=== PATIENT | male | born 1945 | race Caucasian/White ===

== ENCOUNTER → 2016-05-15 | Outpatient (CLI) | payer OTHER ==
[~2016-05-15] MED LIST: ALLO100T PO; AMLO5TAB2 PO; ASPI-482 PO; ATOR20TA58 PO; CHOL10003 PO; DICL75TA PO; DULO30CA2 PO; FENO145T2 PO; FLUT9.9S NS; HYDR-971 PO; LIDO700A4 TP; LISI1TAB7 PO; LORA1TAB PO; METH-38 PO; METO100T2 PO; MORP15TA3 PO; OXYC10TA PO; OXYC1TAB9 PO; [UNRECOGNIZED DRUG - CODE] PO
--- NOTE | 2016-05-15 23:48 | PAIN ---
DATE OF SERVICE: 05/15/2016 DIAGNOSES: Lumbar radiculopathy with lumbar spondylosis and post-lumbar laminectomy syndrome. HISTORY OF PRESENT ILLNESS: The patient is a 71-year-old male who returns for followup status post caudal epidural steroid injection x 3, most recently on 04/04/2016. The patient reports he did quite well after that about 50% improvement overall in the low back and right leg, but the pain is returning now over the past week or so in the low back, posterior gluteus, posterior thigh, lateral thigh, anterior thigh, medial thigh on the right side. The patient also having some significant difficulty with the pain in his hip and does have a superior labral tear and cyst in the right hip as well, which may need surgical attention and this appears to be favoring his right leg significantly which appears to be making his low back pain much worse and with more radiation to the right leg. The patient reports as a 3-4 on a scale of 10 currently, but it can be as high as a 9 or 10 depending on activity. He has tried doing physical therapy, he has tried doing some exercises and walking on his own, but the pain is too intense for him to complete any of this on a consistent basis. The patient reports no new bowel or bladder incontinence, no new motor or sensory deficits or other complaints. PHYSICAL EXAMINATION: VITAL SIGNS: The patient's blood pressure is 144/82, pulse 64, respirations 18, temperature 97.9 degrees Fahrenheit. Height 6 feet and weight is 250 pounds. GENERAL: The patient is awake, alert, oriented, appropriate, very pleasant demeanor. HEENT: Shows normocephalic, atraumatic. Extraocular movements are intact and symmetrical. Oral cavity shows mucous membranes are moist and pink. Dentition is intact. NECK: Shows anterior throat supple without palpable lymphadenopathy noted. Swallow reflex is symmetrical. Neck shows full rotation and motion of the cervical spine without difficulty. CHEST: Shows normal on inspection. Breath sounds are clear to auscultation bilaterally. HEART: Shows S1 and S2 clear. ABDOMEN: Obese, soft, nontender, nondistended. No palpable organomegaly is noted. BACK: Shows spine grossly in midline. Well healed surgical scar is noted in the lumbar distribution. Lumbar paraspinous muscle shows some moderate tenderness that is diffuse bilaterally in the middle and lower distribution of paraspinous musculature in the lumbar distribution, essentially equal right and left with normal muscle girth. No asymmetry or atrophy, or hypertrophy noted. No tenderness over the sacrum and sacroiliac regions. The patient shows good rotation and motion of the lumbar spine both laterally as well as extension and flexion. EXTREMITIES: Lower extremities show deep tendon reflexes 1+ in the patellar tendons. Motor exam is approximately 4 on a scale of 5 with right dorsiflexion, extension, quadriceps and hamstring flexion of 5/5 on the left. PLAN: Options were discussed with the patient. The patient's old chart was reviewed as his current medication regimen and updated. Current review of systems updated today as well. We will submit for additional caudal approach epidural steroid injection for the patient as he did very well with these initially. Also the patient will be checking to getting his right hip evaluated and hopefully treated as this appears to be significantly contributing to his low back pain and the persistence of it. The patient was given Medrol Dosepak with instructions, side effects to be aware of and will follow up after hip evaluation and we will submit for repeat caudal approach epidural steroid injection as he still has persistent radicular pain in the right leg. ANISH DELGADO MD DR: BREONNA/anna JOB#: [id number] / [id number]
== END | disposition home or self-care (01) ==
LOC: PNCL 09:53
PROVIDERS: ATTEND Anesthesiology
DX: M54.16 Radiculopathy, lumbar region (principal); M47.896 Other spondylosis, lumbar region; M96.1 Postlaminectomy syndrome, not elsewhere classified
CPT/HCPCS: 99212

== ENCOUNTER → 2016-08-24 | Outpatient (CLI) | payer MEDICARE, OTHER ==
[~2016-08-24] MED LIST changes: +IOHEXOL 180 MG/ML 10 ML VIAL. ONE; +methylPREDNISolone ACETATE 40 MG/ML VIAL. ONE; +methylPREDNISolone ACETATE 80 MG/ML VIAL. ONE
--- NOTE | 2016-08-24 22:07 | PAIN ---
DATE OF SERVICE: 08/24/2016 PROGRESS NOTE FOR PAIN CLINIC DIAGNOSES: Lumbar radiculopathy with lumbar spondylosis and post-lumbar laminectomy syndrome. HISTORY OF PRESENT ILLNESS: The patient is a 71-year-old male, who returns for followup status post previous caudal epidural steroid injections, last one was 04/04/2016. The patient had difficulty getting, is improved with his worker's compensation insurance; however, is no longer using this, returns today reporting significant pain in the low back, right lower extremity, mostly in the right posterior gluteus, posterior thigh, posterior knee, calf and into the lateral thigh as well on that side. The patient has also some groin pain with the right hip. He did have the x-ray of the right hip performed, which shows potential suggestive findings of femoroacetabular impingement that was again from 01/2016. The patient reports still some groin pain as well on the right side, worse with walking and standing. He relates a story about a week ago, he had several ____ with more than normal walking, but only for 2-3. stores, which was in and out and riding in a car and he was unable to bear weight and walk for almost 24 hours, following this difficulty sleeping, because of the pain in low back and right leg as well as send him back in about 1 day with the activity. The patient reports pain is anywhere from 3 to 10 on a scale of 10, worse with activity, standing, walking, better with sitting or lying down, most times, although the pain does awaken him from sleep occasionally as well. He has reposition every 2 hours ____. The patient reports no new motor or sensory deficits, no new bowel or bladder incontinence or other complaints. PHYSICAL EXAMINATION: VITAL SIGNS: The patient's blood pressure 111/71, pulse 64, respirations are 20, temperature is 98.1 degrees Fahrenheit. Height 6 feet, weight is 245 pounds. GENERAL: The patient is awake, alert, oriented, appropriate, very pleasant demeanor. HEENT: Head shows normocephalic, atraumatic. Extraocular movements are intact and symmetrical. The patient wears eye glasses. Oral cavity, mucous membranes are moist and pink. Dentition is intact. NECK: Shows anterior throat supple without palpable lymphadenopathy noted. Swallow reflex is symmetrical. CHEST: Shows normal on inspection. Breath sounds clear to auscultation bilaterally. HEART: Shows S1 and S2 clear. No murmur was auscultated. ABDOMEN: Obese, soft, nontender, nondistended. No palpable organomegaly. No rebound or guarding demonstrated. BACK: Shows spine grossly midline, well healed surgical scars again noted in the lumbar distribution. Lumbar paraspinous musculature shows some symmetry with the lumbar paraspinous muscles with palpation shows some moderate tenderness, but only diffusely throughout bilaterally. The patient shows no tenderness over the sacrum or sacroiliac regions. EXTREMITIES: Lower extremities show deep tendon reflexes at 1+ in the patellar and tendo calcaneus tendons are equal. Motor exam is approximately 4 on a scale of 5 with right dorsiflexion and extension and 5/5 on the left. Options were discussed with the patient and the patient's old chart was reviewed as his current medication regimen updated. Current review of systems updated today as well. We will proceed with a caudal approach epidural steroid injection today with fluoroscopic guidance as the first in this series. Risks were again discussed including, but not limited to bleeding, infection, possibility of epidural hematoma, subsequent neurologic compromise, dural punctures, headaches, spinal cord and/or nerve damage, side effects of steroid medication and poor results regarding pain control. The patient understands and wishes to proceed. The patient will return to clinic in approximately 2 weeks for followup, was counseled as to return appointment and activity level and side effects to be aware of. DIAGNOSES: Lumbar radiculopathy with lumbar spondylosis and post-lumbar laminectomy syndrome. PROCEDURE: Caudal approach epidural steroid injection using C-arm fluoroscopic guidance under sterile prep and drape using local anesthetic. MEDICATION INJECTED: Depo-Medrol 120 mg plus 10 mL of preservative-free normal saline and 2 mL of Isovue for contrast. CONDITION AT DISCHARGE: Stable. The patient tolerated procedure well, had no complications. ANISH DELGADO MD DR: BREONNA/anna JOB#: [id number] / [id number]
== END | disposition home or self-care (01) ==
LOC: PNCL 09:44
PROVIDERS: ATTEND Anesthesiology
DX: M47.26 Other spondylosis with radiculopathy, lumbar region (principal); M96.1 Postlaminectomy syndrome, not elsewhere classified
CPT/HCPCS: 62323; J1030; J1040

== ENCOUNTER → 2016-09-07 | Outpatient (CLI) | payer MEDICARE, OTHER ==
--- NOTE | 2016-09-08 01:27 | PAIN ---
DATE OF SERVICE: 09/07/2016 PROGRESS NOTE FOR PAIN CLINIC DIAGNOSES: Lumbar radiculopathy with lumbar spondylosis and lumbar post-laminectomy syndrome. HISTORY OF PRESENT ILLNESS: The patient is a 71-year-old male, who returns for followup status post caudal approach epidural steroid injection x 1. The patient reports about 70% improvement only for few days after the injection. The patient reports the pain returned fairly quickly in the low back and into the right lower extremity as it was previously. The patient reports it is a 10 on a scale of 10, it is worst, as 5 on a scale of 10, at least at 5 today. The patient reports cramping, stabbing, aching and sharp pain is severe, worse on the right side low back, posterior gluteus, posterior thigh, lateral thigh, anterior thigh, medial thigh, some on the left side as well across the back, but mostly in the right side. The patient reports worse with weightbearing, standing, walking, change the position. Awake it from sleep at night and he has repositioned, take pain medicine at night, etc. The patient reports no new motor or sensory deficits, no new bowel or bladder incontinence or other complaints. PHYSICAL EXAMINATION: VITAL SIGNS: Blood pressure is 128/78, pulse 56, respirations are 18, temperature 98.2 degrees Fahrenheit, height is 6 feet, weight 245 pounds. GENERAL: The patient is awake, alert, oriented, appropriate, very pleasant demeanor. HEENT: Shows normocephalic, atraumatic. Extraocular symmetrical. Oral cavity, mucous membranes are moist and pink. Dentition is intact. NECK: Shows anterior throat supple without palpable lymphadenopathy noted. Swallow reflex is symmetrical. CHEST: Shows normal on inspection. Breath sounds are clear to auscultation bilaterally. HEART: Shows S1 and S2 clear. No murmurs auscultated. ABDOMEN: Obese, soft, nontender, nondistended. No palpable organomegaly. No rebound or guarding demonstrated. BACK: Shows spine grossly midline ____ healed surgical scar noted in the lumbar distribution, some flattening of lumbar lordotic curvature on inspection. Lumbar paraspinous musculature shows some moderate tenderness with palpation in the lower lumbar distribution bilaterally, but only diffusely without atrophy, hypertrophy without radiation of pain. EXTREMITIES: Lower extremities show deep tendon reflexes at 1+ in the patellar and tendo calcaneus tendons are equal. Motor exam is approximately 5/5 on the left and 4/5 on the right with dorsiflexion, extension, quadriceps and hamstring flexion. Options were discussed with the patient and the patient's old chart was reviewed as his current medication regimen updated. Current review of systems updated today as well. We will proceed with the second caudal approach epidural steroid injection today with fluoroscopic guidance. Risks were again discussed including, but not limited to bleeding, infection, possibility of epidural hematoma, subsequent neurologic compromise, dural puncture, headaches, spinal cord and/or nerve damage, side effects of steroid medication and poor results regarding pain control. The patient understands and wishes to proceed. The patient will return to the clinic in approximately 2 weeks for followup, was counseled on return appointment, activity level and side effects to be aware of. DIAGNOSES: Lumbar radiculopathy with lumbar spondylosis and post-laminectomy syndrome. PROCEDURE: Caudal approach epidural steroid injection using C-arm fluoroscopic guidance under sterile prep and drape using local anesthetic. MEDICATION INJECTED: Depo-Medrol 120 mg plus 10 mL of preservative-free normal saline and 2 mL of Isovue for contrast. CONDITION AT DISCHARGE: Stable. The patient tolerated the procedure well, had no complications. ANISH DELGADO MD DR: BREONNA/nts JOB#: [id number] / [id number]
== END | disposition home or self-care (01) ==
LOC: PNCL 09:36
PROVIDERS: ATTEND Anesthesiology
DX: M47.26 Other spondylosis with radiculopathy, lumbar region (principal); M96.1 Postlaminectomy syndrome, not elsewhere classified
CPT/HCPCS: 62323; J1030; J1040

== ENCOUNTER → 2016-09-28 | Outpatient (CLI) | payer MEDICARE, OTHER ==
--- NOTE | 2016-09-29 02:38 | PAIN ---
DATE OF SERVICE: 09/28/2016 DIAGNOSES: Lumbar radiculopathy with lumbar spondylosis and post-lumbar laminectomy syndrome. HISTORY OF PRESENT ILLNESS: The patient is a 71-year-old male who returns for followup status post caudal approach epidural steroid injections x 2. The patient reports he has done about 20% improvement overall, still some significant pain in the low back and in the right lower extremity most significantly. The patient reports it as a 9 on a scale of 10, it is currently 3 on a scale of 10 today, reports no new motor or sensory deficits, no new bowel or bladder incontinence, but still significant pain in the low back and right leg. The patient reports it is worse with walking and standing, is waking him from sleep at night, it is noticeable with sitting or riding in a car for more than an hour or so, at night he has to reposition himself, get out of bed or change positions. The patient reports no new motor or sensory deficits, no new bowel or bladder incontinence, but still significant pain in the low back and right leg. PHYSICAL EXAMINATION: VITAL SIGNS: The patient's blood pressure 141/81, pulse 58, respirations are 18, temperature is 98.1 degrees Fahrenheit. Height 6 feet, weight is 250 pounds. GENERAL: The patient is awake, alert, oriented, appropriate, very pleasant demeanor. HEENT: Head shows normocephalic, atraumatic. Extraocular movements are intact and symmetrical. Oral cavity: Mucous membranes moist and pink. Dentition is intact. NECK: Shows anterior throat supple without palpable lymphadenopathy noted. Swallow reflex is symmetrical. CHEST: Shows normal on inspection. Breath sounds are clear to auscultation bilaterally. HEART: Shows S1 and S2 clear. ABDOMEN: Soft, nontender, nondistended, obese. No palpable organomegaly is noted. BACK: Shows spine grossly in the midline, some flattening of lumbar lordotic curvature. Well-healed surgical scar noted. Lumbar paraspinous muscle shows symmetrical on inspection with palpation shows some moderate tenderness bilaterally in the lumbar paraspinous muscles, but only diffusely without radiation. EXTREMITIES: The patient's lower extremities showed deep tendon reflexes at 1+ in the patellar and tendo calcaneus tendons are equal. Motor exam is approximately 4 on a scale of 5 on the right and 5/5 on the left with dorsiflexion and extension. Options were discussed with the patient and the patient's old chart was reviewed as his current medication regimen updated. Current review of systems updated today as well. We will proceed with a third in the series of caudal epidural steroid injection. Risks were again discussed including, but not limited to bleeding, infection, possibility of epidural hematoma, subsequent neurologic compromise, dural puncture, headaches, spinal cord and/or nerve damage, side effects of steroid medication and poor results regarding pain control. The patient understands and wishes to proceed. The patient will return to clinic in approximately 2 weeks for followup, was counseled on return appointment, activity level and side effects to be aware of. DIAGNOSES: Lumbar radiculopathy with lumbar spondylosis and post-lumbar laminectomy syndrome. PROCEDURE: Caudal approach epidural steroid injection with C-arm fluoroscopic guidance under sterile prep and drape and using local anesthetic. MEDICATIONS INJECTED: Is 120 mg Depo-Medrol plus 10 mL preservative-free normal saline and 2 mL of Isovue for contrast. CONDITION AT DISCHARGE: Stable. The patient tolerated the procedure well, had no complications. ANISH DELGADO MD DR: BREONNA/anna JOB#: [id number] / [id number]
== END | disposition home or self-care (01) ==
LOC: PNCL 09:34
PROVIDERS: ATTEND Anesthesiology
DX: M51.16 Intervertebral disc disorders with radiculopathy, lumbar region (principal); M96.1 Postlaminectomy syndrome, not elsewhere classified
CPT/HCPCS: 62323; J1030; J1040

== ENCOUNTER → 2016-12-05 | Outpatient (CLI) | payer MEDICARE, OTHER ==
[~2016-12-05] MED LIST changes: -IOHEXOL 180 MG/ML 10 ML VIAL. ONE; -methylPREDNISolone ACETATE 40 MG/ML VIAL. ONE; -methylPREDNISolone ACETATE 80 MG/ML VIAL. ONE
--- NOTE | 2016-12-05 14:01 | KCIC ---
INDICATION: COPD and short of air. TECHNIQUE: Two-view chest radiograph was obtained. No comparison is available. PA film was repeated. FINDINGS: There is mild hyperinflation with flattening of the diaphragm. There is no airspace disease. Calcified granuloma is noted on the right. The heart is not enlarged and there is no heart failure. There is no pleural effusion. There are minimal degenerative changes in the spine. IMPRESSION: No acute thoracic findings. Mild hyperinflation can be secondary to emphysema. Electronically signed by: Manpreet Elias MD (12/05/2016 1:57 PM) [facility]
== END | disposition home or self-care (01) ==
LOC: KCIC 13:40
PROVIDERS: ATTEND Family Medicine
DX: J44.9 Chronic obstructive pulmonary disease, unspecified (principal); J43.9 Emphysema, unspecified
CPT/HCPCS: 71020

== ENCOUNTER 2017-04-20 13:46 | Emergency (ER) | payer MEDICARE, OTHER ==
[2017-04-20 14:49] LABS: ADD MAN DIFF? NO
[2017-04-20 14:53] LABS: BASO # 0.1 x10^3/uL (0.0-0.2); BASO % 1 % (0-3); EOS % 4 % (0-3); HEMATOCRIT 41.7 % (39.0-53.0); HEMOGLOBIN 13.8 g/dL (13.0-17.5); LYMPH # 2.5 x10^3/uL (1.0-4.8); LYMPH % 31 % (24-48); MEAN CORPUSCULAR HEMOGLOBIN 31 pg (25-35); MEAN CORPUSCULAR HGB CONC 33 g/dL (31-37); MEAN CORPUSCULAR VOLUME 95 fL (79-100); MONO % 10 % (0-9); NEUT % 55 % (31-73); PLATELET COUNT 263 x10^3/uL (140-400); RED BLOOD COUNT 4.41 x10^6/uL (4.30-5.70); RED CELL DISTRIBUTION WIDTH 14.2 % (11.5-14.5); WHITE BLOOD COUNT 8.1 x10^3/uL (4.0-11.0)
[2017-04-20 15:06] LABS: ANION GAP 12 (6-14); BLOOD UREA NITROGEN 52 mg/dL (8-26); BUN/CREATININE RATIO 29 (6-20); CALCIUM 9.7 mg/dL (8.5-10.1); CARBON DIOXIDE 25 mmol/L (21-32); CHLORIDE 102 mmol/L (98-107); CREATININE 1.8 mg/dL (0.7-1.3); GFR 37.5; GLUCOSE 104 mg/dL (70-99); POTASSIUM 4.2 mmol/L (3.5-5.1); SODIUM 139 mmol/L (136-145)
[2017-04-20 15:12] LABS: ALK PHOS 50 U/L (46-116); ALT (SGPT) 25 U/L (16-63); AST (SGOT) 25 U/L (15-37); TOTAL BILIRUBIN 0.4 mg/dL (0.2-1.0); TOTAL PROTEIN 7.9 g/dL (6.4-8.2)
[2017-04-20 15:21] LABS: CKMB INDEX 0.9 % (0-4); CKMB MASS 1.4 ng/mL (0.0-3.6); CREATINE KINASE 152 U/L (39-308)
[2017-04-20 15:21] LABS: TROPONINI < 0.017 ng/mL (0.000-0.055)
== END 2017-04-20 17:10 | disposition home or self-care (01) ==
LOC: ER 13:46
DX: R14.1 Gas pain (principal); K59.00 Constipation, unspecified; I10 Essential (primary) hypertension; K21.9 Gastro-esophageal reflux disease without esophagitis; E78.00 Pure hypercholesterolemia, unspecified; G89.29 Other chronic pain; J44.9 Chronic obstructive pulmonary disease, unspecified; Z95.5 Presence of coronary angioplasty implant and graft
CPT/HCPCS: 36415; 71010; 74176; 80053; 82553; 84484; 85025; 93005; 99285-25

== ENCOUNTER 2017-05-20 05:50 | Emergency (ER) | payer MEDICARE, OTHER ==
[2017-05-20 06:25] LABS: ADD MAN DIFF? NO
[2017-05-20 06:40] LABS: ANION GAP 9 (6-14); BLOOD UREA NITROGEN 52 mg/dL (8-26); BUN/CREATININE RATIO 29 (6-20); CALCIUM 10.3 mg/dL (8.5-10.1); CARBON DIOXIDE 26 mmol/L (21-32); CHLORIDE 100 mmol/L (98-107); CREATININE 1.8 mg/dL (0.7-1.3); GFR 37.5; GLUCOSE 126 mg/dL (70-99); POTASSIUM 4.1 mmol/L (3.5-5.1); SODIUM 135 mmol/L (136-145)
[2017-05-20 06:45] LABS: BASO # 0.1 x10^3/uL (0.0-0.2); BASO % 1 % (0-3); EOS # 0.3 x10^3/uL (0.0-0.7); EOS % 5 % (0-3); HEMATOCRIT 40.2 % (39.0-53.0); HEMOGLOBIN 13.3 g/dL (13.0-17.5); LYMPH # 2.7 x10^3/uL (1.0-4.8); LYMPH % 36 % (24-48); MEAN CORPUSCULAR HEMOGLOBIN 31 pg (25-35); MEAN CORPUSCULAR HGB CONC 33 g/dL (31-37); MEAN CORPUSCULAR VOLUME 94 fL (79-100); MONO # 0.9 x10^3/uL (0.0-1.1); MONO % 13 % (0-9); NEUT # 3.4 x10^3uL (1.8-7.7); NEUT % 46 % (31-73); PLATELET COUNT 241 x10^3/uL (140-400); RED BLOOD COUNT 4.26 x10^6/uL (4.30-5.70); RED CELL DISTRIBUTION WIDTH 14.6 % (11.5-14.5); WHITE BLOOD COUNT 7.4 x10^3/uL (4.0-11.0)
[2017-05-20 06:46] LABS: ALBUMIN 3.9 g/dL (3.4-5.0); ALK PHOS 51 U/L (46-116); ALT (SGPT) 29 U/L (16-63); AST (SGOT) 25 U/L (15-37); LIPASE 255 U/L (73-393); TOTAL BILIRUBIN 0.4 mg/dL (0.2-1.0); TOTAL PROTEIN 7.7 g/dL (6.4-8.2)
[2017-05-20 06:52] LABS: NT-PRO BNP 120 pg/mL (0-124)
[2017-05-20 07:54] LABS: TROPONINI < 0.017 ng/mL (0.000-0.055)
[2017-05-20] MEDS: LIDO:MAALOX:DONNATAL 1:1:1 15 ML SINGLE DOSE SWSW ×2 (08:07)
== END 2017-05-20 09:10 | disposition home or self-care (01) ==
LOC: ER 05:50
DX: R06.00 Dyspnea, unspecified (principal); R11.10 Vomiting, unspecified; R14.0 Abdominal distension (gaseous); I10 Essential (primary) hypertension; E78.00 Pure hypercholesterolemia, unspecified; J44.9 Chronic obstructive pulmonary disease, unspecified; K21.9 Gastro-esophageal reflux disease without esophagitis; G89.29 Other chronic pain; Z95.5 Presence of coronary angioplasty implant and graft
CPT/HCPCS: 36415; 71046; 80053; 83690; 83880; 84484; 85025; 93005; 99285-25

== ENCOUNTER → 2017-06-04 | Outpatient (CLI) | payer MEDICARE, OTHER | END | disposition home or self-care (01) | LOC: KCIC CT 11:49 | DX: J84.10 Pulmonary fibrosis, unspecified (principal); J43.2 Centrilobular emphysema; I51.7 Cardiomegaly; I70.0 Atherosclerosis of aorta | CPT/HCPCS: 71250 ==

== ENCOUNTER → 2017-10-11 | Outpatient (CLI) | payer MEDICARE, OTHER | END | disposition home or self-care (01) | LOC: KCIC 10:55 | DX: J84.10 Pulmonary fibrosis, unspecified (principal); I10 Essential (primary) hypertension; E78.00 Pure hypercholesterolemia, unspecified | CPT/HCPCS: 71046 ==

== ENCOUNTER → 2017-11-26 | Outpatient (CLI) | payer MEDICARE, OTHER ==
[2017-11-26 09:59] LABS: ADD MAN DIFF? NO
[2017-11-26 10:09] LABS: BASO # 0.1 x10^3/uL (0.0-0.2); BASO % 1 % (0-3); EOS # 0.3 x10^3/uL (0.0-0.7); EOS % 4 % (0-3); HEMATOCRIT 44.2 % (39.0-53.0); LYMPH # 2.2 x10^3/uL (1.0-4.8); LYMPH % 32 % (24-48); MEAN CORPUSCULAR HEMOGLOBIN 33 pg (25-35); MEAN CORPUSCULAR HGB CONC 34 g/dL (31-37); MEAN CORPUSCULAR VOLUME 96 fL (79-100); MONO # 0.7 x10^3/uL (0.0-1.1); MONO % 10 % (0-9); NEUT # 3.7 x10^3uL (1.8-7.7); NEUT % 53 % (31-73); PLATELET COUNT 205 x10^3/uL (140-400); RED BLOOD COUNT 4.58 x10^6/uL (4.30-5.70); RED CELL DISTRIBUTION WIDTH 15.4 % (11.5-14.5)
[2017-11-26 10:25] LABS: ALBUMIN 3.6 g/dL (3.4-5.0); ANION GAP 9 (6-14); BLOOD UREA NITROGEN 26 mg/dL (8-26); CALCIUM 9.3 mg/dL (8.5-10.1); CARBON DIOXIDE 29 mmol/L (21-32); CHLORIDE 105 mmol/L (98-107); CREATININE 1.2 mg/dL (0.7-1.3); GFR 59.9; GLUCOSE 91 mg/dL (70-99); POTASSIUM 4.7 mmol/L (3.5-5.1); SODIUM 143 mmol/L (136-145)
[2017-11-26 10:27] LABS: PARTIAL THROMBOPLASTIN TIME 26 SEC (24-38); PROTHROMBIN TIME PATIENT 12.7 SEC (11.7-14.0)
[2017-11-26 11:31] LABS: SEDIMENTATION RATE 11 (0-15)
[2017-11-26 13:09] LABS: BILIRUBIN,URINE SMALL (NEG); CLARITY,URINE CLEAR; COLOR,URINE AMBER; GLUCOSE,URINE NEGATIVE (NEG); NITRITE,URINE NEGATIVE (NEG); PROTEIN,URINE NEGATIVE (NEG-TRACE); UROBILINOGEN,URINE 0.2 mg/dL (0.2 mg/dL)
[2017-11-26 13:19] LABS: BACTERIA,URINE FEW /HPF (0-FEW); HYALINE CASTS, URINE MANY /HPF; RBC,URINE 0 /HPF (0-2)
[2017-11-26 23:11] LABS: MRSA BY PCR Negative (Negative)
== END | disposition home or self-care (01) ==
LOC: SURGPAT 12:45
DX: I21.9 Acute myocardial infarction, unspecified (principal); I10 Essential (primary) hypertension; J44.9 Chronic obstructive pulmonary disease, unspecified; Z79.899 Other long term (current) drug therapy
CPT/HCPCS: 36415; 71046; 80048; 81001; 82040; 85025; 85610; 85651; 85730; 87086; 87641; 93005

== ENCOUNTER 2017-12-11 08:07 | Inpatient (IN) | payer MEDICARE, OTHER ==
[~2017-12-11] VITALS: Ht 182.9 cm; Wt 118.8 kg
[2017-12-11] VITALS (11 sets, daily range): BP systolic 113–172; BP diastolic 61–83
[~2017-12-11 08:07] MED LIST changes: +CRESTOR40 MG PO; -FENO145T2 PO; +FENO145T30 PO; +HYDROcodone/APAP 7.5/325MG 1 TAB TABLET PO PRN; +HYDROmorphone 2 MG/ML VIAL IV PRN; +LIDOCAINE 1% PF 2 ML VIAL. ID PRN; +LISI-334 PO; +MELO15TA23 PO; +MELOXICAM 7.5 MG TABLET PO PRN; +METO-247 PO; -METO100T2 PO; +METO100T7 PO; +OMEP40CA5 PO; +ONDANSETRON PF 4 MG/2 ML VIAL. IV PRN; +OXYC-411 PO; -OXYC1TAB9 PO; +PHEN16.287 PO; +POLY17PO29 PO; +TIOT18CA IH; +TRANEXAMIC ACID 1,000 MG in IV NS 50ML -- 1ST BAG INJ ONE; +TRANEXAMIC ACID 1,000 MG in IV NS 50ML -- 2ND BAG INJ ONE; +VENTOLIN HFA18 GM INH; +fentaNYL PF VIAL 100 MCG/2 ML VIAL IV PRN
[2017-12-11] MEDS ORDERED: ePHEDrine PF IN SALINE 50 MG/5 ML DISP.SYRIN IV ONE (08:35)
[2017-12-11] MEDS ORDERED: ROCURONIUM 50 MG/5 ML VIAL. ONE ×2 (08:37→10:13)
[2017-12-11] MEDS ORDERED: SUCCINYLCHOLINE 200 MG/10 ML VIAL. ONE (08:37)
[2017-12-11] MEDS ORDERED: fentaNYL PF VIAL 100 MCG/2 ML VIAL ONE ×3 (08:38→10:08)
[2017-12-11] MEDS ORDERED: oxyCODONE IR 5 MG TABLET ONE ×3 (09:00→12:42)
[2017-12-11 09:06] LABS: PROTHROMBIN TIME PATIENT 12.9 SEC (11.7-14.0)
[2017-12-11] MEDS ORDERED: PROPOFOL 20 ML IV ONE (09:34)
[2017-12-11] MEDS ORDERED: LIDOCAINE 2% PF Vial for OR 5 ML VIAL. ONE (09:34)
[2017-12-11] MEDS ORDERED: DEXAMETHASONE SOD PHOS 20 MG/5 ML VIAL. ONE (09:34)
[2017-12-11] MEDS ORDERED: ONDANSETRON PF 4 MG/2 ML VIAL. ONE (09:35)
--- NOTE | 2017-12-11 09:57 | PREOP HP ---
DATE OF SERVICE: 12/11/2017 REASON FOR CONSULTATION: Right hip pain. HISTORY OF PRESENT ILLNESS: The patient is a 72-year-old male that has had right-sided hip pain since about 2013, stemming from a work incident. He subsequently underwent back surgery and has ongoing right hip pain. He has right groin pain radiating into the right upper thigh and more recently has become so severe that he uses a walker for support because it severely affects his activities of daily living. He had undergone intra-articular injection in the past that was really painful and did not help. PAST MEDICAL HISTORY: Significant for coronary artery disease, hypertension, hyperlipidemia, cervical radiculopathy, anxiety, erectile dysfunction, gout, spinal stenosis, diastolic dysfunction. He had a past medical history significant for LA in 2002. PAST SURGICAL HISTORY: Three separate hernia repairs, colonoscopy, previous knee surgeries, rotator cuff repair and TLIF surgery of his back. FAMILY HISTORY: Significant for lymphoma in his mother, heart disease in his dad. SOCIAL HISTORY: He was a smoker and quit in 2012. Occasional alcohol use. Denies drug use. He is and has a daughter with him today. MEDICATIONS: List is reviewed. ALLERGIES: He has no known drug allergies. REVIEW OF SYSTEMS: No recent chest pain, shortness of breath, fever, chills, constitutional symptoms, mainly significant for the right hip pain. PHYSICAL EXAMINATION: VITAL SIGNS: Per his admission sheet. HEENT: Atraumatic, normocephalic. HEART: Regular rate and rhythm. LUNGS: Clear to auscultation bilaterally. ABDOMEN: Benign. EXTREMITIES: Examination of the right hip reveals pain limited extremes of range of motion. Normal examination of the contralateral hip. Well-healed incisions on both knees, normal alignment, stability of bilateral knees and ankles. IMAGING: X-rays show severe degenerative disease in his right hip. IMPRESSION: Right hip degenerative joint disease. TREATMENT PLAN: I went over with him previous options, and he has already really failed nonoperative options of activity modification, use of a walker, and we have previously talked through risks, benefits, postoperative course of total hip arthroplasty, possibility of leg length inequality, infection, premature wear or loosening, nerve or blood vessel damage, medical or other anesthetic complications among others. All his questions were answered. He wishes to proceed with total hip arthroplasty today and [facility] admission to follow. MARTHA VARGAS MD DR: DAVID/anna JOB#: [id number] / [id number]
[2017-12-11] MEDS: MORPHINE SULFATE 5 MG, KETOROLAC 30MG VIAL 30 MG, ROPIVacaine 0.5% PF 60 ML, EPINEPHrin... INT ART ONE ×10 (09:59→10:46)
[2017-12-11] MEDS ORDERED: GLYCOPYRROLATE 1 MG/5 ML VIAL. ONE (10:14)
[2017-12-11] MEDS ORDERED: NEOSTIGMINE METHYLSULFATE 5 MG/5 ML SYRINGE. ONE (10:14)
[2017-12-11] MEDS: PROCHLORPERAZINE 10 MG/2 ML VIAL. IV PRN ×2 (11:30→11:44)
[2017-12-11] MEDS: MORPHINE SULFATE 2 MG/ML VIAL. IV PRN ×2 (11:31→11:43)
[2017-12-11] MEDS: fentaNYL PF VIAL 100 MCG/2 ML VIAL IV PRN ×2 (11:32→11:42)
[2017-12-11] MEDS: IV RINGERS,LACTATED 1000ML 1,000 ML IV SCH ×2 (11:33→11:40)
[2017-12-11] MEDS ORDERED: ACETAMINOPHEN 325 MG TABLET. PO PRN (12:30)
[2017-12-11] MEDS ORDERED: diphenhydrAMINE 50 MG/ML VIAL IV PRN (12:30)
[2017-12-11] MEDS ORDERED: HYDROcodone/APAP 10/325 1 TAB TABLET PO PRN (12:30)
[2017-12-11] MEDS ORDERED: MORPHINE SULFATE 2 MG/ML VIAL. IV PRN (12:30)
[2017-12-11] MEDS ORDERED: CALCIUM CARBONATE 500 MG TAB.CHEW PO PRN (12:30)
[2017-12-11] MEDS ORDERED: 0.9 % SODIUM CHLORIDE 10 ML DISP.SYRIN. IV PRN (12:30)
[2017-12-11] MEDS ORDERED: HYOSCY PO PRN (12:30)
[2017-12-11] MEDS ORDERED: traMADol 50 MG TABLET PO PRN ×2 (12:30)
[2017-12-11] MEDS ORDERED: HYDROcodone/APAP 7.5/325MG 1 TAB TABLET PO PRN (12:30)
[2017-12-11] MEDS ORDERED: ATROPINE PO PRN (12:30)
[2017-12-11] MEDS ORDERED: MORPHINE SULFATE 4 MG/ML VIAL. IV PRN ×2 (12:30)
[2017-12-11] MEDS ORDERED: fentaNYL PF VIAL 100 MCG/2 ML VIAL IV PRN ×2 (12:30)
[2017-12-11] MEDS ORDERED: SCOP PO PRN (12:30)
[2017-12-11] MEDS ORDERED: PHENOBARB PO PRN (12:30)
[2017-12-11] MEDS ORDERED: PROCHLORPERAZINE 10 MG/2 ML VIAL. IV PRN (12:30)
[2017-12-11] MEDS ORDERED: DEXTROSE 50% 25 GM / 50ML DISP.SYRIN. IV PRN (12:30)
[2017-12-11] MEDS ORDERED: ZOLPIDEM 5 MG TABLET. PO PRN (12:30)
[2017-12-11] MEDS ORDERED: oxyCODONE/APAP 5/325 1 TAB TABLET PO PRN (12:30)
[2017-12-11] MEDS ORDERED: MORPHINE SULFATE 10 MG/ML VIAL. IV PRN (12:30)
[2017-12-11] MEDS ORDERED: ALBUTEROL SULFATE 2.5 MG/3 ML NEBU. NEB ONE (12:30)
--- NOTE | 2017-12-11 12:56 | RAD ---
EXAM: Pelvis, single view. HISTORY: Arthroplasty. COMPARISON: None. FINDINGS: Frontal views of the pelvis are obtained. There is a right hip arthroplasty in expected position. There is surrounding soft tissue gas and there are skin nikita due to recent surgery. There is instrumented fusion at the lower lumbar levels, partially included on the [id number]. IMPRESSION: Right hip arthroplasty in expected position. Electronically signed by: Samantha Rodriguez MD (12/11/2017 12:53 PM) [place] [id number]
[2017-12-11] MEDS ORDERED: FLUTICASONE 50MCG/NASAL SPRAY 16GM BOTTLE. NS PRN (14:00)
[2017-12-11] MEDS: IV DEXTROSE 5 %-0.45 % NACL 1,000 ML IV SCH (15:00)
[2017-12-11] MEDS: PANTOPRAZOLE 40 MG TABLET.DR. PO SCH (15:26)
[2017-12-11] MEDS: oxyCODONE IR 5 MG TABLET PO PRN ×2 (15:28→21:05)
[2017-12-11] MEDS: ALBUTEROL SULFATE 2.5 MG/3 ML NEBU. NEB SCH ×2 (16:00→20:00)
[2017-12-11] MEDS ORDERED: WARFARIN 7.5 MG TABLET. PO ONE (16:00)
[2017-12-11] MEDS: IPRATRPIUM/ALBUTEROL 0.5/2.5MG 3 ML NEBU. NEB SCH ×2 (16:11→19:33)
[2017-12-11] MEDS: KETOROLAC 30MG VIAL 30 MG, BUPIVACAINE MPF 0.25% 20 ML, EPINEPHrine 0.5 MG in TOTAL VOL... INT ART SCH (16:31)
[2017-12-11] MEDS: FERROUS SULFATE 325 MG TABLET. PO SCH (16:32)
--- NOTE | 2017-12-11 17:08 | PDOC4 ---
Operative Note Operative Note Date of surgery: 12/11/2017 Preoperative diagnosis: Degenerative joint disease right hip Postoperative diagnosis: Same Operative procedure: Right total hip arthroplasty. Surgeon: Sourav Assist: Ten Anesthesia: Gen. Estimated blood loss: 400 mL Complications: None Operative indications: Mr. Marlow is a 72-year-old male who had progressive worsening hip pain stemming from a 2014 injury and was thought to have posttraumatic arthritis as a result. Details are in my preoperative evaluation but indicates that he has failed nonoperative treatment and wishes to proceed with total hip arthroplasty. We had covered risks benefits postoperative course including the possibility of infection leg length inequality nerve or blood vessel damage premature wear or loosening instability ankle or other anesthetic complications among others all his questions were answered regarding the surgery and recovery process and he wishes to proceed with surgical evaluation and treatment. Operative text: Patient was identified procedure verified patient placed in the supine position on the operating table. After adequate amounts of general anesthesia were administered he was placed in the decubitus position using the Stulberg hip positioner with his right side up. The right hip was then prepped and draped in standard sterile fashion and after timeout was performed patient procedure identified and verified a standard posterior approach was carried out to the right hip with a curvilinear incision made over the greater trochanter iliotibial band and gluteal fascia were split in line with their fibers Charnley retractor was placed external rotators were detached from their insertion hip capsule was split in a T fashion and the hip was dislocated femoral neck cut was made and femoral head was noted to be severely degenerative and sent for pathologic evaluation. Acetabulum was exposed and contents of the fovea were removed successive size reaming was carried up up to a size 57 with a 58 mm cluster hole hemispherical coated acetabular cup. Excellent scratch fit was obtained and a superior screw was used to supplement fixation. A size 40 inner diameter standard liner was impacted into place successive size broaching was carried out initially for the SMF stem however adequate leg length was not obtained per the initial templating and I switched over to the Synergy press-fit stem which was trial fit with a size 13 broach and a +8 mm trial which resulted in excellent stability and reproduction of his leg length and offset. Trial components were removed and after thorough irrigation carried out normal saline solution a size 13 synergy porous coated femoral component was inserted in proper version with a +8 mm sleeve and a 40 mm cobalt chrome femoral head that were all impacted to engage the Kc taper construct. Hip was reduced and noted to have equivalent leg length offset and excellent stability. Thorough irrigation again carried out normal saline solution hip capsule was repaired with #5 Ethibond suture external rotators were reattached transosseously with #5 Ethibond Hemovac drain and pain catheter were placed pain catheter mixture was injected throughout the joint capsule and surrounding areas fascia was closed with #1 PDS strata fix suture in a running position. Subcutaneous closure with buried Vicryl suture skin closure with nikita sterile dressings were applied consisting of a abraham dressing and Acticoat. Patient was returned to recovery room in stable condition having tolerated procedure well MARTHA VARGAS MD Dec 11, 2017 17:08
[2017-12-11] MEDS: oxyCODONE ER 10 MG TAB.ER.12H PO SCH (17:20)
[2017-12-11] MEDS: ATORVASTATIN CALCIUM 40 MG TABLET. PO SCH (21:03)
[2017-12-11] MEDS: CELECOXIB 100 MG CAPSULE. PO SCH (21:04)
[2017-12-11] MEDS: LORazepam 1 MG TABLET PO PRN (21:09)
[2017-12-12] MEDS: IV DEXTROSE 5 %-0.45 % NACL 1,000 ML IV SCH ×3 (01:00→20:30)
[2017-12-12 03:09] VITALS: BP 137/86
[2017-12-12] MEDS: ALBUTEROL SULFATE 2.5 MG/3 ML NEBU. NEB SCH ×2 (04:00)
[2017-12-12] MEDS: KETOROLAC 30MG VIAL 30 MG, BUPIVACAINE MPF 0.25% 20 ML, EPINEPHrine 0.5 MG in TOTAL VOL... INT ART SCH (04:55)
[2017-12-12] MEDS: PANTOPRAZOLE 40 MG TABLET.DR. PO SCH (05:01)
[2017-12-12] MEDS: oxyCODONE IR 5 MG TABLET PO PRN ×3 (05:02→16:12)
[2017-12-12 05:16] LABS: HEMATOCRIT 36.5 % (39.0-53.0); HEMOGLOBIN 12.3 g/dL (13.0-17.5); RED BLOOD COUNT 3.76 x10^6/uL (4.30-5.70); RED CELL DISTRIBUTION WIDTH 15.2 % (11.5-14.5); WHITE BLOOD COUNT 12.4 x10^3/uL (4.0-11.0)
[2017-12-12 05:22] LABS: PROTHROMBIN TIME PATIENT 15.1 SEC (11.7-14.0)
[2017-12-12] MEDS ORDERED: MAGNESIUM HYDROXIDE 2,400 MG/30 ML ORAL.SUSP. PO PRN (06:00)
[2017-12-12 07:06] VITALS: BP 131/77
--- NOTE | 2017-12-12 07:36 | PDOC ---
ORTHO PROGRESS NOTES Subjective Patient with difficulty sleeping and painful. Post-op Day: 1 Procedure R WILLIAM Vitals Vital Signs Date Time Temp Pulse Resp B/P (MAP) Pulse Ox O2 Delivery O2 Flow Rate FiO2 12/12/17 07:06 98.0 89 20 131/77 (95) 91 Nasal Cannula 4.0 98.0 Labs Laboratory Tests Test 12/11/17 08:40 12/12/17 03:20 Prothrombin Time 12.9 SEC (11.7-14.0) 15.1 SEC (11.7-14.0) Prothromb Time International Ratio 1.0 (0.8-1.1) 1.2 (0.8-1.1) Activated Partial Thromboplast Time 25 SEC (24-38) White Blood Count 12.4 x10^3/uL (4.0-11.0) Red Blood Count 3.76 x10^6/uL (4.30-5.70) Hemoglobin 12.3 g/dL (13.0-17.5) Hematocrit 36.5 % (39.0-53.0) Mean Corpuscular Volume 97 fL (79-100) Mean Corpuscular Hemoglobin 33 pg (25-35) Mean Corpuscular Hemoglobin Concent 34 g/dL (31-37) Red Cell Distribution Width 15.2 % (11.5-14.5) Platelet Count 175 x10^3/uL (140-400) Laboratory Tests Test 12/11/17 08:40 12/12/17 03:20 Prothrombin Time 12.9 SEC (11.7-14.0) 15.1 SEC (11.7-14.0) Prothromb Time International Ratio 1.0 (0.8-1.1) 1.2 (0.8-1.1) Activated Partial Thromboplast Time 25 SEC (24-38) White Blood Count 12.4 x10^3/uL (4.0-11.0) Red Blood Count 3.76 x10^6/uL (4.30-5.70) Hemoglobin 12.3 g/dL (13.0-17.5) Hematocrit 36.5 % (39.0-53.0) Mean Corpuscular Volume 97 fL (79-100) Mean Corpuscular Hemoglobin 33 pg (25-35) Mean Corpuscular Hemoglobin Concent 34 g/dL (31-37) Red Cell Distribution Width 15.2 % (11.5-14.5) Platelet Count 175 x10^3/uL (140-400) Assessment and Plan Patient states pain control somewhat better. Dressing dry and intact n/v intact distally O2 per nasal cannula PT per protocol. SONIA CEE APRN Dec 12, 2017 07:36
[2017-12-12] MEDS: IPRATRPIUM/ALBUTEROL 0.5/2.5MG 3 ML NEBU. NEB SCH ×4 (08:00→21:20)
[2017-12-12] MEDS: SENNOSIDES/DOCUSATE 8.6/50MG TABLET. PO SCH (08:14)
[2017-12-12] MEDS: CELECOXIB 100 MG CAPSULE. PO SCH ×2 (08:14→20:28)
[2017-12-12] MEDS: DULoxetine HCL 30 MG CAPSULE.DR PO SCH (08:14)
[2017-12-12] MEDS: ASPIRIN ENTERIC COATED 81 MG TABLET.DR. PO SCH (08:15)
[2017-12-12] MEDS: METHOCARBAMOL 750 MG TABLET PO PRN ×2 (08:15→14:40)
[2017-12-12] MEDS: METOPROLOL SUCC 24HR ER 100 MG TAB.ER.24H. PO SCH (08:15)
[2017-12-12] MEDS: FERROUS SULFATE 325 MG TABLET. PO SCH ×2 (08:15→16:12)
[2017-12-12] MEDS: MULTIVITAMIN with MINERAL TABLET. PO SCH (08:16)
[2017-12-12] MEDS: POLYETHYLENE GLYCOL 3350 17 GM PACKET. PO SCH (08:21)
[2017-12-12] MEDS: oxyCODONE/APAP 7.5/325 1 TAB TABLET PO PRN ×4 (08:21→20:29)
[2017-12-12] MEDS ORDERED: oxyCODONE IR 5 MG TABLET ONE ×3 (09:00)
[2017-12-12 09:58] VITALS: BP 137/64
[2017-12-12] MEDS: amLODIPine BESYLATE 5 MG TABLET PO SCH (10:01)
[2017-12-12 11:30] VITALS: BP 137/64
[2017-12-12] MEDS: LISINOPRIL 20 MG TABLET PO SCH (12:53)
[2017-12-12] MEDS ORDERED: BISACODYL 10 MG SUPP.RECT. PR PRN (16:00)
[2017-12-12] MEDS ORDERED: WARFARIN 5 MG TABLET. PO ONE (16:00)
[2017-12-12] MEDS: oxyCODONE ER 10 MG TAB.ER.12H PO SCH (17:06)
[2017-12-12 17:28] VITALS: BP 122/77
[2017-12-12] MEDS: ATORVASTATIN CALCIUM 40 MG TABLET. PO SCH (20:28)
[2017-12-12] MEDS: LORazepam 1 MG TABLET PO PRN (20:29)
[2017-12-13 04:35] LABS: HEMATOCRIT 34.2 % (39.0-53.0); HEMOGLOBIN 11.6 g/dL (13.0-17.5)
[2017-12-13 05:01] LABS: PROTHROMBIN TIME PATIENT 21.6 SEC (11.7-14.0)
[2017-12-13] MEDS: oxyCODONE/APAP 7.5/325 1 TAB TABLET PO PRN ×5 (05:21→21:12)
[2017-12-13] MEDS: POLYETHYLENE GLYCOL 3350 17 GM PACKET. PO SCH (05:33)
[2017-12-13 05:45] VITALS: BP 132/71
[2017-12-13] MEDS: IV DEXTROSE 5 %-0.45 % NACL 1,000 ML IV SCH ×2 (07:00→17:00)
--- NOTE | 2017-12-13 07:36 | PDOC ---
PROGRESS NOTES Subjective Subjective Problems overnight: Doing very well yesterday with physical therapy a bit more sore this morning, trying to cut down on some his chronic pain medications that he had preoperatively Objective Vital Signs Vital Signs Date Time Temp Pulse Resp B/P (MAP) Pulse Ox O2 Delivery O2 Flow Rate FiO2 12/13/17 05:45 98.6 77 20 132/71 (91) 88 Room Air 98.6 12/12/17 20:29 2.0 Physical Exam On examination abraham dressing is intact leg lengths equal distal neurovascular status intact Labs Laboratory Tests Test 12/11/17 08:40 12/12/17 03:20 12/13/17 04:20 Prothrombin Time 12.9 SEC (11.7-14.0) 15.1 SEC (11.7-14.0) 21.6 SEC (11.7-14.0) Prothromb Time International Ratio 1.0 (0.8-1.1) 1.2 (0.8-1.1) 2.0 (0.8-1.1) Activated Partial Thromboplast Time 25 SEC (24-38) White Blood Count 12.4 x10^3/uL (4.0-11.0) Red Blood Count 3.76 x10^6/uL (4.30-5.70) Hemoglobin 12.3 g/dL (13.0-17.5) 11.6 g/dL (13.0-17.5) Hematocrit 36.5 % (39.0-53.0) 34.2 % (39.0-53.0) Mean Corpuscular Volume 97 fL (79-100) Mean Corpuscular Hemoglobin 33 pg (25-35) Mean Corpuscular Hemoglobin Concent 34 g/dL (31-37) 34 g/dL (31-37) Red Cell Distribution Width 15.2 % (11.5-14.5) Platelet Count 175 x10^3/uL (140-400) Laboratory Tests Test 12/13/17 04:20 Hemoglobin 11.6 g/dL (13.0-17.5) Hematocrit 34.2 % (39.0-53.0) Mean Corpuscular Hemoglobin Concent 34 g/dL (31-37) Prothrombin Time 21.6 SEC (11.7-14.0) Prothromb Time International Ratio 2.0 (0.8-1.1) Assessment Assessment POD# [2], S/P [total hip arthroplasty] Problems: Plan Plan of Care Continue physical therapy with standard total hip precautions Plan home with home health on discharge Continue to adjust pain medication MARTHA VARGAS MD Dec 13, 2017 07:36
[2017-12-13] MEDS: PANTOPRAZOLE 40 MG TABLET.DR. PO SCH (07:49)
[2017-12-13] MEDS: IPRATRPIUM/ALBUTEROL 0.5/2.5MG 3 ML NEBU. NEB SCH ×4 (08:29→20:49)
[2017-12-13] MEDS: DULoxetine HCL 30 MG CAPSULE.DR PO SCH (08:36)
[2017-12-13] MEDS: ASPIRIN ENTERIC COATED 81 MG TABLET.DR. PO SCH (08:36)
[2017-12-13] MEDS: CELECOXIB 100 MG CAPSULE. PO SCH ×2 (08:36→21:12)
[2017-12-13] MEDS: SENNOSIDES/DOCUSATE 8.6/50MG TABLET. PO SCH (08:36)
[2017-12-13] MEDS: FERROUS SULFATE 325 MG TABLET. PO SCH ×2 (08:36→16:34)
[2017-12-13] MEDS: MULTIVITAMIN with MINERAL TABLET. PO SCH (08:39)
[2017-12-13] MEDS: LISINOPRIL 20 MG TABLET PO SCH (11:52)
[2017-12-13] MEDS: METOPROLOL SUCC 24HR ER 100 MG TAB.ER.24H. PO SCH (11:53)
[2017-12-13] MEDS: amLODIPine BESYLATE 5 MG TABLET PO SCH (11:53)
[2017-12-13 11:54] VITALS: BP 137/65
[2017-12-13] MEDS ORDERED: WARFARIN 1 MG TABLET. PO ONE (16:00)
[2017-12-13] MEDS: oxyCODONE ER 10 MG TAB.ER.12H PO SCH (18:11)
[2017-12-13 18:20] VITALS: BP 118/58
[2017-12-13] MEDS ORDERED: ALBUTEROL SULFATE 2.5 MG/3 ML NEBU. NEB PRN (20:00)
[2017-12-13] MEDS: ATORVASTATIN CALCIUM 40 MG TABLET. PO SCH (21:12)
[2017-12-14] MEDS: oxyCODONE/APAP 7.5/325 1 TAB TABLET PO PRN ×4 (00:47→14:55)
[2017-12-14] MEDS: IV DEXTROSE 5 %-0.45 % NACL 1,000 ML IV SCH (03:00)
[2017-12-14 04:20] LABS: HEMATOCRIT 35.1 % (39.0-53.0); HEMOGLOBIN 12.1 g/dL (13.0-17.5)
[2017-12-14 04:27] LABS: PROTHROMBIN TIME PATIENT 19.4 SEC (11.7-14.0)
[2017-12-14] MEDS: PANTOPRAZOLE 40 MG TABLET.DR. PO SCH (05:57)
[2017-12-14 06:25] VITALS: BP 110/71
[2017-12-14] MEDS: IPRATRPIUM/ALBUTEROL 0.5/2.5MG 3 ML NEBU. NEB SCH ×2 (07:51→12:17)
[2017-12-14] MEDS: SENNOSIDES/DOCUSATE 8.6/50MG TABLET. PO SCH (08:02)
[2017-12-14] MEDS: ASPIRIN ENTERIC COATED 81 MG TABLET.DR. PO SCH (08:03)
[2017-12-14] MEDS: CELECOXIB 100 MG CAPSULE. PO SCH (08:03)
[2017-12-14] MEDS: DULoxetine HCL 30 MG CAPSULE.DR PO SCH (08:03)
[2017-12-14] MEDS: MULTIVITAMIN with MINERAL TABLET. PO SCH (08:03)
[2017-12-14] MEDS: FERROUS SULFATE 325 MG TABLET. PO SCH (08:03)
[2017-12-14 08:05] VITALS: BP 119/74
[2017-12-14] MEDS: LISINOPRIL 20 MG TABLET PO SCH (08:07)
[2017-12-14] MEDS: METOPROLOL SUCC 24HR ER 100 MG TAB.ER.24H. PO SCH (08:07)
[2017-12-14] MEDS: amLODIPine BESYLATE 5 MG TABLET PO SCH (08:08)
[2017-12-14] MEDS: POLYETHYLENE GLYCOL 3350 17 GM PACKET. PO SCH (08:08)
--- NOTE | 2017-12-14 10:09 | PATHOLOGY ---
[facility] Accession Number: [id number] . 01 Material submitted: . BONE RIGHT HIP . 01 Clinical history: . DJD Right hip . 02 Diagnosis: Femoral head, right total hip arthroplasty: - Advanced degenerative arthritis. (JPM/db; 12/13/17) LBQ/12/13/2017 . 02 Electronically signed: . Ramez Arzate MD, Pathologist NPI- [id number] . 01 Gross description: . Received in formalin labeled "Ortega Marlow, bone right hip," is a femoral head measuring 5.1 x 5.1 x 5.5 cm in greatest dimensions. The articular surface is smooth to granular and pale og to dark brown in appearance, displaying an area of focal eburnation measuring 1.6 x 1.4 cm. Sectioning reveals a pale yellow to slightly hemorrhagic marrow space. The specimen is submitted representatively in cassette A1, following decalcification. ([facility]; 12/12/2017) XDC/XDC . 02 Pathologist provided ICD-10: M16.11 . 02 CPT . 594212, [id number] Performed at: [facility] [address], [place] [id number] MD Grant Rust MD Phone: [phone] Performed at: 02 [facility] [address] [place], [place] [id number] MD Ramez Arzate MD Phone: [phone]
[2017-12-14 12:30] VITALS: BP 103/66
[2017-12-14] MEDS ORDERED: WARFARIN 3 MG TABLET. PO SCH (14:00)
--- NOTE | 2017-12-15 21:25 | DS ---
DATE OF DISCHARGE: 12/14/2017 PRINCIPAL DIAGNOSIS: Posttraumatic osteoarthritis, right hip. PROCEDURE: Total hip arthroplasty. DISPOSITION: Home with home health. DISCHARGE MEDICATIONS: Include resumption of his home medications of oxycodone 15 mg p.o. q.i.d. p.r.n., Coumadin as directed by anticoagulation clinic, resume preoperative medications. DISCHARGE INSTRUCTIONS: Follow up in 2 weeks. Activity level, weightbearing as tolerated, standard total hip precautions. Maintain ELINA drain. Follow up if any redness, sepsis, present, drainage, fever, chills, uncontrolled pain or other problems. BRIEF DESCRIPTION OF HOSPITAL COURSE: The patient underwent uncomplicated total hip arthroplasty. Basically had the same or a little less pain than preoperatively throughout the postoperative course. First day was actually a little easier, second day he was more sore, but again was generally tolerating his preoperative regimen of pain with some additional breakthrough, which was no longer necessary on postop day #3. He progressed well through physical therapy he received, medically stable otherwise and was discharged home in stable condition. MARTHA VARGAS MD DR: DAVID/anna JOB#: [id number] / [id number]
== END 2017-12-14 15:19 | DRG 470 ==
LOC: OPSVCIP 08:07 → 4 SOUTHEST 13:04
PROVIDERS: ADMIT Orthopaedic Surgery; ATTEND Orthopaedic Surgery
PROC: 0SR90JA Replacement of Right Hip Joint with Synthetic Substitute, Uncemented, Open Approach (ICD-10-PCS; principal; 2017-12-11 09:45)
DX: M16.11 Unilateral primary osteoarthritis, right hip (principal); I10 Essential (primary) hypertension; E78.5 Hyperlipidemia, unspecified; I25.10 Atherosclerotic heart disease of native coronary artery without angina pectoris; F41.9 Anxiety disorder, unspecified; M10.9 Gout, unspecified; I25.2 Old myocardial infarction; Z80.7 Family history of other malignant neoplasms of lymphoid, hematopoietic and related tissues; Z82.49 Family history of ischemic heart disease and other diseases of the circulatory system; Z87.891 Personal history of nicotine dependence
CPT/HCPCS: 36415; 72170; 85014; 85018; 85027; 85610; 85730; 86850; 86900; 86901; 88304; 88311; 94640; 94760; A7015; J0171; J0330; J0690; J0780; J1100; J1885; J2001; J2270; J2405; J2704; J2710; J2795; J3010; J3490; J7030; J7120; J7613; J7620; 97116; 97150; 97530; 97535

== ENCOUNTER → 2018-05-22 | Outpatient (CLI) | payer MEDICARE, OTHER ==
[~2018-05-22] MED LIST changes: -AMLO5TAB2 PO; +AMLO5TAB7 PO; +HYDR-3164 PO; -HYDR-971 PO; -HYDROcodone/APAP 7.5/325MG 1 TAB TABLET PO PRN; -HYDROmorphone 2 MG/ML VIAL IV PRN; -LIDOCAINE 1% PF 2 ML VIAL. ID PRN; -MELOXICAM 7.5 MG TABLET PO PRN; -ONDANSETRON PF 4 MG/2 ML VIAL. IV PRN; -TRANEXAMIC ACID 1,000 MG in IV NS 50ML -- 1ST BAG INJ ONE; -TRANEXAMIC ACID 1,000 MG in IV NS 50ML -- 2ND BAG INJ ONE; -fentaNYL PF VIAL 100 MCG/2 ML VIAL IV PRN
--- NOTE | 2018-05-22 15:40 | KCIC ---
EXAM: AP, lateral and lumbosacral spot views with bilateral oblique views of the lumbar spine DATE: 05/22/2018 12:00 AM INDICATION: Right hip pain, low back pain, prior fusion COMPARISON: No Prior FINDINGS: For the purposes of this report, there are 5 nonrib-bearing lumbar-type vertebral bodies. Postoperative changes of posterior decompression and fusion L4-5 definite hardware complication. Mild to moderate multilevel intervertebral disc height loss. No spondylolisthesis. Rightward curvature of the lumbar spine apex L2. Multilevel facet degenerative changes are seen on the oblique views. Evaluation for pars defects limited given osteopenia and overlying structures. No evidence for acute fracture. IMPRESSION: 1. L4-5 posterior fusion without definite hardware complication or fracture. 2. Thoracolumbar scoliosis 3. Multilevel degenerative change Electronically signed by: Kiran Encarnacion MD (05/22/2018 3:35 PM) [facility]-KCIC2
== END | disposition home or self-care (01) ==
LOC: KCIC 15:07
PROVIDERS: ATTEND Family Medicine
DX: M47.816 Spondylosis without myelopathy or radiculopathy, lumbar region (principal); M41.85 Other forms of scoliosis, thoracolumbar region; M85.88 Other specified disorders of bone density and structure, other site
CPT/HCPCS: 72110

== ENCOUNTER → 2018-06-18 | Outpatient (CLI) | payer MEDICARE, OTHER ==
[~2018-06-18] MED LIST changes: +AMLO5TAB10 PO; -AMLO5TAB7 PO
--- NOTE | 2018-06-18 16:22 | CARD ---
MR#: [id number] Date of Study: 06/18/2018 Ordering Physician: FELA TURNER, Referring Physician: FELA TURNER, Tech: Katharine Palma [facility] APPROVED REPORT EXAM: Two-dimensional and M-mode echocardiogram with Doppler and color Doppler. Other Information Quality : Fair INDICATION Cardiac Disease: CAD 2D DIMENSIONS RVDd2.9 (2.9-3.5cm)Left Atrium(2D)4.1 (1.6-4.0cm) IVSd1.2 (0.7-1.1cm)Aortic Root(2D)3.7 (2.0-3.7cm) LVDd4.8 (3.9-5.9cm)LVOT Diameter2.1 (1.8-2.4cm) PWd0.9 (0.7-1.1cm)LVDs3.6 (2.5-4.0cm) FS (%) 25.0 %SV52.3 ml Aortic Valve AoV Peak Vineet.82.2cm/sAoV VTI13.8cm AO Peak GR.2.7mmHgLVOT Peak Vineet.76.6cm/s AO Mean GR.2mmHgAVA (VMAX)3.33cm2 SHARON (VTI)3.50cm2 Mitral Valve MV E Mfpuctgn95.9cm/sMV DECEL IOXH105ow MV A Ypekruev50.3cm/sE/A Ratio0.6 Pulmonary Vein S1 Ilunoedg75.9cm/sD2 Xbwxewak40.8cm/s LEFT VENTRICLE The left ventricle is normal size. There is mild asymmetric septal hypertrophy. Left ventricle systol ic function is low normal. The Ejection Fraction is 50-55%. There is normal LV segmental wall motion. Transmitral Doppler flow pattern is Grade I-abnormal relaxation pattern. RIGHT VENTRICLE The right ventricle is mildly dilated. The right ventricular systolic function is normal. ATRIA The left atrium is mildly dilated. The right atrium is mildly dilated. The interatrial septum is inta ct with no evidence for an atrial septal defect or patent foramen ovale as noted on 2-D or Doppler im aging. AORTIC VALVE The aortic valve is mildly thickened but opens well. Doppler and Color Flow revealed trace aortic reg urgitation. There is no significant aortic valvular stenosis. MITRAL VALVE The mitral valve is calcified but opens well. Mitral annular calcification is mild. There is no evide nce of mitral valve prolapse. There is no mitral valve stenosis. Doppler and Color Flow revealed trac e mitral valve regurgitation noted. TRICUSPID VALVE The tricuspid valve is normal in structure and function. Doppler and Color Flow revealed no tricuspid valve regurgitation noted. There is no tricuspid valve stenosis. PULMONIC VALVE The pulmonic valve is not well visualized. Doppler and Color Flow revealed no pulmonic valvular regur gitation. There is no pulmonic valvular stenosis. GREAT VESSELS The aortic root is normal in size. The ascending aorta is mildly dilated at 3.7 cm. The IVC was not v isualized. PERICARDIAL EFFUSION There is no evidence of significant pericardial effusion. Critical Notification Critical Value: No <Conclusion> The left ventricle is normal size. Left ventricle systolic function is low normal. The Ejection Fraction is 50-55%. There is normal LV segmental wall motion. There is no significant aortic valvular stenosis. Doppler and Color Flow revealed trace aortic regurgitation. Doppler and Color Flow revealed trace mitral valve regurgitation noted. Doppler and Color Flow revealed no tricuspid valve regurgitation noted. The ascending aorta is mildly dilated at 3.7 cm. Signed by : Tj Briscoe MD Electronically Approved : 06/18/2018 16:21:43
== END | disposition home or self-care (01) ==
LOC: ECHO 12:44
PROVIDERS: ATTEND Internal Medicine Cardiovascular Disease
DX: I25.10 Atherosclerotic heart disease of native coronary artery without angina pectoris (principal); I51.7 Cardiomegaly; R00.8 Other abnormalities of heart beat
CPT/HCPCS: 93306

== ENCOUNTER → 2018-07-05 | Outpatient (CLI) | payer MEDICARE, OTHER ==
--- NOTE | 2018-07-05 12:32 | KCIC ---
CT CHEST WO CONTRAST Indication: Left lung nodule follow-up. COPD. Slight difficulty breathing. History of heart disease. COMPARISON: June 04, 2017 Exposure: One or more of the following individualized dose reduction techniques were utilized for this examination: 1. Automated exposure control 2. Adjustment of the mA and/or kV according to patient size 3. Use of iterative reconstruction technique. Technique: Standard imaging without intravenous contrast. Findings: There is some motion degradation on exam. Pulsatility artifact at the ascending aorta, which does appear ectatic but difficult to accurately measure due to the motion. No descending aortic aneurysm. Mild atherosclerotic calcifications. Coronary artery calcifications. Heart size is stable. No evidence of pericardial effusion. No significant lymph node enlargement. Thyroid is symmetric. No significant esophageal distention. No evidence of pleural effusion. Densely calcified nodule in the superior segment of the right lower lobe is unchanged in size and appearance. Emphysematous changes in both lungs. Mild atelectasis or infiltrate in the lung bases particularly the left lower lobe. No dense lobar consolidation. Note that the motion degradation could make detection of a smaller nodule difficult on today's study. The trachea and main bronchi are patent. Scans through the upper abdomen limited by technique. No definite acute abnormality. Degenerative spondylosis with a thoracic scoliosis. IMPRESSION: 1. Densely calcified right lower lobe nodule compatible with granulomas again identified and appears stable. 2. Lung evaluation is otherwise somewhat limited by motion degradation. There is some atelectasis or infiltrate in the lower lungs, findings which were also seen to some extent on the prior exam. Electronically signed by: Almas Jean Baptiste MD (07/05/2018 12:29 PM) [facility]
== END | disposition home or self-care (01) ==
LOC: KCIC CT 09:01
PROVIDERS: ATTEND Internal Medicine Pulmonary Disease
DX: R91.1 Solitary pulmonary nodule (principal); M41.84 Other forms of scoliosis, thoracic region; M47.894 Other spondylosis, thoracic region; J43.9 Emphysema, unspecified; I25.10 Atherosclerotic heart disease of native coronary artery without angina pectoris; I10 Essential (primary) hypertension; Z79.01 Long term (current) use of anticoagulants; Z87.891 Personal history of nicotine dependence
CPT/HCPCS: 71250

== ENCOUNTER → 2018-12-02 | Outpatient (CLI) | payer MEDICARE, OTHER ==
--- NOTE | 2018-12-02 13:47 | KCIC ---
MRI of the lumbar spine without contrast 12/02/2018 CLINICAL HISTORY: Low back pain since 2004 which radiates down the right hip. History of previous lumbar spine fusion. TECHNIQUE: Unenhanced T1-weighted and T2-weighted sagittal and axial inversion parasagittal images of the lumbar spine were obtained. FINDINGS: Comparison is made to radiographs of the lumbar spine dated 05/22/2018. Mild S-shaped curvature of the thoracolumbar spine is seen. The patient is post posterolateral fusion at L4-5 using pedicle screws, stabilizing rods and bone graft material. Degenerative signal changes are seen involving all of the disks of the lumbar spine. Degenerative signal changes are seen within the marrow surrounding these discs. Loss of height of the L2-3, L3-4 and L4-5 discs is noted. The conus medullaris is normal in morphology, position, and signal characteristics. At the L1-2 disc space there is a minimal generalized disc bulge. Degenerative changes are seen involving the facet joints bilaterally. These findings do not result in significant central spinal canal or neural foraminal stenosis. At the L2-3 disc space there is a mild to moderate generalized disc bulge. Degenerative changes are seen involving the facet joints bilaterally. There is prominence of posterior epidural fat. There is mild to moderate ligamentum flavum hypertrophy bilaterally. Mild facet joint effusions are seen bilaterally. These findings when combined result in mild to moderate central spinal canal stenosis. No neural foraminal stenosis is seen. At the L3-4 disc space there is a mild to moderate generalized disc bulge. Degenerative changes are seen involving the facet joints bilaterally. Superimposed on the disc bulge is a focal central disc protrusion which extrudes slightly superiorly. This measures 3 mm in AP diameter. Degenerative changes are seen involving the facet joints bilaterally. There is mild to moderate ligamentum flavum hypertrophy bilaterally. There is prominence of the posterior epidural fat. These findings when combined result in mild to moderate central spinal canal stenosis. Mild left neural foraminal stenosis is seen. The right neural foramen is patent. At the L4-5 level the patient appears to be post bilateral hemilaminotomy. There is a mild generalized disc bulge. Degenerative changes are seen involving the facet joints, right greater than left. These findings do not result in significant central spinal canal stenosis. Mild to moderate right greater than left neural foraminal stenosis is seen. At the L5-S1 disc space there is a minimal generalized disc bulge. Degenerative changes are seen involving the facet joints bilaterally. Small facet joint effusions are seen bilaterally. There is mild ligament flavum hypertrophy bilaterally. These findings do not result in significant central spinal canal or neural foraminal stenosis. IMPRESSION: 1. Post fusion at L4-5. 2. The changes of degenerative disc disease are seen throughout the lumbar spine. These findings result in mild to moderate central spinal canal stenosis at L2-3 and L3-4. Mild left neural foraminal stenosis is seen at L3-4. Mild to moderate right greater than left neural foraminal stenosis is seen at L4-5. Electronically signed by: Bill Gleason MD (12/02/2018 1:45 PM) [facility]
--- NOTE | 2018-12-02 16:32 | KCIC ---
CHEST PA LATERAL Clinical indications: Dyspnea. COPD. Shortness of breath. COMPARISON: November 26, 2017. Findings: Old granulomatous disease is evident. Hyperinflation is seen consistent with COPD. No acute lung infiltrate or pleural effusion or pulmonary edema or lung mass or pneumothorax is seen. The heart size, pulmonary vasculature, mediastinum and both cyndie are stable. The osseous structures appear intact. Impression: No acute radiographic abnormality is seen. COPD. Electronically signed by: Emmanuel Bull MD (12/02/2018 4:29 PM) [place] [id number]
== END | disposition home or self-care (01) ==
LOC: KCIC MRI 11:18
PROVIDERS: ATTEND Family Medicine
DX: M47.817 Spondylosis without myelopathy or radiculopathy, lumbosacral region (principal); M48.061 Spinal stenosis, lumbar region without neurogenic claudication; M51.36 Other intervertebral disc degeneration, lumbar region; M51.27 Other intervertebral disc displacement, lumbosacral region; J44.9 Chronic obstructive pulmonary disease, unspecified; D71 Functional disorders of polymorphonuclear neutrophils
CPT/HCPCS: 71046; 72148

== ENCOUNTER 2018-12-26 07:56 | Outpatient (CLI) | payer MEDICARE, OTHER ==
[2018-12-26] VITALS (12 sets, daily range): BP systolic 123–153; BP diastolic 71–105
[~2018-12-26] VITALS: Ht 182.9 cm; Wt 122.5 kg
[~2018-12-26 07:56] MED LIST changes: +HEPARIN for ARTERIAL LINE 1,500 ML ONE; +IODIXANOL 320 MG/ML 100 ML VIAL. ONE; +LIDOCAINE 1% Multi-Dose 20 ML VIAL. ONE; +LISI1TAB20 PO; -LISI1TAB7 PO; +MORP-15 PO; -MORP15TA3 PO
[2018-12-26 08:52] LABS: HEMOGLOBIN 14.3 g/dL (13.0-17.5); RED BLOOD COUNT 4.2 x10^6/uL (4.30-5.70); RED CELL DISTRIBUTION WIDTH 14.3 % (11.5-14.5); WHITE BLOOD COUNT 5.9 x10^3/uL (4.0-11.0)
[2018-12-26 09:02] LABS: CALCIUM 9.2 mg/dL (8.5-10.1); CREATININE 1.3 mg/dL (0.7-1.3); GFR 54.4; POTASSIUM 4.8 mmol/L (3.5-5.1)
[2018-12-26 09:05] LABS: PROTHROMBIN TIME PATIENT 12.1 SEC (11.7-14.0)
[2018-12-26] MEDS ORDERED: fentaNYL PF VIAL 100 MCG/2 ML VIAL ONE (09:22)
[2018-12-26] MEDS ORDERED: HEPARIN for IV BOLUS 10,000 UNIT/10 ML VIAL. ONE (09:22)
[2018-12-26] MEDS ORDERED: MIDAZOLAM HCL/PF 2 MG/2 ML VIAL. ONE (09:22)
[2018-12-26] MEDS ORDERED: NITROGLYCERIN 200 MCG/2 ML SYRINGE FOR CATH/VASC LAB. ONE (09:22)
[2018-12-26] MEDS ORDERED: VERAPAMIL 5 MG/2 ML VIAL. ONE (09:22)
[2018-12-26] MEDS ORDERED: NITROGLYCERIN 200 MCG/2 ML SYRINGE FOR CATH/VASC LAB. IART ONE (10:00)
[2018-12-26] MEDS ORDERED: fentaNYL PF VIAL 100 MCG/2 ML VIAL IV ONE (10:00)
[2018-12-26] MEDS ORDERED: IODIXANOL 320 MG/ML 100 ML VIAL. IART ONE (10:00)
[2018-12-26] MEDS ORDERED: MIDAZOLAM HCL/PF 2 MG/2 ML VIAL. IV ONE (10:00)
[2018-12-26] MEDS ORDERED: HEPARIN for IV BOLUS 10,000 UNIT/10 ML VIAL. IART ONE (10:00)
[2018-12-26] MEDS ORDERED: LIDOCAINE 1% Multi-Dose 20 ML VIAL. INJ ONE (10:00)
[2018-12-26] MEDS ORDERED: VERAPAMIL 5 MG/2 ML VIAL. IART ONE (10:00)
[2018-12-26 11:31] LABS: CHOLESTEROL/HDL RATIO 4.5
--- NOTE | 2018-12-26 13:08 | CARD ---
MR#: [id number] Date of Study: 12/26/2018 Ordering Physician: FELA MANCINI, Referring Physician: FLEA MANCINI, Tech: ANN MARIE DUBOIS RTR APPROVED REPORT Technologist: ANN MARIE DUBOIS RTR Nurse: Ana Maria Armenta R.N. Procedure(s) performed: MODERATE SEDATION TIME: 45 MINS FLUORO TIME: 4.5 MIN DOSE:[id number] CONTRAST:70 RHC, LHC, Coronary angiography HISTORY The patient is a 73 year-old with a history of : previous CHF, previous valve surgery (The previous v alve surgery date was ). INDICATION The indication(s) include : unstable angina , dyspnea. CS Clinical Frailty Scale [facility] Clinical Frailty Scale: Vulnerable Heart Failure Heart Failure: Yes If Yes, Newly Diagnosed: No If Yes, HF Type: Diastolic If Yes, NYHA Class: Class II PROCEDURE NARRATIVE INFORMED CONSENT: After explaining the risks and benefits of the procedure and alternatives, informed consent was obtained. The patient was brought electively to the cardiac catheterization lab. A timeout was performed confi rming the patient's name, date of , procedure, and site of procedure. All necessary personnel w ere wearing the appropriate protective equipment and radiation monitor devices. (See nursing notes for medications administered). ACCESS: The right wrist was sterilely prepped and draped in the usual fashion. The right wrist was infiltrat ed with 1 mL of 2% lidocaine for subcutaneous anesthesia. A 6 [place] Terumo glide sheath was inserte d into the right radial artery without difficulty. The previous right brachial IV site was preppred and draped in usual fashion. A micropuncture wire wa s advanced into the IV site w/o difficulty and the IV was replaced with a 6fr glide sheath. RIGHT HEART CATH: Through the brachial venous site, a 5Fr PA catheter was advanced through the right heart chambers and pressures and saturations were obtained. RA: 11 RV: 30/10 PA: 28/17, mean 20 PCWP: 18 CORONARY ANGIOGRAPHY: Right and left coronary angiography was performed using a 6Fr TIG 4.0 catheter. Left ventricular en d diastolic pressure was obtained with a pigtail catheter and pullback was performed. All catheter e xchanges and advancements were performed over a guidewire. CLOSURE: At case completion the right radial sheath was removed and a Terumo radial band was applied with 13 m l of air. The brachial sheath was removed via manual compression. COMPLICATIONS: The patient tolerated the procedure well and there were no immediate complications. FINDINGS: HEMODYNAMICS: LVEDP 20 mm Hg No gradient on LV to aortic pullback. AO: 128/78 LEFT VENTRICULOGRAM: Deferred due to known EF of 55% in 05/2018. CORONARY ANGIOGRAPHY: LM is a large caliber vessel with normal angiographic appearance. LAD is a large caliber vessel with mild focal aneurysmal changes with a mid 40-50% stenosis. Severe small caliber diagonal vessels have mild luminal irregularities. LCx is a moderate caliber non-dominant vessel with mid aneurysmal dilation with a distal stent with 7 0% stenosis extending into a small caliber LPL. OM1 is a moderate caliber vessel with a proximal 30% stenosis. RCA is a large caliber dominant vessel with mild aneurysmal dilation. There is an early bifurcation o f the RCA with a dual RV and RPDA branches. There is a proximal 50% stenosis involving the RV branch. RPDA is a moderate caliber vessel with normal angiographic appearance. Conclusion 1. Mild biventricular pressure overload consistent with acute on chronic diastolic heart failure and corpulmonale. 2. Three vessel coronary disease without any critical lesions to account for dyspnea. Recommendations Aggressive Medical Therapy Signed by : Fela Mancini, Electronically Approved : 12/26/2018 12:40:00
--- NOTE | 2018-12-26 13:28 | NUR ---
Discharge Note: CATRACHITA FOX Discharge instructions and discharge home medications reviewed with Patient and a copy given. All questions have been answered and understanding verbalized. The following instructions and handouts were given: Radial site care and moderate sedation Discontinued lines and drains: Peripheral IV intact. Patient discharged to Home or Self Care withFamily Membervia Wheelchair
== END 2018-12-26 13:15 | disposition home or self-care (01) ==
LOC: CCL 07:56
PROVIDERS: ATTEND Internal Medicine Cardiovascular Disease
DX: I25.110 Atherosclerotic heart disease of native coronary artery with unstable angina pectoris (principal); N18.3 Chronic kidney disease, stage 3 (moderate); I13.0 Hypertensive heart and chronic kidney disease with heart failure and stage 1 through stage 4 chronic kidney disease, or unspecified chronic kidney disease; I50.30 Unspecified diastolic (congestive) heart failure; Z79.01 Long term (current) use of anticoagulants; E78.5 Hyperlipidemia, unspecified; Z79.82 Long term (current) use of aspirin; F41.9 Anxiety disorder, unspecified; M10.9 Gout, unspecified; J44.9 Chronic obstructive pulmonary disease, unspecified; Z98.890 Other specified postprocedural states; Z96.641 Presence of right artificial hip joint; Z87.891 Personal history of nicotine dependence; Z72.89 Other problems related to lifestyle
CPT/HCPCS: 36415; 80048; 80061; 85027; 85610; 85730; 93460; 99152; 99153; C1769; C1773; C1892; J1644; J2250; J3010; J3490; Q9967; 93453

== ENCOUNTER → 2019-01-28 | Outpatient (CLI) | payer MEDICARE, OTHER ==
[2018-12-26 12:59] VITALS: BP 142/71
[~2019-01-28] MED LIST changes: -HEPARIN for ARTERIAL LINE 1,500 ML ONE; -IODIXANOL 320 MG/ML 100 ML VIAL. ONE; +IOHEXOL 180 MG/ML 10 ML VIAL. ONE; -LIDOCAINE 1% Multi-Dose 20 ML VIAL. ONE; +OMEP40CA45 PO; -OMEP40CA5 PO; +methylPREDNISolone ACETATE 40 MG/ML VIAL. ONE; +methylPREDNISolone ACETATE 80 MG/ML VIAL. ONE
--- NOTE | 2019-01-28 15:28 | PAIN ---
DATE OF SERVICE: 01/28/2019 PROGRESS NOTE FOR PAIN CLINIC DIAGNOSES: Lumbar radiculopathy with lumbar spondylosis and post-lumbar laminectomy syndrome. HISTORY OF PRESENT ILLNESS: The patient is a 73-year-old male who returns for followup, last seen in 09/2016. The patient had a caudal epidural steroid injection. Reports about 75% improvement after the last injection, but the pain has returned now and has been bothering him now for about a year in the low back itself and into the right lower extremity, mostly in the posterior gluteus, posterior thigh and into the back of the knees. The patient reports a 9-10 on a scale of 10 at its worst, 3-6 on average and a 3 at its least and is a 4 today. The patient reports it is worse with walking, standing and changing positions, better with lying down and relaxing, but does awaken him from sleep occasionally, but not every night. The patient reports it is worse with activity, walking, standing, describes aching and sharp, severe at times in the low back and into the right posterior gluteus and thigh. The patient reports no loss of motor function, but significant pain with daily activities. The patient reports he is retired now. He did have an MRI scan of the lumbar spine dated 12/02/2018 showing postsurgical fusion changes at L4-L5 with degenerative disk disease throughout the lumbar spine resulting in [id number] central spinal canal stenosis at L2-L3 and L3-L4, mild left neural foraminal stenosis seen at L3-L4 with [id number] right greater than left neural foraminal stenosis at L4-L5. The patient reports no loss of motor function, but significant fatigability with lower extremities with walking and standing. PHYSICAL EXAMINATION: VITAL SIGNS: Today, the patient's blood pressure is 138/78, pulse 71, respirations 18, temperature 98.3 degrees Fahrenheit, height is 6 feet, weight is 285 pounds. GENERAL: The patient is awake, alert, oriented, appropriate, very pleasant demeanor. HEENT: Head shows normocephalic, atraumatic. Extraocular movements are intact and symmetrical. Oral cavity: Mucous membranes moist and pink. Dentition is intact. NECK: Shows anterior throat supple without palpable lymphadenopathy noted. Swallow reflex symmetrical. CHEST: Shows breath sounds clear to auscultation bilaterally. HEART: Shows S1, S2 clear. No murmurs auscultated. ABDOMEN: Soft, nontender, nondistended. No palpable organomegaly is noted. No rebound or guarding demonstrated. BACK: Shows spine grossly in the midline. Lumbar paraspinous muscle shows symmetrical on inspection with a well-healed surgical scar noted in the lumbar distribution. Paraspinous musculature shows symmetrical on inspection, with palpation shows some moderate tenderness diffusely bilaterally going diffusely without radiation. The patient has good rotational motion of lumbar spine, both laterally as well as extension and flexion without significant increase in pain. EXTREMITIES: The patient's lower extremities show deep tendon reflexes at 1+ in the patellar and tendo-calcaneus tendons. Motor exam is strong with approximately 4 on a scale of 5 on the right, 5/5 on the left dorsiflexion, extension, quadriceps and hamstring flexion. Peripheral pulses are 1+ posterior tibial. No peripheral edema is noted bilaterally. Options were discussed with the patient. The patient's old chart was reviewed as his current medication regimen updated. Current review of systems updated today as well. We will proceed with a caudal approach epidural steroid injection today with fluoroscopic guidance. Risks were again discussed including, but not limited to bleeding, infection, possibility of epidural hematoma, subsequent neurological compromise, dural puncture, headaches, spinal cord and/or nerve damage, side effects of steroid medication and poor results regarding pain control. The patient understands and wished to proceed. The patient will return to clinic in approximately 2 weeks for followup. He was counseled on return appointment, activity level and side effects to be aware of. DIAGNOSES: Lumbar radiculopathy with lumbar degenerative disk disease, lumbar spondylosis and post-lumbar laminectomy syndrome. PROCEDURE: Lumbar epidural steroid injection, caudal approach using C-arm fluoroscopic guidance under sterile prep and drape using local anesthetic. MEDICATION INJECTED: A total of 120 mg Depo-Medrol plus 10 mL of preservative-free normal saline and 2 mL of contrast. CONDITION AT DISCHARGE: Stable. The patient tolerated procedure well, had no complications. ANISH DELGADO MD DR: BREONNA/anna JOB#: [id number] / [id number]
== END ==
LOC: PNCL 13:21
PROVIDERS: ATTEND Anesthesiology
DX: M51.16 Intervertebral disc disorders with radiculopathy, lumbar region (principal); M47.816 Spondylosis without myelopathy or radiculopathy, lumbar region; M96.1 Postlaminectomy syndrome, not elsewhere classified
CPT/HCPCS: 62323; J1030; J1040; Q9965

== ENCOUNTER → 2019-02-07 | Outpatient (CLI) | payer MEDICARE, OTHER ==
[2018-12-26 12:59] VITALS: BP 142/71
[~2019-02-07] MED LIST changes: +BUPIVACAINE MPF 0.25% 10 ML VIAL. ONE
--- NOTE | 2019-02-07 19:11 | PAIN ---
DATE OF SERVICE: 02/07/2019 PROGRESS NOTE FOR PAIN CLINIC DIAGNOSES: 1. Lumbar radiculopathy with lumbar degenerative disk disease and lumbar spondylosis and post-lumbar laminectomy syndrome. 2. Bilateral knee joint pain with primary osteoarthritis, bilateral knees. HISTORY OF PRESENT ILLNESS: The patient is a 73-year-old male who returns for followup status post caudal epidural steroid injection x 1. The patient reports about 40% improvement overall, but his main complaint today is his knees. We discussed this on his last visit, he has had significant osteoarthritis of bilateral knee joints, he received some injections with his orthopedic surgeon in the past, which helped significantly and he returns today to address the knee joint pain. The patient reports it is aching, sharp, stabbing, worse with walking, standing, weightbearing, some pain in the low back, but it is much improved by his report. The patient reports the pain in the knees is a 10 on a scale of 10 at its worst over the past week, anywhere from a 7 to a 9 on average and a 5 at its least and is a 7 today. The patient reports it is worse with standing, walking, better with sitting, lying down, can awaken him from sleep at night, but generally his low back is more responsible for awaken him from sleep at night, but has not been a problem lately. The patient reports no new motor or sensory deficits, no new bowel or bladder incontinence or other complaints. PHYSICAL EXAMINATION: VITAL SIGNS: The patient's blood pressure 169/94, pulse 65, respirations 18, temperature 97.9 degrees Fahrenheit, height 6 feet, weight 279 pounds. GENERAL: The patient is awake, alert, oriented, appropriate, very pleasant demeanor. HEENT: Head is normocephalic, atraumatic. Extraocular movements are intact and symmetrical. Oral cavity: Mucous membranes moist and pink. Dentition is intact. NECK: Shows anterior throat supple without palpable lymphadenopathy noted. Swallow reflex symmetrical. CHEST: Shows normal on inspection. Breath sounds clear to auscultation bilaterally. HEART: Shows S1, S2 clear. No murmurs auscultated. ABDOMEN: Soft, nontender, nondistended. No palpable organomegaly is noted. No rebound or guarding demonstrated. BACK: Shows spine grossly in the midline. Normal-appearing thoracic kyphosis and lumbar lordotic curvature. Lumbar paraspinous muscle shows symmetrical on inspection; on palpation shows some moderate tenderness diffusely, but only diffusely bilaterally without significant radiation. EXTREMITIES: The patient's lower extremities show deep tendon reflexes at 1+ in the patellar and tendo calcaneus tendons. Motor exam is strong with 5/5 dorsiflexion, extension on the left and 4/5 dorsiflexion, extension on the right. Peripheral pulses are 1+ posterior tibia. No peripheral edema is noted bilaterally. The patient's knee shows good range of motion without significant crepitus, no obvious ratcheting or other abnormalities with passive and active motion. The patient does have some moderate tenderness with palpation, however, in the medial compartment of the knees bilaterally, but not on the lateral aspects. Options were discussed with the patient. The patient's old chart was reviewed as his current medication regimen updated. Current review of systems updated today as well. We will proceed with bilateral intra-articular knee joint injection today with fluoroscopic guidance. Risks were again discussed including, but not limited to bleeding, infection, possibility of intravascular injection sequelae, spread of local anesthetic and numbness, side effects of steroid medication, exposure to fluoroscopy as well as poor results regarding pain control. The patient understands and wished to proceed. The patient will return to clinic in approximately 2 weeks for followup. He was counseled on return appointment, activity level and side effects to be aware of. DIAGNOSIS: Bilateral osteoarthritis, bilateral knee joints. PROCEDURE: Bilateral intraarticular knee joint injections using C-arm fluoroscopic guidance under sterile prep and drape using local anesthetic. MEDICATION INJECTED: A total of 2 mL of 0.25% bupivacaine per knee, 4 mL total; 120 mg total of 60 mg per knee of Depo-Medrol and 3 mL total of 1.5 mL in each knee of contrast. CONDITION AT DISCHARGE: Stable. The patient tolerated the procedure well, had no complications. ANISH DELGADO MD DR: BREONNA/anna JOB#: [id number] / [id number]
== END ==
LOC: PNCL 11:01
PROVIDERS: ATTEND Anesthesiology
DX: M17.0 Bilateral primary osteoarthritis of knee (principal); M51.16 Intervertebral disc disorders with radiculopathy, lumbar region; M47.816 Spondylosis without myelopathy or radiculopathy, lumbar region; M96.1 Postlaminectomy syndrome, not elsewhere classified
CPT/HCPCS: 20610; 77002; J1030; J1040; J3490; Q9965

== ENCOUNTER → 2019-02-21 | Outpatient (CLI) | payer MEDICARE, OTHER ==
[2018-12-26 12:59] VITALS: BP 142/71
[~2019-02-21] MED LIST changes: -methylPREDNISolone ACETATE 40 MG/ML VIAL. ONE
--- NOTE | 2019-02-21 17:13 | PAIN ---
DATE OF SERVICE: 02/21/2019 PROGRESS NOTE FOR PAIN CLINIC DIAGNOSES: 1. Lumbar radiculopathy with lumbar degenerative disk disease and lumbar spondylosis and post-lumbar laminectomy syndrome. 2. Bilateral knee joint pain with primary osteoarthritis. HISTORY OF PRESENT ILLNESS: The patient is a 73-year-old male who returns for followup status post bilateral knee joint injections. The patient reports his right knee is doing very well, near 100% improvement, but the left knee, still significant pain with walking, standing, putting all his weight on his left side associated with ambulating. The patient reports it is doing much better on the right side with increased distance walking, although it is difficult with the left knee, doing household activities as well as with greater ease and comfort. The patient reports it awakens him from sleep about every couple of hours at night on the left knee when changing positions. The patient reports that the pain is 8-9 on a scale of 10 with his left knee and low back 6-7 on average, 4-5 at its least and is a 6 today. The patient reports no new motor or sensory deficits, still some low back pain as well as radicular pain in the bilateral posterior gluteus, more on the right side than the left. PHYSICAL EXAMINATION: VITAL SIGNS: The patient's blood pressure 156/86, pulse 71, respirations 18, temperature 98.8 degrees Fahrenheit, height is 6 feet, weight is 279 pounds. GENERAL: The patient is awake, alert, oriented, appropriate, very pleasant demeanor. HEENT: Shows normocephalic, atraumatic. Extraocular movements are intact and symmetrical. Oral cavity: Mucous membranes moist and pink. Dentition is intact. NECK: Shows anterior throat supple without palpable lymphadenopathy noted. CHEST: Shows normal on inspection. Breath sounds clear to auscultation bilaterally. HEART: Shows S1, S2 clear. No murmurs auscultated. ABDOMEN: Obese, soft, nontender, nondistended. BACK: Shows spine grossly in the midline. Normal appearing thoracic kyphosis, some flattening of lumbar lordotic curvature. Well-healed surgical scar noted. Lumbar paraspinous muscle shows symmetrical on inspection, on palpation shows some moderate tenderness diffusely bilaterally, but only diffusely without radiation. EXTREMITIES: The patient's lower extremities show deep tendon reflexes at 1+ in the patellar and tendo calcaneus tendons. Motor exam is approximately 4 on a scale of 5 with right dorsiflexion, extension, 5/5 on the left. The patient's knee shows good rotation and motion. No crepitus, no ratcheting. Left knee shows some moderate tenderness with pressure over the medial collateral ligament and lateral and medial at his patella, but no displacement. Peripheral pulses are 1+ posterior tibial distribution. No peripheral edema is noted bilaterally. Options were discussed with the patient. The patient's old chart was reviewed as his current medication regimen updated. Current review of systems updated today as well. We will proceed with a left intra-articular knee joint injection today with fluoroscopic guidance. Risks were again discussed including, but not limited to bleeding, infection, possibility of intravascular injection sequelae, spread of local anesthetic and numbness, side effects of steroid medication, exposure to fluoroscopy and poor results regarding pain control. The patient understands and wished to proceed. The patient will return to clinic in approximately 2 weeks for followup, was counseled as to activity level as well as side effects to be aware of. The patient will follow up in approximately 2 weeks. We discussed potential treatment for his low back pain, caudal epidural steroid injection and would like to proceed with that and we will have him return as scheduled. DIAGNOSIS: Bilateral knee joint pain with primary osteoarthritis, bilateral knees. PROCEDURE: Left intraarticular knee joint injection using C-arm fluoroscopic guidance under sterile prep and drape using local anesthetic. MEDICATION INJECTED: A total of 80 mg Depo-Medrol plus 2 mL of 0.25% bupivacaine and 2 mL of contrast. CONDITION AT DISCHARGE: Stable. The patient tolerated the procedure well, had no complications. ANISH DELGADO MD DR: BREONNA/anna JOB#: [id number] / [id number]
== END | disposition home or self-care (01) ==
LOC: PNCL 09:02
PROVIDERS: ATTEND Anesthesiology
DX: M17.0 Bilateral primary osteoarthritis of knee (principal); M51.16 Intervertebral disc disorders with radiculopathy, lumbar region; M47.896 Other spondylosis, lumbar region; M96.1 Postlaminectomy syndrome, not elsewhere classified; Z98.890 Other specified postprocedural states
CPT/HCPCS: 20610; 77002; J1040; J3490; Q9965

== ENCOUNTER → 2019-03-06 | Outpatient (CLI) | payer MEDICARE, OTHER ==
[2018-12-26 12:59] VITALS: BP 142/71
[~2019-03-06] MED LIST changes: -BUPIVACAINE MPF 0.25% 10 ML VIAL. ONE; -IOHEXOL 180 MG/ML 10 ML VIAL. ONE; -methylPREDNISolone ACETATE 80 MG/ML VIAL. ONE
--- NOTE | 2019-03-07 09:18 | RAD ---
CHEST PA LATERAL History: Shortness of breath Comparison: 12/02/2018 two-view chest x-ray. Findings: Frontal and lateral views of chest were obtained. The cardiomediastinal silhouette is normal. Pulmonary vasculature is normal. Mild interstitial thickening of the lung stephenson noted. Minimal left basilar atelectasis noted.. Calcified granulomas in both lung stephenson. No pleural effusion or pneumothorax is seen. There is no acute bone abnormality. Pulmonary hyperinflation noted. Dextroconvex thoracic spine noted. IMPRESSION: No acute cardiopulmonary process. COPD. Electronically signed by: Alok Song MD (03/07/2019 9:15 AM) [facility]
== END | disposition home or self-care (01) ==
LOC: RAD 13:20
PROVIDERS: ATTEND Internal Medicine Pulmonary Disease
DX: J44.9 Chronic obstructive pulmonary disease, unspecified (principal); J98.11 Atelectasis; J84.10 Pulmonary fibrosis, unspecified
CPT/HCPCS: 71046

== ENCOUNTER → 2019-03-13 | Outpatient (CLI) | payer MEDICARE, OTHER ==
[2018-12-26 12:59] VITALS: BP 142/71
--- NOTE | 2019-03-13 08:15 | RAD ---
EXAM: Bilateral lower extremity venous Doppler. HISTORY: Bilateral lower extremity pain/swelling. Shortness of breath. COMPARISON: None. FINDINGS: Grayscale and Doppler analysis of the both lower extremity deep venous systems was performed with graded compression and augmentation. The common femoral, greater saphenous, superficial femoral, popliteal and calf veins were assessed. There is no evidence of deep venous thrombosis. IMPRESSION: 1. No evidence of deep venous thrombosis. Electronically signed by: Steven Samayoa MD (03/13/2019 8:12 AM) [facility]
== END | disposition home or self-care (01) ==
LOC: US 07:09
PROVIDERS: ATTEND Internal Medicine Pulmonary Disease
DX: M79.605 Pain in left leg (principal); M79.604 Pain in right leg; M79.89 Other specified soft tissue disorders; R06.02 Shortness of breath
CPT/HCPCS: 93970

== ENCOUNTER → 2019-04-08 | Outpatient (CLI) | payer MEDICARE, OTHER ==
[2019-03-20 11:13] VITALS: BP 127/62
[~2019-04-08] MED LIST changes: +ACET325T9 PO; +AMOX1TAB61 PO; +GUAI100L12 PO; +IOHEXOL 180 MG/ML 10 ML VIAL. ONE; +IPRA3AMP29 NEB; +LISI-130 PO; +MAG30ORA2 PO; +PRED50TA PO; +methylPREDNISolone ACETATE 40 MG/ML VIAL. ONE; +methylPREDNISolone ACETATE 80 MG/ML VIAL. ONE
--- NOTE | 2019-04-08 15:18 | PAIN ---
DATE OF SERVICE: 04/08/2019 PROGRESS NOTE FOR PAIN CLINIC DIAGNOSES: Lumbar radiculopathy with lumbar degenerative disk disease with lumbar spondylosis and post-lumbar laminectomy syndrome. HISTORY OF PRESENT ILLNESS: The patient is a 74-year-old male who returns for followup status post left knee joint injection, doing very well with this with about a 75% improvement with the knee, status post caudal epidural steroid injection most recently on 01/28/2019. The patient did very well with this as well with about 50% improvement after that. The patient reports significant pain in the back still and then radiating into the right greater than left lower extremity, although the knee is doing much better. The patient reports no new motor or sensory deficits, no new bowel or bladder incontinence. Describes the pain as tingling and stabbing in the back, aching, sharp, shooting into the legs, mostly in the posterior gluteus on the right, posterior thigh. The patient reports it is on and off in intensity, worse with walking, standing, changing positions. The pain is a 7-8 on a scale of 10 at its worst over the past week, 4-5 on an average, 3-4 at its least and is a 4 today. The patient reports no new motor or sensory deficits, worse with walking, better with sitting or lying down, does not awaken him from sleep at night. PHYSICAL EXAMINATION: VITAL SIGNS: The patient's blood pressure is 144/75, pulse 80, respirations are 20, temperature 97.8 degrees Fahrenheit, height is 6 feet, weight is 279 pounds. GENERAL: The patient is awake, alert, oriented, appropriate, very pleasant demeanor. HEENT: Shows normocephalic, atraumatic. Extraocular movements are intact and symmetrical. The patient is wearing eye glasses. Oral cavity shows mucous membranes moist and pink. Dentition is intact. The patient is wearing nasal cannula oxygen today from recent hospitalization for aspiration. CHEST: Shows normal on inspection. Breath sounds are clear, but distant bilaterally. HEART: Shows S1, S2 clear. No murmurs auscultated. ABDOMEN: Obese, soft, nontender, nondistended. No palpable organomegaly is noted. BACK: Shows spine grossly in the midline, normal-appearing cervical lordotic curvature, thoracic kyphotic curvature, some flattening of lumbar lordotic curvature. Lumbar paraspinous muscle shows symmetrical on inspection, well-healed surgical scars again noted with palpation shows some moderate tenderness diffusely in the middle and lower distribution of paraspinous muscles bilaterally, but only diffusely without significant radiation or asymmetry. The patient has good rotational motion of lumbar spine, both laterally as well as extension and flexion without significant difficulty. EXTREMITIES: Lower extremities show deep tendon reflexes at 1+ in the patellar and tendo calcaneus tendons are equal. Motor exam is strong with approximately 4 on a scale of 5 on the right, 5/5 on the left with dorsiflexion, extension, quadriceps and hamstring flexion and 5/5 equal bilaterally. Peripheral pulses are 1+ posterior tibia. No peripheral edema is noted bilaterally. Options were discussed with the patient. The patient's old chart was reviewed as his current medication regimen updated. Current review of systems updated today as well. We will proceed with a caudal approach epidural steroid injection second in a series today with fluoroscopic guidance. Risks were again discussed including, but not limited to bleeding, infection, possibility of epidural hematoma, subsequent neurological compromise, dural puncture, headaches, spinal cord and/or nerve damage, side effects of steroid medication and poor results regarding pain control. The patient understands and wished to proceed. The patient will return to the clinic in approximately 2 weeks for followup. He was counseled on return appointment, activity level and side effects to be aware of. DIAGNOSES: Lumbar radiculopathy with lumbar degenerative disk disease and lumbar spondylosis with lumbar post-laminectomy syndrome. PROCEDURE: Lumbar epidural steroid injection caudal approach using C-arm fluoroscopic guidance under sterile prep and drape using local anesthetic. MEDICATION INJECTED: A total of 120 mg of Depo-Medrol plus 10 mL of preservative-free normal saline and 2 mL of contrast. CONDITION AT DISCHARGE: Stable. The patient tolerated the procedure well, had no complications. ANISH DELGADO MD DR: BREONNA/anna JOB#: [id number] / [id number]
== END ==
LOC: PNCL 11:05
PROVIDERS: ATTEND Anesthesiology
DX: M51.16 Intervertebral disc disorders with radiculopathy, lumbar region (principal); M47.816 Spondylosis without myelopathy or radiculopathy, lumbar region; M96.1 Postlaminectomy syndrome, not elsewhere classified
CPT/HCPCS: 62323; J1030; J1040; Q9965

== ENCOUNTER 2019-04-24 15:01 | Inpatient (IN) | payer MEDICARE, OTHER ==
[~2019-04-24] VITALS: Ht 180.3 cm; Wt 127.0 kg
[~2019-04-24 15:01] MED LIST changes: +FENO145T3 PO; -FENO145T30 PO; -IOHEXOL 180 MG/ML 10 ML VIAL. ONE; -methylPREDNISolone ACETATE 40 MG/ML VIAL. ONE; -methylPREDNISolone ACETATE 80 MG/ML VIAL. ONE
[2019-04-24] MEDS ORDERED: IPRATRPIUM/ALBUTEROL 0.5/2.5MG 3 ML NEBU. NEB ONE (15:30)
--- NOTE | 2019-04-24 15:36 | PHYS DOC ---
Past Medical History Past Medical History: Anxiety, Asthma, COPD, GERD, High Cholesterol, Hypertension, Other Additional Past Medical Histor: CHRONIC HIP PAIN Past Surgical History: Angioplasty, Other Additional Past Surgical Histo: CARDIAC STENT Alcohol Use: Occasionally Drug Use: None Adult General Chief Complaint Chief Complaint: SHORTNESS OF BREATH [facility] HPI Patient is a 74-year-old male who presents with complaint of shortness of breath that has been ongoing for the last 9 months. Patient states that symptoms have worsened over the last 3 weeks however and he states that shortness of breath is significantly worsened with exertion. Patient was admitted in February for same complaint and was started on oxygen at that time. Patient states that he is on 1 L when he sits and 3 L when he gets up and walks around. He states that his oxygen requirement feels like it's gone up because he is getting very short of breath on the 3 L when he walks. He denies any chest pain. He denies any lower extremity pain or swelling. Patient states that he was not told why he is req uiring oxygen.[] Review of Systems Review of Systems Constitutional: Denies fever or chills [] Respiratory: Positive cough and shortness of breath [] Cardiovascular: No additional information not addressed in HPI [] GI: Denies abdominal pain, nausea, vomiting or diarrhea [] Integument: Denies rash or skin lesions [] Neurologic: Denies headache, focal weakness or sensory changes [] All other systems were reviewed and found to be within normal limits, except as documented in this note. Current Medications Current Medications Current Medications Medications (Trade) Dose Ordered Sig/Janine Start Time Stop Time Status Last Admin Dose Admin Acetaminophen/ Hydrocodone Bitart (Lortab 5/325) 1 tab 1X ONCE 04/24/19 17:15 04/24/19 17:16 DC 04/24/19 17:37 1 TAB Albuterol/ Ipratropium (Duoneb) 3 ml 1X ONCE 04/24/19 15:30 04/24/19 15:33 DC 04/24/19 15:41 3 ML Lorazepam (Ativan) 0.5 mg 1X ONCE 04/24/19 17:15 04/24/19 17:16 DC 04/24/19 17:38 0.5 MG Allergies Allergies Allergies Coded Allergies Type Severity Reaction Last Updated Verified No Known Drug Allergies 12/11/17 No Physical Exam Physical Exam Constitutional: Well developed, well nourished, no acute distress, non-toxic appearance. [] HENT: Normocephalic, atraumatic, bilateral external ears normal, oropharynx moist, no oral exudates, nose normal. [] Eyes: PERRLA, EOMI, conjunctiva normal, no discharge. [] Neck: Normal range of motion, no tenderness, supple. [] Cardiovascular: Regular rate and rhythm[] Lungs & Thorax: Bilateral breath sounds clear to auscultation [] Abdomen: Bowel sounds normal, soft, no tenderness. [] Skin: Warm, dry, no erythema, no rash. [] Extremities: No tenderness, no cyanosis, no clubbing, ROM intact, no edema. [] Neurologic: Alert and oriented X 3, no focal deficits noted. [] Current Patient Data Vital Signs Vital Signs Date Time Temp Pulse Resp B/P (MAP) Pulse Ox O2 Delivery O2 Flow Rate FiO2 04/24/19 17:37 20 97 Nasal Cannula 3.0 04/24/19 15:25 98.2 84 149/89 (109) 98.2 Lab Values Laboratory Tests Test 04/24/19 15:38 04/24/19 15:45 Influenza Type A Antigen Negative (NEGATIVE) Influenza Type B Antigen Negative (NEGATIVE) White Blood Count 8.1 x10^3/uL (4.0-11.0) Red Blood Count 4.46 x10^6/uL (4.30-5.70) Hemoglobin 15.3 g/dL (13.0-17.5) Hematocrit 44.9 % (39.0-53.0) Mean Corpuscular Volume 101 fL (79-100) H Mean Corpuscular Hemoglobin 34 pg (25-35) Mean Corpuscular Hemoglobin Concent 34 g/dL (31-37) Red Cell Distribution Width 14.4 % (11.5-14.5) Platelet Count 202 x10^3/uL (140-400) Neutrophils (%) (Auto) 63 % (31-73) Lymphocytes (%) (Auto) 22 % (24-48) L Monocytes (%) (Auto) 13 % (0-9) H Eosinophils (%) (Auto) 1 % (0-3) Basophils (%) (Auto) 1 % (0-3) Neutrophils # (Auto) 5.1 x10^3/uL (1.8-7.7) Lymphocytes # (Auto) 1.8 x10^3/uL (1.0-4.8) Monocytes # (Auto) 1.0 x10^3/uL (0.0-1.1) Eosinophils # (Auto) 0.1 x10^3/uL (0.0-0.7) Basophils # (Auto) 0.1 x10^3/uL (0.0-0.2) D-Dimer (Radha) 0.62 ug/mlFEU (0.00-0.50) H Sodium Level 136 mmol/L (136-145) Potassium Level 4.3 mmol/L (3.5-5.1) Chloride Level 101 mmol/L (98-107) Carbon Dioxide Level 27 mmol/L (21-32) Anion Gap 8 (6-14) Blood Urea Nitrogen 42 mg/dL (8-26) H Creatinine 2.1 mg/dL (0.7-1.3) H Estimated GFR (Cockcroft-Gault) 31.2 BUN/Creatinine Ratio 20 (6-20) Glucose Level 113 mg/dL (70-99) H Calcium Level 9.3 mg/dL (8.5-10.1) Total Bilirubin 0.5 mg/dL (0.2-1.0) Aspartate Amino Transferase (AST) 18 U/L (15-37) Alanine Aminotransferase (ALT) 29 U/L (16-63) Alkaline Phosphatase 90 U/L (46-116) Troponin I Quantitative < 0.017 ng/mL (0.000-0.055) MW-Tol-K-Type Natriuretic Peptide 120 pg/mL (0-124) Total Protein 7.4 g/dL (6.4-8.2) Albumin 3.7 g/dL (3.4-5.0) Albumin/Globulin Ratio 1.0 (1.0-1.7) Laboratory Tests 04/24/19 15:45 Laboratory Tests 04/24/19 15:45 EKG EKG EKG demonstrates sinus tachycardia with a rate of 101.[] Radiology/Procedures Radiology/Procedures [] Impressions: PROCEDURE: CHEST PA & LATERAL CHEST PA LATERAL History: Dyspnea Comparison: CTA of the chest 03/18/2019 . Findings: Frontal and lateral views of chest were obtained. The cardiomediastinal silhouette is normal. Pulmonary vasculature is normal. The lungs are clear other than minimal left basilar discoid atelectasis. Calcified granuloma involving the right lung. No pleural effusion or pneumothorax is seen. There is no acute bone abnormality. IMPRESSION: Minimal left basilar discoid atelectasis. Electronically signed by: Alok Song MD (04/24/2019 4:31 PM) [facility] Course & Med Decision Making Course & Med Decision Making Pertinent Labs and Imaging studies reviewed. (See chart for details) [] Dragon Disclaimer Dragon Disclaimer This electronic medical record was generated, in whole or in part, using a voice recognition dictation system. Departure Departure Impression: Primary Impression: COPD with acute exacerbation Disposition: ADMITTED INPATIENT Admitting Physician: FIDE (Dr. Briggs) Condition: IMPROVED Referrals: LAKHWINDER ALLEN MD (PCP) MARLEN TINOCO Jr., DO Apr 24, 2019 15:36
--- NOTE | 2019-04-24 16:04 | EKG ---
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
[2019-04-24 16:05] LABS: BASO # 0.1 x10^3/uL (0.0-0.2); BASO % 1 % (0-3); EOS # 0.1 x10^3/uL (0.0-0.7); EOS % 1 % (0-3); HEMATOCRIT 44.9 % (39.0-53.0); HEMOGLOBIN 15.3 g/dL (13.0-17.5); LYMPH # 1.8 x10^3/uL (1.0-4.8); LYMPH % 22 % (24-48); MEAN CORPUSCULAR HEMOGLOBIN 34 pg (25-35); MEAN CORPUSCULAR HGB CONC 34 g/dL (31-37); MEAN CORPUSCULAR VOLUME 101 fL (79-100); MONO % 13 % (0-9); NEUT # 5.1 x10^3/uL (1.8-7.7); NEUT % 63 % (31-73); PLATELET COUNT 202 x10^3/uL (140-400); RED BLOOD COUNT 4.46 x10^6/uL (4.30-5.70); RED CELL DISTRIBUTION WIDTH 14.4 % (11.5-14.5); WHITE BLOOD COUNT 8.1 x10^3/uL (4.0-11.0)
[2019-04-24 16:12] LABS: CALCIUM 9.3 mg/dL (8.5-10.1); CREATININE 2.1 mg/dL (0.7-1.3); GFR 31.2; POTASSIUM 4.3 mmol/L (3.5-5.1)
[2019-04-24 16:20] LABS: ALBUMIN 3.7 g/dL (3.4-5.0); TOTAL BILIRUBIN 0.5 mg/dL (0.2-1.0); TOTAL PROTEIN 7.4 g/dL (6.4-8.2)
[2019-04-24 16:24] LABS: INFLUENZA A PATIENT NEGATIVE (NEGATIVE); INFLUENZA B PATIENT NEGATIVE (NEGATIVE)
--- NOTE | 2019-04-24 16:34 | RAD ---
CHEST PA LATERAL History: Dyspnea Comparison: CTA of the chest 03/18/2019 . Findings: Frontal and lateral views of chest were obtained. The cardiomediastinal silhouette is normal. Pulmonary vasculature is normal. The lungs are clear other than minimal left basilar discoid atelectasis. Calcified granuloma involving the right lung. No pleural effusion or pneumothorax is seen. There is no acute bone abnormality. IMPRESSION: Minimal left basilar discoid atelectasis. Electronically signed by: Alok Song MD (04/24/2019 4:31 PM) [facility]
[2019-04-24] MEDS ORDERED: LORazepam 0.5 MG TABLET PO ONE (17:15)
[2019-04-24] MEDS ORDERED: HYDROcodone/APAP 5/325MG 1 TAB TABLET PO ONE (17:15)
[2019-04-24] MEDS ORDERED: MORPHINE SULFATE 2 MG/ML VIAL. IV PRN (18:00)
[2019-04-24] MEDS ORDERED: ONDANSETRON PF 4 MG/2 ML VIAL. IV PRN (18:00)
[2019-04-24 19:14] LABS: BILIRUBIN,URINE SMALL (NEG); CLARITY,URINE CLEAR; COLOR,URINE AMBER; NITRITE,URINE NEGATIVE (NEG); PROTEIN,URINE NEGATIVE (NEG-TRACE)
--- NOTE | 2019-04-24 19:15 | PDOC1 ---
History and Physical Date of Admission: Date of Admission DATE: 04/24/19 TIME: 19:11 Chief Complaint: Problems: (1) Degenerative joint disease of right hip (2) COPD with acute exacerbation Chief Complain: Shortness of breath History of Present Illness: HPI: This is a pleasant 74-year-old male who feels short of breath. He he appears younger than his stated age He states that when he sleeps at 90 wakes up and is in a panic because he can't catch his breath sounds as if he has orthopnea but his BNP level actually isn't that high He is D setting in the ER to the mid 88% range. Spine going off and on for 9 months He rates his symptoms at 7 out of 10 and symptoms are worse with movement and better with sitting still and also gets worse when he sleeps He's tried adjusting his meds but that didn't seem to help although his blood pressures a little better control his doctor increase his lisinopril We checked his labs is also in renal failure with a creatinine of 2 suspect increase in the lisinopril may have caused some of this Yair admit patient consult nephrology and cardiology and pulmonary Past Medical/Surgical History: PMH/PSH: Past Medical History: Anxiety, Asthma, COPD, GERD, High Cholesterol, Hypertension, Other Additional Past Medical Histor: CHRONIC HIP PAIN Past Surgical History: Angioplasty, Other Additional Past Surgical Histo: CARDIAC STENT Alcohol Use: Occasionally Drug Use: None Allergies: Allergies: Coded Allergies: No Known Drug Allergies (Unverified , 12/11/17) Family History: Family History: Hypertension Social History: Social Hisoty: He used to smoke but quit no drinking or drugs he is 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 Current Medications: Current Medications Current Medications Albuterol/ Ipratropium (Duoneb) 3 ml 1X ONCE NEB Last administered on 04/24/19at 15:41; Start 04/24/19 at 15:30; Stop 04/24/19 at 15:33; Status DC Acetaminophen/ Hydrocodone Bitart (Lortab 5/325) 1 tab 1X ONCE PO Last administered on 04/24/19at 17:37; Start 04/24/19 at 17:15; Stop 04/24/19 at 17:16; Status DC Lorazepam (Ativan) 0.5 mg 1X ONCE PO Last administered on 04/24/19at 17:38; Start 04/24/19 at 17:15; Stop 04/24/19 at 17:16; Status DC Ondansetron HCl (Zofran) 4 mg PRN Q8HRS PRN IV NAUSEA/VOMITING; Start 04/24/19 at 18:00; Stop 04/25/19 at 17:59 Morphine Sulfate (Morphine Sulfate) 2 mg PRN Q2HR PRN IV PAIN; Start 04/24/19 at 18:00; Stop 04/25/19 at 17:59 Albuterol/ Ipratropium (Duoneb) 3 ml RTQID NEB ; Start 04/24/19 at 20:00; Stop 04/25/19 at 19:59 Active Scripts Active Augmentin 875-125 Tablet (Amoxicillin/Potassium Clav) 1 Each Tablet 1 Tab PO BID 10 Days Prednisone 50 Mg Tablet 1 Tab PO DAILY 5 Days Mag-Al Plus Xs Suspension (Mag Hydrox/Al Hydrox/Simeth) 30 Ml Oral.susp 30 Ml PO PRN DAILY PRN 10 Days Guaifenesin 100 Mg/5 Ml Liquid 200 Mg PO PRN Q4HRS PRN 10 Days Tylenol (Acetaminophen) 325 Mg Tablet 650 Mg PO PRN Q4HRS PRN 30 Days Lisinopril 40 Mg Tablet 20 Mg PO BID 30 Days Duoneb 0.5-3(2.5) Mg/3 Ml (Albuterol/Ipratropium) 3 Ml Ampul.neb 3 Ml NEB Q4H 30 Days Miralax (Polyethylene Glycol 3350) 17 Gm Powd.pack 1 Packet PO DAILY Reported Crestor (Rosuvastatin Calcium) 40 Mg Tablet 40 Mg PO HS Metoprolol Succinate ( Xl ) (Metoprolol Succinate) 100 Mg Tab.er.24h 100 Mg PO DAILY Tablet (Phenobarb/Hyoscy/Atropine/Scop) 16.2 Mg Tablet 16.2 Mg PO QID PRN Meloxicam 15 Mg Tablet 15 Mg PO DAILY Ventolin Hfa Inhaler (Albuterol Sulfate) 18 Gm Hfa.aer.ad 2 Puff INH Q4HRS Omeprazole 40 Mg Capsule. 20 Mg PO DAILY Oxycodone Hcl Immed.release (Oxycodone Hcl) 10 Mg Tablet 15 Mg PO PRN QID PRN Cymbalta (Duloxetine Hcl) 30 Mg Capsule. 60 Mg PO DAILY Flonase Allergy Relief (Fluticasone Propionate) 9.9 Ml [place].susp 2 Sprays NS PRN PRN Amlodipine Besylate 5 Mg Tablet 5 Mg PO DAILY Aspir 81 (Aspirin) 81 Mg Tablet. 81 Mg PO DAILY08 ROS: Review of Systems Review of System REVIEW OF SYSTEMS: GENERAL: Denies weakness SKIN: No bruising, hair changes or rashes. EYES: No blurred, double or loss of vision. NOSE AND THROAT: No history of nosebleeds, hoarseness or sore throat. HEART: No history of palpitations, chest pain or shortness of breath on exertion. LUNGS: Complains of shortness of breath GASTROINTESTINAL: Denies changes in appetite, nausea, vomiting, diarrhea or constipation. GENITOURINARY: No history of frequency, urgency, hesitancy or nocturia. NEUROLOGIC: Denies history of numbness, tingling, tremor or weakness. PSYCHIATRIC: No history of panic, anxiety or depression. ENDOCRINE: No history of heat or cold intolerance, polyuria or polydipsia. EXTREMITIES: Denies muscle weakness, joint pain, pain on walking or stiffness. Physical Exam: Vital Signs: Vital Signs Date Time Temp Pulse Resp B/P (MAP) Pulse Ox O2 Delivery O2 Flow Rate FiO2 04/24/19 17:37 20 97 Nasal Cannula 3.0 04/24/19 17:30 90 129/89 (102) 04/24/19 15:25 98.2 98.2 Physcial Exam: GEN: No apparent distress. Alert and oriented HEENT: Normal cephalic, atraumatic, external auditory canals are patent EYES: Extraocular muscles are intact, pupil are equally round and reactive to light and accommodation MUSCULOSKELETAL: Well developed , well nourished, good range of motion ENDOCRINE: Ny thyromegaly was palpated LYMPHATICS: No cervical chain or axillary nodes were noted HEMATOPOIETIC: No bruising NECK: Supple, no JVD, no thyromegaly was noted LUNGS: Clear to auscultation in all lung stephenson without rhonchi or wheezing HEART: RRR, S!, S2 present. Peripheral pulses intact, no obvious murmurs noted ABDOMEN: Soft, nontender. Positive bowel sounds, no organomegaly, normal bowel sounds EXTREMITIES: Without clubbing, cyanosis, or edema. Pedal pulses intact. Negative Homans sign NEUROLOGIC: Normal speech and tone. A&O x 3, moves all extremities, no obvious focal deficits PSYCHIATRIC: Normal affect, normal mood. Stable SKIN: No ulcerations or rashes, good skin turgor, no jaundice VASCULAR: Good capillary refill, neurovascular bundle appears to be intact Labs: Labs: Laboratory Tests Test 04/24/19 15:38 04/24/19 15:45 Influenza Type A Antigen Negative (NEGATIVE) Influenza Type B Antigen Negative (NEGATIVE) White Blood Count 8.1 x10^3/uL (4.0-11.0) Red Blood Count 4.46 x10^6/uL (4.30-5.70) Hemoglobin 15.3 g/dL (13.0-17.5) Hematocrit 44.9 % (39.0-53.0) Mean Corpuscular Volume 101 fL (79-100) Mean Corpuscular Hemoglobin 34 pg (25-35) Mean Corpuscular Hemoglobin Concent 34 g/dL (31-37) Red Cell Distribution Width 14.4 % (11.5-14.5) Platelet Count 202 x10^3/uL (140-400) Neutrophils (%) (Auto) 63 % (31-73) Lymphocytes (%) (Auto) 22 % (24-48) Monocytes (%) (Auto) 13 % (0-9) Eosinophils (%) (Auto) 1 % (0-3) Basophils (%) (Auto) 1 % (0-3) Neutrophils # (Auto) 5.1 x10^3/uL (1.8-7.7) Lymphocytes # (Auto) 1.8 x10^3/uL (1.0-4.8) Monocytes # (Auto) 1.0 x10^3/uL (0.0-1.1) Eosinophils # (Auto) 0.1 x10^3/uL (0.0-0.7) Basophils # (Auto) 0.1 x10^3/uL (0.0-0.2) D-Dimer (Radha) 0.62 ug/mlFEU (0.00-0.50) Sodium Level 136 mmol/L (136-145) Potassium Level 4.3 mmol/L (3.5-5.1) Chloride Level 101 mmol/L (98-107) Carbon Dioxide Level 27 mmol/L (21-32) Anion Gap 8 (6-14) Blood Urea Nitrogen 42 mg/dL (8-26) Creatinine 2.1 mg/dL (0.7-1.3) Estimated GFR (Cockcroft-Gault) 31.2 BUN/Creatinine Ratio 20 (6-20) Glucose Level 113 mg/dL (70-99) Calcium Level 9.3 mg/dL (8.5-10.1) Total Bilirubin 0.5 mg/dL (0.2-1.0) Aspartate Amino Transf (AST/SGOT) 18 U/L (15-37) Alanine Aminotransferase (ALT/SGPT) 29 U/L (16-63) Alkaline Phosphatase 90 U/L (46-116) Troponin I Quantitative < 0.017 ng/mL (0.000-0.055) GH-Ghu-E-Type Natriuretic Peptide 120 pg/mL (0-124) Total Protein 7.4 g/dL (6.4-8.2) Albumin 3.7 g/dL (3.4-5.0) Albumin/Globulin Ratio 1.0 (1.0-1.7) Laboratory Tests Test 04/24/19 15:38 04/24/19 15:45 Influenza Type A Antigen Negative (NEGATIVE) Influenza Type B Antigen Negative (NEGATIVE) White Blood Count 8.1 x10^3/uL (4.0-11.0) Red Blood Count 4.46 x10^6/uL (4.30-5.70) Hemoglobin 15.3 g/dL (13.0-17.5) Hematocrit 44.9 % (39.0-53.0) Mean Corpuscular Volume 101 fL (79-100) Mean Corpuscular Hemoglobin 34 pg (25-35) Mean Corpuscular Hemoglobin Concent 34 g/dL (31-37) Red Cell Distribution Width 14.4 % (11.5-14.5) Platelet Count 202 x10^3/uL (140-400) Neutrophils (%) (Auto) 63 % (31-73) Lymphocytes (%) (Auto) 22 % (24-48) Monocytes (%) (Auto) 13 % (0-9) Eosinophils (%) (Auto) 1 % (0-3) Basophils (%) (Auto) 1 % (0-3) Neutrophils # (Auto) 5.1 x10^3/uL (1.8-7.7) Lymphocytes # (Auto) 1.8 x10^3/uL (1.0-4.8) Monocytes # (Auto) 1.0 x10^3/uL (0.0-1.1) Eosinophils # (Auto) 0.1 x10^3/uL (0.0-0.7) Basophils # (Auto) 0.1 x10^3/uL (0.0-0.2) D-Dimer (Radha) 0.62 ug/mlFEU (0.00-0.50) Sodium Level 136 mmol/L (136-145) Potassium Level 4.3 mmol/L (3.5-5.1) Chloride Level 101 mmol/L (98-107) Carbon Dioxide Level 27 mmol/L (21-32) Anion Gap 8 (6-14) Blood Urea Nitrogen 42 mg/dL (8-26) Creatinine 2.1 mg/dL (0.7-1.3) Estimated GFR (Cockcroft-Gault) 31.2 BUN/Creatinine Ratio 20 (6-20) Glucose Level 113 mg/dL (70-99) Calcium Level 9.3 mg/dL (8.5-10.1) Total Bilirubin 0.5 mg/dL (0.2-1.0) Aspartate Amino Transf (AST/SGOT) 18 U/L (15-37) Alanine Aminotransferase (ALT/SGPT) 29 U/L (16-63) Alkaline Phosphatase 90 U/L (46-116) Troponin I Quantitative < 0.017 ng/mL (0.000-0.055) AH-Rxz-W-Type Natriuretic Peptide 120 pg/mL (0-124) Total Protein 7.4 g/dL (6.4-8.2) Albumin 3.7 g/dL (3.4-5.0) Albumin/Globulin Ratio 1.0 (1.0-1.7) Images: Images Chest x-ray shows some atelectasis Assessment/Plan Assessment/Plan Respiratory failure with COPD acute renal failure and orthopnea Plan Consult pulmonary cardiac monitoring consult nephrology gentle IV fluids if nephrology agrees consult cardiology home meds DVT prophylaxis full code Serial enzymes serially EKGs consider echocardiogram if cardiology agrees Duo nebs and O2 per nasal cannula Long-term prognosis guarded PATRICE REYES III DO Apr 24, 2019 19:15
[2019-04-24 19:21] LABS: BACTERIA,URINE 0 /HPF (0-FEW); HYALINE CASTS, URINE MANY /HPF; RBC,URINE 0 /HPF (0-2)
[2019-04-24 19:35] VITALS: BP 165/74
[2019-04-24] MEDS ORDERED: IPRATRPIUM/ALBUTEROL 0.5/2.5MG 3 ML NEBU. NEB SCH (20:00)
[2019-04-24] MEDS ORDERED: LORA2TAB89 PO (20:47)
[2019-04-24] MEDS ORDERED: TIOT18CA IH (20:47)
[2019-04-24] MEDS ORDERED: LORA-434 PO (20:47)
[2019-04-24] MEDS ORDERED: LISI-334 PO (21:11)
[2019-04-24] MEDS ORDERED: ACETAMINOPHEN 325 MG TABLET. PO PRN (21:15)
[2019-04-24] MEDS ORDERED: MAG HYDROX/ALUMINUM HYD/SIMETH 30 ML ORAL.SUSP PO PRN (21:15)
[2019-04-24] MEDS ORDERED: ALBUTEROL SULFATE 2.5 MG/3 ML NEBU. NEB PRN (21:30)
[2019-04-24] MEDS ORDERED: ATORVASTATIN CALCIUM 40 MG TABLET. PO SCH (22:00)
[2019-04-24] MEDS ORDERED: METOPROLOL SUCC 24HR ER 100 MG TAB.ER.24H. PO SCH (22:00)
[2019-04-24] MEDS: IPRATRPIUM/ALBUTEROL 0.5/2.5MG 3 ML NEBU. NEB SCH (22:00)
[2019-04-24] MEDS ORDERED: LORazepam 1 MG TABLET PO SCH (22:00)
[2019-04-24] MEDS ORDERED: cefTRIAXone IV Push 1 GM VIAL. IVP SCH (22:00)
[2019-04-24] MEDS: IV NORMAL SALINE 1000ML BAG 1,000 ML IV SCH (22:03)
[2019-04-24] MEDS: methylPREDNISolone SOD SUCC PF 40 MG/ML VIAL. IV SCH (22:04)
[2019-04-24] MEDS: oxyCODONE IR 5 MG TABLET PO PRN (22:05)
[2019-04-24 23:59] VITALS: BP 128/67
[2019-04-25] MEDS: LORazepam 1 MG TABLET PO PRN ×2 (02:01→16:12)
[2019-04-25 03:55] VITALS: BP 116/59
[2019-04-25 05:19] LABS: BASO % 0 % (0-3); EOS % 0 % (0-3); HEMATOCRIT 43.7 % (39.0-53.0); HEMOGLOBIN 14.7 g/dL (13.0-17.5); LYMPH # 0.5 x10^3/uL (1.0-4.8); LYMPH % 8 % (24-48); MEAN CORPUSCULAR HEMOGLOBIN 34 pg (25-35); MEAN CORPUSCULAR HGB CONC 34 g/dL (31-37); MEAN CORPUSCULAR VOLUME 101 fL (79-100); MONO # 0.1 x10^3/uL (0.0-1.1); MONO % 2 % (0-9); NEUT # 5.4 x10^3/uL (1.8-7.7); NEUT % 90 % (31-73); PLATELET COUNT 190 x10^3/uL (140-400); RED BLOOD COUNT 4.31 x10^6/uL (4.30-5.70); RED CELL DISTRIBUTION WIDTH 14.6 % (11.5-14.5)
[2019-04-25 05:35] LABS: CALCIUM 9.4 mg/dL (8.5-10.1); CREATININE 2.3 mg/dL (0.7-1.3); GFR 28.1; POTASSIUM 4.7 mmol/L (3.5-5.1)
[2019-04-25] MEDS ORDERED: PANTOPRAZOLE 40 MG TABLET.DR. PO SCH (07:30)
[2019-04-25] MEDS: IPRATRPIUM/ALBUTEROL 0.5/2.5MG 3 ML NEBU. NEB SCH ×3 (07:50→15:35)
[2019-04-25 07:55] VITALS: BP 123/77
[2019-04-25] MEDS ORDERED: ASPIRIN ENTERIC COATED 81 MG TABLET.DR. PO SCH (08:00)
[2019-04-25] MEDS: methylPREDNISolone SOD SUCC PF 40 MG/ML VIAL. IV SCH (08:06)
[2019-04-25] MEDS: oxyCODONE IR 5 MG TABLET PO PRN ×2 (08:16→16:12)
[2019-04-25] MEDS ORDERED: DULoxetine HCL 30 MG CAPSULE.DR PO SCH (09:00)
[2019-04-25] MEDS ORDERED: amLODIPine BESYLATE 5 MG TABLET PO SCH (09:00)
[2019-04-25] MEDS ORDERED: POLYETHYLENE GLYCOL 3350 17 GM PACKET. PO SCH (09:00)
[2019-04-25] MEDS ORDERED: FLUTICASONE 50MCG/NASAL SPRAY 16GM BOTTLE. NS PRN (09:00)
[2019-04-25] MEDS ORDERED: NON FORMULARY ITEM (Tiotropium Bromide (Spiriva) 2 INH) IH SCH (09:00)
[2019-04-25 11:21] VITALS: BP 152/71
--- NOTE | 2019-04-25 11:41 | PDOC ---
[employer] PROGRESS NOTE Chief Complaint Chief Complaint Respiratory failure with COPD suspect possible flash pulmonary edema? Past Medical History: Anxiety, Asthma, COPD, GERD, High Cholesterol, Hypertension, Other Additional Past Medical Histor: CHRONIC HIP PAIN Past Surgical History: Angioplasty, Other Additional Past Surgical Histo: CARDIAC STENT History of Present Illness History of Present Illness [id number] Patient seen and examined Chart reviewed Discussed with RN Vitals/I&O Vitals/I&O: Vital Signs Date Time Temp Pulse Resp B/P (MAP) Pulse Ox O2 Delivery O2 Flow Rate FiO2 04/25/19 11:21 97.8 79 18 152/71 (98) 93 Nasal Cannula 3.0 97.8 I & O 04/24/19 04/24/19 04/25/19 15:00 23:00 07:00 Intake Total 300 ml 600 ml Output Total 400 ml Balance 300 ml 200 ml Physical Exam General: Alert, Oriented X3 Heart: Regular rate, Normal S1 Lungs: Crackles Abdomen: Normal bowel sounds, Soft Extremities: No clubbing, No cyanosis Skin: No rashes, No breakdown Labs Labs: Laboratory Tests Test 04/24/19 15:38 04/24/19 15:45 04/24/19 19:02 04/24/19 21:05 Influenza Type A Antigen Negative (NEGATIVE) Influenza Type B Antigen Negative (NEGATIVE) White Blood Count 8.1 x10^3/uL (4.0-11.0) Red Blood Count 4.46 x10^6/uL (4.30-5.70) Hemoglobin 15.3 g/dL (13.0-17.5) Hematocrit 44.9 % (39.0-53.0) Mean Corpuscular Volume 101 fL (79-100) Mean Corpuscular Hemoglobin 34 pg (25-35) Mean Corpuscular Hemoglobin Concent 34 g/dL (31-37) Red Cell Distribution Width 14.4 % (11.5-14.5) Platelet Count 202 x10^3/uL (140-400) Neutrophils (%) (Auto) 63 % (31-73) Lymphocytes (%) (Auto) 22 % (24-48) Monocytes (%) (Auto) 13 % (0-9) Eosinophils (%) (Auto) 1 % (0-3) Basophils (%) (Auto) 1 % (0-3) Neutrophils # (Auto) 5.1 x10^3/uL (1.8-7.7) Lymphocytes # (Auto) 1.8 x10^3/uL (1.0-4.8) Monocytes # (Auto) 1.0 x10^3/uL (0.0-1.1) Eosinophils # (Auto) 0.1 x10^3/uL (0.0-0.7) Basophils # (Auto) 0.1 x10^3/uL (0.0-0.2) D-Dimer (Radha) 0.62 ug/mlFEU (0.00-0.50) Sodium Level 136 mmol/L (136-145) Potassium Level 4.3 mmol/L (3.5-5.1) Chloride Level 101 mmol/L (98-107) Carbon Dioxide Level 27 mmol/L (21-32) Anion Gap 8 (6-14) Blood Urea Nitrogen 42 mg/dL (8-26) Creatinine 2.1 mg/dL (0.7-1.3) Estimated GFR (Cockcroft-Gault) 31.2 BUN/Creatinine Ratio 20 (6-20) Glucose Level 113 mg/dL (70-99) Calcium Level 9.3 mg/dL (8.5-10.1) Total Bilirubin 0.5 mg/dL (0.2-1.0) Aspartate Amino Transf (AST/SGOT) 18 U/L (15-37) Alanine Aminotransferase (ALT/SGPT) 29 U/L (16-63) Alkaline Phosphatase 90 U/L (46-116) Troponin I Quantitative < 0.017 ng/mL (0.000-0.055) < 0.017 ng/mL (0.000-0.055) TG-Kuk-Y-Type Natriuretic Peptide 120 pg/mL (0-124) Total Protein 7.4 g/dL (6.4-8.2) Albumin 3.7 g/dL (3.4-5.0) Albumin/Globulin Ratio 1.0 (1.0-1.7) Urine Collection Type Unknown Urine Color Tessy Urine Clarity Clear Urine pH 5.0 Urine Specific [place] 1.025 Urine Protein Negative mg/dL (NEG-TRACE) Urine Glucose (UA) Negative mg/dL (NEG) Urine Ketones (Stick) Trace mg/dL (NEG) Urine Blood Negative (NEG) Urine Nitrite Negative (NEG) Urine Bilirubin Small (NEG) Urine Urobilinogen Dipstick 1.0 mg/dL (0.2 mg/dL) Urine Leukocyte Esterase Negative (NEG) Urine RBC 0 /HPF (0-2) Urine WBC 1-4 /HPF (0-4) Urine Bacteria 0 /HPF (0-FEW) Urine Hyaline Casts Many /HPF Urine Mucus Marked /LPF Test 04/25/19 00:00 04/25/19 04:45 Troponin I Quantitative < 0.017 ng/mL (0.000-0.055) White Blood Count 6.0 x10^3/uL (4.0-11.0) Red Blood Count 4.31 x10^6/uL (4.30-5.70) Hemoglobin 14.7 g/dL (13.0-17.5) Hematocrit 43.7 % (39.0-53.0) Mean Corpuscular Volume 101 fL (79-100) Mean Corpuscular Hemoglobin 34 pg (25-35) Mean Corpuscular Hemoglobin Concent 34 g/dL (31-37) Red Cell Distribution Width 14.6 % (11.5-14.5) Platelet Count 190 x10^3/uL (140-400) Neutrophils (%) (Auto) 90 % (31-73) Lymphocytes (%) (Auto) 8 % (24-48) Monocytes (%) (Auto) 2 % (0-9) Eosinophils (%) (Auto) 0 % (0-3) Basophils (%) (Auto) 0 % (0-3) Neutrophils # (Auto) 5.4 x10^3/uL (1.8-7.7) Lymphocytes # (Auto) 0.5 x10^3/uL (1.0-4.8) Monocytes # (Auto) 0.1 x10^3/uL (0.0-1.1) Eosinophils # (Auto) 0.0 x10^3/uL (0.0-0.7) Basophils # (Auto) 0.0 x10^3/uL (0.0-0.2) Sodium Level 138 mmol/L (136-145) Potassium Level 4.7 mmol/L (3.5-5.1) Chloride Level 101 mmol/L (98-107) Carbon Dioxide Level 24 mmol/L (21-32) Anion Gap 13 (6-14) Blood Urea Nitrogen 48 mg/dL (8-26) Creatinine 2.3 mg/dL (0.7-1.3) Estimated GFR (Cockcroft-Gault) 28.1 Glucose Level 230 mg/dL (70-99) Calcium Level 9.4 mg/dL (8.5-10.1) Assessment and Plan Assessmemt and Plan Problems Medical Problems: (1) COPD with acute exacerbation Status: Acute Respiratory failure with COPD suspect possible flash pulmonary edema? Past Medical History: Anxiety, Asthma, COPD, GERD, High Cholesterol, Hypertension, Other Additional Past Medical Histor: CHRONIC HIP PAIN Past Surgical History: Angioplasty, Other Additional Past Surgical Histo: CARDIAC STENT Plan IV steroids breathing tenderness oxygen Awaiting pulmonary and cardiology input Home meds DVT prophylaxis Plus minus Lasix Full code Long-term prognosis guarded Cardiac monitoring Comment Review of Relevant I have reviewed the following items chemo (where applicable) has been applied. Medications: Current Medications Medications (Trade) Dose Ordered Sig/Janine Route PRN Reason Start Time Stop Time Status Last Admin Dose Admin Albuterol/ Ipratropium (Duoneb) 3 ml 1X ONCE NEB 04/24/19 15:30 04/24/19 15:33 DC 04/24/19 15:41 Acetaminophen/ Hydrocodone Bitart (Lortab 5/325) 1 tab 1X ONCE PO 04/24/19 17:15 04/24/19 17:16 DC 04/24/19 17:37 Lorazepam (Ativan) 0.5 mg 1X ONCE PO 04/24/19 17:15 04/24/19 17:16 DC 04/24/19 17:38 Morphine Sulfate (Morphine Sulfate) 2 mg PRN Q2HR PRN IV PAIN 04/24/19 18:00 04/25/19 17:59 04/25/19 02:01 Albuterol/ Ipratropium (Duoneb) 3 ml RTQID NEB 04/24/19 20:00 04/24/19 21:19 DC 04/24/19 20:27 Methylprednisolone Sodium Succinate (SOLU-Medrol 40MG VIAL) 60 mg Q12HR IV 04/24/19 22:00 04/25/19 08:06 Ceftriaxone Sodium (Rocephin) 1 gm Q24H IVP 04/24/19 22:00 04/24/19 22:04 Amlodipine Besylate (Norvasc) 5 mg DAILY PO 04/25/19 09:00 04/25/19 08:06 Aspirin (Ecotrin) 81 mg DAILY08 PO 04/25/19 08:00 04/25/19 08:05 Duloxetine HCl (Cymbalta) 60 mg DAILY PO 04/25/19 09:00 04/25/19 08:05 Albuterol/ Ipratropium (Duoneb) 3 ml Q4HRS W/A NEB 04/24/19 22:00 04/25/19 07:50 Lorazepam (Ativan) 1 mg PRN TID PRN PO soa 04/24/19 21:15 04/25/19 02:01 Metoprolol Succinate (Toprol Xl) 100 mg HS PO 04/24/19 22:00 04/24/19 22:06 Polyethylene Glycol (miraLAX PACKET) 17 gm DAILY PO 04/25/19 09:00 04/25/19 08:23 Lorazepam (Ativan) 2 mg QHS PO 04/24/19 22:00 04/24/19 22:05 Pantoprazole Sodium (Protonix) 40 mg DAILYAC PO 04/25/19 07:30 04/25/19 08:05 Oxycodone HCl (Roxicodone) 30 mg PRN QID PRN PO SEVERE PAIN 7-10 04/24/19 21:30 04/25/19 08:16 Atorvastatin Calcium (Lipitor) 80 mg QHS PO 04/24/19 22:00 04/24/19 22:06 Sodium Chloride 1,000 ml @ 50 mls/hr Q20H IV 04/24/19 21:30 04/24/19 22:03 CASTMARCONIAL K III DO Apr 25, 2019 11:41
--- NOTE | 2019-04-25 13:19 | PDOC2 ---
CONSULT Date of Consult Date of Consult DATE: 04/25/19 TIME: 13:12 Reason for Consult Reason for Consult: RENAL FAILURE Referring Physician Referring Physician: ERIC Identification/Chief Complaint Chief Complaint SOB Source Source: Chart review, Patient History of Present Illness Reason for Visit: THIS IS A 74 YR OLD PT WITH SOB. ADMITTED AND DX WITH AECOPD. CR OF 2.1. NO CKD NOTED. UA NEG FOR NEPHRITIS. NO HX REPORTED. NO NEPHROTOXINS NOTED. HAS BEEN ON LISINOPRIL AND APPETITE HAS BEEN POOR. HEMODYNAMICALLY STABLE Past Medical History Musculoskeletal: Osteoarthritis Renal/: No pertinent hx Family History Family History: Hypertension Social History ALCOHOL: none Drugs: None Current Problem List Problem List Problems Medical Problems: (1) COPD with acute exacerbation Status: Acute Current Medications Current Medications Current Medications Albuterol/ Ipratropium (Duoneb) 3 ml 1X ONCE NEB Last administered on 04/24/19at 15:41; Start 04/24/19 at 15:30; Stop 04/24/19 at 15:33; Status DC Acetaminophen/ Hydrocodone Bitart (Lortab 5/325) 1 tab 1X ONCE PO Last administered on 04/24/19at 17:37; Start 04/24/19 at 17:15; Stop 04/24/19 at 17:16; Status DC Lorazepam (Ativan) 0.5 mg 1X ONCE PO Last administered on 04/24/19at 17:38; Start 04/24/19 at 17:15; Stop 04/24/19 at 17:16; Status DC Ondansetron HCl (Zofran) 4 mg PRN Q8HRS PRN IV NAUSEA/VOMITING; Start 04/24/19 at 18:00; Stop 04/25/19 at 17:59 Morphine Sulfate (Morphine Sulfate) 2 mg PRN Q2HR PRN IV PAIN Last administered on 04/25/19at 02:01; Start 04/24/19 at 18:00; Stop 04/25/19 at 17:59 Albuterol/ Ipratropium (Duoneb) 3 ml RTQID NEB Last administered on 04/24/19at 20:27; Start 04/24/19 at 20:00; Stop 04/24/19 at 21:19; Status DC Methylprednisolone Sodium Succinate (SOLU-Medrol 40MG VIAL) 60 mg Q12HR IV Last administered on 04/25/19at 08:06; Start 04/24/19 at 22:00 Ceftriaxone Sodium (Rocephin) 1 gm Q24H IVP Last administered on 04/24/19at 22:0 4; Start 04/24/19 at 22:00 Acetaminophen (Tylenol) 650 mg PRN Q4HRS PRN PO TEMP OVER 100.4F; Start 04/24/19 at 21:15 Amlodipine Besylate (Norvasc) 5 mg DAILY PO Last administered on 04/25/19at 08:06; Start 04/25/19 at 09:00 Aspirin (Ecotrin) 81 mg DAILY08 PO Last administered on 04/25/19 08:05; Start 04/25/19 at 08:00 Duloxetine HCl (Cymbalta) 60 mg DAILY PO Last administered on 04/25/19at 08:05; Start 04/25/19 at 09:00 Albuterol/ Ipratropium (Duoneb) 3 ml Q4HRS W/A NEB Last administered on 04/25/19at 11:39; Start 04/24/19 at 22:00 Lorazepam (Ativan) 1 mg PRN TID PRN PO soa Last administered on 04/25/19at 02:01; Start 04/24/19 at 21:15 Al Hydroxide/Mg Hydroxide (Mylanta Plus Xs) 30 ml PRN DAILY PRN PO HEARTBURN / GAS; Start 04/24/19 at 21:15 Metoprolol Succinate (Toprol Xl) 100 mg HS PO Last administered on 04/24/19 22:06; Start 04/24/19 at 22:00 Polyethylene Glycol (miraLAX PACKET) 17 gm DAILY PO Last administered on 04/25/19at 08:23; Start 04/25/19 at 09:00 Albuterol Sulfate (Ventolin Neb Soln) 2.5 mg PRN Q4HRS PRN NEB SHORTNESS OF BREATH; Start 04/24/19 at 21:30 Fluticasone Propionate (Flonase) 2 spray PRN DAILY PRN NS ALLERGIES; Start 04/25 at 09:00 Lorazepam (Ativan) 2 mg QHS PO Last administered on 04/24/19at 22:05; Start 04/24/19 at 22:00 Pantoprazole Sodium (Protonix) 40 mg DAILYAC PO Last administered on 04/25/19at 08:05; Start 04/25/19 at 07:30 Oxycodone HCl (Roxicodone) 30 mg PRN QID PRN PO SEVERE PAIN 7-10 Last administered on 04/25/19at 08:16; Start 04/24/19 at 21:30 Atorvastatin Calcium (Lipitor) 80 mg QHS PO Last administered on 04/24/19at 22:06; Start 04/24/19 at 22:00 Non-Formulary Medication (Tiotropium [place] (Spiriva)) 2 inh DAILY IH ; Start 04/25/19 at 09:00; Status UNV Sodium Chloride 1,000 ml @ 50 mls/hr Q20H IV Last administered on 04/24/19at 22:03; Start 04/24/19 at 21:30 Active Scripts Active Mag-Al Plus Xs Suspension (Mag Hydrox/Al Hydrox/Simeth) 30 Ml Oral.susp 30 Ml PO PRN DAILY PRN 10 Days Tylenol (Acetaminophen) 325 Mg Tablet 650 Mg PO PRN Q4HRS PRN 30 Days Duoneb 0.5-3(2.5) Mg/3 Ml (Albuterol/Ipratropium) 3 Ml Ampul.neb 3 Ml NEB Q4H 30 Days Miralax (Polyethylene Glycol 3350) 17 Gm Powd.pack 1 Packet PO DAILY Reported Lisinopril 20 Mg Tablet 1 Tab PO DAILY Ativan (Lorazepam) 2 Mg Tablet 2 Mg PO HS Ativan (Lorazepam) 1 Mg Tablet 1 Mg PO TID PRN Spiriva (Tiotropium [place]) 18 Mcg Cap.w.dev 2 Inh IH DAILY Crestor (Rosuvastatin Calcium) 40 Mg Tablet 40 Mg PO HS Metoprolol Succinate ( Xl ) (Metoprolol Succinate) 100 Mg Tab.er.24h 100 Mg PO HS Ventolin Hfa Inhaler (Albuterol Sulfate) 18 Gm Hfa.aer.ad 2 Puff INH Q4HRS Omeprazole 40 Mg Capsule.dr 20 Mg PO DAILY Oxycodone Hcl Immed.release (Oxycodone Hcl) 10 Mg Tablet 30 Mg PO PRN QID PRN Cymbalta (Duloxetine Hcl) 30 Mg Capsule.dr 60 Mg PO DAILY Flonase Allergy Relief (Fluticasone Propionate) 9.9 Ml [place].susp 2 Sprays NS PRN PRN Amlodipine Besylate 5 Mg Tablet 5 Mg PO DAILY Aspir 81 (Aspirin) 81 Mg Tablet.dr 81 Mg PO DAILY08 Allergies Allergies: Coded Allergies: No Known Drug Allergies (Unverified , 12/11/17) ROS Review of System IN HPI Respiratory: YES: Cough, Orthopnea, Shortness of breath Genitourinary: YES Other (NOCTURIA) Musculoskeletal: Yes Muscular Weakness Neurological: Yes Weakness Skin: Yes Dry Skin Physical Exam General: Alert, Cooperative, No acute distress HEENT: Atraumatic, PERRLA Lungs: Clear to auscultation Heart: Regular rate Abdomen: Normal bowel sounds, Soft, No tenderness Extremities: No cyanosis Skin: No breakdown, No significant lesion Neuro: Normal speech, Strength at 5/5 X4 ext, Sensation intact Psych/Mental Status: Mental status NL MUSCULOSKELETAL: No joint tenderness, No deformity Vitals VITALS Vital Signs Date Time Temp Pulse Resp B/P (MAP) Pulse Ox O2 Delivery O2 Flow Rate FiO2 04/25/19 11:40 91 Nasal Cannula 3.0 04/25/19 11:21 97.8 79 18 152/71 (98) 97.8 Labs Labs Laboratory Tests Test 04/24/19 15:38 04/24/19 15:45 04/24/19 19:02 04/24/19 21:05 Influenza Type A Antigen Negative (NEGATIVE) Influenza Type B Antigen Negative (NEGATIVE) White Blood Count 8.1 x10^3/uL (4.0-11.0) Red Blood Count 4.46 x10^6/uL (4.30-5.70) Hemoglobin 15.3 g/dL (13.0-17.5) Hematocrit 44.9 % (39.0-53.0) Mean Corpuscular Volume 101 fL (79-100) Mean Corpuscular Hemoglobin 34 pg (25-35) Mean Corpuscular Hemoglobin Concent 34 g/dL (31-37) Red Cell Distribution Width 14.4 % (11.5-14.5) Platelet Count 202 x10^3/uL (140-400) Neutrophils (%) (Auto) 63 % (31-73) Lymphocytes (%) (Auto) 22 % (24-48) Monocytes (%) (Auto) 13 % (0-9) Eosinophils (%) (Auto) 1 % (0-3) Basophils (%) (Auto) 1 % (0-3) Neutrophils # (Auto) 5.1 x10^3/uL (1.8-7.7) Lymphocytes # (Auto) 1.8 x10^3/uL (1.0-4.8) Monocytes # (Auto) 1.0 x10^3/uL (0.0-1.1) Eosinophils # (Auto) 0.1 x10^3/uL (0.0-0.7) Basophils # (Auto) 0.1 x10^3/uL (0.0-0.2) D-Dimer (Radha) 0.62 ug/mlFEU (0.00-0.50) Sodium Level 136 mmol/L (136-145) Potassium Level 4.3 mmol/L (3.5-5.1) Chloride Level 101 mmol/L (98-107) Carbon Dioxide Level 27 mmol/L (21-32) Anion Gap 8 (6-14) Blood Urea Nitrogen 42 mg/dL (8-26) Creatinine 2.1 mg/dL (0.7-1.3) Estimated GFR (Cockcroft-Gault) 31.2 BUN/Creatinine Ratio 20 (6-20) Glucose Level 113 mg/dL (70-99) Calcium Level 9.3 mg/dL (8.5-10.1) Total Bilirubin 0.5 mg/dL (0.2-1.0) Aspartate Amino Transf (AST/SGOT) 18 U/L (15-37) Alanine Aminotransferase (ALT/SGPT) 29 U/L (16-63) Alkaline Phosphatase 90 U/L (46-116) Troponin I Quantitative < 0.017 ng/mL (0.000-0.055) < 0.017 ng/mL (0.000-0.055) PZ-Zvs-O-Type Natriuretic Peptide 120 pg/mL (0-124) Total Protein 7.4 g/dL (6.4-8.2) Albumin 3.7 g/dL (3.4-5.0) Albumin/Globulin Ratio 1.0 (1.0-1.7) Urine Collection Type Unknown Urine Color Tessy Urine Clarity Clear Urine pH 5.0 Urine Specific [place] 1.025 Urine Protein Negative mg/dL (NEG-TRACE) Urine Glucose (UA) Negative mg/dL (NEG) Urine Ketones (Stick) Trace mg/dL (NEG) Urine Blood Negative (NEG) Urine Nitrite Negative (NEG) Urine Bilirubin Small (NEG) Urine Urobilinogen Dipstick 1.0 mg/dL (0.2 mg/dL) Urine Leukocyte Esterase Negative (NEG) Urine RBC 0 /HPF (0-2) Urine WBC 1-4 /HPF (0-4) Urine Bacteria 0 /HPF (0-FEW) Urine Hyaline Casts Many /HPF Urine Mucus Marked /LPF Test 04/25/19 00:00 04/25/19 04:45 Troponin I Quantitative < 0.017 ng/mL (0.000-0.055) White Blood Count 6.0 x10^3/uL (4.0-11.0) Red Blood Count 4.31 x10^6/uL (4.30-5.70) Hemoglobin 14.7 g/dL (13.0-17.5) Hematocrit 43.7 % (39.0-53.0) Mean Corpuscular Volume 101 fL (79-100) Mean Corpuscular Hemoglobin 34 pg (25-35) Mean Corpuscular Hemoglobin Concent 34 g/dL (31-37) Red Cell Distribution Width 14.6 % (11.5-14.5) Platelet Count 190 x10^3/uL (140-400) Neutrophils (%) (Auto) 90 % (31-73) Lymphocytes (%) (Auto) 8 % (24-48) Monocytes (%) (Auto) 2 % (0-9) Eosinophils (%) (Auto) 0 % (0-3) Basophils (%) (Auto) 0 % (0-3) Neutrophils # (Auto) 5.4 x10^3/uL (1.8-7.7) Lymphocytes # (Auto) 0.5 x10^3/uL (1.0-4.8) Monocytes # (Auto) 0.1 x10^3/uL (0.0-1.1) Eosinophils # (Auto) 0.0 x10^3/uL (0.0-0.7) Basophils # (Auto) 0.0 x10^3/uL (0.0-0.2) Sodium Level 138 mmol/L (136-145) Potassium Level 4.7 mmol/L (3.5-5.1) Chloride Level 101 mmol/L (98-107) Carbon Dioxide Level 24 mmol/L (21-32) Anion Gap 13 (6-14) Blood Urea Nitrogen 48 mg/dL (8-26) Creatinine 2.3 mg/dL (0.7-1.3) Estimated GFR (Cockcroft-Gault) 28.1 Glucose Level 230 mg/dL (70-99) Calcium Level 9.4 mg/dL (8.5-10.1) Laboratory Tests Test 04/24/19 15:38 04/24/19 15:45 04/24/19 19:02 04/24/19 21:05 Influenza Type A Antigen Negative (NEGATIVE) Influenza Type B Antigen Negative (NEGATIVE) White Blood Count 8.1 x10^3/uL (4.0-11.0) Red Blood Count 4.46 x10^6/uL (4.30-5.70) Hemoglobin 15.3 g/dL (13.0-17.5) Hematocrit 44.9 % (39.0-53.0) Mean Corpuscular Volume 101 fL (79-100) Mean Corpuscular Hemoglobin 34 pg (25-35) Mean Corpuscular Hemoglobin Concent 34 g/dL (31-37) Red Cell Distribution Width 14.4 % (11.5-14.5) Platelet Count 202 x10^3/uL (140-400) Neutrophils (%) (Auto) 63 % (31-73) Lymphocytes (%) (Auto) 22 % (24-48) Monocytes (%) (Auto) 13 % (0-9) Eosinophils (%) (Auto) 1 % (0-3) Basophils (%) (Auto) 1 % (0-3) Neutrophils # (Auto) 5.1 x10^3/uL (1.8-7.7) Lymphocytes # (Auto) 1.8 x10^3/uL (1.0-4.8) Monocytes # (Auto) 1.0 x10^3/uL (0.0-1.1) Eosinophils # (Auto) 0.1 x10^3/uL (0.0-0.7) Basophils # (Auto) 0.1 x10^3/uL (0.0-0.2) D-Dimer (Radha) 0.62 ug/mlFEU (0.00-0.50) Sodium Level 136 mmol/L (136-145) Potassium Level 4.3 mmol/L (3.5-5.1) Chloride Level 101 mmol/L (98-107) Carbon Dioxide Level 27 mmol/L (21-32) Anion Gap 8 (6-14) Blood Urea Nitrogen 42 mg/dL (8-26) Creatinine 2.1 mg/dL (0.7-1.3) Estimated GFR (Cockcroft-Gault) 31.2 BUN/Creatinine Ratio 20 (6-20) Glucose Level 113 mg/dL (70-99) Calcium Level 9.3 mg/dL (8.5-10.1) Total Bilirubin 0.5 mg/dL (0.2-1.0) Aspartate Amino Transf (AST/SGOT) 18 U/L (15-37) Alanine Aminotransferase (ALT/SGPT) 29 U/L (16-63) Alkaline Phosphatase 90 U/L (46-116) Troponin I Quantitative < 0.017 ng/mL (0.000-0.055) < 0.017 ng/mL (0.000-0.055) IO-Ale-K-Type Natriuretic Peptide 120 pg/mL (0-124) Total Protein 7.4 g/dL (6.4-8.2) Albumin 3.7 g/dL (3.4-5.0) Albumin/Globulin Ratio 1.0 (1.0-1.7) Urine Collection Type Unknown Urine Color Tessy Urine Clarity Clear Urine pH 5.0 Urine Specific [place] 1.025 Urine Protein Negative mg/dL (NEG-TRACE) Urine Glucose (UA) Negative mg/dL (NEG) Urine Ketones (Stick) Trace mg/dL (NEG) Urine Blood Negative (NEG) Urine Nitrite Negative (NEG) Urine Bilirubin Small (NEG) Urine Urobilinogen Dipstick 1.0 mg/dL (0.2 mg/dL) Urine Leukocyte Esterase Negative (NEG) Urine RBC 0 /HPF (0-2) Urine WBC 1-4 /HPF (0-4) Urine Bacteria 0 /HPF (0-FEW) Urine Hyaline Casts Many /HPF Urine Mucus Marked /LPF Test 04/25/19 00:00 04/25/19 04:45 Troponin I Quantitative < 0.017 ng/mL (0.000-0.055) White Blood Count 6.0 x10^3/uL (4.0-11.0) Red Blood Count 4.31 x10^6/uL (4.30-5.70) Hemoglobin 14.7 g/dL (13.0-17.5) Hematocrit 43.7 % (39.0-53.0) Mean Corpuscular Volume 101 fL (79-100) Mean Corpuscular Hemoglobin 34 pg (25-35) Mean Corpuscular Hemoglobin Concent 34 g/dL (31-37) Red Cell Distribution Width 14.6 % (11.5-14.5) Platelet Count 190 x10^3/uL (140-400) Neutrophils (%) (Auto) 90 % (31-73) Lymphocytes (%) (Auto) 8 % (24-48) Monocytes (%) (Auto) 2 % (0-9) Eosinophils (%) (Auto) 0 % (0-3) Basophils (%) (Auto) 0 % (0-3) Neutrophils # (Auto) 5.4 x10^3/uL (1.8-7.7) Lymphocytes # (Auto) 0.5 x10^3/uL (1.0-4.8) Monocytes # (Auto) 0.1 x10^3/uL (0.0-1.1) Eosinophils # (Auto) 0.0 x10^3/uL (0.0-0.7) Basophils # (Auto) 0.0 x10^3/uL (0.0-0.2) Sodium Level 138 mmol/L (136-145) Potassium Level 4.7 mmol/L (3.5-5.1) Chloride Level 101 mmol/L (98-107) Carbon Dioxide Level 24 mmol/L (21-32) Anion Gap 13 (6-14) Blood Urea Nitrogen 48 mg/dL (8-26) Creatinine 2.3 mg/dL (0.7-1.3) Estimated GFR (Cockcroft-Gault) 28.1 Glucose Level 230 mg/dL (70-99) Calcium Level 9.4 mg/dL (8.5-10.1) Assessment/Plan Assessment/Plan IMP DEHYDRATION CARLO-CR OF 2.3 HTN HX AECOPD PLAN HYDRATION HOLD JASON-I SONO IF RENAL FX NOT BETTER WITH HYDRATION WILL FOLLOW ALLYSON ELENA MD Apr 25, 2019 13:19
--- NOTE | 2019-04-25 13:39 | PDOC2 ---
ROCHELLE SEPULVEDA [employer]STATE ASSIST[employer] 04/25/19 1339: CARDIAC CONSULT DATE OF CONSULT Date of Consult DATE: 04/25/19 TIME: 13:34 REASON FOR CONSULT Reason for Consult: Orthopnea REFERRING PHYSICIAN Referring Physician: Dr. Briggs HISTORY OF PRESENT ILLNESS HISTORY OF PRESENT ILLNESS This is a 74 yo male who presented secondary to shortness of breath. Patient rep orts he has been short of breath for the last 2-3 months. Worse here recently. Seems to be worse when he is sitting or laying. Ambulation seems to improve. No chest pain, palpitations, dizziness, diaphoresis, or LE edema. No recent illness or fevers. PAST MEDICAL HISTORY Cardiovascular: CAD, CHF, HTN, Hyperlipidemia Pulmonary: COPD GI: Diverticulosis Psych: Anxiety, Depression Musculoskeletal: Osteoarthritis PAST SURGICAL HISTORY Past Surgical History: Tonsillectomy FAMILY HISTORY Family History: Heart Disease, Hypertension SOCIAL HISTORY Smoke: Quit (2012) ALCOHOL: none Drugs: None CURRENT MEDICATIONS CURRENT MEDICATIONS Current Medications Medications (Trade) Dose Ordered Sig/Janine Route PRN Reason Start Time Stop Time Status Last Admin Dose Admin Albuterol/ Ipratropium (Duoneb) 3 ml 1X ONCE NEB 04/24/19 15:30 04/24/19 15:33 DC 04/24/19 15:41 Acetaminophen/ Hydrocodone Bitart (Lortab 5/325) 1 tab 1X ONCE PO 04/24/19 17:15 04/24/19 17:16 DC 04/24/19 17:37 Lorazepam (Ativan) 0.5 mg 1X ONCE PO 04/24/19 17:15 04/24/19 17:16 DC 04/24/19 17:38 Morphine Sulfate (Morphine Sulfate) 2 mg PRN Q2HR PRN IV PAIN 04/24/19 18:00 04/25/19 17:59 04/25/19 02:01 Albuterol/ Ipratropium (Duoneb) 3 ml RTQID NEB 04/24/19 20:00 04/24/19 21:19 DC 04/24/19 20:27 Methylprednisolone Sodium Succinate (SOLU-Medrol 40MG VIAL) 60 mg Q12HR IV 04/24/19 22:00 04/25/19 08:06 Ceftriaxone Sodium (Rocephin) 1 gm Q24H IVP 04/24/19 22:00 04/24/19 22:04 Amlodipine Besylate (Norvasc) 5 mg DAILY PO 04/25/19 09:00 04/25/19 08:06 Aspirin (Ecotrin) 81 mg DAILY08 PO 04/25/19 08:00 04/25/19 08:05 Duloxetine HCl (Cymbalta) 60 mg DAILY PO 04/25/19 09:00 04/25/19 08:05 Albuterol/ Ipratropium (Duoneb) 3 ml Q4HRS W/A NEB 04/24/19 22:00 04/25/19 11:39 Lorazepam (Ativan) 1 mg PRN TID PRN PO soa 04/24/19 21:15 04/25/19 02:01 Metoprolol Succinate (Toprol Xl) 100 mg HS PO 04/24/19 22:00 04/24/19 22:06 Polyethylene Glycol (miraLAX PACKET) 17 gm DAILY PO 04/25/19 09:00 04/25/19 08:23 Lorazepam (Ativan) 2 mg QHS PO 04/24/19 22:00 04/24/19 22:05 Pantoprazole Sodium (Protonix) 40 mg DAILYAC PO 04/25/19 07:30 04/25/19 08:05 Oxycodone HCl (Roxicodone) 30 mg PRN QID PRN PO SEVERE PAIN 7-10 04/24/19 21:30 04/25/19 08:16 Atorvastatin Calcium (Lipitor) 80 mg QHS PO 04/24/19 22:00 04/24/19 22:06 Sodium Chloride 1,000 ml @ 75 mls/hr [id number] IV 04/24/19 21:30 04/24/19 22:03 ALLERGIES ALLERGIES: Coded Allergies: No Known Drug Allergies (Unverified , 12/11/17) ROS Review of System 14 point ROS conducted with pertinent positives noted above in HPI PHYSICAL EXAM General: Alert, Oriented X3, Cooperative, No acute distress HEENT: Atraumatic, Mucous membr. moist/pink Lungs: Other (diminished throughout ) Heart: Regular rate Abdomen: Soft, No tenderness Extremities: No edema, Normal pulses Skin: No significant lesion Neuro: Normal speech, Sensation intact Psych/Mental Status: Mental status NL, Mood NL MUSCULOSKELETAL: Osteoarthritic changes both hands VITALS/I&O VITALS/I&O: Vital Signs Date Time Temp Pulse Resp B/P (MAP) Pulse Ox O2 Delivery O2 Flow Rate FiO2 04/25/19 11:40 91 Nasal Cannula 3.0 04/25/19 11:21 97.8 79 18 152/71 (98) 97.8 I & O 04/24/19 04/24/19 04/25/19 15:00 23:00 07:00 Intake Total 300 ml 600 ml Output Total 400 ml Balance 300 ml 200 ml LABS Lab: Laboratory Tests Test 04/24/19 15:38 04/24/19 15:45 04/24/19 19:02 04/24/19 21:05 Influenza Type A Antigen Negative (NEGATIVE) Influenza Type B Antigen Negative (NEGATIVE) White Blood Count 8.1 x10^3/uL (4.0-11.0) Red Blood Count 4.46 x10^6/uL (4.30-5.70) Hemoglobin 15.3 g/dL (13.0-17.5) Hematocrit 44.9 % (39.0-53.0) Mean Corpuscular Volume 101 fL (79-100) H Mean Corpuscular Hemoglobin 34 pg (25-35) Mean Corpuscular Hemoglobin Concent 34 g/dL (31-37) Red Cell Distribution Width 14.4 % (11.5-14.5) Platelet Count 202 x10^3/uL (140-400) Neutrophils (%) (Auto) 63 % (31-73) Lymphocytes (%) (Auto) 22 % (24-48) L Monocytes (%) (Auto) 13 % (0-9) H Eosinophils (%) (Auto) 1 % (0-3) Basophils (%) (Auto) 1 % (0-3) Neutrophils # (Auto) 5.1 x10^3/uL (1.8-7.7) Lymphocytes # (Auto) 1.8 x10^3/uL (1.0-4.8) Monocytes # (Auto) 1.0 x10^3/uL (0.0-1.1) Eosinophils # (Auto) 0.1 x10^3/uL (0.0-0.7) Basophils # (Auto) 0.1 x10^3/uL (0.0-0.2) D-Dimer (Radha) 0.62 ug/mlFEU (0.00-0.50) H Sodium Level 136 mmol/L (136-145) Potassium Level 4.3 mmol/L (3.5-5.1) Chloride Level 101 mmol/L (98-107) Carbon Dioxide Level 27 mmol/L (21-32) Anion Gap 8 (6-14) Blood Urea Nitrogen 42 mg/dL (8-26) H Creatinine 2.1 mg/dL (0.7-1.3) H Estimated GFR (Cockcroft-Gault) 31.2 BUN/Creatinine Ratio 20 (6-20) Glucose Level 113 mg/dL (70-99) H Calcium Level 9.3 mg/dL (8.5-10.1) Total Bilirubin 0.5 mg/dL (0.2-1.0) Aspartate Amino Transferase (AST) 18 U/L (15-37) Alanine Aminotransferase (ALT) 29 U/L (16-63) Alkaline Phosphatase 90 U/L (46-116) Troponin I Quantitative < 0.017 ng/mL (0.000-0.055) < 0.017 ng/mL (0.000-0.055) QP-Acm-K-Type Natriuretic Peptide 120 pg/mL (0-124) Total Protein 7.4 g/dL (6.4-8.2) Albumin 3.7 g/dL (3.4-5.0) Albumin/Globulin Ratio 1.0 (1.0-1.7) Urine Collection Type Unknown Urine Color Tessy Urine Clarity Clear Urine pH 5.0 Urine Specific [place] 1.025 Urine Protein Negative mg/dL (NEG-TRACE) Urine Glucose (UA) Negative mg/dL (NEG) Urine Ketones (Stick) Trace mg/dL (NEG) Urine Blood Negative (NEG) Urine Nitrite Negative (NEG) Urine Bilirubin Small (NEG) Urine Urobilinogen Dipstick 1.0 mg/dL (0.2 mg/dL) Urine Leukocyte Esterase Negative (NEG) Urine RBC 0 /HPF (0-2) Urine WBC 1-4 /HPF (0-4) Urine Bacteria 0 /HPF (0-FEW) Urine Hyaline Casts Many /HPF Urine Mucus Marked /LPF Test 04/25/19 00:00 04/25/19 04:45 Troponin I Quantitative < 0.017 ng/mL (0.000-0.055) White Blood Count 6.0 x10^3/uL (4.0-11.0) Red Blood Count 4.31 x10^6/uL (4.30-5.70) Hemoglobin 14.7 g/dL (13.0-17.5) Hematocrit 43.7 % (39.0-53.0) Mean Corpuscular Volume 101 fL (79-100) H Mean Corpuscular Hemoglobin 34 pg (25-35) Mean Corpuscular Hemoglobin Concent 34 g/dL (31-37) Red Cell Distribution Width 14.6 % (11.5-14.5) H Platelet Count 190 x10^3/uL (140-400) Neutrophils (%) (Auto) 90 % (31-73) H Lymphocytes (%) (Auto) 8 % (24-48) L Monocytes (%) (Auto) 2 % (0-9) Eosinophils (%) (Auto) 0 % (0-3) Basophils (%) (Auto) 0 % (0-3) Neutrophils # (Auto) 5.4 x10^3/uL (1.8-7.7) Lymphocytes # (Auto) 0.5 x10^3/uL (1.0-4.8) L Monocytes # (Auto) 0.1 x10^3/uL (0.0-1.1) Eosinophils # (Auto) 0.0 x10^3/uL (0.0-0.7) Basophils # (Auto) 0.0 x10^3/uL (0.0-0.2) Sodium Level 138 mmol/L (136-145) Potassium Level 4.7 mmol/L (3.5-5.1) Chloride Level 101 mmol/L (98-107) Carbon Dioxide Level 24 mmol/L (21-32) Anion Gap 13 (6-14) Blood Urea Nitrogen 48 mg/dL (8-26) H Creatinine 2.3 mg/dL (0.7-1.3) H Estimated GFR (Cockcroft-Gault) 28.1 Glucose Level 230 mg/dL (70-99) H Calcium Level 9.4 mg/dL (8.5-10.1) Laboratory Tests 04/24/19 15:45 04/25/19 04:45 Laboratory Tests 04/24/19 15:45 04/25/19 04:45 ECHOCARDIOGRAM ECHOCARDIOGRAM <Conclusion> The left ventricle is normal size. Left ventricle systolic function is low normal. The Ejection Fraction is 50-55%. There is normal LV segmental wall motion. There is no significant aortic valvular stenosis. Doppler and Color Flow revealed trace aortic regurgitation. Doppler and Color Flow revealed trace mitral valve regurgitation noted. Doppler and Color Flow revealed no tricuspid valve regurgitation noted. The ascending aorta is mildly dilated at 3.7 cm. DATE: 06/18/18 1621 HEART CATH HEART CATH CORONARY ANGIOGRAPHY: LM is a large caliber vessel with normal angiographic appearance. LAD is a large caliber vessel with mild focal aneurysmal changes with a mid 40- 50% stenosis. Severe small caliber diagonal vessels have mild luminal irregularities. LCx is a moderate caliber non-dominant vessel with mid aneurysmal dilation with a distal stent with 70% stenosis extending into a small caliber LPL. OM1 is a moderate caliber vessel with a proximal 30% stenosis. RCA is a large caliber dominant vessel with mild aneurysmal dilation. There is an early bifurcation of the RCA with a dual RV and RPDA branches. There is a proximal 50% stenosis involving the RV branch. RPDA is a moderate caliber vessel with normal angiographic appearance. Conclusion 1. Mild biventricular pressure overload consistent with acute on chronic diastolic heart failure and corpulmonale. 2. Three vessel coronary disease without any critical lesions to account for dyspnea. Recommendations Aggressive Medical Therapy DATE: 12/26/18 1017 ASSESSMENT/PLAN ASSESSMENT/PLAN 1. Dyspnea secondary to AECOPD; NT pro BNP WNL and CXR without vascular c ongestion; doubt overt HF. 2. CAD s/p PCI/stent; recent cath without lesions needing intervention 3. Hypertension; controlled 4. Hyperlipidemia 5. Chronic diastolic CHF; clinically compensated 6. CARLO 7. SWETHA Recommendations IV dydration Hold ACEi Lung optimization No further cardiac workup warranted at this time FELA TURNER MD 04/25/19 8996: CARDIAC CONSULT ASSESSMENT/PLAN ASSESSMENT/PLAN Pt. seen and examined. AGree with above [employer] DEPARTMENT note. No acute cardiac issues. Thanks ROCHELLE SEPULVEDA APRN Apr 25, 2019 13:39 FELA TURNER MD Apr 25, 2019 23:47
[2019-04-25 14:41] VITALS: BP 133/71
--- NOTE | 2019-04-25 15:14 | PDOC ---
PULMONARY PROGRESS NOTES Vitals Vital Signs Date Time Temp Pulse Resp B/P (MAP) Pulse Ox O2 Delivery O2 Flow Rate FiO2 04/25/19 14:41 97.4 78 18 133/71 (91) 92 Nasal Cannula 3.0 97.4 General: Alert, No acute distress Lungs: Crackles Cardiovascular: S1 Abdomen: Soft, Non-tender Extremities: No Edema Labs Laboratory Tests Test 04/24/19 15:38 04/24/19 15:45 04/24/19 19:02 04/24/19 21:05 Influenza Type A Antigen Negative (NEGATIVE) Influenza Type B Antigen Negative (NEGATIVE) White Blood Count 8.1 x10^3/uL (4.0-11.0) Red Blood Count 4.46 x10^6/uL (4.30-5.70) Hemoglobin 15.3 g/dL (13.0-17.5) Hematocrit 44.9 % (39.0-53.0) Mean Corpuscular Volume 101 fL (79-100) Mean Corpuscular Hemoglobin 34 pg (25-35) Mean Corpuscular Hemoglobin Concent 34 g/dL (31-37) Red Cell Distribution Width 14.4 % (11.5-14.5) Platelet Count 202 x10^3/uL (140-400) Neutrophils (%) (Auto) 63 % (31-73) Lymphocytes (%) (Auto) 22 % (24-48) Monocytes (%) (Auto) 13 % (0-9) Eosinophils (%) (Auto) 1 % (0-3) Basophils (%) (Auto) 1 % (0-3) Neutrophils # (Auto) 5.1 x10^3/uL (1.8-7.7) Lymphocytes # (Auto) 1.8 x10^3/uL (1.0-4.8) Monocytes # (Auto) 1.0 x10^3/uL (0.0-1.1) Eosinophils # (Auto) 0.1 x10^3/uL (0.0-0.7) Basophils # (Auto) 0.1 x10^3/uL (0.0-0.2) D-Dimer (Radha) 0.62 ug/mlFEU (0.00-0.50) Sodium Level 136 mmol/L (136-145) Potassium Level 4.3 mmol/L (3.5-5.1) Chloride Level 101 mmol/L (98-107) Carbon Dioxide Level 27 mmol/L (21-32) Anion Gap 8 (6-14) Blood Urea Nitrogen 42 mg/dL (8-26) Creatinine 2.1 mg/dL (0.7-1.3) Estimated GFR (Cockcroft-Gault) 31.2 BUN/Creatinine Ratio 20 (6-20) Glucose Level 113 mg/dL (70-99) Calcium Level 9.3 mg/dL (8.5-10.1) Total Bilirubin 0.5 mg/dL (0.2-1.0) Aspartate Amino Transf (AST/SGOT) 18 U/L (15-37) Alanine Aminotransferase (ALT/SGPT) 29 U/L (16-63) Alkaline Phosphatase 90 U/L (46-116) Troponin I Quantitative < 0.017 ng/mL (0.000-0.055) < 0.017 ng/mL (0.000-0.055) NJ-Tjr-V-Type Natriuretic Peptide 120 pg/mL (0-124) Total Protein 7.4 g/dL (6.4-8.2) Albumin 3.7 g/dL (3.4-5.0) Albumin/Globulin Ratio 1.0 (1.0-1.7) Urine Collection Type Unknown Urine Color Tessy Urine Clarity Clear Urine pH 5.0 Urine Specific [place] 1.025 Urine Protein Negative mg/dL (NEG-TRACE) Urine Glucose (UA) Negative mg/dL (NEG) Urine Ketones (Stick) Trace mg/dL (NEG) Urine Blood Negative (NEG) Urine Nitrite Negative (NEG) Urine Bilirubin Small (NEG) Urine Urobilinogen Dipstick 1.0 mg/dL (0.2 mg/dL) Urine Leukocyte Esterase Negative (NEG) Urine RBC 0 /HPF (0-2) Urine WBC 1-4 /HPF (0-4) Urine Bacteria 0 /HPF (0-FEW) Urine Hyaline Casts Many /HPF Urine Mucus Marked /LPF Test 04/25/19 00:00 04/25/19 04:45 Troponin I Quantitative < 0.017 ng/mL (0.000-0.055) White Blood Count 6.0 x10^3/uL (4.0-11.0) Red Blood Count 4.31 x10^6/uL (4.30-5.70) Hemoglobin 14.7 g/dL (13.0-17.5) Hematocrit 43.7 % (39.0-53.0) Mean Corpuscular Volume 101 fL (79-100) Mean Corpuscular Hemoglobin 34 pg (25-35) Mean Corpuscular Hemoglobin Concent 34 g/dL (31-37) Red Cell Distribution Width 14.6 % (11.5-14.5) Platelet Count 190 x10^3/uL (140-400) Neutrophils (%) (Auto) 90 % (31-73) Lymphocytes (%) (Auto) 8 % (24-48) Monocytes (%) (Auto) 2 % (0-9) Eosinophils (%) (Auto) 0 % (0-3) Basophils (%) (Auto) 0 % (0-3) Neutrophils # (Auto) 5.4 x10^3/uL (1.8-7.7) Lymphocytes # (Auto) 0.5 x10^3/uL (1.0-4.8) Monocytes # (Auto) 0.1 x10^3/uL (0.0-1.1) Eosinophils # (Auto) 0.0 x10^3/uL (0.0-0.7) Basophils # (Auto) 0.0 x10^3/uL (0.0-0.2) Sodium Level 138 mmol/L (136-145) Potassium Level 4.7 mmol/L (3.5-5.1) Chloride Level 101 mmol/L (98-107) Carbon Dioxide Level 24 mmol/L (21-32) Anion Gap 13 (6-14) Blood Urea Nitrogen 48 mg/dL (8-26) Creatinine 2.3 mg/dL (0.7-1.3) Estimated GFR (Cockcroft-Gault) 28.1 Glucose Level 230 mg/dL (70-99) Calcium Level 9.4 mg/dL (8.5-10.1) Laboratory Tests Test 04/24/19 15:38 04/24/19 15:45 04/24/19 19:02 04/24/19 21:05 Influenza Type A Antigen Negative (NEGATIVE) Influenza Type B Antigen Negative (NEGATIVE) White Blood Count 8.1 x10^3/uL (4.0-11.0) Red Blood Count 4.46 x10^6/uL (4.30-5.70) Hemoglobin 15.3 g/dL (13.0-17.5) Hematocrit 44.9 % (39.0-53.0) Mean Corpuscular Volume 101 fL (79-100) Mean Corpuscular Hemoglobin 34 pg (25-35) Mean Corpuscular Hemoglobin Concent 34 g/dL (31-37) Red Cell Distribution Width 14.4 % (11.5-14.5) Platelet Count 202 x10^3/uL (140-400) Neutrophils (%) (Auto) 63 % (31-73) Lymphocytes (%) (Auto) 22 % (24-48) Monocytes (%) (Auto) 13 % (0-9) Eosinophils (%) (Auto) 1 % (0-3) Basophils (%) (Auto) 1 % (0-3) Neutrophils # (Auto) 5.1 x10^3/uL (1.8-7.7) Lymphocytes # (Auto) 1.8 x10^3/uL (1.0-4.8) Monocytes # (Auto) 1.0 x10^3/uL (0.0-1.1) Eosinophils # (Auto) 0.1 x10^3/uL (0.0-0.7) Basophils # (Auto) 0.1 x10^3/uL (0.0-0.2) D-Dimer (Radha) 0.62 ug/mlFEU (0.00-0.50) Sodium Level 136 mmol/L (136-145) Potassium Level 4.3 mmol/L (3.5-5.1) Chloride Level 101 mmol/L (98-107) Carbon Dioxide Level 27 mmol/L (21-32) Anion Gap 8 (6-14) Blood Urea Nitrogen 42 mg/dL (8-26) Creatinine 2.1 mg/dL (0.7-1.3) Estimated GFR (Cockcroft-Gault) 31.2 BUN/Creatinine Ratio 20 (6-20) Glucose Level 113 mg/dL (70-99) Calcium Level 9.3 mg/dL (8.5-10.1) Total Bilirubin 0.5 mg/dL (0.2-1.0) Aspartate Amino Transf (AST/SGOT) 18 U/L (15-37) Alanine Aminotransferase (ALT/SGPT) 29 U/L (16-63) Alkaline Phosphatase 90 U/L (46-116) Troponin I Quantitative < 0.017 ng/mL (0.000-0.055) < 0.017 ng/mL (0.000-0.055) VK-Ktt-Z-Type Natriuretic Peptide 120 pg/mL (0-124) Total Protein 7.4 g/dL (6.4-8.2) Albumin 3.7 g/dL (3.4-5.0) Albumin/Globulin Ratio 1.0 (1.0-1.7) Urine Collection Type Unknown Urine Color Tessy Urine Clarity Clear Urine pH 5.0 Urine Specific [place] 1.025 Urine Protein Negative mg/dL (NEG-TRACE) Urine Glucose (UA) Negative mg/dL (NEG) Urine Ketones (Stick) Trace mg/dL (NEG) Urine Blood Negative (NEG) Urine Nitrite Negative (NEG) Urine Bilirubin Small (NEG) Urine Urobilinogen Dipstick 1.0 mg/dL (0.2 mg/dL) Urine Leukocyte Esterase Negative (NEG) Urine RBC 0 /HPF (0-2) Urine WBC 1-4 /HPF (0-4) Urine Bacteria 0 /HPF (0-FEW) Urine Hyaline Casts Many /HPF Urine Mucus Marked /LPF Test 04/25/19 00:00 04/25/19 04:45 Troponin I Quantitative < 0.017 ng/mL (0.000-0.055) White Blood Count 6.0 x10^3/uL (4.0-11.0) Red Blood Count 4.31 x10^6/uL (4.30-5.70) Hemoglobin 14.7 g/dL (13.0-17.5) Hematocrit 43.7 % (39.0-53.0) Mean Corpuscular Volume 101 fL (79-100) Mean Corpuscular Hemoglobin 34 pg (25-35) Mean Corpuscular Hemoglobin Concent 34 g/dL (31-37) Red Cell Distribution Width 14.6 % (11.5-14.5) Platelet Count 190 x10^3/uL (140-400) Neutrophils (%) (Auto) 90 % (31-73) Lymphocytes (%) (Auto) 8 % (24-48) Monocytes (%) (Auto) 2 % (0-9) Eosinophils (%) (Auto) 0 % (0-3) Basophils (%) (Auto) 0 % (0-3) Neutrophils # (Auto) 5.4 x10^3/uL (1.8-7.7) Lymphocytes # (Auto) 0.5 x10^3/uL (1.0-4.8) Monocytes # (Auto) 0.1 x10^3/uL (0.0-1.1) Eosinophils # (Auto) 0.0 x10^3/uL (0.0-0.7) Basophils # (Auto) 0.0 x10^3/uL (0.0-0.2) Sodium Level 138 mmol/L (136-145) Potassium Level 4.7 mmol/L (3.5-5.1) Chloride Level 101 mmol/L (98-107) Carbon Dioxide Level 24 mmol/L (21-32) Anion Gap 13 (6-14) Blood Urea Nitrogen 48 mg/dL (8-26) Creatinine 2.3 mg/dL (0.7-1.3) Estimated GFR (Cockcroft-Gault) 28.1 Glucose Level 230 mg/dL (70-99) Calcium Level 9.4 mg/dL (8.5-10.1) Medications Active Scripts Medications Dose Route/Sig Max Daily Dose Days Date Category Lisinopril 20 Mg Tablet 1 Tab PO DAILY 04/24/19 Reported Ativan (Lorazepam) 2 Mg Tablet 2 Mg PO HS 04/24/19 Reported Ativan (Lorazepam) 1 Mg Tablet 1 Mg PO TID PRN 04/24/19 Reported Spiriva (Tiotropium Clifford) 18 Mcg Cap.w.dev 2 Inh IH DAILY 04/24/19 Reported Mag-Al Plus Xs Suspension (Mag Hydrox/Al Hydrox/Simeth) 30 Ml Oral.susp 30 Ml PO PRN DAILY PRN 10 03/20/19 Rx Tylenol (Acetaminophen) 325 Mg Tablet 650 Mg PO PRN Q4HRS PRN 30 03/20/19 Rx Duoneb 0.5-3(2.5) Mg/3 Ml (Albuterol/Ipratropium) 3 Ml Ampul.neb 3 Ml NEB Q4H 30 03/20/19 Rx Crestor (Rosuvastatin Calcium) 40 Mg Tablet 40 Mg PO HS 11/23/17 Reported Metoprolol Succinate ( Xl ) (Metoprolol Succinate) 100 Mg Tab.er.24h 100 Mg PO HS 11/23/17 Reported Miralax (Polyethylene Glycol 3350) 17 Gm Powd.pack 1 Packet PO DAILY 04/20/17 Rx Ventolin Hfa Inhaler (Albuterol Sulfate) 18 Gm Hfa.aer.ad 2 Puff INH Q4HRS 04/20/17 Reported Omeprazole 40 Mg Capsule. 20 Mg PO DAILY 04/20/17 Reported Oxycodone Hcl Immed.release (Oxycodone Hcl) 10 Mg Tablet 30 Mg PO PRN QID PRN 01/25/16 Reported Cymbalta (Duloxetine Hcl) 30 Mg Capsule. 60 Mg PO DAILY 01/03/16 Reported Flonase Allergy Relief (Fluticasone Propionate) 9.9 Ml [place].susp 2 Sprays NS PRN PRN 01/03/16 Reported Amlodipine Besylate 5 Mg Tablet 5 Mg PO DAILY 01/03/16 Reported Aspir 81 (Aspirin) 81 Mg Tablet. 81 Mg PO DAILY08 08/26/13 Reported Impression . FULL NOTE DICTATED THANKS SWETHA BOWDEN DC HOME FOLLOW UP IN OFFICE CASE CONTERRAS MD Apr 25, 2019 15:14
[2019-04-25] MEDS: IV NORMAL SALINE 1000ML BAG 1,000 ML IV SCH (16:06)
--- NOTE | 2019-04-25 18:21 | NUR ---
Discharge Note: CATRACHITA FOX Discharge instructions and discharge home medications reviewed with patient and a copy given. All questions have been answered and understanding verbalized. The following instructions and handouts were given: Medrol dose jayson, take as directed. Prescription called to patient's pharmacy at 1820. Continue home meds. Handouts on COPD and polysomnography. Follow up with Dr. stephenson pulpatrick re polysomnography as out patient. Follow up with PCP in a week. Watch out for worsening dyspnea. Discontinued lines and drains: peripheral IV intact, patient tolerated removal, no complications noted. Patient discharged to home with self-care via wheelchair accompanied by the patient's daughter in law at 1800.
[2019-04-25] MEDS ORDERED: LACTOBACILLUS RHAMNOSUS GG 1 CAPSULE. PO SCH (21:00)
--- NOTE | 2019-04-26 00:10 | CONS ---
DATE OF CONSULTATION: 04/25/2019 ATTENDING PHYSICIAN: Mayra Briggs DO REASON FOR CONSULTATION: The patient seen in pulmonary consultation at the request of Dr. Briggs for increasing shortness of air, abnormal chest x-ray. HISTORY OF PRESENT ILLNESS: The patient is a 74-year-old known to me from previous hospitalization. He has underlying COPD, gastroesophageal reflux, obesity and possible obstructive sleep apnea, presented with increasing shortness of breath. He was found to have low O2 saturations. He was admitted. He normally wears 1-1/2 liters of oxygen supplementation at rest and 3 liters with exertion. His chest x-ray revealed bilateral opacities along with cardiomegaly. He has a cough, mostly nonproductive. No fever, chills or night sweats. PAST MEDICAL HISTORY: COPD, gastroesophageal reflux, dyslipidemia, obesity, chronic pain syndrome. PAST SURGICAL HISTORY: Previous stent. ALLERGIES: No known drug allergies. CURRENT MEDICATIONS: List was reviewed. REVIEW OF SYSTEMS: As indicated above, otherwise, a 10-point system was reviewed and negative. SOCIAL HISTORY: He quit tobacco in 2013. FAMILY HISTORY: No family history of lung disorders. PHYSICAL EXAMINATION: GENERAL: Morbid obese individual in no respiratory distress. VITAL SIGNS: Stable. O2 saturation was greater than 92%. HEENT: Eyes, the sclerae were nonicteric. NECK: Jugular venous distention was not elevated. No lymphadenopathy. CHEST: Full expansion. LUNGS: Adequate air flow with no wheezes. CARDIOVASCULAR: Regular rate and rhythm with S1, S2, no S3. ABDOMEN: Obese. EXTREMITIES: Minimal edema. IMAGING: Chest x-ray reviewed. LABORATORY DATA: Reviewed. IMPRESSION: 1. Progressive dyspnea secondary to acute exacerbation of chronic obstructive pulmonary disease. 2. Morbid obesity. 3. Clinical presentation compatible with obstructive sleep apnea. 4. Suspect secondary pulmonary hypertension. 5. Acute on chronic diastolic heart failure. 6. Tobacco dependence, in remission. PLAN: 1. Respiratory status is compensated. Discharge home on oxygen supplementation. 2. Follow up in the office with outpatient polysomnogram. 3. Taper steroids as an outpatient. 4. No need for antibiotics. I do appreciate the privilege in sharing in the patient's care. CASE CONTRERAS MD DR: ISSAC/anna JOB#: [id number] / [id number]
== END 2019-04-25 17:00 | disposition home or self-care (01) | DRG 682 ==
LOC: ER 15:01 → 6 SOUTH 17:57
PROVIDERS: ADMIT Internal Medicine; ATTEND Internal Medicine
DX: N17.9 Acute kidney failure, unspecified (principal); J96.90 Respiratory failure, unspecified, unspecified whether with hypoxia or hypercapnia; I50.33 Acute on chronic diastolic (congestive) heart failure; J44.1 Chronic obstructive pulmonary disease with (acute) exacerbation; E66.01 Morbid (severe) obesity due to excess calories; Z68.39 Body mass index [BMI] 39.0-39.9, adult; E78.00 Pure hypercholesterolemia, unspecified; E78.5 Hyperlipidemia, unspecified; E86.0 Dehydration; F17.201 Nicotine dependence, unspecified, in remission; G47.33 Obstructive sleep apnea (adult) (pediatric); G89.4 Chronic pain syndrome; I11.0 Hypertensive heart disease with heart failure; I25.10 Atherosclerotic heart disease of native coronary artery without angina pectoris; K21.9 Gastro-esophageal reflux disease without esophagitis; M16.11 Unilateral primary osteoarthritis, right hip; Z82.49 Family history of ischemic heart disease and other diseases of the circulatory system; Z95.5 Presence of coronary angioplasty implant and graft; F32.9 Major depressive disorder, single episode, unspecified; F41.9 Anxiety disorder, unspecified; K57.90 Diverticulosis of intestine, part unspecified, without perforation or abscess without bleeding; M19.90 Unspecified osteoarthritis, unspecified site
CPT/HCPCS: 36415; 71046; 80048; 80053; 81001; 83880; 84484; 85025; 85379; 87804; 93005; 94640; J0696; J2270; J2920; J7030; J7620; 99285-25; G0378

== ENCOUNTER → 2019-05-16 | Outpatient (CLI) | payer MEDICARE, OTHER ==
[2019-04-25 14:41] VITALS: BP 133/71
[~2019-05-16] MED LIST changes: +BUPIVACAINE MPF 0.25% 10 ML VIAL. ONE; +IOHEXOL 180 MG/ML 10 ML VIAL. ONE; +LORA-434 PO; +LORA2TAB89 PO; +methylPREDNISolone ACETATE 40 MG/ML VIAL. ONE; +methylPREDNISolone ACETATE 80 MG/ML VIAL. ONE
--- NOTE | 2019-05-16 12:33 | PAIN ---
DATE OF SERVICE: 05/16/2019 PROGRESS NOTE FOR PAIN CLINIC DIAGNOSES: 1. Lumbar radiculopathy with lumbar degenerative disk disease and lumbar spondylosis, post-lumbar laminectomy syndrome. 2. Bilateral knee joint pain with primary osteoarthritis of bilateral knee joints. HISTORY OF PRESENT ILLNESS: The patient is a 74-year-old male who returns for followup status post caudal epidural steroid injection, last seen 04/08/2019, patient did very well with this, reports about 50% improvement overall. The patient's main complaint today, however, is bilateral knee pain. We had done knee injections with the patient back on 02/21/2019 which did very well with about 75% improvement initially, now about 50% improvement overall. The patient reports his main complaint is his knees, more left than the right, but present bilaterally. The patient reports with walking, standing, climbing stairs, especially stepping upon a stoop or stepping up where he has put all his weight on one leg or the other and the pain is significant. The patient reports it is a 9 on a scale of 10 at its worst over the past week, 6-7 on average and 4 at its least and is a 6 today. The patient reports it is aching and sharp with weightbearing, better with sitting or lying down, generally does not awaken him from sleep at night, but can if he is rolling over and his low back is still having some significant pain, but he is able to walk a fair distance he reports about 200 yards before it is bothering him and he would like to have his knees treated today as well. PHYSICAL EXAMINATION: VITAL SIGNS: The patient's blood pressure is 102/57, pulse 76, respirations 18, temperature 98.1 degrees Fahrenheit, weight is 270 pounds. GENERAL: The patient is awake, alert, oriented, appropriate, very pleasant demeanor. HEENT: Shows normocephalic, atraumatic. Extraocular movements are intact and symmetrical. Oral cavity: Mucous membranes moist and pink. NECK: Shows anterior throat supple. CHEST: Shows normal on inspection. Breath sounds are distant, but clear bilaterally. HEART: Shows S1 and S2 clear. ABDOMEN: Obese, soft, nontender, nondistended. No palpable organomegaly is noted. BACK: Shows spine grossly in the midline. Slight exaggeration of thoracic kyphosis, some minor flattening of lumbar lordotic curvature. Lumbar paraspinous muscle shows symmetrical on inspection with a well-healed surgical scar, with palpation shows some moderate tenderness in the paraspinous musculature, mainly in the lower distribution in the inferior aspect of the paraspinous muscles, but only diffusely without radiation. The patient has good rotational motion of lumbar spine, both laterally as well as extension and flexion without significant increase in pain. EXTREMITIES: The patient's lower extremities show deep tendon reflexes 1+ in the patellar and tendo calcaneus tendons. Motor exam is approximately 4 on a scale 5 on the right with 5/5 on the left dorsiflexion and extension. The patient's knees show negative shelf sign with active and passive motion, shows no crepitus, no ratcheting. Peripheral pulses are 1+ posterior tibia. No peripheral edema is noted. Options were discussed with the patient. The patient's old chart was reviewed as his current medication regimen updated. Current review of systems updated today as well. We will proceed with bilateral intraarticular knee joint injections with fluoroscopic guidance. Risks were again discussed including, but not limited to bleeding, infection, possibility of intravascular injection sequelae, spread of local anesthetic and numbness, side effects of steroid medication, exposure to fluoroscopy and poor results regarding pain control. The patient understands and wished to proceed. The patient will return to clinic in approximately 2 weeks for followup. He was counseled on return appointment, activity level and side effects to be aware of. DIAGNOSIS: Primary osteoarthritis, bilateral knee joints with bilateral knee joint pain. PROCEDURE: Bilateral intra-articular knee joint injection using C-arm fluoroscopic guidance under sterile prep and drape using local anesthetic. MEDICATION INJECTED: Total of 6 mL of 0.25% bupivacaine, 3 mL per knee total of 120 mg Depo-Medrol, 60 mg per knee and total of 3 mL of contrast, 1.5 mL per knee CONDITION AT DISCHARGE: Stable. The patient tolerated procedure well, had no complications. ANISH DELGADO MD DR: BREONNA/anna JOB#: [id number] / [id number]
== END | disposition home or self-care (01) ==
LOC: PNCL 11:16
PROVIDERS: ATTEND Anesthesiology
DX: M17.0 Bilateral primary osteoarthritis of knee (principal); M51.16 Intervertebral disc disorders with radiculopathy, lumbar region; M47.816 Spondylosis without myelopathy or radiculopathy, lumbar region; M96.1 Postlaminectomy syndrome, not elsewhere classified
CPT/HCPCS: 20610; 77002; J1030; J1040; J3490; Q9965

== ENCOUNTER → 2019-05-28 | Outpatient (CLI) | payer MEDICARE, OTHER ==
[~2019-05-28] MED LIST changes: -BUPIVACAINE MPF 0.25% 10 ML VIAL. ONE; -IOHEXOL 180 MG/ML 10 ML VIAL. ONE; +ZOLPIDEM 5 MG TABLET. PO ONE; -methylPREDNISolone ACETATE 40 MG/ML VIAL. ONE; -methylPREDNISolone ACETATE 80 MG/ML VIAL. ONE
--- NOTE | 2019-05-29 12:57 | SLEEP ---
DATE OF STUDY: ATTENDING PHYSICIAN: Dr. Rea. REFERRING PHYSICIAN: Dr. Painter. SUMMARY: The patient is a 74-year-old, who weighs 260 pounds with a BMI of 35. The patient's [place] score was 10. Review of medication reveals that he uses lorazepam 1 mg daily along with 1-2 tablets of oxycodone 4 times a day. A split night study was performed at [facility]. During the night study, the patient spent 450 minutes in bed and slept for 167 minutes with a low sleep efficiency of 37%. Sleep latency was 313 minutes, which is prolonged with absent REM sleep. Overall, sleep architecture showed increased stage 1 sleep, reduced stage 2 sleep, absent slow wave and absent REM sleep. During the diagnostic portion of the study, the patient slept for 113 minutes. During that time, the patient had 18 obstructive apneas, 8 mixed apneas, no central apneas and 38 hypopneas. The patient's apnea hypopnea index was 34 per hour. No supine or REM sleep observed. EKG monitoring revealed average heart rate of 80 beats per minute, no sustained arrhythmias observed. Nocturnal oximetry study revealed an average oxygen saturation of 90% with lowest of 79%. A 98% of time oxygen saturation remained between 80% and 89%. The patient uses oxygen 2-3 liters continuously. This study was performed on room air. PLMS were seen at index of 83 per hour and 5 per hour caused EEG arousals. The patient was started on CPAP at 5 cm water and titrated up to 12 cm water. Due to limited time during CPAP titration, optimum pressure was not achieved. At a final pressure of 12 cm water, the patient slept for 22 minutes. The entire time was in lateral sleep. No supine or REM sleep was observed. The patient's AHI was still 34 per hour and oxygen saturations remained in the high 80s with lowest saturation of 84%. The patient used a full face mask. IMPRESSION: 1. Severe sleep apnea-hypopnea syndrome at an AHI of 34 per hour. 2. Nocturnal hypoxia secondary to combination of obstructive sleep apnea and hypoventilation. The patient uses lorazepam 1 mg daily and also oxycodone 4 times a day. 3. Severe periodic limb movements. 4. Significantly reduced sleep efficiency of 37% due to sleep onset and sleep maintenance insomnia. RECOMMENDATIONS: 1. Optimum CPAP pressure was not achieved on this split night study due to reduced sleep efficiency. I would recommend that the patient should return to the sleep lab for a CPAP/BiPAP titration study. 2. The patient may need supplemental oxygen. 3. Minimize the use of narcotics and benzodiazepines. It is also probably contributing to worsening of the patient's sleep apnea. 4. Caution regarding driving until the patient's hypersomnia is resolved. 5. The patient should also be further evaluated for symptoms of restless legs during the day. 6. If the patient's insomnia is chronic, then he should be further evaluated and treated according to the etiology. JAMIE ROMANO MD DR: ASHLEIGH/anna JOB#: [id number] / [id number] CHRISTIAN Pichardo MD, SABATO MD
== END | disposition home or self-care (01) ==
LOC: SLPLAB 18:49
PROVIDERS: ATTEND Internal Medicine Pulmonary Disease
DX: G47.33 Obstructive sleep apnea (adult) (pediatric) (principal); G47.34 Idiopathic sleep related nonobstructive alveolar hypoventilation; G47.61 Periodic limb movement disorder
CPT/HCPCS: 95810

== ENCOUNTER → 2019-06-05 | Outpatient (CLI) | payer MEDICARE, OTHER ==
[~2019-06-05] MED LIST changes: +IOHEXOL 180 MG/ML 10 ML VIAL. ONE; -ZOLPIDEM 5 MG TABLET. PO ONE; +methylPREDNISolone ACETATE 40 MG/ML VIAL. ONE; +methylPREDNISolone ACETATE 80 MG/ML VIAL. ONE
--- NOTE | 2019-06-05 11:42 | PAIN ---
DATE OF SERVICE: 06/05/2019 PROGRESS NOTE FOR PAIN CLINIC DIAGNOSES: 1. Lumbar radiculopathy with lumbar degenerative disk disease, lumbar spondylosis and lumbar post-laminectomy syndrome. 2. Bilateral knee joint pain with osteoarthritis, bilateral knees. HISTORY OF PRESENT ILLNESS: The patient is a 74-year-old male who returns for followup status post bilateral knee joint injection. The patient did very well with this about a 75% improvement. His chief complaint today is pain in the low back and right lower extremity radiating to posterior gluteus, posterior thigh, posterior calf at times. The patient reports it is worse with walking, standing and changing positions, better with sitting or lying down, but does awaken him from sleep about every 3-4 hours here over the past 2 weeks. The patient reports the pain is 8-9 on a scale of 10 at its worst, 6 on average, 4-5 at its least and is a 6 today. The patient reports it is aching and sharp, stabbing in the low back, posterior gluteus, posterior thigh, worse again with standing and walking, better with sitting, but again waking him from sleep. The patient reports no new motor or sensory deficits, no new bowel or bladder incontinence or other complaints. PHYSICAL EXAMINATION: VITAL SIGNS: The patient's blood pressure 136/59, pulse 87, respirations 18, temperature 94.6 degrees Fahrenheit, height is 6 feet, weight is 274 pounds. GENERAL: The patient is awake, alert, oriented, appropriate, very pleasant demeanor. HEENT: Shows normocephalic, atraumatic. Extraocular movements are intact and symmetrical. Oral cavity shows mucous membranes moist and pink. NECK: Shows anterior throat supple. Swallow reflex symmetrical. CHEST: Shows normal on inspection. Breath sounds are clear bilaterally. HEART: Shows S1, S2 clear. No murmurs auscultated. ABDOMEN: Soft, nontender, nondistended, obese. No palpable organomegaly is noted. No rebound or guarding demonstrated. BACK: The patient's back shows spine grossly in the midline. Cervical paraspinous muscle shows symmetrical on inspection, with palpation shows some mild tenderness inferiorly in the cervical paraspinous musculature, but only inferiorly without radiation. The patient has good rotational motion of cervical spine, both laterally as well as extension and flexion without difficulty. The patient's lumbar spine shows well-healed surgical scar in the midline. Paraspinous musculature shows symmetrical on inspection, on palpation shows some moderate tenderness diffusely bilaterally going diffusely without significant radiation bilaterally. No trigger points, no asymmetry, no tenderness over the spinous processes, sacrum or sacroiliac regions. EXTREMITIES: The patient's lower extremities show deep tendon reflexes at 1+ in the patellar and tendo calcaneus tendons. Motor exam is approximately 4 on a scale 5 on the right and 5/5 on the left with dorsiflexion, extension, quadriceps and hamstring flexion. Peripheral pulses are 1+ posterior tibia. No peripheral edema is noted bilaterally. Options were discussed with the patient. The patient's old chart was reviewed as his current medication regimen updated. Current review of systems updated today as well. We will proceed with a lumbar epidural steroid injection today with, caudal approach using C-arm fluoroscopic guidance. Risks were again discussed including, but not limited to bleeding, infection, possibility of epidural hematoma, subsequent neurological compromise, dural puncture, headaches, spinal cord and/or nerve damage, side effects of steroid medication and poor results regarding pain control. The patient understands and wished to proceed. The patient will return to clinic in approximately 2 weeks for followup. He was counseled on return appointment, activity level and side effects to be aware of. DIAGNOSES: Lumbar radiculopathy with lumbar degenerative disk disease, lumbar spondylosis and post-lumbar laminectomy syndrome. PROCEDURE: Lumbar epidural steroid injection caudal approach using C-arm fluoroscopic guidance under sterile prep and drape using local anesthetic. MEDICATION INJECTED: A total of 120 mg Depo-Medrol plus 10 mL of preservative-free normal saline and 2 mL of contrast. CONDITION AT DISCHARGE: Stable. The patient tolerated the procedure well, had no complications. ANISH DELGADO MD DR: BREONNA/anna JOB#: [id number] / [id number]
== END ==
LOC: PNCL 10:05
PROVIDERS: ATTEND Anesthesiology
DX: M51.16 Intervertebral disc disorders with radiculopathy, lumbar region (principal); M96.1 Postlaminectomy syndrome, not elsewhere classified; M47.816 Spondylosis without myelopathy or radiculopathy, lumbar region; M17.0 Bilateral primary osteoarthritis of knee
CPT/HCPCS: 62323; J1030; J1040; Q9965

== ENCOUNTER → 2019-06-18 | Outpatient (CLI) | payer MEDICARE, OTHER ==
[~2019-06-18] MED LIST changes: -IOHEXOL 180 MG/ML 10 ML VIAL. ONE; +ZOLPIDEM 5 MG TABLET. PO ONE; -methylPREDNISolone ACETATE 40 MG/ML VIAL. ONE; -methylPREDNISolone ACETATE 80 MG/ML VIAL. ONE
--- NOTE | 2019-06-19 09:05 | SLEEP ---
DATE OF STUDY: 06/18/2019 REFERRING PHYSICIAN: Dr. Laura Painter. PRIMARY CARE PHYSICIAN: Dr. Yang. The patient is a 74-year-old, who weighs 260 pounds with a BMI of 35. The patient had a previous sleep study at [facility] in 05/2019. The patient was found to have severe SWET[place] with AHI of 34 per hour. The patient also had severe PLMS. Reduced sleep efficiency of 37%. Optimum CPAP pressure was not achieved. The patient returned to the sleep lab for CPAP/BiPAP titration study. During the night study, the patient spent 410 minutes in bed and slept for 276 minutes with a low sleep efficiency of 67%, but improved from previous study. Sleep latency was 65 minutes with a REM latency of 307 minutes. Sleep architecture showed increased stage 1 and stage 2 sleep, reduced slow wave and reduced REM sleep. The patient was started on CPAP at a pressure of 12 cm water. Normally, the patient uses oxygen continuously at home and this was started on room air along with CPAP. At a pressure of 20 cm water, the patient still had respiratory events. As a result, the patient was switched to BiPAP at a pressure of 21/16. At this final pressure, the patient slept for 150 minutes. The patient had long lateral REM sleep. The patient's AHI was reduced to 0 per hour and oxygen saturation remained above 88%. The patient used full face mask, medium size. EKG monitoring revealed no sustained arrhythmias. Average heart rate 64 beats per minute. PLMS were seen at index of 47 per hour and 4 per hour caused EEG arousals. IMPRESSION: 1. Severe sleep apnea diagnosed by previous sleep study. 2. Moderate to severe PLMS. RECOMMENDATIONS: 1. BiPAP at a pressure of 21/16 completely eliminated the patient's sleep apnea and should be used on a nightly basis. The patient used a medium size full face mask. 2. Follow up in 4-6 weeks to assess compliance with BiPAP and to document clinical improvement. 3. Weight loss is strongly advised. 4. Avoid [employer] depressants. 5. Cautioned regarding driving until symptoms of sleep apnea resolve with the use of BiPAP. 6. The patient should also be further evaluated for symptoms of restless legs during the day. JAMIE ROMANO MD DR: ASHLEIGH/anna JOB#: [id number] / [id number] Dr. BEN Smith SABATO MD
== END | disposition home or self-care (01) ==
LOC: RT 18:56
PROVIDERS: ATTEND Internal Medicine Pulmonary Disease
DX: G47.30 Sleep apnea, unspecified (principal); G47.61 Periodic limb movement disorder
CPT/HCPCS: 95811

== ENCOUNTER → 2019-07-31 | Outpatient (CLI) | payer MEDICARE, OTHER ==
[~2019-07-31] MED LIST changes: +IOHEXOL 180 MG/ML 10 ML VIAL. ONE; -ZOLPIDEM 5 MG TABLET. PO ONE; +methylPREDNISolone ACETATE 40 MG/ML VIAL. ONE; +methylPREDNISolone ACETATE 80 MG/ML VIAL. ONE
--- NOTE | 2019-07-31 12:49 | PAIN ---
DATE OF SERVICE: 07/31/2019 PROGRESS NOTE FOR PAIN CLINIC DIAGNOSES: 1. Lumbar radiculopathy with lumbar degenerative disk disease, lumbar spondylosis and post-lumbar laminectomy syndrome. 2. Bilateral knee joint pain with primary osteoarthritis. HISTORY OF PRESENT ILLNESS: The patient is a 74-year-old male who returns for followup status post caudal epidural steroid injection x 3, most recently in 06/05/2019, patient did very well with about 70% improvement. He reports until about a week to 2 weeks ago, the pain began to return in the low back, bilateral lower extremities, somewhat worse on the right than the left, posterior gluteus, posterior thigh, radiating to the knees also some significant pain in the knees. He had an injection in April of this year in the knees with significant improvement, but the pain now returning with walking and standing. The patient reports that back and the right lower extremity pain were his chief complaint, rated as a 9 on a scale of 10 at its worse, the past week, 6 on average and 4 at its least and is a 6 today. The patient reports it is aching, sharp, cramping, stabbing, severe with activity. Until then, he was doing much better with distance walking, doing household activities, traveling with greater ease and comfort, sleeping better at night, now is beginning to awaken him from sleep at night about every 6 hours. The patient reports no new motor or sensory deficits, no new bowel or bladder incontinence or other complaints. PHYSICAL EXAMINATION: VITAL SIGNS: The patient's blood pressure 139/78, pulse 83, respirations 18, temperature 98.6 degrees Fahrenheit, height is 6 feet, weight is 285 pounds. GENERAL: The patient is awake, alert, oriented, appropriate, very pleasant demeanor. HEENT: Head shows normocephalic and atraumatic. Extraocular movements are intact and symmetrical. Oral cavity; mucous membranes moist and pink. Dentition is intact. NECK: Shows anterior throat supple without palpable lymphadenopathy noted. Swallow reflex symmetrical. CHEST: Shows normal on inspection. Breath sounds are clear bilaterally. HEART: Shows S1 and S2 clear. No murmurs auscultated. ABDOMEN: Soft, nontender, nondistended. BACK: Shows spine grossly in the midline. Flattening lumbar lordotic curvature is noted with well-healed surgical scarring. Lumbar paraspinous muscle shows symmetrical on inspection. The palpation shows some mild tenderness, but only diffusely in the low lumbar distribution bilaterally, appears roughly symmetrical without atrophy, hypertrophy, no trigger points, no radiation of pain. The patient has good rotational motion of lumbar spine, both laterally as well as extension and flexion without significant increase in pain. EXTREMITIES: Lower extremities show deep tendon reflexes at 1+ in the patellar and tendo calcaneus tendons. Motor exam is approximately 4 on a scale of 5 on the right and 5/5 on the left with motor function, quadriceps and hamstring flexion likewise 4/5 right, 5/5 on the left, but intact. Peripheral pulses are symmetrical at 1+ posterior tibial and no peripheral edema is noted. IMPRESSION AND PLAN: Options were discussed with the patient. The patient's old chart was reviewed as his current medication regimen updated. Current review of systems updated today as well. We will proceed with a first in this series, caudal approach epidural steroid injection today with fluoroscopic guidance. Risks were again discussed including, but not limited to bleeding, infection, possibility of epidural hematoma, subsequent neurological compromise, dural puncture, headaches, spinal cord and/or nerve damage, side effects of steroid medication and poor results regarding pain control. The patient understands and wished to proceed. The patient will return to the clinic in approximately 2 weeks for followup. She was counseled on return appointment, activity level and side effects to be aware of. DIAGNOSIS: Lumbar radiculopathy with lumbar degenerative disk disease, lumbar spondylosis and post-lumbar laminectomy syndrome. PROCEDURE: Lumbar epidural steroid injection, caudal approach using C-arm fluoroscopic guidance under sterile prep and drape using local anesthetic. MEDICATION INJECTED: A total of 120 mg Depo-Medrol plus 10 mL of preservative-free normal saline and 2 mL of contrast. CONDITION AT DISCHARGE: Stable. The patient tolerated the procedure well, had no complications. ANISH DELGADO MD DR: BREONNA/anna JOB#: [id number] / [id number]
== END | disposition home or self-care (01) ==
LOC: PNCL 11:17
PROVIDERS: ATTEND Anesthesiology
DX: M51.16 Intervertebral disc disorders with radiculopathy, lumbar region (principal); M96.1 Postlaminectomy syndrome, not elsewhere classified; M47.26 Other spondylosis with radiculopathy, lumbar region; M17.0 Bilateral primary osteoarthritis of knee; Z98.890 Other specified postprocedural states
CPT/HCPCS: 62323; J1030; J1040; Q9965

== ENCOUNTER → 2019-08-07 | Outpatient (CLI) | payer MEDICARE, OTHER ==
[~2019-08-07] MED LIST changes: +BUPIVACAINE MPF 0.25% 10 ML VIAL. ONE
--- NOTE | 2019-08-07 12:15 | PAIN ---
DATE OF SERVICE: 08/07/2019 PROGRESS NOTE FOR PAIN CLINIC DIAGNOSES: 1. Bilateral knee joint pain with osteoarthritis. 2. Lumbar radiculopathy with lumbar degenerative disk disease, spondylosis, and post-lumbar laminectomy syndrome. HISTORY OF PRESENT ILLNESS: The patient is 74-year-old male who returns for followup status post caudal epidural steroid injection on 07/30. The patient did very well, reports about a 70% improvement in the low back pain. His knees were bothering him then and we discussed returning for knee joint injections, which he has backed for today by his request. The patient still reports significant pain in the knees with walking, but the back is doing much better. The patient reports his pain in the knees is an 8 on a scale of 10 at its worst over the past week, 7 on average and 4 at its least and is a 7 today. The patient reports no new motor or sensory deficits, no new changes, worse with walking, standing, putting all his weight on one leg or the other, especially climbing stairs, which he has to do 2 feet at a time on each step. The patient reports it occasionally wakes him from sleep in the knee pain. Again, he is sleeping better with his back is feeling better, but his knees are still significantly painful. The patient reports no new motor or sensory deficits, no new bowel or bladder incontinence. PHYSICAL EXAMINATION: VITAL SIGNS: The patient's blood pressure 120/66, pulse of 84, respirations 20, temperature 98.6 degrees Fahrenheit, and weight is 271 pounds. GENERAL: The patient is awake, alert, oriented, appropriate, very pleasant demeanor. HEENT: Head shows normocephalic, atraumatic. Extraocular movements are intact and symmetrical. Oral cavity: Mucous membranes moist and pink. Dentition is intact. NECK: Shows anterior throat supple without palpable lymphadenopathy noted. Swallow reflex symmetrical. CHEST: Shows normal on inspection. Breath sounds are clear bilaterally. HEART: Shows S1, S2 clear. ABDOMEN: Obese, soft, nontender, nondistended. BACK: Shows spine grossly in the midline, slight exaggerated thoracic kyphosis, minor flattening of lumbar lordotic curvature with well-healed surgical scar noted. Lumbar paraspinous muscle shows symmetrical on inspection, on palpation shows some moderate tenderness, but only very mild in the low lumbar distribution without radiation. The patient has good rotational motion of lumbar spine, both laterally as well as extension and flexion. EXTREMITIES: Lower extremities show deep tendon reflexes 1+ in the patellar and tendo calcaneus tendons. Motor exam is approximately 4 on a scale of 5 on the right with dorsiflexion and extension, 5/5 on the left. The patient's knee shows good hinge motion without significant lateral or medial displacement, negative shelf sign bilaterally, patella shows some moderate mobility without pain reported in each knee joint with weightbearing. The patient reports significant pain, especially on the right knee with ambulation. Options were discussed with the patient. The patient's old chart was reviewed as his current medication regimen updated. Current review of systems updated today as well. We will proceed with bilateral intra-articular knee joint injection today with fluoroscopic guidance. Risks were again discussed including, but not limited to bleeding, infection, possibility of intravascular injection sequelae, spread of local anesthetic and numbness, side effects of steroid medication, exposure to fluoroscopy and poor results regarding pain control. The patient understands and wished to proceed. The patient will return to clinic in approximately 2 weeks for followup, was counseled on return appointment, activity level and side effects to be aware of. DIAGNOSIS: Bilateral knee joint pain with primary osteoarthritis, bilateral knee joints. PROCEDURE: Bilateral knee joint, intra-articular injections using C-arm fluoroscopic guidance under sterile prep and drape using local anesthetic. MEDICATION INJECTED: A total of 120 mg Depo-Medrol, 60 mg per knee and total of 6 mL of 0.25% bupivacaine, 3 mL per knee and total of 3 mL contrast 1.5 mL per knee CONDITION AT DISCHARGE: Stable. The patient tolerated the procedure well, had no complications. ANISH DELGADO MD DR: BREONNA/anna JOB#: [id number] / [id number]
== END ==
LOC: PNCL 10:49
PROVIDERS: ATTEND Anesthesiology
DX: M17.0 Bilateral primary osteoarthritis of knee (principal); M51.16 Intervertebral disc disorders with radiculopathy, lumbar region; M47.816 Spondylosis without myelopathy or radiculopathy, lumbar region; M96.1 Postlaminectomy syndrome, not elsewhere classified
CPT/HCPCS: 20610; 77002; J1030; J1040; J3490; Q9965

== ENCOUNTER → 2019-11-12 | Outpatient (CLI) | payer MEDICARE, OTHER ==
[~2019-11-12] MED LIST changes: -BUPIVACAINE MPF 0.25% 10 ML VIAL. ONE
--- NOTE | 2019-11-12 11:18 | PAIN ---
DATE OF SERVICE: 11/12/2019 PROGRESS NOTE FOR PAIN CLINIC DIAGNOSES: 1. Lumbar radiculopathy with lumbar degenerative disk disease, lumbar spondylosis, and lumbar post-laminectomy syndrome. 1. Bilateral knee joint pain with primary osteoarthritis, bilateral knee joints. HISTORY OF PRESENT ILLNESS: The patient is a 74-year-old male who returns for followup status post bilateral knee joint injections, last seen on 08/07/2019, patient did very well with about a 75% improvement initially, now about 50% improvement. Her chief complaint today, however, is low back pain with pain radiating to posterior gluteus, posterior thighs and calves. The patient reports it is worse with walking, standing, changing positions, did very well after lumbar caudal approach epidural steroid injection, which was 07/30, about 70% improvement with that as well. The patient reports it is returning, worse with walking, standing, better with sitting or lying down, does not awaken her from sleep at night. Reports it is a 9 on a scale of 10 at its over for the past week, 6 on average, 3 at its least and is a 6 today. The patient reports it is cramping, stabbing, aching and sharp at times, on and off in intensity. Knees are doing these are doing fairly well, but increasing pain as well in the knees bilaterally with walking, standing, weightbearing, climbing stairs, especially stepping upon a stoop or step, which is noticeable with each knee with essentially right equal to left in pain. The patient reports no new motor or sensory deficits, no bowel or bladder incontinence or other complaints. PHYSICAL EXAMINATION: VITAL SIGNS: The patient's blood pressure 103/52, pulse 76, respirations are 16, temperature 98.6 degrees Fahrenheit, height 6 feet, weight is 270 pounds. GENERAL: The patient is awake, alert, oriented, appropriate, very pleasant demeanor. HEENT: Shows normocephalic, atraumatic. The patient is wearing eyeglasses. Extraocular movements are intact and symmetrical. Oral cavity: Mucous membranes moist and pink. Dentition is intact. NECK: Shows anterior throat supple without palpable lymphadenopathy noted. Swallow reflex symmetrical. CHEST: Shows normal on inspection. Breath sounds are clear bilaterally. HEART: Shows S1, S2 clear. No murmurs auscultated. ABDOMEN: Soft, nontender, nondistended. No palpable organomegaly is noted. No rebound or guarding demonstrated. BACK: Shows spine grossly in the midline, slight exaggerated thoracic kyphosis, some minor flattening of lumbar lordotic curvature with well-healed surgical scar noted in the lumbar distribution. Lumbar paraspinous muscle shows symmetrical on inspection, on palpation shows some moderate tenderness diffusely bilaterally going diffusely without significant radiation, no trigger points. No atrophy or hypertrophy. No asymmetry, no tenderness over the spinous processes, sacrum or sacroiliac regions. The patient's lower extremities show deep tendon reflexes at 1+ in the patellar and tendo calcaneus tendons. Motor exam is approximately 4 on a scale of 5 on the right with dorsiflexion and extension, 5/5 on the left. Peripheral pulses are 1+ in the posterior tibial. The patient has approximately 1+ pitting edema on the right leg to about two-third distance to the knee and only 1+ on the left side, but only at the ankle. Peripheral pulses are 1+ bilaterally in the posterior tibial distribution. Options were discussed with the patient. The patient's old chart was reviewed as his current medication regimen updated. Current review of systems updated today as well. We will proceed with a caudal approach epidural steroid injection second in a series today with fluoroscopic guidance. Risks were again discussed including, but not limited to bleeding, infection, possibility of epidural hematoma and subsequent neurological compromise, dural puncture, headaches, spinal cord and/or nerve damage, side effects of steroid medication and poor results regarding pain control. The patient understands and wished to proceed. The patient will return to clinic in approximately 2 weeks for followup. She was counseled on return appointment, activity level and side effects to be aware of. DIAGNOSIS: Lumbar radiculopathy with lumbar degenerative disk disease, lumbar spondylosis, lumbar post-laminectomy syndrome. PROCEDURE: Lumbar epidural steroid injection, caudal approach using C-arm fluoroscopic guidance under sterile prep and drape using local anesthetic. MEDICATION INJECTED: A total of 120 mg Depo-Medrol plus 10 mL preservative-free normal saline and 2 mL of contrast. CONDITION AT DISCHARGE: Stable. The patient tolerated procedure well, had no complications. ANISH DELGADO MD DR: BREONNA/anna JOB#: [id number] / [id number]
== END ==
LOC: PNCL 09:57
PROVIDERS: ATTEND Anesthesiology
DX: M51.16 Intervertebral disc disorders with radiculopathy, lumbar region (principal); M96.1 Postlaminectomy syndrome, not elsewhere classified; M17.0 Bilateral primary osteoarthritis of knee
CPT/HCPCS: 62323; J1030; J1040; Q9965

== ENCOUNTER → 2019-11-19 | Outpatient (CLI) | payer MEDICARE, OTHER ==
[~2019-11-19] MED LIST changes: +BUPIVACAINE MPF 0.25% 10 ML VIAL. ONE; +FURO-69 PO; -OXYC-411 PO; +OXYC1TAB20 PO; +ROPI1TAB4 PO
--- NOTE | 2019-11-19 11:07 | PAIN ---
DATE OF SERVICE: 11/19/2019 PROGRESS NOTE FOR PAIN CLINIC DIAGNOSES: 1. Lumbar radiculopathy with lumbar degenerative disk disease, lumbar spondylosis and post-lumbar laminectomy syndrome. 2. Bilateral knee joint pain with osteoarthritis, bilateral knees. HISTORY OF PRESENT ILLNESS: The patient is a 74-year-old male who returns for followup status post caudal epidural steroid injection on 11/11. The patient did very well with about 50% improvement, mostly in the low back, still some pain in the right hip, but doing much better. The patient reports increased activity with greater ease and comfort, walking slightly better, but his knees are very painful as he has had in the past. The patient reports the pain in the knees is his chief complaint. It is an 8 on a scale of 10 at its worse for the past week, 6 on average and a 3 at its least and is a 6 today. The patient reports no new bowel or bladder incontinence. Describes the pain as stabbing in the knees, aching, dull, shooting, worse with weightbearing, better with sitting or lying down, generally does not awaken him from sleep at night from the pain. The patient reports no new motor or sensory deficits or other complaints. PHYSICAL EXAMINATION: VITAL SIGNS: The patient's blood pressure is 129/74, pulse 87, respirations are 16, temperature 98.0 degrees Fahrenheit. Weight is 271 pounds. GENERAL: The patient is awake, alert, oriented, appropriate, very pleasant demeanor. HEENT: Shows normocephalic, atraumatic. Extraocular movements are intact and symmetrical. Oral cavity; mucous membranes moist and pink. Dentition is intact. NECK: Shows anterior throat supple without palpable lymphadenopathy noted. Swallow reflex is symmetrical. CHEST: Shows normal on inspection. Breath sounds are clear bilaterally. HEART: Shows S1, S2 clear. No murmurs auscultated. ABDOMEN: Soft, nontender, nondistended. No palpable organomegaly is noted. No rebound or guarding demonstrated. BACK: Shows spine grossly in the midline. Normal appearing thoracic kyphosis and minor flattening of lumbar lordotic curvature. Lumbar paraspinous muscle shows symmetrical on inspection, on palpation shows some moderate tenderness diffusely bilaterally, but only diffusely without significant radiation. The patient has good rotational motion of the lumbar spine, both laterally as well as extension and flexion without significant increase in pain. EXTREMITIES: Lower extremities show deep tendon reflexes are 1+ in patellar and tendo calcaneus tendons. Motor exam is strong with 5/5 dorsiflexion, extension on the left and 4/5 on the right. The patient's knee shows good range of motion with hinge function with passive motion without significant crepitus or ratcheting bilaterally. Moderate tenderness in the medial aspect of the medial collateral ligament bilaterally, slightly more on the left than the right, but only minimal with deep palpation. Options were discussed with the patient. The patient's old chart was reviewed as his current medication regimen updated. Current review of systems updated today as well. We will proceed with bilateral intra-articular knee joint injection today with fluoroscopic guidance. Risks were again discussed including, but not limited to bleeding, infection, possibility of intravascular injection sequelae, spread of local anesthetic and numbness, side effects of steroid medication, exposure to fluoroscopy and poor results regarding pain control. The patient understands and wished to proceed. The patient will return to clinic in approximately 2 weeks for followup. He was counseled on return appointment, activity level and side effects to be aware of. DIAGNOSES: Bilateral knee joint pain with primary osteoarthritis, bilateral knee joints. PROCEDURE: Bilateral intraarticular knee joint injection using C-arm fluoroscopic guidance under sterile prep and drape using local anesthetic. MEDICATION INJECTED: A total of 120 mg Depo-Medrol plus 60 mg each knee plus 6 mL of 0.25% bupivacaine, 3 mL per knee after negative aspiration, a total of 3 mL, 1.5 mL per knee contrast. CONDITION ON DISCHARGE: Stable. The patient tolerated the procedure well, had no complications. ANISH DELGADO MD DR: BREONNA/anna JOB#: [id number] / [id number]
== END | disposition home or self-care (01) ==
LOC: PNCL 08:31
PROVIDERS: ATTEND Anesthesiology
DX: M17.0 Bilateral primary osteoarthritis of knee (principal); M51.16 Intervertebral disc disorders with radiculopathy, lumbar region; M47.896 Other spondylosis, lumbar region; Z87.891 Personal history of nicotine dependence; Z79.899 Other long term (current) drug therapy
CPT/HCPCS: 20610; 77002; J1030; J1040; J3490; Q9965

== ENCOUNTER → 2020-01-12 | Outpatient (CLI) | payer MEDICARE, OTHER ==
[~2020-01-12] MED LIST changes: -BUPIVACAINE MPF 0.25% 10 ML VIAL. ONE
--- NOTE | 2020-01-12 08:51 | PDOC ---
Progress Note - Pain Clinic Date of Service: DOS: DATE: 01/12/20 TIME: 08:48 Diagnosis: Dx: Lumbar radiculopathy with lumbar degenerative disc disease lumbar spondylosis and post lumbar laminectomy syndrome Bilateral knee joint pain with primary osteoarthritis History or Present Illness: HPI: 74-year-old male returns follow-up status post caudal epidural steroid injection x2 and bilateral knee injections SeptemberNovember 19, 2019 last caudal injection was November 12, 2019. Patient reports that about 60% improvement until about 3 weeks ago with his low back still pain returning in the low back and right lower extremity posterior gluteus posterior thigh even into the lower leg with walking and standing knees are doing much better however patient reports has been increasing his activity with greater distance walking doing household activities work activities try with greater ease as well but the pain in the back is beginning to bother him more patient rates it as a 10 on scale 10 is worse with the past week for an average for this least is a 4 today patient describes it as cramping stabbing aching and sharp in the low back rating the posterior gluteus on the right into the thigh as well with more severe pain on and off in intensity better with sitting or laying down generally does not awaken him from sleep at night. Patient reports no new motor or sensory deficits no new bowel or bladder incontinence or other complaints. Physical Exam: VS: Blood pressure is 138/74 pulse 80 respirations 18 temperature 97.8 F height is 6 foot weight is 279 pounds PE: PHYSICAL EXAMINATION: GENERAL: The patient is awake, alert, oriented, appropriate, very pleasant demeanor HEENT: Shows normocephalic, atraumatic. Extraocular movements are intact and sy mmetrical. Oral cavity: Mucous membranes moist and pink. NECK: Shows anterior throat supple without palpable lymphadenopathy noted. Swallow reflex symmetrical. CHEST: Shows normal on inspection. Breath sounds are clear bilaterally, distant but no rales rhonchi or wheezes auscultated. HEART: Shows S1, S2 clear. No murmurs auscultated. ABDOMEN: Soft, nontender, nondistended, obese. No palpable organomegaly is noted. No rebound or guarding demonstrated. BACK: Shows spine grossly in the midline. Normal-appearing cervical lordotic curvature. There is slightly increased thoracic kyphosis, some minor flattening of the lumbar lordotic curvature. Lumbar paraspinous muscles show symmetrical on inspection, on palpation shows some moderate tenderness diffusely throughout the upper, middle and lower distribution of the paraspinous muscles bilaterally and also into the lower thoracic paraspinous musculature, firm and tender, but without specific trigger points, without radiation of pain. The patient has good rotational motion of the lumbar spine, both laterally as well as extension and flexion without significant difficulty. No tenderness over the spinous processes, sacrum or sacroiliac regions. EXTREMITIES: Lower extremities show deep tendon reflexes 1+ in the patellar and tendo calcaneus tendons. Motor exam is 4 on a scale of 5 with right dorsiflexion, extension, quadriceps and hamstring flexion and 5/5 on the left. Peripheral pulses are 1+ posterior tibial. No peripheral edema is noted bilaterally. Lower extremities are warm and dry to touch, equal in color and appearance. SKIN: Shows warm and dry, good turgor. No edema. No sores, rashes or bruising throughout. Procedure: Procedure: Options were discussed with the patient. Patient's old chart was reviewed his his current medication regimen updated current review of systems updated today as well. We will proceed with a third in a series caudal approach epidural steroid injection today with fluoroscopic guidance. Risks were discussed including but not limited to: Bleeding, infection, possibility of epidural hematoma and subsequent neurological compromise, dural puncture, headaches, spinal cord and/or nerve damage, side effects of steroid medication, and poor results regarding pain control. Patient understands wished to proceed. Patient return to clinic in approximate 2 weeks for follow-up was counseled as to return appointment activity level and side effects to be aware of. Medication Injected: Med Injected: Procedure is lumbar epidural steroid injection under local anesthetic using sterile prep and drape at the caudal level using C-arm fluoroscopic guidance in both AP and lateral views medications injected is 120 mg Depo-Medrol + 10 mL pre servative-free normal saline and 2 mL contrast- condition at discharge is stable patient tolerated procedure well had no complications. Condition at Discharge: Condition at Discharge: Condition at discharge stable patient tolerated procedure well had no complications. ANISH DELGADO MD Jan 12, 2020 08:51
== END | disposition home or self-care (01) ==
LOC: PNCL 08:07
PROVIDERS: ATTEND Anesthesiology
DX: M51.16 Intervertebral disc disorders with radiculopathy, lumbar region (principal); M47.816 Spondylosis without myelopathy or radiculopathy, lumbar region; M17.0 Bilateral primary osteoarthritis of knee; I13.0 Hypertensive heart and chronic kidney disease with heart failure and stage 1 through stage 4 chronic kidney disease, or unspecified chronic kidney disease; N18.9 Chronic kidney disease, unspecified; I50.9 Heart failure, unspecified; E78.5 Hyperlipidemia, unspecified; J44.9 Chronic obstructive pulmonary disease, unspecified; E78.00 Pure hypercholesterolemia, unspecified; K21.9 Gastro-esophageal reflux disease without esophagitis; Z87.891 Personal history of nicotine dependence; Z72.89 Other problems related to lifestyle; Z79.899 Other long term (current) drug therapy
CPT/HCPCS: 62323; J1030; J1040; Q9965

== ENCOUNTER → 2020-04-28 | Outpatient (CLI) | payer MEDICARE, OTHER ==
[~2020-04-28] MED LIST changes: +AMLO-186 PO; -AMLO5TAB10 PO
--- NOTE | 2020-04-28 14:45 | PDOC ---
Progress Note - Pain Clinic Date of Service: DOS: DATE: 04/28/20 TIME: 14:42 Diagnosis: Dx: Lumbar radiculopathy with lumbar degenerative disc disease and lumbar spondylosis with post lumbar laminectomy syndrome Bilateral knee joint pain with osteoarthritis Right shoulder joint pain with osteoarthritis History or Present Illness: HPI: 75-year-old male returns follow-up status post caudal epidural steroid injections x3, last seen January 12, 2020. Patient reports he did very well with 75% improvement or better for about 2 to 3 months following the injection patient reports pain is returning now over the past few weeks in the low back and bilateral lower extremities worse on the left than the right but present bilaterally patient reports across the low back as well also significant pain in his right shoulder with rotation and movement and lifting items. Patient reports his back is his chief complaint however rates it a 10 on scale 10 is worse over the past week 7 on average for its least is a 7 today. Patient ports that sharp and cramping can be severe and unbearable aching and dull in the back as well with shooting pain in the lower extremity. Patient reports no new motor or sensory deficits no new bowel or bladder incontinence or other complaints. Physical Exam: VS: Blood pressure is 120/70 pulse 63 respirations 16 temperature 97.9 F weight is 286 pounds PE: PHYSICAL EXAMINATION: GENERAL: The patient is awake, alert, oriented, appropriate, very pleasant demeanor HEENT: Shows normocephalic, atraumatic. Extraocular movements are intact and symmetrical. Oral cavity: Mucous membranes moist and pink. Dentition is intact. NECK: Shows anterior throat supple without palpable lymphadenopathy noted. Swallow reflex symmetrical. CHEST: Shows normal on inspection. Breath sounds are clear bilaterally, distant but no rales or rhonchi. HEART: Shows S1, S2 clear. No murmurs auscultated. ABDOMEN: Soft, nontender, nondistended, obese. No palpable organomegaly is noted. No rebound or guarding demonstrated. BACK: Shows spine grossly in the midline. Normal-appearing cervical lordotic curvature. There is slightly increased thoracic kyphosis, some minor flattening of the lumbar lordotic curvature. Well-healed midline surgical scar is again noted. Lumbar paraspinous muscles show symmetrical on inspection, on palpation shows some moderate tenderness diffusely throughout the upper, middle and lower distribution of the paraspinous muscles, but without specific trigger points, without radiation of pain. The patient has good rotational motion of the lumbar spine, both laterally as well as extension and flexion without significant difficulty. No tenderness over the spinous processes, sacrum or sacroiliac regions. EXTREMITIES: Lower extremities show deep tendon reflexes 1+ in the patellar and tendo calcaneus tendons. Motor exam is 4 on a scale of 5 with right do rsiflexion, extension, quadriceps and hamstring flexion and 5/5 on the left. Peripheral pulses are 1+ posterior tibial. No peripheral edema is noted bilaterally. Lower extremities are warm and dry to touch, equal in color and appearance. SKIN: Shows warm and dry, good turgor. No edema. No sores, rashes or bruising throughout. Procedure: Procedure: Options were discussed with the patient. Patient chart was reviewed his medication regimen updated current review of systems updated today as well. We will proceed with a caudal approach epidural steroid injection today as the first in the series with fluoroscopic guidance. Risks were discussed including but not limited to: Bleeding, infection, possibility of epidural hematoma and subsequent neurological compromise, dural puncture, headaches, spinal cord and/or nerve damage, side effects of steroid medication, and poor results regarding pain control. Patient understands wished to proceed. Patient return to clinic in approximately 2 weeks for follow-up was counseled as to return appointment activity level and side effects to be aware of. Medication Injected: Med Injected: Procedure is lumbar epidural steroid injection under local anesthetic using sterile prep and drape at the caudal level using C-arm fluoroscopic guidance in both AP and lateral views medications injected is 120 mg Depo-Medrol + 10 mL preservative-free normal saline and 2 mL contrast- condition at discharge is stable patient tolerated procedure well had no complications. Condition at Discharge: Condition at Discharge: Condition at discharge stable, patient tolerated procedure well and had no complications. ANISH DELGADO MD Apr 28, 2020 14:45
== END | disposition home or self-care (01) ==
LOC: PNCL 14:05
PROVIDERS: ATTEND Anesthesiology
DX: M51.16 Intervertebral disc disorders with radiculopathy, lumbar region (principal); M47.26 Other spondylosis with radiculopathy, lumbar region; M17.0 Bilateral primary osteoarthritis of knee; M19.012 Primary osteoarthritis, left shoulder; M19.011 Primary osteoarthritis, right shoulder; I25.10 Atherosclerotic heart disease of native coronary artery without angina pectoris; I10 Essential (primary) hypertension; E78.00 Pure hypercholesterolemia, unspecified; J44.9 Chronic obstructive pulmonary disease, unspecified; F41.9 Anxiety disorder, unspecified; F32.9 Major depressive disorder, single episode, unspecified; Z87.891 Personal history of nicotine dependence; Z79.899 Other long term (current) drug therapy; Z98.890 Other specified postprocedural states; Z88.8 Allergy status to other drugs, medicaments and biological substances; Z72.89 Other problems related to lifestyle; Z82.49 Family history of ischemic heart disease and other diseases of the circulatory system; Z83.3 Family history of diabetes mellitus
CPT/HCPCS: 62323; J1030; J1040; Q9965

== ENCOUNTER → 2020-05-12 | Outpatient (CLI) | payer MEDICARE, OTHER ==
[~2020-05-12] MED LIST changes: +ACET500T68 PO; +ALBU2.5V8 IH; +BUPIVACAINE MPF 0.25% 10 ML VIAL. ONE; +CHOL500050 PO; +FURO-68 PO; -LISI-334 PO; +LISI20TA18 PO; +METR500T PO; -OMEP40CA45 PO; +OMEP40CA7 PO; +OXYC5TAB4 PO; +POTA10TA12 PO; +TAMS0.4C97 PO; +TIOT4MIS3 IH; +VITA1TAB19 PO; +[UNRECOGNIZED DRUG - CODE] UR
--- NOTE | 2020-05-12 14:38 | PDOC ---
Progress Note - Pain Clinic Date of Service: DOS: DATE: 05/12/20 TIME: 14:31 Diagnosis: Dx: Bilateral knee joint pain with osteoarthritis Lumbar radiculopathy with lumbar degenerative disc disease lumbar spondylosis and post lumbar laminectomy syndrome Right shoulder joint pain with osteoarthritis History or Present Illness: HPI: 75-year-old male returns follow-up status post lumbar epidural steroid traction times 04/28/2019. Patient ports he did very well with about a 75% improvement in the low back itself in the bilateral lower extremities his main complaint today is knee pain has had significant history of osteoarthritis of the knees is done well with steroid injections most recently November 19, 2019. Patient reports that the pain is getting worse in the knees more on the left than the right present bilaterally with walking standing especially stepping up on a curb or stairs putting all his weight on his knee right lower leg. Patient reports aching sharp and dull alternating stabbing pain with walking standing better with s itting or laying down does not awaken him from sleep generally but his back can occasionally patient reports that his back still doing much better reports no new motor or sensory deficits no new bowel or bladder incontinence. His pain in the knees is described as a 9 on scale 10 is worst over the past week 5 on average 5-6 today. Physical Exam: VS: Blood pressure is 111/68 pulse 70 respirations 16 temperature 97.5 F weight is 275 pounds PE: PHYSICAL EXAMINATION: GENERAL: The patient is awake, alert, oriented, appropriate, very pleasant demeanor HEENT: Shows normocephalic, atraumatic. Extraocular movements are intact and symmetrical. Oral cavity: Mucous membranes moist and pink. NECK: Shows anterior throat supple without palpable lymphadenopathy noted. Swallow reflex symmetrical. CHEST: Shows normal on inspection. Breath sounds are clear bilaterally, distant but no rales rhonchi or wheezes. HEART: Shows S1, S2 clear. No murmurs auscultated. ABDOMEN: Soft, nontender, nondistended, obese. No palpable organomegaly is noted. No rebound or guarding demonstrated. BACK: Shows spine grossly in the midline. Normal-appearing cervical lordotic curvature. There is slightly increased thoracic kyphosis, some minor flattening of the lumbar lordotic curvature. Lumbar paraspinous muscles show symmetrical on inspection, on palpation shows some moderate tenderness diffusely throughout the upper, middle and lower distribution of the paraspinous muscles, but without specific trigger points, without radiation of pain. The patient has good rotational motion of the lumbar spine, both laterally as well as extension and flexion without significant difficulty. EXTREMITIES: Lower extremities show deep tendon reflexes 1+ in the patellar and tendo calcaneus tendons. Motor exam is 4 on a scale of 5 with right dorsiflexion, extension, quadriceps and hamstring flexion and 5/5 on the left. Peripheral pulses are 1+ posterior tibial. No peripheral edema is noted bilaterally. Lower extremities are warm and dry to touch, equal in color and appearance. Patient is knee shows good range of motion both actively and passively without crepitus and without ratcheting. Shows moderate tenderness of the medial collateral ligaments bilaterally with deeper palpation. SKIN: Shows warm and dry, good turgor. No edema. No sores, rashes or bruising throughout. Procedure: Procedure: Options discussed with the patient. Patient chart was reviewed his his current medication regimen updated current review of systems updated today as well. We will proceed with bilateral intra-articular knee joint injections today with fluoroscopic guidance. Risks were discussed including but not limited to bleeding infection possibility of intravascular injection sequelae spread local anesthetic numbness side effects steroid medication exposure fluoroscopy and poor results regarding pain control. Patient understands wished to proceed. Patient return to clinic in approximate 2 weeks for follow-up. Patient was counseled as to return appointment activity level and side effects to be aware of. Medication Injected: Med Injected: Under sterile prep and drape using C-arm fluoroscopic guidance patient's bi lateral knees were prepped and draped in usual fashion using 1% lidocaine was anesthetized over the intra-articular space using a 22-gauge needle intra- articular space was then introduced under direct fluoroscopic guidance bilaterally. Stylet was removed and 2 cc of contrast was then injected into each knee joint with good spread within the joint itself without washout bilaterally. This time solution contained 60 mg Depo-Medrol and 3 cc of 0.25% Vivacaine was injected into each knee joint. [place] were removed sterile bandages were applied patient tolerated procedure well had no complications. Condition at Discharge: Condition at Discharge: Condition at discharge stable, patient tolerated procedure well had no complications. ANISH DELGADO MD May 12, 2020 14:38
--- NOTE | 2020-05-12 14:40 | PDOC4 ---
PROCEDURE Procedure Patient was consented for bilateral intra-articular knee joint injections. Risk were discussed including but not limited to bleeding infection possibility of intravascular injection sequelae spread of local anesthetic and numbness side effects of steroid medication exposure fluoroscopy and portals regarding pain control. Patient understands wished to proceed. Under sterile prep and drape bilateral knees were prepped and draped in the usual fashion. Using C-arm fluoroscopic guidance the knees were then anesthetized using 1% lidocaine and a 22-gauge needle was then passed through the anesthetized area under direct fluoroscopic guidance into the intra-articular knee joint both right and left. Stylets were removed and 2 cc of contrast was then injected into each knee joint with good spread within the knee joint without washout. At this time each knee joint received injection of 0.25% bupivacaine 3 cc and 60 mg of Depo-Medrol. [place] were removed sterile bandages were applied. Patient tolerated procedure well and had no complications. ANISH DELGADO MD May 12, 2020 14:40
== END | disposition home or self-care (01) ==
LOC: PNCL 13:29
PROVIDERS: ATTEND Anesthesiology
DX: M17.0 Bilateral primary osteoarthritis of knee (principal); M51.16 Intervertebral disc disorders with radiculopathy, lumbar region; M47.26 Other spondylosis with radiculopathy, lumbar region; M96.1 Postlaminectomy syndrome, not elsewhere classified; M19.011 Primary osteoarthritis, right shoulder; I25.10 Atherosclerotic heart disease of native coronary artery without angina pectoris; E78.00 Pure hypercholesterolemia, unspecified; I10 Essential (primary) hypertension; J44.9 Chronic obstructive pulmonary disease, unspecified; M19.90 Unspecified osteoarthritis, unspecified site; F41.9 Anxiety disorder, unspecified; F32.9 Major depressive disorder, single episode, unspecified; Z79.82 Long term (current) use of aspirin; Z79.899 Other long term (current) drug therapy; Z98.890 Other specified postprocedural states; Z87.891 Personal history of nicotine dependence; Z72.89 Other problems related to lifestyle
CPT/HCPCS: 20610; 77002; J1030; J1040; J3490; Q9965

== ENCOUNTER → 2020-05-20 | Outpatient (CLI) | payer MEDICARE, OTHER ==
[~2020-05-20] MED LIST changes: -BUPIVACAINE MPF 0.25% 10 ML VIAL. ONE; -IOHEXOL 180 MG/ML 10 ML VIAL. ONE; +LISI-334 PO; -LISI20TA18 PO; -METR500T PO; +OMEP40CA45 PO; -OMEP40CA7 PO; -OXYC5TAB4 PO; -TAMS0.4C97 PO; -TIOT4MIS3 IH; -[UNRECOGNIZED DRUG - CODE] UR; -methylPREDNISolone ACETATE 40 MG/ML VIAL. ONE; -methylPREDNISolone ACETATE 80 MG/ML VIAL. ONE
--- NOTE | 2020-05-20 12:53 | CARD ---
MR#: [id number] Date of Study: 05/20/2020 Ordering Physician: FELA TURNER, Referring Physician: FELA TURNER, Tech: Yanira Adams [facility] APPROVED REPORT EXAM: Two-dimensional and M-mode echocardiogram with Doppler and color Doppler. Other Information Quality : Technically LimitedHR: 90bpm Rhythm : NSR INDICATION Dyspnea RISK FACTORS Hypertension Obesity Hyperlipidemia 2D DIMENSIONS RVDd2.6 (2.9-3.5cm)IVSd1.1 (0.7-1.1cm) Aortic Root(2D)4.1 (2.0-3.7cm)LVDd4.5 (3.9-5.9cm) LVOT Diameter3.5 (1.8-2.4cm)PWd1.0 (0.7-1.1cm) LVDs2.8 (2.5-4.0cm)FS (%) 37.5 % SV62.9 ml Aortic Valve AoV Peak Vineet.220.0cm/sAoV VTI48.9cm AO Peak GR.19.4mmHgLVOT Peak Vineet.86.0cm/s LVOT VTI 19.67cmAO Mean GR.11mmHg SHARON (VMAX)2.67fb9LHD (VTI)3.98cm2 Mitral Valve MV E Fwkdmyli93.5cm/sMV DECEL [id number] MV A Pdasiovx38.7cm/sMV QZN15rh E/A Ratio0.7MVA (PHT)2.45cm2 TDI E/Lateral E'7.9E/Medial E'7.4 Pulmonary Valve PV Peak Pyxolknw86.0cm/sPV Peak Grad.4mmHg Pulmonary Vein S1 Mqkdmkpf74.0cm/sD2 Bihabavy68.5cm/s PVa [id number] LEFT VENTRICLE The left ventricle is normal size. There is normal left ventricular wall thickness. The left ventricu lar systolic function is normal and the ejection fraction is within normal range. Estimated ejection fraction 50-55% There is normal LV segmental wall motion. Transmitral Doppler flow pattern is Grade I-abnormal relaxation pattern. RIGHT VENTRICLE The right ventricle is borderline dilated. There is normal right ventricular wall thickness. The righ t ventricular systolic function is normal. ATRIA The left atrium size is normal. The right atrium is mildly dilated. The interatrial septum is intact with no evidence for an atrial septal defect or patent foramen ovale as noted on 2-D or Doppler imagi ng. AORTIC VALVE The aortic valve is calcified but opens well. Doppler and Color Flow revealed trace to mild aortic re gurgitation. There is no significant aortic valvular stenosis. MITRAL VALVE The mitral valve is normal in structure and function. There is no evidence of mitral valve prolapse. There is no mitral valve stenosis. Doppler and Color-flow revealed trace mitral regurgitation. TRICUSPID VALVE The tricuspid valve is normal in structure and function. Doppler and Color Flow revealed no tricuspid valve regurgitation noted. PULMONIC VALVE The pulmonary valve is normal in structure and function. Doppler and Color Flow revealed no pulmonic valvular regurgitation. GREAT VESSELS The aortic root is mildly to moderately enlarged. The ascending aorta is mildly dilated. The pulmonar y artery is normal. The IVC is dilated and collapses <50% with inspiration. PERICARDIAL EFFUSION There is no evidence of significant pericardial effusion. Critical Notification Critical Value: No <Conclusion> The left ventricle is normal size. The left ventricular systolic function is normal and the ejection fraction is within normal range. Estimated ejection fraction 50-55% Doppler and Color Flow revealed trace to mild aortic regurgitation. There is no significant aortic valvular stenosis. Doppler and Color-flow revealed trace mitral regurgitation. Doppler and Color Flow revealed no tricuspid valve regurgitation noted. The ascending aorta is mildly dilated. Signed by : Tj Briscoe MD Electronically Approved : 05/20/2020 12:52:50
== END ==
LOC: ECHO 09:39
PROVIDERS: ATTEND Internal Medicine Cardiovascular Disease
DX: I35.1 Nonrheumatic aortic (valve) insufficiency (principal)
CPT/HCPCS: 93306

== ENCOUNTER → 2020-06-18 | Outpatient (CLI) | payer MEDICARE, OTHER ==
[~2020-06-18] MED LIST changes: -LISI-334 PO; +LISI20TA18 PO; +METR500T PO; -OMEP40CA45 PO; +OMEP40CA7 PO; +OXYC5TAB4 PO; +TAMS0.4C97 PO; +TIOT4MIS3 IH; +[UNRECOGNIZED DRUG - CODE] UR
--- NOTE | 2020-06-18 16:38 | KCIC ---
CT scan of the chest without contrast 06/18/2020 CLINICAL HISTORY: Shortness of breath. COPD. Oxygen dependent. TECHNIQUE: Unenhanced, contiguous, 5 mm axial sections were obtained through the chest and upper abdo men. One or more of the following individualized dose reduction techniques were utilized for this study: 1. Automated exposure control. 2. Adjustment of the mA and/or kV according to patient size. 3. Use of iterative reconstruction technique. FINDINGS: The heart is mildly enlarged. Atherosclerotic calcification of the thoracic aorta is seen. The thoracic aorta is mildly tortuous but tapers normally. Scattered coronary calcifications are seen . Calcified right hilar and mediastinal lymph nodes are seen which measure 5 mm to 1 cm in size. No h ilar, mediastinal or axillary lymphadenopathy is noted. Mild to moderate emphysematous changes are seen involving both lungs, particularly the upper lobes. D ependent subsegmental atelectasis is seen involving both lungs. A 1 cm calcified granuloma seen invol ving the right lower lobe. No area of consolidation is seen. No pneumothorax or pleural effusion is n oted. Images through the upper abdomen demonstrate atherosclerotic calcification abdominal aorta. Very mild S-shaped curvature of the thoracolumbar spine is seen. Degenerative changes are seen involv ing the thoracic spine. IMPRESSION: 1.Mild to moderate emphysematous changes. 2. Findings consistent with prior granulomatous disease. 3. No acute abnormality is seen. Electronically signed by: Bill Gleason MD (06/18/2020 4:35 PM) [id number]
== END ==
LOC: KCIC CT 10:32
PROVIDERS: ATTEND Internal Medicine Pulmonary Disease
DX: J43.9 Emphysema, unspecified (principal); M47.814 Spondylosis without myelopathy or radiculopathy, thoracic region; M43.8X5 Other specified deforming dorsopathies, thoracolumbar region; F17.200 Nicotine dependence, unspecified, uncomplicated
CPT/HCPCS: 71250

== ENCOUNTER → 2020-06-24 | Outpatient (CLI) | payer MEDICARE, OTHER ==
[~2020-06-24] MED LIST changes: +BUPIVACAINE MPF 0.25% 10 ML VIAL. ONE; +IOHEXOL 180 MG/ML 10 ML VIAL. ONE; -METR500T PO; +OMEP40CA45 PO; -OMEP40CA7 PO; -OXYC5TAB4 PO; -TAMS0.4C97 PO; -[UNRECOGNIZED DRUG - CODE] UR; +methylPREDNISolone ACETATE 80 MG/ML VIAL. ONE
--- NOTE | 2020-06-24 09:34 | PDOC4 ---
PROCEDURE Procedure Patient was consented for right intra-articular shoulder joint injection. Risks were discussed including but not limited to bleeding infection possibility of intravascular injection and sequelae, spread of local anesthetic numbness, exposure fluoroscopy, poor results regarding pain control. Patient understands wished to proceed. Under sterile prep and drape using C-arm fluoroscopic guidance patient right shoulder was visualized and using 1% lidocaine was and topically anesthetized over the glenohumeral joint at the skin. Using a 22-gauge Quincke needle with stylette the joint was entered under direct visualization without significant difficulty. Stylet was removed and 1.5 cc of contrast was injected with good spread within the glenohumeral joint without washout. At this time solution containing 3 cc of 0.25% bupivacaine and 80 mg of Depo-Medrol was then injected into the right glenohumeral joint. Patient tolerated the procedure well and had no complications. ANISH DELGADO MD Jun 24, 2020 09:34
--- NOTE | 2020-06-24 09:34 | PDOC ---
Progress Note - Pain Clinic Date of Service: DOS: DATE: 06/24/20 TIME: 09:27 Diagnosis: Dx: Lumbar radiculopathy with lumbar degenerative disc disease lumbar spondylosis and lumbar postlaminectomy syndrome Bilateral knee joint pain with osteoarthritis Right shoulder joint pain with osteoarthritis History or Present Illness: HPI: 75-year-old male returns to follow-up status post bilateral knee joint injection May 12, 2020 patient reports he did very well with the least 50% improvement with the knees better with walking and standing for much greater time periods as well as travel with greater ease. Patient reports his main complaint is right shoulder joint pain also low back pain patient ports his right shoulder is a 9 on scale 10 is worse over the past week 9 on average 5 its least is a 9 today patient reports cramping and stabbing in the shoulder aching and sharp worse with weightbearing repetitive motions with both which he has to use his left arm to assist. Patient reports significant pain with abduction of the right shoulder as well as any weightbearing or use of the right upper extremity. Patient reports it wakes him from sleep least 2-3 times a night especially if he lays on his right side. Patient reports no new motor or sensory deficits. No bowel or bladder incontinence. He still has significant pain in the low back radiating into the right greater than left lower extremity in a radicular fashion. Physical Exam: VS: Blood pressure 150/84 pulse 90 respirations 24 temperature is 98.0 F weight is 282 pounds PE: PHYSICAL EXAMINATION: GENERAL: The patient is awake, alert, oriented, appropriate, very pleasant demeanor HEENT: Shows normocephalic, atraumatic. Extraocular movements are intact and symmetrical. Oral cavity: Mucous membranes moist and pink. Dentition is intact. NECK: Shows anterior throat supple without palpable lymphadenopathy noted. Swallow reflex symmetrical. CHEST: Shows normal on inspection. Breath sounds are clear bilaterally, distant but no rales rhonchi or wheezes auscultated bilaterally.. HEART: Shows S1, S2 clear. No murmurs auscultated. ABDOMEN: Soft, nontender, nondistended, obese. No palpable organomegaly is noted. BACK: Shows spine grossly in the midline. Normal-appearing cervical lordotic curvature. There is increased thoracic kyphosis, some flattening of the lumbar lordotic curvature with well-healed midline surgical scar noted. Lumbar paraspinous muscles show symmetrical on inspection, on palpation shows some moderate tenderness diffusely throughout the upper, middle and lower distribution of the paraspinous muscles, but without specific trigger points, without radiation of pain. The patient has good rotational motion of the lumbar spine, both laterally as well as extension and flexion without significant difficulty. EXTREMITIES: Lower extremities show deep tendon reflexes 1+ in the patellar and tendo calcaneus tendons. Motor exam is 4 on a scale of 5 with right dorsiflexion, extension, quadriceps and hamstring flexion and 5/5 on the left. Peripheral pulses are 1+ posterior tibial. No peripheral edema is noted bilaterally. Lower extremities are warm and dry to touch, equal in color and appearance. Upper extremities show deep tendon reflexes are 2+ in the bicep and triceps tendons. 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 Patient's right shoulder shows significant tenderness with attempted abduction past 90 degrees with significant pain with resistance both abduction and adduction. No radiation of pain is demonstrated. Left shoulder shows full range of motion without limitation or pain. SKIN: Shows warm and dry, good turgor. No edema. No sores, rashes or bruising throughout. Procedure: Procedure: Options discussed with the patient. Patient chart reviews his current medication regimen updated current review of systems updated today as well. We will proceed with a right intra-articular shoulder joint injection today (glenohumeral) with fluoroscopic guidance. Risks were discussed including but not limited to bleeding infection possibility of intravascular injection sequelae spread to local anesthetic and numbness side effects steroid medication special fluoroscopy and portal scarring pain control. Patient understands wished to proceed. Patient will return to clinic in approximately 2 weeks for follow-up, was counseled as to return appointment, activity level, and side effects to be aware of. Medication Injected: Med Injected: Under sterile prep and drape using C-arm fluoroscopic guidance patient right shoulder was visualized and using 1% lidocaine was and topically anesthetized over the glenohumeral joint at the skin. Using a 22-gauge Quincke needle with stylette the joint was entered under direct visualization without significant difficulty. Stylet was removed and 1.5 cc of contrast was injected with good spread within the glenohumeral joint without washout. At this time solution containing 3 cc of 0.25% bupivacaine and 80 mg of Depo-Medrol was then injected into the right glenohumeral joint. Patient tolerated the procedure well and had no complications. Condition at Discharge: Condition at Discharge: Condition at discharge stable, patient tolerated procedure well had no complications. ANISH DELGADO MD Jun 24, 2020 09:34
== END | disposition home or self-care (01) ==
LOC: PNCL 09:00
PROVIDERS: ATTEND Anesthesiology
DX: M19.011 Primary osteoarthritis, right shoulder (principal); M17.0 Bilateral primary osteoarthritis of knee; M51.16 Intervertebral disc disorders with radiculopathy, lumbar region; M47.26 Other spondylosis with radiculopathy, lumbar region; M96.1 Postlaminectomy syndrome, not elsewhere classified; M25.511 Pain in right shoulder; I25.10 Atherosclerotic heart disease of native coronary artery without angina pectoris; I10 Essential (primary) hypertension; E78.00 Pure hypercholesterolemia, unspecified; J44.9 Chronic obstructive pulmonary disease, unspecified; F41.9 Anxiety disorder, unspecified; F32.9 Major depressive disorder, single episode, unspecified; Z87.891 Personal history of nicotine dependence; Z72.89 Other problems related to lifestyle; Z79.899 Other long term (current) drug therapy; Z98.890 Other specified postprocedural states; Z82.49 Family history of ischemic heart disease and other diseases of the circulatory system
CPT/HCPCS: 20610; 77002; J1040; J3490; Q9965

== ENCOUNTER → 2020-07-15 | Outpatient (CLI) | payer MEDICARE, OTHER ==
[~2020-07-15] MED LIST changes: -BUPIVACAINE MPF 0.25% 10 ML VIAL. ONE; +methylPREDNISolone ACETATE 40 MG/ML VIAL. ONE
--- NOTE | 2020-07-15 09:34 | PDOC ---
Progress Note - Pain Clinic Date of Service: DOS: DATE: 07/15/20 TIME: 09:31 Diagnosis: Dx: Lumbar radiculopathy with lumbar degenerative disease lumbar spondylosis and lumbar postlaminectomy syndrome Right shoulder joint pain with osteoarthritis Bilateral knee joint pain with osteoarthritis History or Present Illness: HPI: 75-year-old male returns follow-up status post bilateral knee joint injections and right shoulder joint injection with good results but only about 50% improvement of the shoulder joint and is becoming more painful again with rotation of motion reaching and weightbearing especially with rotation laterally and superiorly. Patient reports his main complaint today however is low back and right greater than left lower extremity pain with pain radiating from the low back and the right posterior gluteus left posterior gluteus bilateral thighs into the right calf and foot on the right side worse with walking standing changing positions. Patient reports is better with sitting or lying down is been waking from sleep over the past few weeks about every 3 hours or so he can usually reposition take pain medication get out of bed and get back to sleep eventually. Patient reports his pain is 8 on scale 10 is worse over the past week in the low back and right leg 5 on average 4 to sleep and is a 5 today patient reports aching sharp tight shooting cramping and stabbing as well in the low back and right leg. Patient reports no loss of motor function no bowel or bladder incontinence. Physical Exam: VS: Blood pressure is 140/73 pulse 76 respirations are 18 temperature 98.4 F height is 6 foot weight is 278 pounds PE: PHYSICAL EXAMINATION: GENERAL: The patient is awake, alert, oriented, appropriate, very pleasant demea nor HEENT: Shows normocephalic, atraumatic. Extraocular movements are intact and symmetrical. Oral cavity: Mucous membranes moist and pink. Dentition is intact. NECK: Shows anterior throat supple without palpable lymphadenopathy noted. Swallow reflex symmetrical. CHEST: Shows normal on inspection. Breath sounds are clear bilaterally, no rales or rhonchi. HEART: Shows S1, S2 clear. No murmurs auscultated. ABDOMEN: Soft, nontender, nondistended, obese. No palpable organomegaly is noted. No rebound or guarding demonstrated. BACK: Shows spine grossly in the midline. Normal-appearing cervical lordotic curvature. There is slightly increased thoracic kyphosis, some minor flattening of the lumbar lordotic curvature. Well-healed midline surgical scar is noted. Lumbar paraspinous muscles show symmetrical on inspection, on palpation shows some moderate tenderness diffusely throughout the upper, middle and lower distribution of the paraspinous muscles without specific trigger points, without radiation of pain. The patient has good rotational motion of the lumbar spine, both laterally as well as extension and flexion without significant difficulty. No tenderness over the spinous processes, sacrum or sacroiliac regions. EXTREMITIES: Lower extremities show deep tendon reflexes 1+ in the patellar and tendo calcaneus tendons. Motor exam is 4 on a scale of 5 with right dorsiflexion, extension, quadriceps and hamstring flexion and 5/5 on the left. Peripheral pulses are 1+ posterior tibial. No peripheral edema is noted bilaterally. Lower extremities are warm and dry to touch, equal in color and appearance. SKIN: Shows warm and dry, good turgor. No edema. No sores, rashes or bruising throughout. Procedure: Procedure: Options were discussed with the patient. Patient's old chart was reviewed his his current medication regimen updated current review of systems updated today as well. We will proceed with a caudal approach epidural steroid injection stable fluoroscopic guidance as a second in the series. Risks were discussed including but not limited to: Bleeding, infection, possibility of epidural hematoma and subsequent neurological compromise, dural puncture, headaches, spinal cord and/or nerve damage, side effects of steroid medication, and poor results regarding pain control. Patient understands and wished to proceed. Patient will return to clinic in approximate 2 weeks for follow-up, was counseled as return appointment activity level and side effects be aware. We will also order MRI scan of the right shoulder. Medication Injected: Med Injected: Procedure is lumbar epidural steroid injection under local anesthetic using sterile prep and drape at the caudal level using C-arm fluoroscopic guidance in both AP and lateral views medications injected is 120 mg Depo-Medrol + 10 mL preservative-free normal saline and 2 mL contrast- condition at discharge is stable patient tolerated procedure well had no complications. Condition at Discharge: Condition at Discharge: Condition at discharge stable, patient tolerated the procedure well and had no complications. ANISH DELGADO MD Jul 15, 2020 09:34
== END | disposition home or self-care (01) ==
LOC: PNCL 08:42
PROVIDERS: ATTEND Anesthesiology
DX: M51.16 Intervertebral disc disorders with radiculopathy, lumbar region (principal); M47.26 Other spondylosis with radiculopathy, lumbar region; M96.1 Postlaminectomy syndrome, not elsewhere classified; M17.0 Bilateral primary osteoarthritis of knee; M19.011 Primary osteoarthritis, right shoulder; I25.10 Atherosclerotic heart disease of native coronary artery without angina pectoris; I10 Essential (primary) hypertension; E78.00 Pure hypercholesterolemia, unspecified; J44.9 Chronic obstructive pulmonary disease, unspecified; E11.9 Type 2 diabetes mellitus without complications; F41.9 Anxiety disorder, unspecified; F32.9 Major depressive disorder, single episode, unspecified; M19.90 Unspecified osteoarthritis, unspecified site; Z87.891 Personal history of nicotine dependence; Z79.899 Other long term (current) drug therapy; Z79.84 Long term (current) use of oral hypoglycemic drugs; Z98.890 Other specified postprocedural states; Z72.89 Other problems related to lifestyle
CPT/HCPCS: 62323; J1030; J1040; Q9965; 77002

== ENCOUNTER → 2020-07-29 | Outpatient (CLI) | payer MEDICARE, OTHER ==
[~2020-07-29] MED LIST changes: -IOHEXOL 180 MG/ML 10 ML VIAL. ONE; -methylPREDNISolone ACETATE 40 MG/ML VIAL. ONE; -methylPREDNISolone ACETATE 80 MG/ML VIAL. ONE
--- NOTE | 2020-07-29 13:54 | KCIC ---
Examination: MRI right shoulder without contrast HISTORY: History of right shoulder pain COMPARISON: None TECHNIQUE: Multiplanar, multisequence MR imaging of the right shoulder without contrast FINDINGS: The long head of the biceps tendon within the bicipital groove. The attachment of the long head the b iceps tendon to the superior labral anchor grossly appears intact. Moderate increased T2 signal ident ified in the subscapularis, supraspinatus, infraspinatus tendon likely tendinosis. There is full-thic kness tear of the supraspinatus with tendon retraction to the level of the glenoid. There is increase d signal identified in the superior fibers of the infraspinatus tendons likely tear. Some of the fibe rs of the infraspinatus tendon inferiorly appear intact. Severe joint space loss identified in the gl enohumeral joint and acromioclavicular joint likely degenerative changes. There is superior and poste rior translation of the humerus head in relation to the glenoid. Small shoulder joint effusion. Diffu se increased signal identified throughout the labrum likely degenerative changes. There is a 1.1 cm c ystic structure identified extending posterior to the posterior labrum likely paralabral cyst. There is fatty atrophic changes of the supraspinatus, infraspinous muscles. The acromion is type II. Modera te size osteophyte formation identified in the humerus head. IMPRESSION: 1. Full-thickness tear of the supraspinatus tendon with tendon retraction to the level of the glenoi d. 2. There is increased signal identified in the superior fibers of the infraspinatus tendon likely te ar. 3. Severe degenerative changes glenohumeral joint, acromioclavicular joint. 4. 1.1 cm cystic structure identified extending posterior to the posterior labrum likely paralabral cyst with degenerative changes of the labrum. 5. There is superior and posterior translation of the humerus head in relation to glenoid likely sec ondary to rotator cuff tear. Electronically signed by: Yunior Kang MD (07/29/2020 1:52 PM) [id number]
== END | disposition home or self-care (01) ==
LOC: KCIC MRI 12:16
PROVIDERS: ATTEND Anesthesiology
DX: M25.511 Pain in right shoulder (principal); M75.101 Unspecified rotator cuff tear or rupture of right shoulder, not specified as traumatic; E78.00 Pure hypercholesterolemia, unspecified; I10 Essential (primary) hypertension; J44.9 Chronic obstructive pulmonary disease, unspecified; M19.90 Unspecified osteoarthritis, unspecified site; I25.10 Atherosclerotic heart disease of native coronary artery without angina pectoris; F41.9 Anxiety disorder, unspecified; F32.9 Major depressive disorder, single episode, unspecified; Z87.891 Personal history of nicotine dependence; Z79.899 Other long term (current) drug therapy; Z98.890 Other specified postprocedural states; Z82.49 Family history of ischemic heart disease and other diseases of the circulatory system; Z72.89 Other problems related to lifestyle
CPT/HCPCS: 73221

== ENCOUNTER → 2020-08-02 | Outpatient (CLI) | payer MEDICARE, OTHER ==
[~2020-08-02] MED LIST changes: +BUPIVACAINE MPF 0.25% 10 ML VIAL. ONE; +IOHEXOL 180 MG/ML 10 ML VIAL. ONE; +methylPREDNISolone ACETATE 80 MG/ML VIAL. ONE
--- NOTE | 2020-08-02 13:41 | PDOC ---
Progress Note - Pain Clinic Date of Service: DOS: DATE: 08/02/20 TIME: 13:35 Diagnosis: Dx: Lumbar radiculopathy with lumbar degenerative disc disease lumbar spondylosis and post lumbar laminectomy syndrome Bilateral knee joint pain with osteoarthritis Right shoulder joint pain with osteoarthritis and rotator cuff tear History or Present Illness: HPI: 75-year-old male returns follow-up status post caudal epidural steroid injection last seen July 15, 2020 patient did very well after the injection and still has some back pain radiating to the lower extremities however his chief complaint is right shoulder pain we had ordered an MRI scan of the right shoulder after his last visit and went over the results with that with him today. Patient is right shoulder shows full-thickness tear of the supraspinatus tendon with tendon retraction to the level of the glenoid with increased signal identified in the s uperior fibers of the infraspinatus tendon likely a tear. Patient reports significant pain with the right shoulder but only with extended weightbearing and has fairly good range of motion even with the pain. Patient rates his pain as 8 on scale 10 is worse over the past week with his right shoulder 5 on average/and is a 5 today patient with sharp and shooting can be stabbing cram ping at times on and off though sleeping fairly well at night his low back keeps him up from sleep at night with pain in the low back rating the right lower extremity mostly the posterior gluteus and posterior thigh. Patient reports no new motor or sensory deficits no new bowel or bladder incontinence or other complaints. Physical Exam: VS: Blood pressure is 121/73 pulse 70 respirations are 18 temperature is 98.1 F 6 foot weight 274 pounds PE: PHYSICAL EXAMINATION: GENERAL: The patient is awake, alert, oriented, appropriate, very pleasant demeanor HEENT: Shows normocephalic, atraumatic. Extraocular movements are intact and symmetrical. Oral cavity: Mucous membranes moist and pink. NECK: Shows anterior throat supple without palpable lymphadenopathy noted. Swallow reflex symmetrical. CHEST: Shows normal on inspection. Breath sounds are clear bilaterally, distant but no rales or rhonchi or wheezes. HEART: Shows S1, S2 clear. No murmurs auscultated. ABDOMEN: Soft, nontender, nondistended. No palpable organomegaly is noted. No rebound or guarding demonstrated. BACK: Shows spine grossly in the midline. Normal-appearing cervical lordotic curvature. Upper extremity show deep tendon reflexes at 2+ in the bicep and triceps tendons patient's right shoulder shows moderate tenderness with palpation of the anterior aspect of the bicipital groove however has good rotation of motion and has good abduction past 90 degrees without significant increase in pain. Patient has both posterior and anterior range of motion which is only mildly painful as well. There is slightly increased thoracic kyphosis, some minor flattening of the lumbar lordotic curvature. Well-healed surgical scarring in the lumbar distribution. Lumbar paraspinous muscles show symmetrical on inspection, on palpation shows some moderate tenderness diffusely throughout the upper, middle and lower distribution of the paraspinous muscles but without specific trigger points, without radiation of pain. The patient has good rotational motion of the lumbar spine, both laterally as well as extension and flexion without significant difficulty. EXTREMITIES: Lower extremities show deep tendon reflexes 1+ in the patellar and tendo calcaneus tendons. Motor exam is 4 on a scale of 5 with right dorsiflexion, extension, quadriceps and hamstring flexion and 5/5 on the left. Peripheral pulses are 1+ posterior tibial. No peripheral edema is noted bilaterally. Lower extremities are warm and dry to touch, equal in color and appearance. SKIN: Shows warm and dry, good turgor. No edema. Procedure: Procedure: Options discussed with the patient. Patient chart reviews her current medication regimen updated current review of systems updated today as well. We will proceed with a right intra-articular shoulder joint injection with fluoroscopic guidance. Risk were discussed including but not limited to bleeding infection possibility of intravascular injection sequelae spread local anesthetic numbness side effects steroid medication exposure fluoroscopy and poor results regarding pain control. Patient understands wished to proceed. Patient return to the clinic in approximate 2 weeks for follow-up, was counseled as to return appointment activity level and side effects to be aware of. Medication Injected: Med Injected: Under sterile prep and drape patient in supine position using C-arm fluoroscopic guidance patient's right shoulder was visualized and sterilely prepped and draped in usual fashion. Using 1% lidocaine the area over the glenohumeral joint was then topically anesthetized using a 22-gauge needle through the anesthetized area joint was entered under direct fluoroscopic visualization without difficulty stylet was removed and 1.5 cc of contrast was then injected with good spread within the shoulder without washout or uptake. At this time solution containing 0.25% bupivacaine 3 cc and 80 mg of Depo-Medrol was then injected into the right glenohumeral joint. Needle was removed sterile bandage was applied. Patient tolerated procedure well had no complications. Condition at Discharge: Condition at Discharge: Condition at discharge stable, patient tolerated procedure well and had no complications. ANISH DELGADO MD Aug 02, 2020 13:41
--- NOTE | 2020-08-02 13:42 | PDOC4 ---
PROCEDURE Procedure Patient was consented for right intra-articular shoulder joint injection. Risks are discussed including but not limited to bleeding infection possibility of intravascular injection and sequelae spread of local anesthetic numbness side effects steroid medication exposure to fluoroscopy and poor results regarding pain control. Patient understands wished to proceed. Under sterile prep and drape patient in supine position using C-arm fluoroscopic guidance patient's right shoulder was visualized and sterilely prepped and draped in usual fashion. Using 1% lidocaine the area over the glenohumeral joint was then topically anesthetized using a 22-gauge needle through the anesthetized area joint was entered under direct fluoroscopic visualization without difficulty stylet was removed and 1.5 cc of contrast was then injected with good spread within the shoulder without washout or uptake. At this time solution containing 0.25% bupivacaine 3 cc and 80 mg of Depo-Medrol was then injected into the right glenohumeral joint. Needle was removed sterile bandage was applied. Patient tolerated procedure well had no complications. ANISH DELGADO MD Aug 02, 2020 13:42
== END | disposition home or self-care (01) ==
LOC: PNCL 13:15
PROVIDERS: ATTEND Anesthesiology
DX: M19.011 Primary osteoarthritis, right shoulder (principal); M17.0 Bilateral primary osteoarthritis of knee; M75.101 Unspecified rotator cuff tear or rupture of right shoulder, not specified as traumatic; M51.16 Intervertebral disc disorders with radiculopathy, lumbar region; M47.26 Other spondylosis with radiculopathy, lumbar region; M96.1 Postlaminectomy syndrome, not elsewhere classified; I25.10 Atherosclerotic heart disease of native coronary artery without angina pectoris; I10 Essential (primary) hypertension; J44.9 Chronic obstructive pulmonary disease, unspecified; E78.00 Pure hypercholesterolemia, unspecified; F41.9 Anxiety disorder, unspecified; F32.9 Major depressive disorder, single episode, unspecified; Z87.891 Personal history of nicotine dependence; Z79.82 Long term (current) use of aspirin; Z79.899 Other long term (current) drug therapy; Z98.890 Other specified postprocedural states; Z72.89 Other problems related to lifestyle; Z82.49 Family history of ischemic heart disease and other diseases of the circulatory system
CPT/HCPCS: 20610; 77002; J1040; J3490; Q9965

== ENCOUNTER → 2020-08-17 | Outpatient (CLI) | payer MEDICARE, OTHER ==
[~2020-08-17] MED LIST changes: -BUPIVACAINE MPF 0.25% 10 ML VIAL. ONE; +methylPREDNISolone ACETATE 40 MG/ML VIAL. ONE
--- NOTE | 2020-08-17 13:47 | PDOC ---
Progress Note - Pain Clinic Date of Service: DOS: DATE: 08/17/20 TIME: 13:43 Diagnosis: Dx: Lumbar radiculopathy with lumbar degenerative disease lumbar spondylosis and lumbar postlaminectomy Bilateral knee joint pain with osteoarthritis Right shoulder joint pain with osteoarthritis and rotator cuff tear History or Present Illness: HPI: 75-year-old male returns for follow-up status post caudal epidural steroid injection as well as right shoulder joint injection most recently on August 02, 2020. Patient reports about 70% improvement with the right shoulder, but the low back and bilateral lower extremities are becoming much more noticeable and painful with walking and standing. Patient reports pain in the low back described as cramping and stabbing shooting sharp and aching in the back as well worse with standing walking changing positions better with sitting or laying down. Patient is taking oxycodone 20 mg 3 times daily which does decrease the pain as well. Patient reports no new motor or sensory deficits no new bowel or bladder incontinence rates his pain in the low back and legs as a 9 on scale 10 is worse over the past week 6 on average/and is a 6 today. No new bowel or bladder incontinence no new motor or sensory deficits. Physical Exam: VS: Blood pressure is 117/67 pulse 65 respirations 16 temperature 98.4 F weight is 276 pounds PE: PHYSICAL EXAMINATION: GENERAL: The patient is awake, alert, oriented, appropriate, very pleasant demeanor HEENT: Shows normocephalic, atraumatic. Extraocular movements are intact and symmetrical. Oral cavity: Mucous membranes moist and pink. Dentition is intact. NECK: Shows anterior throat supple without palpable lymphadenopathy noted. Swallow reflex symmetrical. CHEST: Shows normal on inspection. Breath sounds are clear bilaterally. HEART: Shows S1, S2 clear. No murmurs auscultated. ABDOMEN: Soft, nontender, nondistended, obese. No palpable organomegaly is noted. No rebound or guarding demonstrated. BACK: Shows spine grossly in the midline. Normal-appearing cervical lordotic curvature. There is slightly increased thoracic kyphosis, some minor flattening of the lumbar lordotic curvature. Well-healed surgical scarring is noted in the lumbar distribution. Lumbar paraspinous muscles show symmetrical on inspection, on palpation shows some moderate tenderness diffusely throughout the upper, middle and lower distribution of the paraspinous muscles, but without specific trigger points, without radiation of pain. The patient has good rotational motion of the lumbar spine, both laterally as well as extension and flexion without significant difficulty. EXTREMITIES: Lower extremities show deep tendon reflexes 2+ in the patellar and tendo calcaneus tendons. Motor exam is 4 on a scale of 5 with right dorsiflexion, extension, quadriceps and hamstring flexion and 5/5 on the left. Peripheral pulses are 1+ posterior tibial. No peripheral edema is noted bilaterally. Lower extremities are warm and dry. SKIN: Shows warm and dry, good turgor. No edema. No sores, rashes or bruising throughout. Procedure: Procedure: Options were discussed with the patient. Patient's old chart was reviewed his his current medication regimen updated current review of systems updated today as well. We will proceed with a caudal approach epidural steroid injection today as a third in the series of fluoroscopic guidance. Risks were discussed including but not limited to: Bleeding, infection, possibility of epidural hematoma and subsequent neurological compromise, dural puncture, headaches, spinal cord and/or nerve damage, side effects of steroid medication, and poor results regarding pain control. Patient understands and wished to proceed. Patient will return to clinic in approximately 4 weeks for follow-up, was counseled as return appointment activity level and side effects to be aware of. Medication Injected: Med Injected: Procedure is lumbar epidural steroid injection under local anesthetic using sterile prep and drape at the caudal level using C-arm fluoroscopic guidance in both AP and lateral views medications injected is 120 mg Depo-Medrol + 10 mL preservative-free normal saline and 2 mL contrast- condition at discharge is stable patient tolerated procedure well had no complications. Condition at Discharge: Condition at Discharge: Condition at discharge stable, patient already procedure well and had no complications. ANISH DELGADO MD Aug 17, 2020 13:46
--- NOTE | 2020-08-17 13:47 | PDOC4 ---
PROCEDURE Procedure Patient was consented for caudal approach lumbar epidural steroid injection. Risks were discussed including but not limited to: Bleeding, infection, possibility of epidural hematoma and subsequent neurological compromise, dural puncture, headaches, spinal cord and/or nerve damage, side effects of steroid medication, and poor results regarding pain control. Patient understands and wished to proceed. Procedure is lumbar epidural steroid injection under local anesthetic using sterile prep and drape at the caudal level using C-arm fluoroscopic guidance in both AP and lateral views medications injected is 120 mg Depo-Medrol + 10 mL preservative-free normal saline and 2 mL contrast- condition at discharge is st able patient tolerated procedure well had no complications. ANISH DELGADO MD Aug 17, 2020 13:47
== END | disposition home or self-care (01) ==
LOC: PNCL 13:09
PROVIDERS: ATTEND Anesthesiology
DX: M51.16 Intervertebral disc disorders with radiculopathy, lumbar region (principal); M47.26 Other spondylosis with radiculopathy, lumbar region; M17.0 Bilateral primary osteoarthritis of knee; M19.011 Primary osteoarthritis, right shoulder; M75.101 Unspecified rotator cuff tear or rupture of right shoulder, not specified as traumatic; I25.10 Atherosclerotic heart disease of native coronary artery without angina pectoris; E78.00 Pure hypercholesterolemia, unspecified; I10 Essential (primary) hypertension; J44.9 Chronic obstructive pulmonary disease, unspecified; M19.90 Unspecified osteoarthritis, unspecified site; F41.9 Anxiety disorder, unspecified; F32.9 Major depressive disorder, single episode, unspecified; Z87.891 Personal history of nicotine dependence; Z79.82 Long term (current) use of aspirin; Z79.899 Other long term (current) drug therapy; Z98.890 Other specified postprocedural states; Z82.49 Family history of ischemic heart disease and other diseases of the circulatory system
CPT/HCPCS: 62323; J1030; J1040; Q9965

== ENCOUNTER → 2020-09-09 | Outpatient (CLI) | payer MEDICARE, OTHER ==
[~2020-09-09] MED LIST changes: +TAMS0.4C97 PO; +[UNRECOGNIZED DRUG - CODE] UR
--- NOTE | 2020-09-09 14:03 | PDOC ---
Progress Note - Pain Clinic Date of Service: DOS: DATE: 09/09/20 TIME: 13:59 Diagnosis: Dx: Lumbar radiculopathy with lumbar degenerative disc disease and lumbar spondylosis with lumbar postlaminectomy syndrome Bilateral knee joint pain with osteoarthritis Right shoulder joint pain with osteoarthritis and rotator cuff tear History or Present Illness: HPI: 75-year-old male returns for follow-up status post caudal epidural steroid injection x2. Patient last seen August 17, 2020 patient did very well with about 70% improvement until just a few days ago the pain began to return low back and right lower extremity posterior gluteus posterior thigh posterior calf worse on the right side than the left but across the low back bilaterally. Patient reports that sharp pain is cramping and stabbing shooting in the lower extremity on and off in intensity better with sitting or laying down initially was doing much better with distance walking doing household activities try with greater ease and comfort and sleeping better at night now is beginning to wake from sleep about every 3 hours or so patient reports pain is a 9 on scale 10 is worse over the past week 6 on average 3 at its least and is a 6 today. Patient reports no new motor or sensory deficits no new bowel or bladder incontinence or other complaints. Physical Exam: VS: Blood pressure is 122/62 pulse 74 respirations 18 temperature 98.3 F height is 6 foot weight is 274 pounds PE: PHYSICAL EXAMINATION: GENERAL: The patient is awake, alert, oriented, appropriate, very pleasant demeanor HEENT: Shows normocephalic, atraumatic. Extraocular movements are intact and symmetrical. Oral cavity: Mucous membranes moist and pink. Dentition is intact. NECK: Shows anterior throat supple without palpable lymphadenopathy noted. Swallow reflex symmetrical. CHEST: Shows normal on inspection. Breath sounds are clear bilaterally, distant but no rales or rhonchi. HEART: Shows S1, S2 clear. No murmurs auscultated. ABDOMEN: Soft, nontender, nondistended, obese. No palpable organomegaly is noted. BACK: Shows spine grossly in the midline. Normal-appearing cervical lordotic curvature. There is slightly increased thoracic kyphosis, some minor flattening of the lumbar lordotic curvature. Well-healed midline surgical scars noted. Lumbar paraspinous muscles show symmetrical on inspection, on palpation shows some moderate tenderness diffusely throughout the upper, middle and lower distribution of the paraspinous muscles without specific trigger points, without radiation of pain. The patient has good rotational motion of the lumbar spine, both laterally as well as extension and flexion without significant difficulty. EXTREMITIES: Lower extremities show deep tendon reflexes 1+ in the patellar and tendo calcaneus tendons. Motor exam is 4 on a scale of 5 with right dorsiflexion, extension, quadriceps and hamstring flexion and 5/5 on the left. Peripheral pulses are 1+ posterior tibial. No peripheral edema is noted bilaterally. Lower extremities are warm and dry. SKIN: Shows warm and dry, good turgor. No edema. No sores, rashes or bruising throughout. Procedure: Procedure: Options were discussed with the patient. Patient's old chart was reviewed his his current medication regimen updated current review of systems updated today as well. We will proceed with a caudal approach lumbar epidural steroid injection today with fluoroscopic guidance. Risks were discussed including but not limited to: Bleeding, infection, possibility of epidural hematoma and subsequent neurological compromise, dural puncture, headaches, spinal cord and/or nerve damage, side effects of steroid medication, and poor results regarding pain control. Patient understands and wished to proceed. Patient will return to clinic in approximate 2 weeks for follow-up, was counseled as return appointment activity level and side effects to be aware of. Medication Injected: Med Injected: Procedure is lumbar epidural steroid injection under local anesthetic using sterile prep and drape at the caudal level using C-arm fluoroscopic guidance in both AP and lateral views medications injected is 120 mg Depo-Medrol +10mL preservative-free normal saline and 2 mL contrast- condition at discharge is stable patient tolerated procedure well had no complications. Condition at Discharge: Condition at Discharge: Condition at discharge stable, patient already procedure well and had no complications. ANISH DELGADO MD September 09, 2020 14:03
--- NOTE | 2020-09-09 14:04 | PDOC4 ---
PROCEDURE Procedure Patient was consented for lumbar epidural steroid injection. Risks were dis cussed including but not limited to: Bleeding, infection, possibility of epidural hematoma and subsequent neurological compromise, dural puncture, headaches, spinal cord and/or nerve damage, side effects of steroid medication, and poor results regarding pain control. Patient understands and wished to proceed. Procedure is lumbar epidural steroid injection under local anesthetic using sterile prep and drape at the caudal level using C-arm fluoroscopic guidance in both AP and lateral views medications injected is 120 mg Depo-Medrol +10mL preservative-free normal saline and 2 mL contrast- condition at discharge is stable patient tolerated procedure well had no complications. ANISH DELGADO MD September 09, 2020 14:04
== END | disposition home or self-care (01) ==
LOC: PNCL 13:20
PROVIDERS: ATTEND Anesthesiology
DX: M51.16 Intervertebral disc disorders with radiculopathy, lumbar region (principal); M47.26 Other spondylosis with radiculopathy, lumbar region; M96.1 Postlaminectomy syndrome, not elsewhere classified; M17.0 Bilateral primary osteoarthritis of knee; M19.011 Primary osteoarthritis, right shoulder; M75.101 Unspecified rotator cuff tear or rupture of right shoulder, not specified as traumatic; I25.10 Atherosclerotic heart disease of native coronary artery without angina pectoris; I10 Essential (primary) hypertension; E78.00 Pure hypercholesterolemia, unspecified; J44.9 Chronic obstructive pulmonary disease, unspecified; M19.90 Unspecified osteoarthritis, unspecified site; F41.9 Anxiety disorder, unspecified; F32.9 Major depressive disorder, single episode, unspecified; Z87.891 Personal history of nicotine dependence; Z79.82 Long term (current) use of aspirin; Z79.899 Other long term (current) drug therapy; Z98.890 Other specified postprocedural states; Z82.49 Family history of ischemic heart disease and other diseases of the circulatory system; Z83.3 Family history of diabetes mellitus
CPT/HCPCS: 62323; J1030; J1040; Q9965

== ENCOUNTER → 2021-01-04 | Outpatient (CLI) | payer MEDICARE, OTHER ==
[2020-10-02 11:06] VITALS: BP 138/71
[~2021-01-04] MED LIST changes: +BUPIVACAINE MPF 0.25% 10 ML VIAL. ONE; +METR500T PO; -OMEP40CA45 PO; +OMEP40CA7 PO; +OXYC5TAB4 PO; -methylPREDNISolone ACETATE 40 MG/ML VIAL. ONE
--- NOTE | 2021-01-04 09:50 | PDOC ---
Progress Note - Pain Clinic Date of Service: DOS: DATE: 01/04/21 TIME: 09:45 Diagnosis: Dx: Lumbar radiculopathy with lumbar degenerative disease and lumbar spondylosis with post lumbar laminectomy syndrome bilateral knee joint pain with osteoarthritis right shoulder joint pain with osteoarthritis and rotator cuff tear History or Present Illness: HPI: 75-year-old male returns for follow-up status post caudal epidural steroid injection on September 09, 2020. Patient reports he did very well with about 70 to 80% improved initially now about 60% provement in the back. Chief complaint is right shoulder joint pain which he did very well with the intra-articular shoulder joint injection in July of this year with about 70% improvement as well patient reports that with time and repetitive motion the pain in the right shoulder is a chief complaint becoming more noticeable reaching and lifting items weightbearing reaching over his head with his right hand is beginning disturbed sleep about 1 to 2 hours patient reports is a 9 on scale 10 is worse over the past week 3 on average 3 its least is a 3 today patient ports a stabbing aching can be sharp as well as severe on and off in intensity worse with weightbearing and lifting as noted. Patient reports still some pain in the low back bilaterally as well as into the lower extremities but this is secondary. Patient reports he has a new BiPAP machine which is helping him sleep quite a bit and is still getting awakened from the pain when he lays on his right shoulder but not as much as prior to the BiPAP machine. Patient reports no bowel or bladder incontinence or motor loss. Physical Exam: VS: Blood pressure 125/64 pulse 81 respirations 20 temperature 98.1 F height is 6 foot weight is 264 pounds PE: PHYSICAL EXAMINATION: GENERAL: The patient is awake, alert, oriented, appropriate, very pleasant in demeanor HEENT: Shows normocephalic, atraumatic. Extraocular movements are intact and symmetrical. Oral cavity: Mucous membranes moist and pink. NECK: Shows anterior throat supple without palpable lymphadenopathy noted. Swallow reflex symmetrical. CHEST: Shows normal on inspection. Breath sounds are clear bilaterally, distant but no rales rhonchi wheezes auscultated. HEART: Shows S1, S2 clear. No murmurs auscultated. ABDOMEN: Soft, nontender, nondistended, obese. No palpable organomegaly is noted. BACK: Shows spine grossly in the midline. Normal-appearing cervical lordotic curvature. There is slightly increased thoracic kyphosis, some minor flattening of the lumbar lordotic curvature. Well-healed surgical scarring again noted. Lumbar paraspinous muscles show symmetrical on inspection, on palpation shows some moderate tenderness diffusely throughout the upper, middle and lower distribution of the paraspinous muscles, but without specific trigger points, without radiation of pain. The patient has good rotational motion of the lumbar spine, both laterally as well as extension and flexion without significant difficulty. EXTREMITIES: Lower extremities show deep tendon reflexes 2 in the patellar and tendo calcaneus tendons. Motor exam is 4 on a scale of 5 with right dorsiflexion, extension, quadriceps and hamstring flexion and 4/5 on the left. Peripheral pulses are 1+ posterior tibial. No peripheral edema is noted bilaterally. Lower extremities are warm and dry. 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 Patient's right shoulder shows some difficulty with abduction greater than 45 degrees with significant pain in the superior and asked anterior aspect of the shoulder joint itself. Left side is with normal rotation. SKIN: Shows warm and dry, good turgor. No edema. No sores, rashes or bruising throughout. Procedure: Procedure: Options were discussed with the patient. Patient's old chart was reviewed his current medication regimen updated current review of systems updated today as well. We will proceed with a right intra-articular shoulder joint injection today with fluoroscopic guidance. Risks were discussed including but not limited to bleeding infection possibility of vascular injection and sequelae spread local anesthetic and numbness as well as poor results regarding pain control and exposure to fluoroscopy. Patient understands wished to proceed. Patient return to the clinic in approximately 2 weeks for follow-up, was counseled as return appointment, activity level, and side effects to be aware of. Medication Injected: Med Injected: Patient supine position under sterile prep and drape using C-arm fluoroscopic guidance patient's right shoulder was visualized and using 25-gauge needle 1% lidocaine was used to topically anesthetized area over the glenohumeral joint on the right. Using a 22-gauge Quincke needle with stylette the joint was entered under direct fluoroscopic visualization without difficulty stylet was removed at this time 1.5 cc of contrast was injected with good intra-articular spread in the shoulder joint without uptake. At this time 3 cc of 0.25% bupivacaine and 80 mg Depo-Medrol was then injected into the joint. Needle was removed and sterile bandage was applied. Patient tolerated the procedure well and had no complications. Condition at Discharge: Condition at Discharge: Condition at discharge is stable, patient already procedure well and had no complications. ANISH DELGADO MD Jan 04, 2021 09:50
--- NOTE | 2021-01-04 09:51 | PDOC4 ---
Procedure Note: ICD 10 Code: ICD 10 Code: M2 5.511 M19.011 Procedure Note: Patient was consented for intra-articular right shoulder joint injection with fluoroscopy. Risk discussed including but not limited to bleeding infection possibility of intravascular injection sequelae spread local anesthetic and numbness side effects steroid medication, and poor results regarding pain control. Patient understands wishes to proceed. Patient supine position under sterile prep and drape using C-arm fluoroscopic guidance patient's right shoulder was visualized and using 25-gauge needle 1% lidocaine was used to topically anesthetized area over the glenohumeral joint on the right. Using a 22-gauge [place] needle with stylette the joint was entered under direct fluoroscopic visualization without difficulty stylet was removed at this time 1.5 cc of contrast was injected with good intra-articular spread in the shoulder joint without uptake. At this time 3 cc of 0.25% bupivacaine and 80 mg Depo-Medrol was then injected into the joint. Needle was removed and sterile bandage was applied. Patient tolerated the procedure well and had no complications. ANISH DELGADO MD Jan 04, 2021 09:51
== END | disposition home or self-care (01) ==
LOC: PNCL 09:10
PROVIDERS: ATTEND Anesthesiology
DX: M19.011 Primary osteoarthritis, right shoulder (principal); M75.101 Unspecified rotator cuff tear or rupture of right shoulder, not specified as traumatic; M51.16 Intervertebral disc disorders with radiculopathy, lumbar region; M47.26 Other spondylosis with radiculopathy, lumbar region; M96.1 Postlaminectomy syndrome, not elsewhere classified; M17.0 Bilateral primary osteoarthritis of knee; I25.10 Atherosclerotic heart disease of native coronary artery without angina pectoris; I10 Essential (primary) hypertension; E78.00 Pure hypercholesterolemia, unspecified; J44.9 Chronic obstructive pulmonary disease, unspecified; F41.9 Anxiety disorder, unspecified; F32.9 Major depressive disorder, single episode, unspecified; Z87.891 Personal history of nicotine dependence; Z79.82 Long term (current) use of aspirin; Z79.899 Other long term (current) drug therapy; Z98.890 Other specified postprocedural states; Z82.49 Family history of ischemic heart disease and other diseases of the circulatory system; Z72.89 Other problems related to lifestyle
CPT/HCPCS: 20610; 77002; J1040; J3490; Q9965

== ENCOUNTER → 2021-01-17 | Outpatient (CLI) | payer MEDICARE, OTHER ==
[2020-10-02 11:06] VITALS: BP 138/71
--- NOTE | 2021-01-17 13:37 | PDOC4 ---
Procedure Note: ICD 10 Code: ICD 10 Code: M2 5.563 M1 7.13 Procedure Note: Patient was consented for bilateral intra-articular knee joint injection with fluoroscopic guidance. Risks were discussed including not limited to bleeding infection possibility of intravascular injection sequelae spread of local anesthetic numbness side effects steroid medication exposure fluoroscopy and poor results regarding pain control. Patient understands wished to proceed. Under sterile prep and drape patient in supine position using C-arm fluoroscopic guidance patient's bilateral knees were sterilely prepped and draped in usual fashion. Using C-arm fluoroscopy the medial aspect of the knee joint was identified and visualized and using 1% lidocaine 25-gauge needle of the area of the skin overlying the medial knee compartment was anesthetized. Using a 22- gauge quickie needle with stylette the joint was entered under direct visualization without difficulty. Stylet was removed at this time 1.5 cc of contrast was then injected with good spread within the knee joint itself without washout or uptake. At this time solution containing 3 cc each knee of 0.25 bupivacaine for total of 6 cc and a total of 120 mg Depo-Medrol, 60 mg per knee, were then injected. [place] were withdrawn and sterile bandages were applied. Patient tolerated procedure well and had no complications. ANISH DELGADO MD Jan 17, 2021 13:37
--- NOTE | 2021-01-17 13:37 | PDOC ---
Progress Note - Pain Clinic Date of Service: DOS: DATE: 01/17/21 TIME: 13:32 Diagnosis: Dx: Lumbar radiculopathy with lumbar degenerative disease lumbar and lumbosacral spondylosis Bilateral knee joint pain with primary osteoarthritis Right shoulder joint pain with primary osteoarthritis and rotator cuff tear History or Present Illness: HPI: 75-year-old male returns for follow-up status post right shoulder joint glenohumeral injection with very good results about 70% improvement patient chief complaint today however is bilateral knee joint pain somewhat worse on the left than the right present bilaterally worse with walking standing specially putting all his weight on 1 leg such as climbing up stairs or steps and standing. Patient reports much better with sitting or laying down and getting the weight off of his legs. Patient reports the left side is worse but both are painful mainly in the medial compartment of the leg with some swelling noticed in the left knee as well. Patient reports a 7 on scale 10 is worse over the p ast week for an average 3 its least and is a 7 today. Patient reports some back pain as well which is radiating to the bilateral lower extremities more on the right gluteus but this is secondary to the knee pain which is his primary concern today. Patient scribes pain in the knees is aching and sharp stabbing can be shooting as well into the lower leg with extended standing or walking. Patient reports no bowel or bladder incontinence no loss of motor function. Physical Exam: VS: Blood pressure is 131/63 pulse 78 respirations 18 temperature 98.2 F height is 6 foot weight is 268 pounds. PE: PHYSICAL EXAMINATION: GENERAL: The patient is awake, alert, oriented, appropriate, very pleasant in demeanor HEENT: Shows normocephalic, atraumatic. Extraocular movements are intact and symmetrical. Oral cavity: Mucous membranes moist and pink. Dentition is intact. NECK: Shows anterior throat supple without palpable lymphadenopathy noted. Swallow reflex symmetrical. CHEST: Shows normal on inspection. Breath sounds are clear bilaterally, distant no rales rhonchi or wheezes auscultated. HEART: Shows S1, S2 clear. No murmurs auscultated. ABDOMEN: Soft, nontender, nondistended. No palpable organomegaly is noted. BACK: Shows spine grossly in the midline. Normal-appearing cervical lordotic curvature. There is increased thoracic kyphosis, some flattening of the lumbar lordotic curvature. Lumbar paraspinous muscles show symmetrical on inspection, on palpation shows some moderate tenderness diffusely throughout the upper, middle and lower distribution of the paraspinous muscles, but without specific trigger points, without radiation of pain. The patient has good rotational motion of the lumbar spine, both laterally as well as extension and flexion without significant difficulty. No tenderness over the spinous processes, sacrum or sacroiliac regions. EXTREMITIES: Lower extremities show deep tendon reflexes 2 in the patellar and tendo calcaneus tendons. Motor exam is 4 on a scale of 5 with right dorsiflexion, extension, quadriceps and hamstring flexion and 4/5 on the left. Peripheral pulses are 1 posterior tibial. No peripheral edema is noted bilaterally. Patient is knee show some slight swelling on the left compared to the right with inspection with palpation some significant tenderness over the medial and lateral collateral ligaments with direct palpation no specific ratcheting or crepitus is noted with bilateral knee range of motion. Lower extremities are warm and dry to touch, equal in color and appearance. SKIN: Shows warm and dry, good turgor. No edema. No sores, rashes or bruising throughout. Procedure: Procedure: Options discussed with patient. Patient chart was reviewed his current medication regimen updated current review systems updated today as well. We will proceed with bilateral intra-articular knee joint injections today with fluoroscopic guidance. Risk were discussed including but not limited to bleeding infection possibility of intravascular injection sequelae spread local anesthetic numbness side effects steroid medication portals rating pain control. Patient understands wished to proceed. Patient return to clinic in approximate 2 weeks for follow-up, was counseled as return appointment, activity level, and side effects to be aware of. Medication Injected: Med Injected: Under sterile prep and drape patient in supine position using C-arm fluoroscopic guidance patient's bilateral knees were sterilely prepped and draped in usual fashion. Using C-arm fluoroscopy the medial aspect of the knee joint was vannessa ntified and visualized and using 1% lidocaine 25-gauge needle of the area of the skin overlying the medial knee compartment was anesthetized. Using a 22-gauge quickie needle with stylette the joint was entered under direct visualization without difficulty. Stylet was removed at this time 1.5 cc of contrast was then injected with good spread within the knee joint itself without washout or uptake. At this time solution containing 3 cc each knee of 0.25 bupivacaine for total of 6 cc and a total of 120 mg Depo-Medrol, 60 mg per knee, were then injected. [place] were withdrawn and sterile bandages were applied. Patient tolerated procedure well and had no complications. Condition at Discharge: Condition at Discharge: Condition at discharge is stable, patient tolerated the procedure well and had no complications. ANISH DELGADO MD Jan 17, 2021 13:37
== END | disposition home or self-care (01) ==
LOC: PNCL 12:59
PROVIDERS: ATTEND Anesthesiology
DX: M17.0 Bilateral primary osteoarthritis of knee (principal); M19.011 Primary osteoarthritis, right shoulder; M75.101 Unspecified rotator cuff tear or rupture of right shoulder, not specified as traumatic; M51.16 Intervertebral disc disorders with radiculopathy, lumbar region; M47.27 Other spondylosis with radiculopathy, lumbosacral region; I25.10 Atherosclerotic heart disease of native coronary artery without angina pectoris; I10 Essential (primary) hypertension; E78.00 Pure hypercholesterolemia, unspecified; J44.9 Chronic obstructive pulmonary disease, unspecified; F41.9 Anxiety disorder, unspecified; F32.9 Major depressive disorder, single episode, unspecified; Z87.891 Personal history of nicotine dependence; Z79.899 Other long term (current) drug therapy; Z98.890 Other specified postprocedural states; Z82.49 Family history of ischemic heart disease and other diseases of the circulatory system
CPT/HCPCS: 20610; 77002; J1040; J3490; Q9965

== ENCOUNTER 2021-02-04 15:45 | Inpatient (IN) | payer OTHER ==
[~2021-02-04] VITALS: Ht 182.9 cm; Wt 120.1 kg
[~2021-02-04 15:45] MED LIST changes: -BUPIVACAINE MPF 0.25% 10 ML VIAL. ONE; -IOHEXOL 180 MG/ML 10 ML VIAL. ONE; -methylPREDNISolone ACETATE 80 MG/ML VIAL. ONE
--- NOTE | 2021-02-04 17:31 | RAD ---
EXAM: Chest, single view. HISTORY: Shortness of air. COMPARISON: None. FINDINGS: A frontal view of the chest is obtained. There is mild diffuse increased interstitial opaci ty. There are suspected trace right pleural effusions. There are calcified granulomas. There is a sta ble cardiac silhouette. IMPRESSION: Suspected trace interstitial infiltrate with superimposed trace right and small left pleu ral effusions. Correlate for congestion. Electronically signed by: Samantha Rodriguez MD (02/04/2021 5:28 PM) [facility]
[2021-02-04 17:33] LABS: BASO # 0.1 x10^3/uL (0.0-0.2); BASO % 1 % (0-3); EOS # 0.2 x10^3/uL (0.0-0.7); EOS % 3 % (0-3); HEMATOCRIT 40.1 % (39.0-53.0); HEMOGLOBIN 13.1 g/dL (13.0-17.5); LYMPH # 1.9 x10^3/uL (1.0-4.8); LYMPH % 23 % (24-48); MEAN CORPUSCULAR HEMOGLOBIN 34 pg (25-35); MEAN CORPUSCULAR HGB CONC 33 g/dL (31-37); MEAN CORPUSCULAR VOLUME 104 fL (79-100); MONO # 0.6 x10^3/uL (0.0-1.1); MONO % 7 % (0-9); NEUT # 5.3 x10^3/uL (1.8-7.7); NEUT % 66 % (31-73); PLATELET COUNT 195 x10^3/uL (140-400); RED BLOOD COUNT 3.86 x10^6/uL (4.30-5.70); RED CELL DISTRIBUTION WIDTH 14.3 % (11.5-14.5); WHITE BLOOD COUNT 8.1 x10^3/uL (4.0-11.0)
[2021-02-04 17:43] LABS: CALCIUM 8.8 mg/dL (8.5-10.1); CREATININE 1.1 mg/dL (0.7-1.3); GFR 65.6; POTASSIUM 3.9 mmol/L (3.5-5.1)
[2021-02-04 17:47] LABS: PROTHROMBIN TIME PATIENT 13.1 SEC (11.7-14.0)
[2021-02-04 17:49] LABS: ALBUMIN 2.8 g/dL (3.4-5.0); ALBUMIN/GLOBULIN RATIO 0.8 (1.0-1.7); TOTAL BILIRUBIN 0.3 mg/dL (0.2-1.0); TOTAL PROTEIN 6.4 g/dL (6.4-8.2)
--- NOTE | 2021-02-04 18:07 | PHYS DOC ---
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 He is also concerned for the last 2 months he has had bruising to his bilateral arms. He normally wears 1 to 2 L of oxygen during the day and then a CPAP at night. He denies pain, worsening shortness of air, chest pain, abdominal pain, nausea, vomiting, diarrhea, fever, cough, headache, dizziness, syncope, focal weakness, numbness or tingling. He has history of COPD, valve replacement, chf, hypertension, high cholesterol, arthritis, kidney failure, former smoker. He states 1 year ago they took him off of Lasix. He is currently on aspirin. 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 [] Eyes: Denies change in visual acuity. + Bilateral under eyes swollen [] HENT: Denies nasal congestion or sore throat. [] Respiratory: Denies cough or shortness of breath. [] Cardiovascular: Denies chest pain or + bilateral lower extremity edema. [] GI: Denies abdominal pain, nausea, vomiting, bloody stools or diarrhea. [] : Denies dysuria. [] Musculoskeletal: Denies back pain or joint pain. [] Integument: Denies rash. + Bruising on arms [] Neurologic: Denies headache, focal weakness or sensory changes. [] Endocrine: Denies polyuria or polydipsia. [] Lymphatic: Denies swollen glands. [] Psychiatric: Denies depression or anxiety. 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 [] HENT: Normocephalic, atraumatic, bilateral external ears normal, oropharynx moist, no oral exudates, nose normal. Bilateral dry swelling. [] Eyes: PERRLA, EOMI, conjunctiva normal, no discharge. [] Neck: Normal range of motion, no tenderness, supple, no stridor. [] Cardiovascular:Heart rate regular rhythm, no murmur [] Lungs & Thorax: Bilateral breath sounds clear to auscultation [] Abdomen: Bowel sounds normal, soft, no tenderness, no masses, no pulsatile masses. [] Skin: Warm, dry, no erythema, no rash. Bruising on arms. [] Back: No tenderness, no CVA tenderness. [] Extremities: No tenderness, no cyanosis, no clubbing, ROM intact, bilateral lower 2-3+ edema. [] Neurologic: Alert and oriented X 3, normal motor function, normal sensory function, no focal deficits noted. [] Psychologic: Affect normal, judgement normal, mood normal. [] ([facility],RA MACHINE HEEL SPRAYER) Current Patient Data: Labs: Laboratory Tests Test 02/04/21 17:25 White Blood Count 8.1 x10^3/uL (4.0-11.0) Red Blood Count 3.86 x10^6/uL (4.30-5.70) L Hemoglobin 13.1 g/dL (13.0-17.5) Hematocrit 40.1 % (39.0-53.0) Mean Corpuscular Volume 104 fL (79-100) H Mean Corpuscular Hemoglobin 34 pg (25-35) Mean Corpuscular Hemoglobin Concent 33 g/dL (31-37) Red Cell Distribution Width 14.3 % (11.5-14.5) Platelet Count 195 x10^3/uL (140-400) Neutrophils (%) (Auto) 66 % (31-73) Lymphocytes (%) (Auto) 23 % (24-48) L Monocytes (%) (Auto) 7 % (0-9) Eosinophils (%) (Auto) 3 % (0-3) Basophils (%) (Auto) 1 % (0-3) Neutrophils # (Auto) 5.3 x10^3/uL (1.8-7.7) Lymphocytes # (Auto) 1.9 x10^3/uL (1.0-4.8) Monocytes # (Auto) 0.6 x10^3/uL (0.0-1.1) Eosinophils # (Auto) 0.2 x10^3/uL (0.0-0.7) Basophils # (Auto) 0.1 x10^3/uL (0.0-0.2) Prothrombin Time 13.1 SEC (11.7-14.0) Prothrombin Time INR 1.0 (0.8-1.1) Activated Partial Thromboplast Time 27 SEC (24-38) Sodium Level 138 mmol/L (136-145) Potassium Level 3.9 mmol/L (3.5-5.1) Chloride Level 104 mmol/L (98-107) Carbon Dioxide Level 23 mmol/L (21-32) Anion Gap 11 (6-14) Blood Urea Nitrogen 13 mg/dL (8-26) Creatinine 1.1 mg/dL (0.7-1.3) Estimated GFR (Cockcroft-Gault) 65.6 BUN/Creatinine Ratio 12 (6-20) Glucose Level 93 mg/dL (70-99) Calcium Level 8.8 mg/dL (8.5-10.1) Total Bilirubin 0.3 mg/dL (0.2-1.0) Aspartate Amino Transferase (AST) 22 U/L (15-37) Alanine Aminotransferase (ALT) 25 U/L (16-63) Alkaline Phosphatase 84 U/L (46-116) Troponin I Quantitative < 0.017 ng/mL (0.000-0.055) YO-Rdd-X-Type Natriuretic Peptide 248 pg/mL (0-124) H Total Protein 6.4 g/dL (6.4-8.2) Albumin 2.8 g/dL (3.4-5.0) L Albumin/Globulin Ratio 0.8 (1.0-1.7) L Laboratory Tests 02/04/21 17:25 Laboratory Tests 02/04/21 17:25 Vital Signs: Vital Signs Date Time Temp Pulse Resp B/P (MAP) Pulse Ox O2 Delivery O2 Flow Rate FiO2 02/04/21 16:01 97.9 86 15 138/75 (96) 94 Nasal Cannula 3.0 97.9 (RA PATE APRN) EKG: EK and read by Dr. Bazan as sinus rhythm and no STEMI. (RA PATE APRN) Radiology/Procedures: Radiology/Procedures: [] Impression: [facility] [address] [id number] IMAGING REPORT Signed PATIENT: CATRACHITA FOX ACCOUNT: [id number] : 1945 LOCATION: ER AGE: 75 SEX: M EXAM STATUS: PRE ER ORD. PHYSICIAN: RA PATE APRN REASON: SOA PROCEDURE: PORTABLE CHEST 1V EXAM: Chest, single view. HISTORY: Shortness of air. COMPARISON: None. FINDINGS: A frontal view of the chest is obtained. There is mild diffuse increased interstitial opacity. There are suspected trace right pleural effusions. There are calcified granulomas. There is a stable cardiac silhouette. IMPRESSION: Suspected trace interstitial infiltrate with superimposed trace right and small left pleural effusions. Correlate for congestion. Electronically signed by: Samantha Soni MD (02/04/2021 5:28 PM) [facility] DICTATED and SIGNED BY: SAMANTHA SONI MD DATE: 02/04/21 [id number] (RA PATE APRN) Course & Med Decision Making: Course & Med Decision Making Pertinent Labs and Imaging studies reviewed. (See chart for details) See HPI. Alert and oriented x4. Amatory steady gait. Speaks in full clear sentences. Bilateral lower extremity 3+ swelling. Lungs are clear in upper lobes and diminished in lower lobes. Chest x-ray shows effusions. Patient has old bruising all over his arms bilaterally. He does have 2+ swelling under his eyes bilaterally. I put the patient up to 2 L of oxygen he was 94%. States when he is up and walking he gets short of breath. [] (RA PATE APRN) Dragon Disclaimer: Dragon Disclaimer: This electronic medical record was generated, in whole or in part, using a voice recognition dictation system. (RA PATE APRN) Departure Departure Impression: Primary Impression: CHF exacerbation Qualified Codes: I50.33 - Acute on chronic diastolic (congestive) heart failure Disposition: ADMITTED INPATIENT Admitting Physician: FIDE (RA PATE APRN) Condition: STABLE Referrals: LAKHWINDER ALLEN MD (PCP) Attending Signature Attending Signature I have reviewed the PA/BOOKBINDING MACHINE OPERATOR's note and plan of care. I was available for consultation as needed during the patient's visit in the emergency department. I agree with the clinical impression, plan, and disposition. (FLAVIA BAZAN DO) RA PATE APRN Feb 04, 2021 18:07 FLAVIA BAZAN DO Feb 05, 2021 06:55
--- NOTE | 2021-02-04 18:39 | EKG ---
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
[2021-02-04 19:45] LABS: BILIRUBIN,URINE NEGATIVE (NEG); CLARITY,URINE CLEAR; COLOR,URINE YELLOW; NITRITE,URINE NEGATIVE (NEG); PH,URINE 5.5 (<5.0-8.0); PROTEIN,URINE 30 mg/dL (NEG-TRACE)
[2021-02-04 19:50] LABS: BACTERIA,URINE 0 /HPF (0-FEW); HYALINE CASTS, URINE OCCASIONAL /HPF; RBC,URINE 0 /HPF (0-2); WBC,URINE OCC /HPF (0-4)
[2021-02-04] MEDS ORDERED: oxyCODONE/APAP 10/325 1 TAB TABLET PO ONE (20:15)
[2021-02-04] MEDS ORDERED: FUROSEMIDE 40 MG/4 ML VIAL. IVP ONE (20:30)
[2021-02-04] MEDS ORDERED: AZITHRMYCN 500MG IVPB FOR OMNI 250 ML IV ONE (20:30)
[2021-02-04] MEDS ORDERED: cefTRIAXone IV Push 1 GM VIAL. IVP ONE (20:30)
[2021-02-04] MEDS ORDERED: rOPINIRole 1 MG TABLET. PO ONE (22:15)
[2021-02-04] MEDS ORDERED: DULoxetine HCL 30 MG CAPSULE.DR PO ONE (22:15)
[2021-02-04] MEDS ORDERED: PANTOPRAZOLE 40 MG TABLET.DR. PO ONE (22:15)
[2021-02-04 23:00] VITALS: BP 150/83
[2021-02-04] MEDS ORDERED: C.DIFF MED SCREEN BY RX. MC ONE (23:15)
[2021-02-04] MEDS ORDERED: hydrALAZINE 20 MG/ML VIAL. IVP PRN (23:45)
[2021-02-04] MEDS ORDERED: ONDANSETRON PF 4 MG/2 ML VIAL. IVP PRN (23:45)
[2021-02-04] MEDS: METOPROLOL SUCC 24HR ER 100 MG TAB.ER.24H. PO SCH (23:50)
[2021-02-04] MEDS: ATORVASTATIN CALCIUM 40 MG TABLET. PO SCH (23:51)
[2021-02-04] MEDS: oxyCODONE IR 5 MG TABLET PO PRN (23:56)
[2021-02-05 02:44] VITALS: BP 118/63
--- NOTE | 2021-02-05 03:07 | NUR ---
Pharmacy Medication Review S: Consulted for medication review re: C.diff Risk Assessment score of 4 O: CATRACHITA FOX is a 75 year old with: Previous C.diff infection: No Previous hospitalization: Within 60 days Recent antibiotics: Within 30 days Use of gastric acid suppressor: No Transfer from [place]/[facility]AC: No Current antibiotic regimen: NONE, RECEIVED X 1 DOSES IN ED Current acid suppression regimen: PANTOPRAZOLE A: Patient has been identified as having risk factors for C.diff infection as noted above. P: ABX DE-ESCALATION RECOMMENDED: NO, PT RECEIVED ANTIBIOTICS X 1 FOR AECHF PROBIOTIC ORDERED: N/A PPI CHANGED TO [id number]: NO, PT HAS GERD CESILIA CRUZ, [facility], 02/05/21 [id number]
[2021-02-05 07:00] VITALS: BP 118/55
[2021-02-05] MEDS ORDERED: PANTOPRAZOLE 40 MG TABLET.DR. PO SCH ×2 (07:30→21:00)
[2021-02-05] MEDS: IPRATRPIUM/ALBUTEROL 0.5/2.5MG 3 ML NEBU. NEB SCH ×4 (07:43→20:47)
[2021-02-05] MEDS: ASPIRIN ENTERIC COATED 81 MG TABLET.DR. PO SCH (08:04)
[2021-02-05] MEDS: TAMSULOSIN 0.4 MG CAP.ER.24H. PO SCH (08:05)
[2021-02-05] MEDS: DULoxetine HCL 30 MG CAPSULE.DR PO SCH (08:06)
[2021-02-05] MEDS: oxyCODONE IR 5 MG TABLET PO PRN ×3 (08:07→20:25)
[2021-02-05] MEDS ORDERED: ZOLPIDEM 5 MG TABLET. PO PRN (08:15)
--- NOTE | 2021-02-05 08:19 | PDOC1 ---
History and Physical Date of Admission Date of Admission DATE: 02/05/21 TIME: 07:07 Identification/Chief Complaint Chief Complaint Leg swelling Source Source: Patient History of Present Illness History of Present Illness Patient 75-year-old male with past medical history COPD/asthma, CHF, CAD with stent, HTN, HLD, who presents to the ED with complaints of bilateral leg swelling over the past 2 weeks. He is also concerned for some bilateral swelling underneath his eyes over this time as well. Chronically wears 2-3 L of oxygen during the day and CPAP at night; denies any worsening shortness of breath. Denies any chest pain, abdominal pain, nausea, vomiting, diarrhea, fever, or cough. His admission showed WBC 8.1, MCV 104, BNP 248, troponin <0.017, albumin 2.8. Chest x-ray showed suspected trace interstitial infiltrates and superimposed trace right and small left pleural effusions, suggestive of congestion. He received a dose of Lasix and broad-spectrum antibiotics in the ED. Was admitted for further medical management. Past Medical History Cardiovascular: CAD, CHF, HTN, Hyperlipidemia Pulmonary: COPD GI: Diverticulosis Psych: Anxiety, Depression Renal/: No pertinent hx Past Surgical History Past Surgical History: Total knee replacement, Tonsillectomy, Other Family History Family History: Heart Disease, Hypertension Social History Smoke: Quit ALCOHOL: heavy Drugs: None Current Problem List Problem List Problems Medical Problems: (1) CHF exacerbation Status: Acute (2) Pleural effusion Status: Acute (3) Pneumonia Status: Acute Current Medications Current Medications Current Medications Oxycodone/ Acetaminophen (Percocet 10/325) 1 tab 1X ONCE PO Last administered on 02/04/21at 20:49; Start 02/04/21 at 20:15; Stop 02/04/21 at 20:16; Status DC Furosemide (Lasix) 40 mg 1X ONCE IVP Last administered on 02/04/21at 20:52; Start 02/04/21 at 20:30; Stop 02/04/21 at 20:31; Status DC Azithromycin 250 ml @ 250 mls/hr 1X ONCE IV Last administered on 02/04/21at 20:52; Start 02/04/21 at 20:30; Stop 02/04/21 at 21:29; Status DC Ceftriaxone Sodium (Rocephin) 1 gm 1X ONCE IVP Last administered on 02/04/21at 20:52; Start 02/04/21 at 20:30; Stop 02/04/21 at 20:31; Status DC Duloxetine HCl (Cymbalta) 60 mg 1X ONCE PO Last administered on 02/04/21at 23:50; Start 02/04/21 at 22:15; Stop 02/04/21 at 22:19; Status DC Lorazepam (Ativan) 1 mg 1X ONCE PO Last administered on 02/04/21at 23:50; Start 02/04/21 at 22:15; Stop 02/04/21 at 22:19; Status DC Ropinirole HCl (Requip) 1 mg 1X ONCE PO Last administered on 02/04/21at 23:51; Start 02/04/21 at 22:15; Stop 02/04/21 at 22:19; Status DC Pantoprazole Sodium (Protonix) 40 mg 1X ONCE PO Last administered on 02/04/21at 23:51; Start 02/04/21 at 22:15; Stop 02/04/21 at 22:19; Status DC Pharmacy Consult (C.diff Med Screen By Rx) 1 each 1X ONCE MC ; Start 02/04/21 at 23:15; Stop 02/04/21 at 23:16; Status Cancel Ondansetron HCl (Zofran) 4 mg PRN Q4HRS PRN IVP NAUSEA/VOMITING; Start 02/04/21 at 23:45 Acetaminophen (Tylenol) 650 mg PRN Q6HRS PRN PO MILD PAIN / TEMP > 100.3'F; Start 02/04/21 at 23:45 Hydralazine HCl (Apresoline Inj) 10 mg PRN Q4HRS PRN IVP ELEVATED BP, SEE COMMENTS; Start 02/04/21 at 23:45 Amlodipine Besylate (Norvasc) 5 mg DAILY PO ; Start 02/05/21 at 09:00 Aspirin (Ecotrin) 81 mg DAILY08 PO ; Start 02/05/21 at 08:00 Duloxetine HCl (Cymbalta) 60 mg DAILY PO ; Start 02/05/21 at 09:00 Metoprolol Succinate (Toprol Xl) 100 mg HS PO Last administered on 02/04/21at 23:50; Start 02/04/21 at 23:45 Tamsulosin HCl (Flomax) 0.4 mg DAILY PO ; Start 02/05/21 at 09:00 Pantoprazole Sodium (Protonix) 40 mg DAILYAC PO ; Start 02/05/21 at 07:30; Stop 02/05/21 at 06:23; Status DC Oxycodone HCl (Roxicodone) 20 mg PRN Q4HRS PRN PO PAIN Last administered on 02/04/21at 23:56; Start 02/04/21 at 23:45 Atorvastatin Calcium (Lipitor) 80 mg QHS PO Last administered on 02/04/21at 23:51; Start 02/04/21 at 23:45 Albuterol/ Ipratropium (Duoneb) 3 ml RTQID NEB ; Start 02/05/21 at 08:00 Multivitamins (Thera M Plus) 1 tab DAILY PO ; Start 02/09/21 at 09:00 Folic Acid (Folic Acid) 1 mg DAILY PO ; Start 02/09/21 at 09:00 Thiamine Mononitrate (Vitamin B-1) 100 mg DAILY PO ; Start 02/09/21 at 09:00 Pantoprazole Sodium (Protonix) 40 mg HS PO ; Start 02/05/21 at 21:00 Active Scripts Active Duoneb 0.5-3(2.5) Mg/3 Ml (Albuterol/Ipratropium) 3 Ml Ampul.neb 3 Ml NEB Q4H 30 Days Reported Flomax (Tamsulosin Hcl) 0.4 Mg Cap.er.24h 0.4 Mg PO DAILY Stiolto Respimat Inhal Gans (Tiotropium Br/Olodaterol HCl) 4 Gm Mist.inhal 4 Gm IH DAILY Vitamin D3 (Cholecalciferol (Vitamin D3)) 1,250 Mcg Capsule Unknown Dose PO DAILY B Complex (Vitamin B Complex) 1 Each Tablet 1 Tab PO DAILY 30 Days Proair Hfa Inhaler (Albuterol Sulfate) 8.5 Gm Hfa.aer.ad 2 Puff IH PRN Q4-6HRS PRN 21 Days Acetaminophen 500 Mg Tablet 2 Tab PO PRN Q6HRS PRN 15 Days Ativan (Lorazepam) 1 Mg Tablet 1 Mg PO HS Ropinirole Hcl 1 Mg Tablet 1 Mg PO QHS Lisinopril 40 Mg Tablet 1 Tab PO DAILY Crestor (Rosuvastatin Calcium) 40 Mg Tablet 40 Mg PO HS Metoprolol Succinate ( Xl ) (Metoprolol Succinate) 100 Mg Tab.er.24h 100 Mg PO HS Ventolin Hfa Inhaler (Albuterol Sulfate) 18 Gm Hfa.aer.ad 2 Puff INH Q4HRS Omeprazole 40 Mg Capsule.dr 20 Mg PO DAILY Oxycodone Hcl Immed.release (Oxycodone Hcl) 10 Mg Tablet 20 Mg PO PRN Q4HRS PRN Cymbalta (Duloxetine Hcl) 30 Mg Capsule.dr 60 Mg PO DAILY Amlodipine Besylate 5 Mg Tablet 5 Mg PO DAILY Aspir 81 (Aspirin) 81 Mg Tablet.dr 81 Mg PO DAILY08 Allergies Allergies: Coded Allergies: No Known Drug Allergies (Unverified , 02/04/21) ROS Review of System GENERAL: No history of weight change, weakness or fevers. SKIN: No bruising, hair changes or rashes. EYES: No blurred, double or loss of vision. NOSE AND THROAT: No history of nosebleeds, hoarseness or sore throat. HEART: Denies chest pain, denies palpitations. LUNGS: Denies cough, hemoptysis, wheezing or shortness of breath. GASTROINTESTINAL: Denies nausea, vomiting, abdominal pain. GENITOURINARY: Denies dysuria, frequency, urgency, hematuria. NEUROLOGIC: Denies history of numbness, tingling, tremor or weakness. PSYCHIATRIC: Denies anxiety, denies depression. ENDOCRINE: No history of heat or cold intolerance, polyuria or polydipsia. EXTREMITIES: Bilateral lower extremity swelling. Denies muscle weakness, joint pain, pain on walking or stiffness. Physical Exam Physical Exam General: Alert, Oriented X3, Cooperative, No acute distress HEENT: PERRLA, EOMI Lungs: Bibasilar Rales, Normal air movement Heart: RRR, no murmurs Cardiovascular: S1, S2 Abdomen: Normal bowel sounds, Soft, No tenderness Extremities: +3 bilateral lower extremity edema. No clubbing, No cyanosis. Skin: No rashes, No significant lesion Neuro: Normal speech, Normal tone, Sensation intact Psych/Mental Status: Mental status NL, Mood NL Vitals Vitals Vital Signs Date Time Temp Pulse Resp B/P (MAP) Pulse Ox O2 Delivery O2 Flow Rate FiO2 02/05/21 02:44 98.0 72 18 118/63 (81) 94 Nasal Cannula 4.0 98.0 Labs Labs Laboratory Tests Test 02/04/21 17:25 02/04/21 19:35 02/04/21 22:40 02/05/21 01:00 White Blood Count 8.1 x10^3/uL (4.0-11.0) Red Blood Count 3.86 x10^6/uL (4.30-5.70) Hemoglobin 13.1 g/dL (13.0-17.5) Hematocrit 40.1 % (39.0-53.0) Mean Corpuscular Volume 104 fL (79-100) Mean Corpuscular Hemoglobin 34 pg (25-35) Mean Corpuscular Hemoglobin Concent 33 g/dL (31-37) Red Cell Distribution Width 14.3 % (11.5-14.5) Platelet Count 195 x10^3/uL (140-400) Neutrophils (%) (Auto) 66 % (31-73) Lymphocytes (%) (Auto) 23 % (24-48) Monocytes (%) (Auto) 7 % (0-9) Eosinophils (%) (Auto) 3 % (0-3) Basophils (%) (Auto) 1 % (0-3) Neutrophils # (Auto) 5.3 x10^3/uL (1.8-7.7) Lymphocytes # (Auto) 1.9 x10^3/uL (1.0-4.8) Monocytes # (Auto) 0.6 x10^3/uL (0.0-1.1) Eosinophils # (Auto) 0.2 x10^3/uL (0.0-0.7) Basophils # (Auto) 0.1 x10^3/uL (0.0-0.2) Prothrombin Time 13.1 SEC (11.7-14.0) Prothromb Time International Ratio 1.0 (0.8-1.1) Activated Partial Thromboplast Time 27 SEC (24-38) Sodium Level 138 mmol/L (136-145) Potassium Level 3.9 mmol/L (3.5-5.1) Chloride Level 104 mmol/L (98-107) Carbon Dioxide Level 23 mmol/L (21-32) Anion Gap 11 (6-14) Blood Urea Nitrogen 13 mg/dL (8-26) Creatinine 1.1 mg/dL (0.7-1.3) Estimated GFR (Cockcroft-Gault) 65.6 BUN/Creatinine Ratio 12 (6-20) Glucose Level 93 mg/dL (70-99) Calcium Level 8.8 mg/dL (8.5-10.1) Total Bilirubin 0.3 mg/dL (0.2-1.0) Aspartate Amino Transf (AST/SGOT) 22 U/L (15-37) Alanine Aminotransferase (ALT/SGPT) 25 U/L (16-63) Alkaline Phosphatase 84 U/L (46-116) Troponin I Quantitative < 0.017 ng/mL (0.000-0.055) JF-Orh-P-Type Natriuretic Peptide 248 pg/mL (0-124) Total Protein 6.4 g/dL (6.4-8.2) Albumin 2.8 g/dL (3.4-5.0) Albumin/Globulin Ratio 0.8 (1.0-1.7) Urine Collection Type Unknown Urine Color Yellow Urine Clarity Clear Urine pH 5.5 (<5.0-8.0) Urine Specific [place] >=1.030 (1.000-1.030) Urine Protein 30 mg/dL (NEG-TRACE) Urine Glucose (UA) Negative mg/dL (NEG) Urine Ketones (Stick) Negative mg/dL (NEG) Urine Blood Negative (NEG) Urine Nitrite Negative (NEG) Urine Bilirubin Negative (NEG) Urine Urobilinogen Dipstick 1.0 mg/dL (0.2 mg/dL) Urine Leukocyte Esterase Negative (NEG) Urine RBC 0 /HPF (0-2) Urine WBC Occ /HPF (0-4) Urine Squamous Epithelial Cells Few /LPF Urine Bacteria 0 /HPF (0-FEW) Urine Hyaline Casts Occasional /HPF Urine Mucus Mod /LPF SARS-CoV-2 Antigen (Rapid) Negative (NEGATIVE) Lactic Acid Level 1.7 mmol/L (0.4-2.0) Laboratory Tests Test 02/04/21 17:25 02/04/21 19:35 02/04/21 22:40 02/05/21 01:00 White Blood Count 8.1 x10^3/uL (4.0-11.0) Red Blood Count 3.86 x10^6/uL (4.30-5.70) Hemoglobin 13.1 g/dL (13.0-17.5) Hematocrit 40.1 % (39.0-53.0) Mean Corpuscular Volume 104 fL (79-100) Mean Corpuscular Hemoglobin 34 pg (25-35) Mean Corpuscular Hemoglobin Concent 33 g/dL (31-37) Red Cell Distribution Width 14.3 % (11.5-14.5) Platelet Count 195 x10^3/uL (140-400) Neutrophils (%) (Auto) 66 % (31-73) Lymphocytes (%) (Auto) 23 % (24-48) Monocytes (%) (Auto) 7 % (0-9) Eosinophils (%) (Auto) 3 % (0-3) Basophils (%) (Auto) 1 % (0-3) Neutrophils # (Auto) 5.3 x10^3/uL (1.8-7.7) Lymphocytes # (Auto) 1.9 x10^3/uL (1.0-4.8) Monocytes # (Auto) 0.6 x10^3/uL (0.0-1.1) Eosinophils # (Auto) 0.2 x10^3/uL (0.0-0.7) Basophils # (Auto) 0.1 x10^3/uL (0.0-0.2) Prothrombin Time 13.1 SEC (11.7-14.0) Prothromb Time International Ratio 1.0 (0.8-1.1) Activated Partial Thromboplast Time 27 SEC (24-38) Sodium Level 138 mmol/L (136-145) Potassium Level 3.9 mmol/L (3.5-5.1) Chloride Level 104 mmol/L (98-107) Carbon Dioxide Level 23 mmol/L (21-32) Anion Gap 11 (6-14) Blood Urea Nitrogen 13 mg/dL (8-26) Creatinine 1.1 mg/dL (0.7-1.3) Estimated GFR (Cockcroft-Gault) 65.6 BUN/Creatinine Ratio 12 (6-20) Glucose Level 93 mg/dL (70-99) Calcium Level 8.8 mg/dL (8.5-10.1) Total Bilirubin 0.3 mg/dL (0.2-1.0) Aspartate Amino Transf (AST/SGOT) 22 U/L (15-37) Alanine Aminotransferase (ALT/SGPT) 25 U/L (16-63) Alkaline Phosphatase 84 U/L (46-116) Troponin I Quantitative < 0.017 ng/mL (0.000-0.055) YG-Dek-G-Type Natriuretic Peptide 248 pg/mL (0-124) Total Protein 6.4 g/dL (6.4-8.2) Albumin 2.8 g/dL (3.4-5.0) Albumin/Globulin Ratio 0.8 (1.0-1.7) Urine Collection Type Unknown Urine Color Yellow Urine Clarity Clear Urine pH 5.5 (<5.0-8.0) Urine Specific [place] >=1.030 (1.000-1.030) Urine Protein 30 mg/dL (NEG-TRACE) Urine Glucose (UA) Negative mg/dL (NEG) Urine Ketones (Stick) Negative mg/dL (NEG) Urine Blood Negative (NEG) Urine Nitrite Negative (NEG) Urine Bilirubin Negative (NEG) Urine Urobilinogen Dipstick 1.0 mg/dL (0.2 mg/dL) Urine Leukocyte Esterase Negative (NEG) Urine RBC 0 /HPF (0-2) Urine WBC Occ /HPF (0-4) Urine Squamous Epithelial Cells Few /LPF Urine Bacteria 0 /HPF (0-FEW) Urine Hyaline Casts Occasional /HPF Urine Mucus Mod /LPF SARS-CoV-2 Antigen (Rapid) Negative (NEGATIVE) Lactic Acid Level 1.7 mmol/L (0.4-2.0) Images Images [facility] [address] [place] [address] IMAGING REPORT Signed PATIENT: CATRACHITA FOX ACCOUNT: [id number] : 1945 LOCATION: ER AGE: 75 SEX: M EXAM STATUS: PRE ER ORD. PHYSICIAN: RA PATE APRN REASON: SOA PROCEDURE: PORTABLE CHEST 1V EXAM: Chest, single view. HISTORY: Shortness of air. COMPARISON: None. FINDINGS: A frontal view of the chest is obtained. There is mild diffuse increased interstitial opacity. There are suspected trace right pleural effusions. There are calcified granulomas. There is a stable cardiac silhouette. IMPRESSION: Suspected trace interstitial infiltrate with superimposed trace right and small left pleural effusions. Correlate for congestion. Electronically signed by: Samantha Rodriguez MD (02/04/2021 5:28 PM) [facility] VTE Prophylaxis Ordered VTE Prophylaxis Devices: No VTE Pharmacological Prophylaxi: Yes Assessment/Plan Assessment/Plan COPD Asthma Diastolic CHF CAD with history stent HTN HLD Plan: Resume home medications Provide prescription of Lasix and recommend follow-up with PCP Will obtain CT chest to further evaluate for interstitial infiltrates If no concerning findings on CT he feels comfortable discharging home with close PCP follow-up. FEN - Cardiac diet PPX - Heparin FULL CODE Dispo - observation for above Surrogate decision maker is his daughter (Nolvia Muir) Justifications for Admission Other Justification MEHDI ALMAGUER MD Feb 05, 2021 08:19
[2021-02-05] MEDS: HEPARIN for SUB-Q USE 5,000 UNIT/ML VIAL. SQ SCH ×3 (09:20→20:28)
[2021-02-05] MEDS: ACETAMINOPHEN 325 MG TABLET. PO PRN ×3 (09:21→21:47)
[2021-02-05 10:42] VITALS: BP 118/65
[2021-02-05 15:00] VITALS: BP 137/64
--- NOTE | 2021-02-05 15:37 | PDOC2 ---
CARDIOLOGY CONSULT NOTE DATE OF SERVICE: DATE: 02/05/21 TIME: 15:33 CHIEF COMPLAINT: Shortness of breath HPI: Ortega is a pleasant 75-year-old man who is well-known to our service who presents to the hospital in the setting of worsening exertional dyspnea and lower extremity edema. Cardiology service has been asked to evaluate him for his dyspnea. He has known chronic diastolic heart failure, COPD and moderate nonobstructive coronary artery disease. He currently reports that he is feeling better. He is diuresed approximately 3 L overnight. Denies any syncope, palpitations, orthopnea or PND. He does not have any angina. PMHX: 1. Coronary artery disease moderate in nature by cardiac catheterization 2019 status post prior PCI 2. Hypertension 3. Dyslipidemia 4. COPD 5. Chronic diastolic heart failure and cor pulmonale SOCHX: No alcohol, tobacco or illicit drug use FAMHX: Noncontributory CURRENT MEDS: Current Medications Medications (Trade) Dose Ordered Sig/Janine Route PRN Reason Start Time Stop Time Status Last Admin Dose Admin Oxycodone/ Acetaminophen (Percocet 10/325) 1 tab 1X ONCE PO 02/04/21 20:15 02/04/21 20:16 DC 02/04/21 20:49 Furosemide (Lasix) 40 mg 1X ONCE IVP 02/04/21 20:30 02/04/21 20:31 DC 02/04/21 20:52 Azithromycin 250 ml @ 250 mls/hr 1X ONCE IV 02/04/21 20:30 02/04/21 21:29 DC 02/04/21 20:52 Ceftriaxone Sodium (Rocephin) 1 gm 1X ONCE IVP 02/04/21 20:30 02/04/21 20:31 DC 02/04/21 20:52 Duloxetine HCl (Cymbalta) 60 mg 1X ONCE PO 02/04/21 22:15 02/04/21 22:19 DC 02/04/21 23:50 Lorazepam (Ativan) 1 mg 1X ONCE PO 02/04/21 22:15 02/04/21 22:19 DC 02/04/21 23:50 Ropinirole HCl (Requip) 1 mg 1X ONCE PO 02/04/21 22:15 02/04/21 22:19 DC 02/04/21 23:51 Pantoprazole Sodium (Protonix) 40 mg 1X ONCE PO 02/04/21 22:15 02/04/21 22:19 DC 02/04/21 23:51 Acetaminophen (Tylenol) 650 mg PRN Q6HRS PRN PO MILD PAIN / TEMP > 100.3'F 02/04/21 23:45 02/05/21 15:05 Amlodipine Besylate (Norvasc) 5 mg DAILY PO 02/05/21 09:00 02/05/21 08:05 Aspirin (Ecotrin) 81 mg DAILY08 PO 02/05/21 08:00 02/05/21 08:04 Duloxetine HCl (Cymbalta) 60 mg DAILY PO 02/05/21 09:00 02/05/21 08:06 Metoprolol Succinate (Toprol Xl) 100 mg HS PO 02/04/21 23:45 02/04/21 23:50 Tamsulosin HCl (Flomax) 0.4 mg DAILY PO 02/05/21 09:00 02/05/21 08:05 Oxycodone HCl (Roxicodone) 20 mg PRN Q4HRS PRN PO PAIN 02/04/21 23:45 02/05/21 15:05 Atorvastatin Calcium (Lipitor) 80 mg QHS PO 02/04/21 23:45 02/04/21 23:51 Albuterol/ Ipratropium (Duoneb) 3 ml RTQID NEB 02/05/21 08:00 02/05/21 11:22 Heparin Sodium (Porcine) (Heparin Sodium) 5,000 unit Q8HRS SQ 02/05/21 09:00 02/05/21 15:00 ALLERGIES: Allergies Coded Allergies Type Severity Reaction Last Updated Verified No Known Drug Allergies 02/04/21 No ROS: Negative for 10 out of 14 systems reviewed unless otherwise mentioned above in HPI PHYSICAL EXAM: Vital Signs/I&O: Vital Signs Date Time Temp Pulse Resp B/P (MAP) Pulse Ox O2 Delivery O2 Flow Rate FiO2 02/05/21 11:22 Nasal Cannula 4.0 02/05/21 10:42 98.3 70 25 118/65 (82) 99 98.3 I & O 02/04/21 02/04/21 02/05/21 15:00 23:00 07:00 Intake Total 240 ml Output Total 800 ml 2500 ml Balance -800 ml -2260 ml Physical Exam: GEN.: No apparent distress. Alert and oriented. HEENT: Head is normocephalic, atraumatic NECK: Supple. LUNGS: Clear to auscultation. HEART: RRR, S1, S2 present. Peripheral pulses intact ABDOMEN: Soft, nontender. Positive bowel sounds. EXTREMITIES: Without any cyanosis. 1+ lower extremity NEUROLOGIC: Normal speech, normal tone PSYCHIATRIC: Normal affect, normal mood. SKIN: No ulcerations DIAGNOSTIC TESTING: EKG reviewed, no acute ischemic findings Laboratory studies reviewed Chest x-ray reviewed CT scan reviewed ASSESSMENT: 1. Acute on chronic diastolic heart failure 2. Coronary artery disease, negative cardiac enzymes and negative EKG 3. Hypertension 4. Dyslipidemia 5. COPD on home O2 therapy PLAN: 1. If patient is willing we would recommend another midnight in the hospital for continued diuresis and plan for discharge tomorrow given that he has persistent dyspnea and lower extremity edema on examination 2. Plan for one more dose of Lasix today. 3. Plan for outpatient ischemic evaluation including echocardiogram and myocardial perfusion study given his dyspnea. Thank you for this consultation end of dictation FELA TURNER MD Feb 05, 2021 15:37
[2021-02-05] MEDS ORDERED: FUROSEMIDE 20 MG/2 ML VIAL. IVP ONE (15:45)
--- NOTE | 2021-02-05 17:14 | RAD ---
CT THORAX WO History: COPD, interstitial infiltrate. Comparison: X-ray 02/04/2021. CT chest 06/18/2020 Technique: Noncontrast CT of the chest. Findings: Assessment is limited by lack of IV contrast. Cardiovascular: Ascending aortic ectasia measuring 4.2 cm. Heavy coronary artery calcification. Mild cardiomegaly. No pericardial effusion. Mediastinum and cyndie: Calcified subcarinal and right hilar lymph nodes. No enlarged mediastinal adeno casper. Unremarkable thyroid and esophagus. Airways, lungs and pleura: The airways are patent. There are moderate upper lobe predominant centrilo bular emphysematous changes. Calcified granulomata in the right lower lobe. Patchy consolidation in t he posterior left lower lobe is new from comparison CT. No pleural effusion or pneumothorax. Upper abdomen: Mild hepatic steatosis. Osseous structures and soft tissues: Biphasic curvature of the thoracolumbar spine. No acute osseous abnormality. Impression: 1. Patchy left basilar opacity new from comparison may represent atelectasis or infection. 2. Heavy coronary artery calcification. 3. Moderate emphysema. ------ Exposure: One or more of the following individualized dose reduction techniques were utilized for thi s examination: 1. Automated exposure control 2. Adjustment of the mA and/or kV according to patient size 3. Use of iterative reconstruction technique. Electronically signed by: Brett Smith MD (02/05/2021 5:12 PM) [id number]
[2021-02-05] MEDS: ATORVASTATIN CALCIUM 40 MG TABLET. PO SCH (20:25)
[2021-02-05] MEDS: METOPROLOL SUCC 24HR ER 100 MG TAB.ER.24H. PO SCH (20:27)
[2021-02-05 20:30] VITALS: BP 106/60
[2021-02-05] MEDS ORDERED: rOPINIRole 1 MG TABLET. PO SCH (21:00)
[2021-02-05 23:12] VITALS: BP 102/56
[2021-02-06 04:20] VITALS: BP 118/75
[2021-02-06] MEDS: oxyCODONE IR 5 MG TABLET PO PRN ×3 (04:59→14:53)
--- NOTE | 2021-02-06 06:17 | PDOC ---
[employer] PROGRESS NOTE Date of Service DOS: DATE: 02/06/21 TIME: 06:13 Chief Complaint Chief Complaint COPD Asthma Diastolic CHF CAD with history stent HTN HLD Plan: Resume home medications Provide prescription of Lasix and recommend follow-up with PCP Will obtain CT chest to further evaluate for interstitial infiltrates If no concerning findings on CT he feels comfortable discharging home with close PCP follow-up. FEN - Cardiac diet PPX - Heparin FULL CODE Dispo - observation for above Surrogate decision maker is his daughter (Nolvia Muir) History of Present Illness History of Present Illness Patient 75-year-old male with past medical history COPD/asthma, CHF, CAD with stent, HTN, HLD, who presents to the ED with complaints of bilateral leg swelling over the past 2 weeks. He is also concerned for some bilateral swelling underneath his eyes over this time as well. Chronically wears 2-3 L of oxygen during the day and CPAP at night; denies any worsening shortness of breath. Denies any chest pain, abdominal pain, nausea, vomiting, diarrhea, fever, or cough. His admission showed WBC 8.1, MCV 104, BNP 248, troponin <0.017, albumin 2.8. Chest x-ray showed suspected trace interstitial infiltrates and superimposed trace right and small left pleural effusions, suggestive of congestion. He received a dose of Lasix and broad-spectrum antibiotics in the ED. Was admitted for further medical management 02/06: Afebrile. States he is breathing better, at his baseline nighttime O2 requirement of 4L. 3060 urine output overnight. States still breathing has improved. CT chest yesterday showed patchy left basilar opacity that may represent atelectasis or infection, and heavy coronary artery calcification. Per cardiology, plan for outpatient ischemic evaluation, including echo and rohan cardial perfusion study. He has home Lasix that he has been using as needed, and recommended to continue given the benefit he is derived patient. Recommend follow-up with his PCP within 5-7 days, and follow-up with cardiology for outpatient ischemic evaluation. Greater than 30 min spent managing the discharge of this patient. Vitals/I&O Vitals/I&O: Vital Signs Date Time Temp Pulse Resp B/P (MAP) Pulse Ox O2 Delivery O2 Flow Rate FiO2 02/06/21 04:59 18 94 Nasal Cannula 4.0 02/06/21 04:20 98.5 118/75 (89) 98.5 02/06/21 03:59 70 I & O 02/05/21 02/05/21 02/06/21 15:00 23:00 07:00 Intake Total 1100 ml 240 ml 200 ml Output Total 450 ml 225 ml Balance 1100 ml -210 ml -25 ml Physical Exam General: Alert, Oriented X3, Cooperative, No acute distress Heart: Regular rate Lungs: Crackles Abdomen: Soft, Other (Obese abdomen) Extremities: No clubbing, No cyanosis Skin: No rashes, No breakdown Assessment and Plan Assessmemt and Plan Problems Medical Problems: (1) CHF exacerbation Status: Acute (2) Pleural effusion Status: Acute (3) Pneumonia Status: Acute Comment Review of Relevant I have reviewed the following items chemo (where applicable) has been applied. Medications: Current Medications Medications (Trade) Dose Ordered Sig/Janine Route PRN Reason Start Time Stop Time Status Last Admin Dose Admin Amlodipine Besylate (Norvasc) 5 mg DAILY PO 02/05/21 09:00 02/05/21 08:05 Aspirin (Ecotrin) 81 mg DAILY08 PO 02/05/21 08:00 02/05/21 08:04 Duloxetine HCl (Cymbalta) 60 mg DAILY PO 02/05/21 09:00 02/05/21 08:06 Tamsulosin HCl (Flomax) 0.4 mg DAILY PO 02/05/21 09:00 02/05/21 08:05 Albuterol/ Ipratropium (Duoneb) 3 ml RTQID NEB 02/05/21 08:00 02/05/21 20:47 Pantoprazole Sodium (Protonix) 40 mg HS PO 02/05/21 21:00 02/05/21 20:24 Heparin Sodium (Porcine) (Heparin Sodium) 5,000 unit Q8HRS SQ 02/05/21 09:00 02/05/21 20:28 Furosemide (Lasix) 20 mg 1X ONCE IVP 02/05/21 15:45 02/05/21 15:59 DC 02/05/21 16:03 Ropinirole HCl (Requip) 1 mg QHS PO 02/05/21 21:00 02/05/21 21:48 Justifications for Admission Other Justification MEHDI ALMAGUER MD Feb 06, 2021 06:17
[2021-02-06] MEDS: HEPARIN for SUB-Q USE 5,000 UNIT/ML VIAL. SQ SCH (06:31)
[2021-02-06 07:00] VITALS: BP 98/55
[2021-02-06] MEDS: IPRATRPIUM/ALBUTEROL 0.5/2.5MG 3 ML NEBU. NEB SCH ×2 (07:08→11:56)
[2021-02-06] MEDS: TAMSULOSIN 0.4 MG CAP.ER.24H. PO SCH (08:16)
[2021-02-06] MEDS: ASPIRIN ENTERIC COATED 81 MG TABLET.DR. PO SCH (08:16)
[2021-02-06] MEDS: DULoxetine HCL 30 MG CAPSULE.DR PO SCH (08:16)
[2021-02-06] MEDS: ACETAMINOPHEN 325 MG TABLET. PO PRN ×2 (08:43→14:53)
--- NOTE | 2021-02-06 10:09 | PDOC3 ---
Discharge Summary Visit Information Date of Admission: Feb 05, 2021 Date of Discharge: Feb 06, 2021 Final Diagnosis Problems Medical Problems: (1) CHF exacerbation Status: Acute (2) Pleural effusion Status: Acute (3) Pneumonia Status: Acute Brief Hospital Course Allergies Allergies Coded Allergies Type Severity Reaction Last Updated Verified No Known Drug Allergies 02/04/21 No Vital Signs Vital Signs Date Time Temp Pulse Resp B/P (MAP) Pulse Ox O2 Delivery O2 Flow Rate FiO2 02/06/21 08:17 63 98/55 02/06/21 08:00 Nasal Cannula 3.0 02/06/21 07:12 95 02/06/21 07:00 98.5 18 98.5 Lab Results Laboratory Tests Test 02/04/21 17:25 02/04/21 19:35 02/04/21 22:40 02/05/21 01:00 White Blood Count 8.1 x10^3/uL (4.0-11.0) Red Blood Count 3.86 x10^6/uL (4.30-5.70) Hemoglobin 13.1 g/dL (13.0-17.5) Hematocrit 40.1 % (39.0-53.0) Mean Corpuscular Volume 104 fL (79-100) Mean Corpuscular Hemoglobin 34 pg (25-35) Mean Corpuscular Hemoglobin Concent 33 g/dL (31-37) Red Cell Distribution Width 14.3 % (11.5-14.5) Platelet Count 195 x10^3/uL (140-400) Neutrophils (%) (Auto) 66 % (31-73) Lymphocytes (%) (Auto) 23 % (24-48) Monocytes (%) (Auto) 7 % (0-9) Eosinophils (%) (Auto) 3 % (0-3) Basophils (%) (Auto) 1 % (0-3) Neutrophils # (Auto) 5.3 x10^3/uL (1.8-7.7) Lymphocytes # (Auto) 1.9 x10^3/uL (1.0-4.8) Monocytes # (Auto) 0.6 x10^3/uL (0.0-1.1) Eosinophils # (Auto) 0.2 x10^3/uL (0.0-0.7) Basophils # (Auto) 0.1 x10^3/uL (0.0-0.2) Prothrombin Time 13.1 SEC (11.7-14.0) Prothromb Time International Ratio 1.0 (0.8-1.1) Activated Partial Thromboplast Time 27 SEC (24-38) Sodium Level 138 mmol/L (136-145) Potassium Level 3.9 mmol/L (3.5-5.1) Chloride Level 104 mmol/L (98-107) Carbon Dioxide Level 23 mmol/L (21-32) Anion Gap 11 (6-14) Blood Urea Nitrogen 13 mg/dL (8-26) Creatinine 1.1 mg/dL (0.7-1.3) Estimated GFR (Cockcroft-Gault) 65.6 BUN/Creatinine Ratio 12 (6-20) Glucose Level 93 mg/dL (70-99) Calcium Level 8.8 mg/dL (8.5-10.1) Total Bilirubin 0.3 mg/dL (0.2-1.0) Aspartate Amino Transf (AST/SGOT) 22 U/L (15-37) Alanine Aminotransferase (ALT/SGPT) 25 U/L (16-63) Alkaline Phosphatase 84 U/L (46-116) Troponin I Quantitative < 0.017 ng/mL (0.000-0.055) YR-Ybq-K-Type Natriuretic Peptide 248 pg/mL (0-124) Total Protein 6.4 g/dL (6.4-8.2) Albumin 2.8 g/dL (3.4-5.0) Albumin/Globulin Ratio 0.8 (1.0-1.7) Urine Collection Type Unknown Urine Color Yellow Urine Clarity Clear Urine pH 5.5 (<5.0-8.0) Urine Specific [place] >=1.030 (1.000-1.030) Urine Protein 30 mg/dL (NEG-TRACE) Urine Glucose (UA) Negative mg/dL (NEG) Urine Ketones (Stick) Negative mg/dL (NEG) Urine Blood Negative (NEG) Urine Nitrite Negative (NEG) Urine Bilirubin Negative (NEG) Urine Urobilinogen Dipstick 1.0 mg/dL (0.2 mg/dL) Urine Leukocyte Esterase Negative (NEG) Urine RBC 0 /HPF (0-2) Urine WBC Occ /HPF (0-4) Urine Squamous Epithelial Cells Few /LPF Urine Bacteria 0 /HPF (0-FEW) Urine Hyaline Casts Occasional /HPF Urine Mucus Mod /LPF SARS-CoV-2 RNA (KATH) Negative (Negative) SARS-CoV-2 Antigen (Rapid) Negative (NEGATIVE) Lactic Acid Level 1.7 mmol/L (0.4-2.0) Brief Hospital Course Mr. Marlow is a 75 old male who presented with: COPD Asthma Diastolic CHF Patient 75-year-old male with past medical history COPD/asthma, CHF, CAD with stent, HTN, HLD, who presents to the ED with complaints of bilateral leg swelling over the past 2 weeks. He is also concerned for some bilateral swelling underneath his eyes over this time as well. Chronically wears 2-3 L of oxygen during the day and CPAP at night; denies any worsening shortness of breath. Denies any chest pain, abdominal pain, nausea, vomiting, diarrhea, fever, or cough. His admission showed WBC 8.1, MCV 104, BNP 248, troponin <0.017, albumin 2.8. Chest x-ray showed suspected trace interstitial infiltrates and superimposed trace right and small left pleural effusions, suggestive of congestion. He received a dose of Lasix and broad-spectrum antibiotics in the ED. Was admitted for further medical management Echocardiogram from 05/20/2020 showed normal left ventricular systolic function, with ejection fraction 50 to 55%. 02/06: Afebrile. States he is breathing better, at his baseline nighttime O2 r equirement of 4L. 3060 urine output overnight. States still breathing has improved. CT chest yesterday showed patchy left basilar opacity that may represent atelectasis or infection, and heavy coronary artery calcification. Per cardiology, plan for outpatient ischemic evaluation, including echo and myocardial perfusion study. He has home Lasix that he has been using as needed, and recommended to continue given the benefit he is derived patient. Recommend follow-up with his PCP within 5-7 days, and follow-up with cardiology for outpatient ischemic evaluation. Greater than 30 min spent managing the discharge of this patient. Discharge Information Condition at Discharge: Improved Disposition/Orders: D/C to Home Scheduled Albuterol Sulfate (Ventolin Hfa Inhaler) 18 Gm Hfa.aer.ad, 2 PUFF INH Q4HRS for FOR ASTHMA, Ref 0 (Reported) Entered as Reported by: BRANDAN MILLER on 04/20/17 1453 Last Action: Reviewed on 02/04/212332 by MARTHA PAULA RN Amlodipine Besylate (Amlodipine Besylate) 5 Mg Tablet, 5 MG PO DAILY, (Reported) Entered as Reported by: KRISTI KAUR on 01/03/16 1322 Last Action: Continued on 02/04/212339 by DEVON GARRETT MD Aspirin (Aspir 81) 81 Mg Tablet.dr, 81 MG PO DAILY08, (Reported) Entered as Reported by: CHARLA CARLOS on 08/26/13 1557 Last Action: Continued on 02/04/212339 by DEVON GARRETT MD Cholecalciferol (Vitamin D3) (Vitamin D3) 1,250 Mcg Capsule, Unknown Dose PO DAILY for supp, (Reported) Entered as Reported by: KRISTI KAUR on 05/12/20 1512 Last Action: Reviewed on 02/04/212332 by MARTHA PAULA RN Duloxetine Hcl (Cymbalta) 30 Mg Capsule.dr, 60 MG PO DAILY, #30 Ref 5 (Reported) Entered as Reported by: KRISTI KAUR on 01/03/16 1322 Last Action: Continued on 02/04/212339 by DEVON GARRETT MD Ipratropium/Albuterol Sulfate (Duoneb 0.5-3(2.5) Mg/3 Ml) 3 Ml Ampul.neb, 3 ML NEB Q4H for COPD for 30 Days, #180 Prescribed by: GENO GUERRA MD on 03/20/19 1017 Last Action: Reviewed on 02/04/212332 by MARTHA PAULA RN Lisinopril (Lisinopril) 40 Mg Tablet, 1 TAB PO DAILY for HTN, #30 Ref 5 (Reported) Entered as Reported by: AURELIA ROMANO on 05/16/19 1124 Last Action: Reviewed on 02/04/212332 by MARTHA PAULA RN Lorazepam (Ativan) 1 Mg Tablet, 1 MG PO HS for anxiety, (Reported) Entered as Reported by: KRISTI KAUR on 05/12/20 1508 Last Action: Reviewed on 02/04/212332 by MARTHA PAULA RN Metoprolol Succinate (Metoprolol Succinate ( Xl )) 100 Mg Tab.er.24h, 100 MG PO HS for FOR HYPERTENSION, #30 Ref 0 (Reported) Entered as Reported by: CHARLA CARLOS on 11/23/17 1055 Last Action: Continued on 02/04/212339 by DEVON GARRETT MD Omeprazole (Omeprazole) 40 Mg Capsule.dr, 20 MG PO DAILY, #30 Ref 3 (Reported) Entered as Reported by: BRANDAN MILLER on 04/20/17 1450 Last Action: Converted on 02/04/212339 by DEVON GARRETT MD Ropinirole Hcl (Ropinirole Hcl) 1 Mg Tablet, 1 MG PO QHS for restless leg syndrome, (Reported) Entered as Reported by: XIN CUI on 01/12/20 0832 Last Action: Continued on 02/05/212034 by MARTHA PAULA RN Rosuvastatin Calcium (Crestor) 40 Mg Tablet, 40 MG PO HS for FOR CHOLESTEROL, #30 Ref 0 (Reported) Entered as Reported by: CHARLA CARLOS on 11/23/17 1055 Last Action: Converted on 02/04/212339 by DEVON GARRETT MD Tamsulosin Hcl (Flomax) 0.4 Mg Cap.er.24h, 0.4 MG PO DAILY for bmp, (Reported) Entered as Reported by: XIN CUI on 09/09/20 1345 Last Action: Continued on 02/04/212339 by DEVON GARRETT MD Tiotropium Br/Olodaterol HCl (Stiolto Respimat Inhal Purdy) 4 Gm Mist.inhal, 4 GM IH DAILY for sob, (Reported) Entered as Reported by: KRISTI KAUR on 06/24/20926 Last Action: Converted on 02/04/212339 by DEVON GARRETT MD Vitamin B Complex (B Complex) 1 Each Tablet, 1 TAB PO DAILY for supp for 30 Days, #30 Ref 0 (Reported) Entered as Reported by: KRISTI KAUR on 05/12/201511 Last Action: Reviewed on 02/04/212332 by MARTHA PAULA RN Scheduled PRN Acetaminophen (Acetaminophen) 500 Mg Tablet, 2 TAB PO PRN Q6HRS PRN for pain or fever for 15 Days, #60 Ref 0 (Reported) Entered as Reported by: KRISTI KAUR on 1/20/21 1510 Last Action: Reviewed on 02/04/212332 by MARTHA PAULA RN Albuterol Sulfate (Proair Hfa Inhaler) 8.5 Gm Hfa.aer.ad, 2 PUFF IH PRN Q4-6HRS PRN for wheezing for 21 Days, #1 Ref 0 (Reported) Entered as Reported by: KRISTI KAUR on 05/12/20 151 Last Action: Reviewed on 02/04/212332 by MARTHA PAULA RN Oxycodone Hcl (Oxycodone Hcl Immed.release) 10 Mg Tablet, 20 MG PO PRN Q4HRS PRN for PAIN, #120 (Reported) Entered as Reported by: FRANKLIN CHÁVEZ on 01/25/16 0917 Last Action: Converted on 02/04/212339 by DEVON GARRETT MD Justicifation of Admission Dx: Justifications for Admission: Justification of Admission Dx: Yes Acute Renal Failure: 3-Fold Rise in Serum MEHDI Perry MD Feb 06, 2021 10:09
[2021-02-06 11:00] VITALS: BP 118/64
[2021-02-06 15:00] VITALS: BP 111/65
--- NOTE | 2021-02-06 23:34 | PDOC ---
CARDIOLOGY PROGRESS NOTE SUBJECTIVE: No acute events. Reports feeling better. Less UOP today. LE still swollen but improved. OBJECTIVE: Vital Signs/I&O: Vital Signs Date Time Temp Pulse Resp B/P (MAP) Pulse Ox O2 Delivery O2 Flow Rate FiO2 02/06/21 15:00 97.0 70 18 111/65 (80) 93 Nasal Cannula 4.0 97.0 I & O 02/05/21 02/05/21 02/06/21 15:00 23:00 07:00 Intake Total 1100 ml 240 ml 700 ml Output Total 450 ml 725 ml Balance 1100 ml -210 ml -25 ml Objective: GEN.: No apparent distress. Alert and oriented. HEENT: Head is normocephalic, atraumatic NECK: Supple. LUNGS: Clear to auscultation. HEART: RRR, S1, S2 present. Peripheral pulses intact ABDOMEN: Soft, nontender. Positive bowel sounds. EXTREMITIES: Without any cyanosis.Mild bilateral LE edema. NEUROLOGIC: Normal speech, normal tone PSYCHIATRIC: Normal affect, normal mood. SKIN: No ulcerations CURRENT MEDICATIONS: Meds reviewed. DIAGNOSTIC TESTING: Labs reviewed. ASSESSMENT: 1. Acute on chronic diastolic heart failure - improved. 2. Coronary artery disease, negative cardiac enzymes and negative EKG 3. Hypertension 4. Dyslipidemia 5. COPD on home O2 therapy PLAN: 1. Home on lasix 40mg daily 2. Labs in next 24 to 48 hours. 3. Outpt echo and stress testing. Thanks Justicifation of Admission Dx: Justifications for Admission: Justification of Admission Dx: Yes Acute Renal Failure: 3-Fold Rise in Serum FELA Rodas MD Feb 06, 2021 23:34
[2021-02-09] MEDS ORDERED: THIAMINE 100 MG TABLET. PO SCH (09:00)
[2021-02-09] MEDS ORDERED: MULTIVITAMIN with MINERAL TABLET. PO SCH (09:00)
[2021-02-09] MEDS ORDERED: FOLIC ACID 1 MG TABLET. PO SCH (09:00)
[2021-02-14] MEDS ORDERED: FURO-68 PO (13:36)
== END 2021-02-06 16:15 | disposition home or self-care (01) | DRG 193 ==
LOC: ER 15:45 → 6 SOUTH 19:48
PROVIDERS: ADMIT Internal Medicine; ATTEND Internal Medicine
DX: J18.9 Pneumonia, unspecified organism (principal); I50.33 Acute on chronic diastolic (congestive) heart failure; J44.0 Chronic obstructive pulmonary disease with (acute) lower respiratory infection; I11.0 Hypertensive heart disease with heart failure; E78.00 Pure hypercholesterolemia, unspecified; E78.5 Hyperlipidemia, unspecified; F41.9 Anxiety disorder, unspecified; G25.81 Restless legs syndrome; I25.10 Atherosclerotic heart disease of native coronary artery without angina pectoris; I27.81 Cor pulmonale (chronic); Z79.82 Long term (current) use of aspirin; Z79.899 Other long term (current) drug therapy; Z82.49 Family history of ischemic heart disease and other diseases of the circulatory system; Z87.891 Personal history of nicotine dependence; Z95.2 Presence of prosthetic heart valve; Z95.5 Presence of coronary angioplasty implant and graft; Z96.659 Presence of unspecified artificial knee joint; Z99.81 Dependence on supplemental oxygen; F32.A Depression, unspecified; G89.29 Other chronic pain; K21.9 Gastro-esophageal reflux disease without esophagitis; K57.90 Diverticulosis of intestine, part unspecified, without perforation or abscess without bleeding; M19.90 Unspecified osteoarthritis, unspecified site; Z90.49 Acquired absence of other specified parts of digestive tract
CPT/HCPCS: 36415; 71045; 71250; 80053; 81001; 83605; 83880; 84484; 85025; 85610; 85730; 87040; 87426; 93005; 94640; 94760; 96365; 96375; J0456; J0696; J1644; J1940; U0003; U0005; 99285-25; G0378

== ENCOUNTER → 2021-02-14 | Outpatient (CLI) | payer MEDICARE, OTHER ==
[2021-02-06 15:00] VITALS: BP 111/65
[~2021-02-14] MED LIST changes: +IOHEXOL 180 MG/ML 10 ML VIAL. ONE; +methylPREDNISolone ACETATE 40 MG/ML VIAL. ONE; +methylPREDNISolone ACETATE 80 MG/ML VIAL. ONE
--- NOTE | 2021-02-14 14:08 | PDOC ---
Progress Note - Pain Clinic Date of Service: DOS: DATE: 02/14/21 TIME: 14:04 Diagnosis: Dx: Lumbar radiculopathy with lumbar degenerative disease and lumbar spondylosis Bilateral knee joint pain with osteoarthritis Right shoulder joint pain with osteoarthritis and rotator cuff tear History or Present Illness: HPI: 75-year-old male returns for follow-up status post lumbar epidural steroid injection via caudal approach september 11. Patient reports very well about 3 months worth of decreased pain 60 to 70% now is about 40% with pain returning in the low back and bilateral lower extremities patient reports also pain in the right shoulder was becoming more noticeable and in the bilateral knees patient report his back is a chief complaint today however with pain rating the poste rior gluteus posterior thighs posterior calves slightly worse on the right than the left and present bilaterally patient scribes as aching and sharp stabbing in the back itself shooting and radiating the lower extremities patient rates is an 8 on scale 10 at its worst 6 on average 3 its least a week is a 5 today. Patient reports no loss of motor function but significant tenderness with walking and standing changing positions and has been awakening from sleep only occasionally. Patient reports his right shoulder becoming much more painful and noticeable with activity especially raising his hand over his head or abduction on the right side. Physical Exam: VS: Blood pressure is 125/60 pulse 67 respirations 18 temperature 97.9 F height is 6 foot weight is 263 pounds PE: PHYSICAL EXAMINATION: GENERAL: The patient is awake, alert, oriented, appropriate, very pleasant in demeanor HEENT: Shows normocephalic, atraumatic. Extraocular movements are intact and symmetrical. Oral cavity: Mucous membranes moist and pink. NECK: Shows anterior throat supple without palpable lymphadenopathy noted. Swallow reflex symmetrical. CHEST: Shows normal on inspection. Breath sounds are clear bilaterally, distant but no rales rhonchi or wheezes auscultated. HEART: Shows S1, S2 clear. No murmurs auscultated. ABDOMEN: Soft, nontender, nondistended, obese. No palpable organomegaly is noted. BACK: Shows spine grossly in the midline. Normal-appearing cervical lordotic curvature. There is slightly increased thoracic kyphosis, some minor flattening of the lumbar lordotic curvature. Lumbar paraspinous muscles show symmetrical on inspection, on palpation shows some moderate tenderness diffusely throughout the upper, middle and lower distribution of the paraspinous muscles, but without specific trigger points, without radiation of pain. The patient has good rotational motion of the lumbar spine, both laterally as well as extension and flexion without significant difficulty. EXTREMITIES: Lower extremities show deep tendon reflexes 2+ in the patellar and tendo calcaneus tendons. Motor exam is 4 on a scale of 5 with right dorsiflexion, extension, quadriceps and hamstring flexion and 4/5 on the left. Peripheral pulses are 1+ posterior tibial. No peripheral edema is noted bilaterally. Lower extremities are warm and dry to touch, equal in color and appearance. SKIN: Shows warm and dry, good turgor. No edema. No sores, rashes or bruising throughout. Procedure: Procedure: Options were discussed with the patient. Patient's old chart was reviewed as his current medication regimen updated current review of systems updated today as well. We will proceed with caudal approach epidural steroid injection today with fluoroscopic guidance. Risks were discussed including but not limited to: Bleeding, infection, possibility of epidural hematoma and subsequent neurological compromise, dural puncture, headaches, spinal cord and/or nerve damage, side effects of steroid medication, and poor results regarding pain control. Patient understands and wished to proceed. Patient return to clinic in approximately 3 weeks for follow-up, was counseled as return appointment, activity level, and side effect to be aware of. Medication Injected: Med Injected: Procedure is lumbar epidural steroid injection under local anesthetic using sterile prep and drape at the caudal level using C-arm fluoroscopic guidance in both AP and lateral views medications injected is 120 mg Depo-Medrol +10mL preservative-free normal saline and 2 mL contrast- condition at discharge is stable patient tolerated procedure well had no complications. Condition at Discharge: Condition at Discharge: Condition at discharge is stable, patient already procedure well and had no complications. ANISH DELGADO MD Feb 14, 2021 14:08
--- NOTE | 2021-02-14 14:09 | PDOC4 ---
Procedure Note: ICD 10 Code: ICD 10 Code: M54.17 M51.87 M4 7.817 Procedure Note: Patient was consented for caudal approach epidural steroid injection today with fluoroscopic guidance. Risks were discussed including but not limited to: Bleeding, infection, possibility of epidural hematoma and subsequent neurological compromise, dural puncture, headaches, spinal cord and/or nerve damage, side effects of steroid medication, and poor results regarding pain control. Patient understands and wished to proceed. Procedure is lumbar epidural steroid injection under local anesthetic using sterile prep and drape at the caudal level using C-arm fluoroscopic guidance in both AP and lateral views medications injected is 120 mg Depo-Medrol +10mL preservative-free normal saline and 2 mL contrast- condition at discharge is stable patient tolerated procedure well had no complications. ANISH DELGADO MD Feb 14, 2021 14:09
== END | disposition home or self-care (01) ==
LOC: PNCL 13:18
PROVIDERS: ATTEND Anesthesiology
DX: M51.16 Intervertebral disc disorders with radiculopathy, lumbar region (principal); M47.26 Other spondylosis with radiculopathy, lumbar region; M17.0 Bilateral primary osteoarthritis of knee; M19.011 Primary osteoarthritis, right shoulder; M75.101 Unspecified rotator cuff tear or rupture of right shoulder, not specified as traumatic; I25.10 Atherosclerotic heart disease of native coronary artery without angina pectoris; I10 Essential (primary) hypertension; E78.00 Pure hypercholesterolemia, unspecified; J44.9 Chronic obstructive pulmonary disease, unspecified; G47.30 Sleep apnea, unspecified; F41.9 Anxiety disorder, unspecified; F32.9 Major depressive disorder, single episode, unspecified; Z87.891 Personal history of nicotine dependence; Z79.899 Other long term (current) drug therapy; Z98.890 Other specified postprocedural states
CPT/HCPCS: 62323; J1030; J1040; Q9965

== ENCOUNTER → 2021-03-09 | Outpatient (CLI) | payer MEDICARE, OTHER ==
[~2021-03-09] MED LIST changes: +BUPIVACAINE MPF 0.25% 10 ML VIAL. ONE; +FOLI0.8T5 PO; +FURO40TA4 PO; -LISI1TAB20 PO; +LISI1TAB39 PO; -methylPREDNISolone ACETATE 40 MG/ML VIAL. ONE
--- NOTE | 2021-03-09 14:36 | PDOC ---
Progress Note - Pain Clinic Date of Service: DOS: DATE: 03/09/21 TIME: 14:31 Diagnosis: Dx: Right shoulder joint pain with osteoarthritis and rotator cuff repair Bilateral knee joint pain with osteoarthritis Lumbar radiculopathy, degenerative disc disease and lumbar and lumbosacral spondylosis History or Present Illness: HPI: 75-year-old male returns for follow-up status post caudal epidural steroid injection x2. Patient reports he is very about 75% improvement pain the low back and left lower extremity doing much better increase activity greater ease and comfort his walking greater distances with greater ease of sleeping better at night patient reports his chief complaint today however is right shoulder pain he has some significant pain in the right shoulder with osteoarthritis and rotator cuff repair patient reports it is getting worse with repetitive motions using his right upper extremity with weightbearing lifting and abduction of the right shoulder significantly more significantly painful as well. Patient reports this is beginning to wake him from sleep at night about once every 8 hours or so and if he lays on his left side he gets fairly good sleep patient reports pain in the right shoulder is an 8 on scale 10 is worse over the past week 6 on average 4 to sleep and is a 6 today. Patient scribes a stabbing aching can be sharp on and off in intensity again more notable with repetitive motions of weightbearing and lifting with abduction of the right arm. Patient reports no loss of motor function but significant fatigability of the right arm compared to the left. Physical Exam: VS: Pressure is 103/53 pulse 81 respirations 18 temperature 98.5 F 6 foot weight 257 pounds. PE: PHYSICAL EXAMINATION: GENERAL: The patient is awake, alert, oriented, appropriate, very pleasant in demeanor HEENT: Shows normocephalic, atraumatic. Extraocular movements are intact and symmetrical. Oral cavity: Mucous membranes moist and pink. NECK: Shows anterior throat supple without palpable lymphadenopathy noted. Swallow reflex symmetrical. CHEST: Shows normal on inspection. Breath sounds are clear bilaterally, distant but no rales or rhonchi or wheezes auscultated. HEART: Shows S1, S2 clear. No murmurs auscultated. ABDOMEN: Soft, nontender, nondistended, obese. No palpable organomegaly is noted. BACK: Shows spine grossly in the midline. Normal-appearing cervical lordotic curvature. There is slightly increased thoracic kyphosis, some flattening of the lumbar lordotic curvature with well-healed surgical scarring noted. Lumbar paraspinous muscles show symmetrical on inspection, on palpation shows some moderate tenderness diffusely throughout the upper, middle and lower distribution of the paraspinous muscles without specific trigger points, without radiation of pain. The patient has good rotational motion of the lumbar spine, both laterally as well as extension and flexion without significant difficulty. No tenderness over the spinous processes, sacrum or sacroiliac regions. EXTREMITIES: Lower extremities show deep tendon reflexes 2+ in the patellar and tendo calcaneus tendons. Motor exam is 4 on a scale of 5 with right dorsiflexion, extension, quadriceps and hamstring flexion and 4/5 on the left. Peripheral pulses are 1+ posterior tibial. No peripheral edema is noted bilaterally. Lower extremities are warm and dry to touch, equal in color and appearance. Upper extremities show deep tendon reflexes 2+ in the bicep tricep tendons, motor exam is strong with manager of compensation strength. 5 out of 5 bicep tricep flexion is 4-5 on the right and 5 out of 5 on the left. His right shoulder shows significant tenderness with abduction greater than about 45 degrees with resistance as well as forward reach and resistance and rearward region resistance. Shoulder shrug is intact pain with resistance on the right side as well but no loss of strength. Patient is shoulder joint shows good rotational motion with some mild popping palpable with abduction, left side shows normal rotation. SKIN: Shows warm and dry, good turgor. No edema. No sores, rashes or bruising throughout. Procedure: Procedure: Options discussed with the patient. Patient's chart reviewed his current medication regimen updated current review of systems updated today as well. We will proceed with a right intra-articular shoulder joint injection today with fluoroscopic guidance. Risks discussed including but not limited to bleeding infection possibility of antibiotic injection sequelae, spondylolisthetic numbne ss, side effects of steroid medication, exposure fluoroscopy and portals regarding pain control. Patient understands wished to proceed. Patient will return to clinic in approximate 4 weeks to follow-up with, was canceled appointment, tibial, and sciatic to be aware of. Medication Injected: Med Injected: Patient supine position under sterile prep and drape using C-arm fluoroscopic guidance patient's right shoulder was visualized and using 25-gauge needle 1% lidocaine was used to topically anesthetized area over the glenohumeral joint on the right. Using a 22-gauge Quincke needle with stylette the joint was entered under direct fluoroscopic visualization without difficulty stylet was removed at this time 2 cc of contrast was injected with good intra-articular spread in the shoulder joint without uptake. At this time 3 cc of 0.25% bupivacaine and 80 mg Depo-Medrol was then injected into the joint. Needle was removed and sterile bandage was applied. Patient tolerated the procedure well and had no complications. Condition at Discharge: Condition at Discharge: Condition at discharge is stable, patient tolerated the procedure well and had no complications. ANISH DELGADO MD Mar 09, 2021 14:36
--- NOTE | 2021-03-09 14:36 | PDOC4 ---
Procedure Note: ICD 10 Code: ICD 10 Code: M2 5.511 M1 9.011 Procedure Note: Patient was consented for right intra-articular shoulder joint injection with fluoroscopic guidance. Risk discussed including but not limited to bleeding infection possibility of intravascular injection sequelae, spread to local acetic numbness, side effects of steroid medication, exposure fluoroscopy, and poor results regarding pain control. Patient understands wished to proceed. Patient supine position under sterile prep and drape using C-arm fluoroscopic guidance patient's right shoulder was visualized and using 25-gauge needle 1% lidocaine was used to topically anesthetized area over the glenohumeral joint on the right. Using a 22-gauge Quincke needle with stylette the joint was entered under direct fluoroscopic visualization without difficulty stylet was removed at this time 2 cc of contrast was injected with good intra-articular spread in the shoulder joint without uptake. At this time 3 cc of 0.25% bupivacaine and 80 mg Depo-Medrol was then injected into the joint. Needle was removed and sterile bandage was applied. Patient tolerated the procedure well and had no complications. ANISH DELGADO MD Mar 09, 2021 14:36
== END | disposition home or self-care (01) ==
LOC: PNCL 14:00
PROVIDERS: ATTEND Anesthesiology
DX: M19.011 Primary osteoarthritis, right shoulder (principal); M25.511 Pain in right shoulder; M17.0 Bilateral primary osteoarthritis of knee; M51.16 Intervertebral disc disorders with radiculopathy, lumbar region; M47.27 Other spondylosis with radiculopathy, lumbosacral region; I10 Essential (primary) hypertension; I25.10 Atherosclerotic heart disease of native coronary artery without angina pectoris; E78.00 Pure hypercholesterolemia, unspecified; G47.30 Sleep apnea, unspecified; F41.9 Anxiety disorder, unspecified; F32.9 Major depressive disorder, single episode, unspecified; Z87.891 Personal history of nicotine dependence; Z79.899 Other long term (current) drug therapy; Z98.890 Other specified postprocedural states; Z82.49 Family history of ischemic heart disease and other diseases of the circulatory system
CPT/HCPCS: 20610; 77002; J1040; J3490; Q9965

== ENCOUNTER → 2021-03-30 | Outpatient (CLI) | payer MEDICARE, OTHER ==
[~2021-03-30] MED LIST changes: -BUPIVACAINE MPF 0.25% 10 ML VIAL. ONE; +methylPREDNISolone ACETATE 40 MG/ML VIAL. ONE
--- NOTE | 2021-03-30 14:36 | PDOC ---
Progress Note - Pain Clinic Date of Service: DOS: DATE: 03/30/21 TIME: 14:31 Diagnosis: Dx: Lumbar radiculopathy with lumbar degenerative disease and lumbar and lumbosacral spondylosis Bilateral knee joint pain with osteoarthritis Right shoulder joint pain with osteoarthritis and rotator cuff tear History or Present Illness: HPI: 76-year-old male returns for follow-up status post right shoulder joint injection with very good results about 75% improvement in the right shoulder patient reports still currently doing well this was March 09, 2021 patient reports his main complaint today is low back and bilateral lower extremity pain with pain rating the posterior gluteus posterior thigh posterior calf also some knee pain but mainly in the back is most painful and radiating to the leg patient reports is a 9 on scale 10 is worse over the past week for an average 3 days least is a 4 today. Pain is worse with walking standing changing positions getting up from seated position and disturbing her from sleep about every 2-4 hours. Patient reports while his shoulders doing better his back is now much more noticeably painful prescribed stabbing aching sharp in the back on and off in intensity radiating shooting in the lower extremities. Patient reports bladder incontinence. Physical Exam: VS: Blood pressure is 146/85 pulse 67 respirations are 20 temperature is 90.4 F weight is 268 pounds. PE: PHYSICAL EXAMINATION: GENERAL: The patient is awake, alert, oriented, appropriate, very pleasant in demeanor HEENT: Shows normocephalic, atraumatic. Extraocular movements are intact and symmetrical. Patient wearing eyeglasses. NECK: Shows anterior throat supple without palpable lymphadenopathy noted. Swallow reflex symmetrical. CHEST: Shows normal on inspection. Breath sounds are clear bilaterally, distant but no rales or rhonchi. HEART: Shows S1, S2 clear. No murmurs auscultated. ABDOMEN: Soft, nontender, nondistended, obese. No palpable organomegaly is noted. BACK: Shows spine grossly in the midline. Normal-appearing cervical lordotic curvature. There is slightly increased thoracic kyphosis, some minor flattening of the lumbar lordotic curvature with well-healed surgical scar noted. Lumbar paraspinous muscles show symmetrical on inspection, on palpation shows some moderate tenderness diffusely throughout the upper, middle and lower distribution of the paraspinous musculature, but without specific trigger points, without radiation of pain. The patient has good rotational motion of t he lumbar spine, both laterally as well as extension and flexion without significant difficulty. No tenderness over the spinous processes, sacrum or sacroiliac regions. EXTREMITIES: Lower extremities show deep tendon reflexes 1+ in the patellar and tendo calcaneus tendons. Motor exam is 4 on a scale of 5 with right dorsiflexion, extension, quadriceps and hamstring flexion and 4/5 on the left. Peripheral pulses are 1 posterior tibial. No peripheral edema is noted bilaterally. Lower extremities are warm and dry to touch, equal in color and appearance. SKIN: Shows warm and dry, good turgor. No edema. No sores, rashes or bruising throughout. Procedure: Procedure: Options were discussed with patient. Patient chart was reviewed his current medication regimen updated current review of systems updated today as well. We will proceed with a caudal approach epidural steroid injection today with fluoroscopic guidance. Risks were discussed including but not limited to: Bleeding, infection, possibility of epidural hematoma and subsequent neurological compromise, dural puncture, headaches, spinal cord and/or nerve damage, side effects of steroid medication, and poor results regarding pain control. Patient understands and wished to proceed. Patient return to clinic in approximately 2 weeks for follow-up, was counseled as to return appointment, activity level, and side effect to be aware of. Medication Injected: Med Injected: Procedure is lumbar epidural steroid injection under local anesthetic using sterile prep and drape at the caudal level using C-arm fluoroscopic guidance in both AP and lateral views medications injected is 120 mg Depo-Medrol +10mL preservative-free normal saline and 2 mL contrast- condition at discharge is stable patient tolerated procedure well had no complications. Condition at Discharge: Condition at Discharge: Condition at discharge stable, patient tolerated seizure well and had no complications. ANISH DELGADO MD Mar 30, 2021 14:36
--- NOTE | 2021-03-30 14:36 | PDOC4 ---
Procedure Note: ICD 10 Code: ICD 10 Code: M54.17 M51.7 M4 7.816 M4 7.817 Procedure Note: Patient was consented for caudal approach epidural steroid injection with fluoroscopic guidance. Risks were discussed including but not limited to: Bleeding, infection, possibility of epidural hematoma and subsequent neurologica l compromise, dural puncture, headaches, spinal cord and/or nerve damage, side effects of steroid medication, and poor results regarding pain control. Patient understands and wished to proceed. Procedure is lumbar epidural steroid injection under local anesthetic using sterile prep and drape at the caudal level using C-arm fluoroscopic guidance in both AP and lateral views medications injected is 120 mg Depo-Medrol +10mL preservative-free normal saline and 2 mL contrast- condition at discharge is stable patient tolerated procedure well had no complications. ANISH DELGADO MD Mar 30, 2021 14:36
== END | disposition home or self-care (01) ==
LOC: PNCL 13:24
PROVIDERS: ATTEND Anesthesiology
DX: M51.16 Intervertebral disc disorders with radiculopathy, lumbar region (principal); M51.17 Intervertebral disc disorders with radiculopathy, lumbosacral region; M17.0 Bilateral primary osteoarthritis of knee; M19.011 Primary osteoarthritis, right shoulder; M75.101 Unspecified rotator cuff tear or rupture of right shoulder, not specified as traumatic; I25.10 Atherosclerotic heart disease of native coronary artery without angina pectoris; I10 Essential (primary) hypertension; E78.00 Pure hypercholesterolemia, unspecified; J44.9 Chronic obstructive pulmonary disease, unspecified; F41.9 Anxiety disorder, unspecified; F32.9 Major depressive disorder, single episode, unspecified; G47.30 Sleep apnea, unspecified; Z87.891 Personal history of nicotine dependence; Z79.899 Other long term (current) drug therapy; Z98.890 Other specified postprocedural states
CPT/HCPCS: 62323; J1030; J1040; Q9965

== ENCOUNTER → 2021-04-06 | Outpatient (CLI) | payer MEDICARE, OTHER ==
[~2021-04-06] MED LIST changes: +BUPIVACAINE MPF 0.25% 10 ML VIAL. ONE; -methylPREDNISolone ACETATE 40 MG/ML VIAL. ONE
--- NOTE | 2021-04-06 14:22 | PDOC ---
Progress Note - Pain Clinic Date of Service: DOS: DATE: 04/06/21 TIME: 14:16 Diagnosis: Dx: Left knee joint pain with osteoarthritis Lumbar radiculopathy with lumbar degenerative disease and lumbar and lumbosacral spondylosis Right shoulder joint pain with osteoarthritis and rotator cuff tear History or Present Illness: HPI: 76-year-old male returns for follow-up status post lumbar epidural steroid injection via caudal approach March 30, 2021 patient reports about 70 to 75% improvement in his low back pain his chief complaint today however is left knee pain with significant history of osteoarthritis in the left knee and pain with walking standing changing position specially putting all his weight on his left leg such as on a stair or step patient reports is waking her from sleep least every 6-7 hours while the back is doing much better increase his activity with his back his knee is limiting him to some extent because it is much more painful patient reports is aching sharp stabbing can be unbearable on and off in intensity but is always painful throughout the day. Patient reports no loss of motor function no bowel or bladder incontinence. Physical Exam: VS: Blood pressure is 160/80 pulse 65 respirations 18 temperature 97.0 F height is 6 foot weight is 261 pounds. PE: PHYSICAL EXAMINATION: GENERAL: The patient is awake, alert, oriented, appropriate, very pleasant in demeanor HEENT: Shows normocephalic, atraumatic. Extraocular movements are intact and symmetrical. NECK: Shows anterior throat supple without palpable lymphadenopathy noted. Swallow reflex symmetrical. CHEST: Shows normal on inspection. Breath sounds are clear bilaterally, distant but no rales or rhonchi. HEART: Shows S1, S2 clear. No murmurs auscultated. ABDOMEN: Soft, nontender, nondistended, obese. No palpable organomegaly is noted. BACK: Shows spine grossly in the midline. Normal-appearing cervical lordotic curvature. There is increased thoracic kyphosis, some flattening of the lumbar lordotic curvature. Lumbar paraspinous muscles show symmetrical on inspection, on palpation shows some moderate tenderness diffusely throughout the upper, middle and lower distribution of the paraspinous musculature, without specific trigger points, without radiation of pain. The patient has good rotational motion of the lumbar spine, both laterally as well as extension and flexion without significant difficulty. EXTREMITIES: Lower extremities show deep tendon reflexes 2+ in the patellar and tendo calcaneus tendons. Motor exam is 4 on a scale of 5 with right dorsiflexion, extension, quadriceps and hamstring flexion and 4/5 on the left. Peripheral pulses are 1+ posterior tibial. No peripheral edema is noted bilaterally. Lower extremities are warm and dry. Patient's knees show significant tenderness in the left medial collateral ligament with palpation as well as the medial aspect of the patella with good range of motion without ratcheting or crepitus. SKIN: Shows warm and dry, good turgor. No edema. No sores, rashes or bruising throughout. Procedure: Procedure: Options were discussed with the patient. Patient's old chart was reviewed as was his current medication regimen updated, and current review of systems updated today as well. We will proceed with a left intra-articular knee joint injection today with fluoroscopic guidance. Risks were discussed including but not limited to bleeding infection possibility of intravascular injection sequelae spread local anesthetic numbness side effects steroid medication portals regarding pain control. Patient understands wished to proceed. Return to clinic in approximately 4 weeks for follow-up, was counseled as return appointment, activity level, and side effect to be aware of. Medication Injected: Med Injected: Under sterile prep and drape patient in supine position using C-arm fluoroscopic guidance patient's left knee was sterilely prepped and draped in usual fashion. Using C-arm fluoroscopy the medial aspect of the knee joint was identified and visualized and using 1% lidocaine 25-gauge needle of the area of the skin overlying the medial knee compartment was anesthetized. Using a 22-gauge quickie needle with stylette the joint was entered under direct visualization without difficulty. Stylet was removed at this time 1.5 cc of contrast was then injected with good spread within the knee joint itself without washout or uptake. At this time solution containing 3 cc of 0.25 bupivacaine and 80 mg Depo-Medrol, was then injected. Needle was withdrawn and sterile bandag applied. Patient tolerated procedure well and had no complications. Condition at Discharge: Condition at Discharge: Condition at discharge is stable, patient tolerated procedure well and had no complications. ANISH DELGADO MD Apr 06, 2021 14:22
--- NOTE | 2021-04-06 14:23 | PDOC4 ---
Procedure Note: ICD 10 Code: ICD 10 Code: M2 5.562 M1 7.12 Procedure Note: Patient was consented for left intra-articular knee joint injection with fluoroscopic guidance risks discussed including but not limited to bleeding infection possibility of intravascular injection and sequelae, spread of local anesthetic and numbness side effects of steroid medication exposure fluoroscopy and poor results regarding pain control. Patient understands wished to proceed. Under sterile prep and drape patient in supine position using C-arm fluoroscopic guidance patient's left knee was sterilely prepped and draped in usual fashion. Using C-arm fluoroscopy the medial aspect of the knee joint was identified and visualized and using 1% lidocaine 25-gauge needle of the area of the skin overlying the medial knee compartment was anesthetized. Using a 22-gauge quickie needle with stylette the joint was entered under direct visualization without difficulty. Stylet was removed at this time 1.5 cc of contrast was then injected with good spread within the knee joint itself without washout or uptake. At this time solution containing 3 cc of 0.25 bupivacaine and 80 mg Depo-Medrol, was then injected. Needle was withdrawn and sterile bandag applied. Patient tolerated procedure well and had no complications. ANISH DELGADO MD Apr 06, 2021 14:23
== END | disposition home or self-care (01) ==
LOC: PNCL 13:32
PROVIDERS: ATTEND Anesthesiology
DX: M17.12 Unilateral primary osteoarthritis, left knee (principal); M51.16 Intervertebral disc disorders with radiculopathy, lumbar region; M47.26 Other spondylosis with radiculopathy, lumbar region; M47.27 Other spondylosis with radiculopathy, lumbosacral region; M19.011 Primary osteoarthritis, right shoulder; M75.101 Unspecified rotator cuff tear or rupture of right shoulder, not specified as traumatic; I25.10 Atherosclerotic heart disease of native coronary artery without angina pectoris; I10 Essential (primary) hypertension; E78.00 Pure hypercholesterolemia, unspecified; J44.9 Chronic obstructive pulmonary disease, unspecified; G47.30 Sleep apnea, unspecified; F41.9 Anxiety disorder, unspecified; F32.9 Major depressive disorder, single episode, unspecified; Z87.891 Personal history of nicotine dependence; Z79.82 Long term (current) use of aspirin; Z79.899 Other long term (current) drug therapy; Z98.890 Other specified postprocedural states; Z82.49 Family history of ischemic heart disease and other diseases of the circulatory system; Z83.3 Family history of diabetes mellitus
CPT/HCPCS: 20610; 77002; J1040; J3490; Q9965

== ENCOUNTER → 2021-05-16 | Outpatient (CLI) | payer MEDICARE, OTHER ==
[~2021-05-16] MED LIST changes: -BUPIVACAINE MPF 0.25% 10 ML VIAL. ONE
--- NOTE | 2021-05-16 13:44 | PDOC ---
Progress Note - Pain Clinic Date of Service: DOS: DATE: 05/16/21 TIME: 13:37 Diagnosis: Dx: Lumbar radiculopathy with lumbar degenerative disc disease and lumbar and lumbosacral spondylosis Bilateral knee joint pain with osteoarthritis Right shoulder joint pain with osteoarthritis and rotator cuff tear History or Present Illness: HPI: 76-year-old male returns for follow-up status post left knee joint injection with about 75% improvement in left knee patient reports doing very well his treatment today is low back with pain rating the posterior gluteus and posterior hips and thighs, right essentially equal to left. Patient reports is aching and sharp in the back stabbing and shooting in the lower extremities rates a 9 on scale 10 is worst for an average for its least is a 4 today patient reports is better with sitting or laying down much worse with walking standing patient reports his knee is doing much better on the left side has been walking more comfortably but is walking more as well which is exacerbating the back pain to some extent. Patient reports better with laying down does not generally awaken her from sleep at night patient reports no bowel or bladder incontinence no loss of motor function. Physical Exam: VS: Blood pressure is 132/63 pulse 71 respirations are 18 temperature is 98.0 F height is 6 foot weight is 270 pounds. PE: PHYSICAL EXAMINATION: GENERAL: The patient is awake, alert, oriented, appropriate, very pleasant in demeanor HEENT: Shows normocephalic, atraumatic. Extraocular movements are intact and symmetrical. Oral cavity: Mucous membranes are moist and pink. NECK: Shows anterior throat supple without palpable lymphadenopathy noted. Swallow reflex symmetrical. CHEST: Shows normal on inspection. Breath sounds are clear bilaterally, distant but no rales or rhonchi. HEART: Shows S1, S2 clear. No murmurs auscultated. ABDOMEN: Soft, nontender, nondistended, obese. No palpable organomegaly is noted. BACK: Shows spine grossly in the midline. Normal-appearing cervical lordotic curvature. There is increased thoracic kyphosis, some flattening of the lumbar lordotic curvature, with well-healed midline surgical scar. Lumbar paraspinous muscles show symmetrical on inspection, on palpation shows some moderate tenderness diffusely throughout the upper, middle and lower distribution of the paraspinous muscles without specific trigger points, without radiation of pain. The patient has good rotational motion of the lumbar spine, both laterally as well as extension and flexion without significant difficulty. No tenderness over the spinous processes, sacrum or sacroiliac regions. EXTREMITIES: Lower extremities show deep tendon reflexes 2+ in the patellar and tendo calcaneus tendons. Motor exam is 4 on a scale of 5 with right dorsiflexion, extension, quadriceps and hamstring flexion and 4/5 on the left. Peripheral pulses are 1+ posterior tibial. No peripheral edema is noted bilaterally. Lower extremities are warm and dry. SKIN: Shows warm and dry, good turgor. No edema. No sores, rashes or bruising throughout. Procedure: Procedure: Options were discussed with the patient. Patient's old chart was reviewed his current medication regimen updated current review of systems updated today as well. We will proceed with a caudal approach epidural steroid ejections today with fluoroscopic guidance. Risks were discussed including but not limited to: Bleeding, infection, possibility of epidural hematoma and subsequent neurological compromise, dural puncture, headaches, spinal cord and/or nerve damage, side effects of steroid medication, and poor results regarding pain control. Patient understands and wished to proceed. Patient will return to the clinic in approximate 2 weeks for follow-up, was counseled as to return appointment, activity level, and side effect to be aware of. Medication Injected: Med Injected: Procedure is lumbar epidural steroid injection under local anesthetic using sterile prep and drape at the caudal level using C-arm fluoroscopic guidance in both AP and lateral views medications injected is 120 mg Depo-Medrol +10mL preservative-free normal saline and 2 mL contrast- condition at discharge is stable patient tolerated procedure well had no complications. Condition at Discharge: Condition at Discharge: Condition at discharge stable, patient tolerated the procedure well and had no complications. ANISH DELGADO MD May 16, 2021 13:44
--- NOTE | 2021-05-16 13:45 | PDOC4 ---
Procedure Note: ICD 10 Code: ICD 10 Code: M54.16 M51.36 M4 7.816 M4 7.817 Procedure Note: Patient was consented for caudal lumbar epidural steroid injection with fluoroscopic guidance. Risks were discussed including but not limited to: Bleeding, infection, possibility of epidural hematoma and subsequent neurological compromise, dural puncture, headaches, spinal cord and/or nerve damage, side effects of steroid medication, and poor results regarding pain control. Patient understands and wished to proceed. Procedure is lumbar epidural steroid injection under local anesthetic using sterile prep and drape at the caudal level using C-arm fluoroscopic guidance in both AP and lateral views medications injected is 120 mg Depo-Medrol +10mL preservative-free normal saline and 2 mL contrast- condition at discharge is stable patient tolerated procedure well had no complications. ANISH DELGADO MD May 16, 2021 13:45
--- NOTE | 2021-05-16 13:46 | FMN ---
PT PROBLEMS Addendum to progress note May 16, 2021 Discussed patient is arthritic condition and will add meloxicam as new medication to be taken once daily 15 mg. Patient was given instructions as well as side effects beware with the medication. ANISH DELGADO MD May 16, 2021 13:46
== END | disposition home or self-care (01) ==
LOC: PNCL 13:11
PROVIDERS: ATTEND Anesthesiology
DX: M51.16 Intervertebral disc disorders with radiculopathy, lumbar region (principal); M47.27 Other spondylosis with radiculopathy, lumbosacral region; M17.0 Bilateral primary osteoarthritis of knee; M19.011 Primary osteoarthritis, right shoulder; M75.101 Unspecified rotator cuff tear or rupture of right shoulder, not specified as traumatic; I25.10 Atherosclerotic heart disease of native coronary artery without angina pectoris; I10 Essential (primary) hypertension; E78.00 Pure hypercholesterolemia, unspecified; J44.9 Chronic obstructive pulmonary disease, unspecified; G47.30 Sleep apnea, unspecified; M19.90 Unspecified osteoarthritis, unspecified site; F41.9 Anxiety disorder, unspecified; F32.9 Major depressive disorder, single episode, unspecified; Z87.891 Personal history of nicotine dependence; Z79.82 Long term (current) use of aspirin; Z79.899 Other long term (current) drug therapy; Z98.890 Other specified postprocedural states
CPT/HCPCS: 62323; J1040; Q9965

== ENCOUNTER → 2021-06-08 | Outpatient (CLI) | payer MEDICARE, OTHER ==
[~2021-06-08] MED LIST changes: -IOHEXOL 180 MG/ML 10 ML VIAL. ONE; -methylPREDNISolone ACETATE 80 MG/ML VIAL. ONE
--- NOTE | 2021-06-08 14:27 | KCIC ---
EXAM: Chest CT without intravenous contrast. HISTORY: Dyspnea. COPD. TECHNIQUE: Computed tomographic images of the chest were obtained without contrast. Multiplanar refor matting was performed. *One or more of the following individualized dose reduction techniques were utilized for this examina tion: 1. Automated exposure control. 2. Adjustment of the mA and/or kV according to patient size. 3. Use of iterative reconstruction technique. COMPARISON: 02/05/2021. FINDINGS: The heart is normal in size. There is coronary artery calcification. There is dense calcifi cation of the aortic valve. There are few calcified granulomas within the right hilum and right lung. No pathologically enlarged mediastinal or hilar lymph node is seen. There is emphysema. There is no pneumothorax or pleural effusion. There has been resolution of previo usly demonstrated left lower lobe infiltrate. There is posterior dependent and basilar atelectasis. T here is medial right middle lobe and lingular atelectasis or scarring. There is suspected hepatic steatosis. There is a 1.6 cm lesion within the upper pole the right kidney , demonstrating attenuation greater than simple fluid. There are degenerative changes throughout the spine. There is no acute or suspicious osseous finding. IMPRESSION: 1. Resolution of previously demonstrated left lower lobe infiltrate. 2. Emphysema with right middle lobe and lingular atelectasis or scarring. There is also posterior dep endent and basilar atelectasis. 3. Coronary artery calcification and dense calcific lesion of the aortic valve. 4. Hepatic steatosis. 5. Stable lesion within the upper pole the right kidney, consistent with a cyst demonstrated on a son ogram dated 09/28/2020. Electronically signed by: Samantha Rodriguez MD (06/08/2021 2:24 PM) [id number]
== END ==
LOC: KCIC CT 12:34
PROVIDERS: ATTEND Internal Medicine Pulmonary Disease
DX: J43.9 Emphysema, unspecified (principal); I25.10 Atherosclerotic heart disease of native coronary artery without angina pectoris; I35.1 Nonrheumatic aortic (valve) insufficiency; K76.0 Fatty (change of) liver, not elsewhere classified; N28.89 Other specified disorders of kidney and ureter; J84.10 Pulmonary fibrosis, unspecified; M47.819 Spondylosis without myelopathy or radiculopathy, site unspecified; R06.00 Dyspnea, unspecified; Z87.891 Personal history of nicotine dependence
CPT/HCPCS: 71250

== ENCOUNTER → 2021-06-21 | Outpatient (CLI) | payer MEDICARE, OTHER ==
--- NOTE | 2021-06-21 18:01 | RAD ---
US RENAL BILAT History: Right superior pole renal lesion Comparison: CT chest 06/08/2021. Ultrasound 09/28/2020 Technique: Sonographic examination of the kidneys and bladder. Findings: Right kidney: 11.1 cm length. Benign upper pole anechoic cyst measuring 2.1 cm redemonstrated. No hyd ronephrosis or calculi identified. Left kidney: 11.5 cm length. No focal lesion, calculi or hydronephrosis. Bladder: No distal ureterectasis. No focal wall abnormality. Aorta/IVC: Visualized portions are unremarkable. Other: No ascites. Impression: 1. Benign 2.1 cm right upper pole renal cyst. No follow-up required. Electronically signed by: Brett Smith MD (06/21/2021 5:59 PM) [id number]
== END ==
LOC: US 12:45
PROVIDERS: ATTEND Family Medicine
DX: N28.1 Cyst of kidney, acquired (principal); N28.89 Other specified disorders of kidney and ureter
CPT/HCPCS: 76770

== ENCOUNTER 2021-07-11 14:15 | Inpatient (IN) | payer MEDICARE, OTHER ==
[~2021-07-11] VITALS: Ht 182.9 cm; Wt 122.7 kg
--- NOTE | 2021-07-11 19:45 | PHYS DOC ---
Past Medical History Past Medical History: Anxiety, Asthma, COPD, GERD, High Cholesterol, Hypertension, Other Additional Past Medical Histor: CHRONIC HIP PAIN Past Surgical History: Other Additional Past Surgical Histo: CARDIAC STENT Smoking Status: Former Smoker Alcohol Use: None Drug Use: None Adult General Chief Complaint Chief Complaint: LOWER EXTREMITY SWELLING HPI HPI The patient is a 76-year-old male with a history of hypertension, hyperlipidem ia, coronary artery disease status post stenting, diastolic heart failure on Lasix (patient admits that he has not been compliant with his Lasix since his most recent hospital discharge for heart failure exacerbation due to not liking the incontinence that comes with use of his Lasix), COPD/asthma with chronic respiratory failure on nasal cannula oxygen, SWETHA on CPAP. Mr. Marlow presents for evaluation of slightly less than a week of progressively worsening bilateral leg swelling with associated increased dyspnea with minimal exertion, orthopnea and lightheadedness. He tried to take twice daily Lasix over the weekend to address this but it did not completely resolve symptoms. Feels like prior heart failure exacerbations. No fevers, nausea or vomiting, upper respiratory congestion/rhinorrhea, cough, sore throat, chest pain of any kind, abdominal pain, flank pain, back pain, dysuria, hematuria, polyuria or oliguria, changes in bowel habits. Patient is alert, pleasantly and appropriately interactive, in no acute distress and speaking comfortably in full sentences upon initial evaluation here in the emergency department. He is ambulatory to his ED room from triage without difficulty. Review of Systems Review of Systems A 12 point review of systems was completed and was negative except where noted in HPI above. Current Medications Current Medications Current Medications Medications (Trade) Dose Ordered Sig/Janine Start Time Stop Time Status Last Admin Dose Admin Furosemide (Lasix) 40 mg 1X ONCE 07/11/21 22:15 07/11/21 22:16 DC 07/11/21 22:09 40 MG Lorazepam (Ativan) 1 mg 1X ONCE 07/11/21 21:45 07/11/21 21:47 DC 07/11/21 22:08 1 MG Meloxicam (Mobic) 15 mg QHS 07/11/21 21:46 Metoprolol Succinate (Toprol Xl) 100 mg 1X ONCE 07/11/21 21:45 07/11/21 21:47 DC 07/11/21 22:09 100 MG Oxycodone/ Acetaminophen (Percocet ) 2 tab 1X ONCE 07/11/21 21:45 07/11/21 21:47 DC 07/11/21 22:09 2 TAB Allergies Allergies Allergies Coded Allergies Type Severity Reaction Last Updated Verified No Known Drug Allergies 02/04/21 No Physical Exam Physical Exam 76-year-old male appearing nontoxic and in no acute distress. Head is normocephalic and atraumatic. Neck is supple and nontender. Oropharynx is moist. Lungs are clear to auscultation at all stations aside from some diminishment to all stephenson. There is a normal S1 and S2 without rubs or gallops and capillary refill is appropriate, less than 2 seconds globally. Abdomen is soft, nontender and protuberant, normal per patient for him. Skin is warm and dry without cyanosis, clubbing or edema. Psychiatrically, the patient demonstrates appropriate mood and affect and is alert. Evaluation of the extremities reveals BUEs and BLEs neurovascularly intact distally with strength out of 5, sensation intact light touch in all nerve distributions, radial, DP and PT pulses 2+ and equal bilaterally, capillary refill less than 2 seconds, hands and feet warm and well-perfused. 2+ pitting peripheral edema to the bilateral lower extremities below the level of the knees, somewhat worse on the right than the left (normal per patient when his legs swell). No calf tenderness swelling bilaterally. Homans test is negative bilaterally. Current Patient Data Vital Signs Vital Signs Date Time Temp Pulse Resp B/P (MAP) Pulse Ox O2 Delivery O2 Flow Rate FiO2 07/11/21 22:09 80 124/61 07/11/21 22:09 Room Air 07/11/21 16:08 98.1 18 93 2.0 98.1 Lab Values Laboratory Tests Test 07/11/21 20:05 White Blood Count 8.2 x10^3/uL (4.0-11.0) Red Blood Count 4.23 x10^6/uL (4.30-5.70) L Hemoglobin 13.8 g/dL (13.0-17.5) Hematocrit 41.8 % (39.0-53.0) Mean Corpuscular Volume 99 fL (79-100) Mean Corpuscular Hemoglobin 33 pg (25-35) Mean Corpuscular Hemoglobin Concent 33 g/dL (31-37) Red Cell Distribution Width 15.3 % (11.5-14.5) H Platelet Count 210 x10^3/uL (140-400) Neutrophils (%) (Auto) 62 % (31-73) Lymphocytes (%) (Auto) 25 % (24-48) Monocytes (%) (Auto) 10 % (0-9) H Eosinophils (%) (Auto) 3 % (0-3) Basophils (%) (Auto) 1 % (0-3) Neutrophils # (Auto) 5.1 x10^3/uL (1.8-7.7) Lymphocytes # (Auto) 2.0 x10^3/uL (1.0-4.8) Monocytes # (Auto) 0.8 x10^3/uL (0.0-1.1) Eosinophils # (Auto) 0.2 x10^3/uL (0.0-0.7) Basophils # (Auto) 0.1 x10^3/uL (0.0-0.2) Prothrombin Time 12.8 SEC (11.7-14.0) Prothrombin Time INR 1.0 (0.8-1.1) Activated Partial Thromboplast Time 30 SEC (24-38) Sodium Level 138 mmol/L (136-145) Potassium Level 4.1 mmol/L (3.5-5.1) Chloride Level 100 mmol/L (98-107) Carbon Dioxide Level 29 mmol/L (21-32) Anion Gap 9 (6-14) Blood Urea Nitrogen 27 mg/dL (8-26) H Creatinine 1.5 mg/dL (0.7-1.3) H Estimated GFR (Cockcroft-Gault) 45.7 BUN/Creatinine Ratio 18 (6-20) Glucose Level 99 mg/dL (70-99) Calcium Level 9.0 mg/dL (8.5-10.1) Total Bilirubin 0.4 mg/dL (0.2-1.0) Aspartate Amino Transferase (AST) 20 U/L (15-37) Alanine Aminotransferase (ALT) 28 U/L (16-63) Alkaline Phosphatase 66 U/L (46-116) Troponin I High Sensitivity 12 ng/L (4-75) BA-Eyw-K-Type Natriuretic Peptide 51 pg/mL (0-124) Total Protein 6.9 g/dL (6.4-8.2) Albumin 3.7 g/dL (3.4-5.0) Albumin/Globulin Ratio 1.2 (1.0-1.7) Laboratory Tests 07/11/21 20:05 Laboratory Tests 07/11/21 20:05 EKG EKG Sinus rhythm, rate 72, no acute ST elevation or depression, WI 152, QRS 86, QTc 435, EP interpretation. Nonischemic tracing, intervals appropriate. Radiology/Procedures Radiology/Procedures Exam Date: 07/11/2021 8:09 PM XR CHEST 1V Indication: Reason: SOA/leg swelling / Spl. Instructions: / History: . Comparison: February 04, 2021 FINDINGS/ IMPRESSION: The cardiac silhouette is enlarged with mild congestion, slightly improved since the prior exam. Bibasilar opacities are nonspecific and may represent edema, atelectasis, scarring, and/or infiltrates. Right costophrenic angle is excluded. Calcified granulomas are noted. There is no appreciable pleural effusion or pneumothorax. Electronically signed by: Annie Butts MD (07/11/2021 9:13 PM) [facility] DICTATED and SIGNED BY: ANNIE BUTTS MD DATE: 07/11/212110 [] Course & Med Decision Making Course & Med Decision Making Checking labs, EKG and chest x-ray. We will then reevaluate. 2129: Work-up as above is unremarkable and reassuring aside from interstitial edema noted on chest x-ray. Patient is requiring a little more than his typical home oxygen and has been quite symptomatic. Shared decision making completed and patient would prefer to be admitted for diuresis which I feel is very reasonable. We will give an IV Lasix dose and admit. Graciously accepted for admission by Dr. Qureshi. Dima Disclaimer Dima Disclaimer This electronic medical record was generated, in whole or in part, using a voice recognition dictation system. Departure Departure Impression: Primary Impression: Diastolic heart failure Additional Impression: Acute exacerbation of congestive heart failure Disposition: ADMITTED INPATIENT Condition: STABLE Referrals: LAKHWINDER ALLEN MD (PCP) Problem Qualifiers Primary Impression: Diastolic heart failure Heart failure chronicity: acute Qualified Codes: I50.31 - Acute diastolic (congestive) heart failure Additional Impression: Acute exacerbation of congestive heart failure Heart failure type: diastolic Qualified Codes: I50.33 - Acute on chronic diastolic (congestive) heart failure FORREST CARDENAS MD Jul 11, 2021 19:45
[2021-07-11 20:18] LABS: BASO # 0.1 x10^3/uL (0.0-0.2); BASO % 1 % (0-3); EOS # 0.2 x10^3/uL (0.0-0.7); EOS % 3 % (0-3); HEMATOCRIT 41.8 % (39.0-53.0); HEMOGLOBIN 13.8 g/dL (13.0-17.5); LYMPH % 25 % (24-48); MEAN CORPUSCULAR HEMOGLOBIN 33 pg (25-35); MEAN CORPUSCULAR HGB CONC 33 g/dL (31-37); MEAN CORPUSCULAR VOLUME 99 fL (79-100); MONO # 0.8 x10^3/uL (0.0-1.1); MONO % 10 % (0-9); NEUT # 5.1 x10^3/uL (1.8-7.7); NEUT % 62 % (31-73); PLATELET COUNT 210 x10^3/uL (140-400); RED BLOOD COUNT 4.23 x10^6/uL (4.30-5.70); RED CELL DISTRIBUTION WIDTH 15.3 % (11.5-14.5); WHITE BLOOD COUNT 8.2 x10^3/uL (4.0-11.0)
[2021-07-11 20:31] LABS: CREATININE 1.5 mg/dL (0.7-1.3); GFR 45.7; POTASSIUM 4.1 mmol/L (3.5-5.1)
[2021-07-11 20:37] LABS: ALBUMIN 3.7 g/dL (3.4-5.0); ALBUMIN/GLOBULIN RATIO 1.2 (1.0-1.7); TOTAL BILIRUBIN 0.4 mg/dL (0.2-1.0); TOTAL PROTEIN 6.9 g/dL (6.4-8.2)
[2021-07-11 20:40] LABS: PROTHROMBIN TIME PATIENT 12.8 SEC (11.7-14.0)
--- NOTE | 2021-07-11 21:16 | RAD ---
Exam Date: 07/11/2021 8:09 PM XR CHEST 1V Indication: Reason: SOA/leg swelling / Spl. Instructions: / History: . Comparison: February 04, 2021 FINDINGS/ IMPRESSION: The cardiac silhouette is enlarged with mild congestion, slightly improved since the prior exam. Bib asilar opacities are nonspecific and may represent edema, atelectasis, scarring, and/or infiltrates. Right costophrenic angle is excluded. Calcified granulomas are noted. There is no appreciable pleural effusion or pneumothorax. Electronically signed by: Daniel Butts MD (07/11/2021 9:13 PM) [facility]
[2021-07-11] MEDS ORDERED: METOPROLOL SUCC 24HR ER 100 MG TAB.ER.24H. PO ONE (21:45)
[2021-07-11] MEDS ORDERED: oxyCODONE/APAP 10/325 1 TAB TABLET PO ONE (21:45)
[2021-07-11] MEDS ORDERED: FUROSEMIDE 40 MG/4 ML VIAL. IVP ONE (22:15)
[2021-07-11] MEDS: MELOXICAM 7.5 MG TABLET PO SCH (22:25)
[2021-07-11] MEDS ORDERED: ONDANSETRON PF 4 MG/2 ML VIAL. IVP PRN (22:30)
[2021-07-12] VITALS (7 sets, daily range): BP systolic 99–134; BP diastolic 47–75
--- NOTE | 2021-07-12 01:00 | NUR ---
The patient, CATRACHITA FOX, 76 y/o, M admitted by DEVON CRUZ MD, was given written information regarding hospital policies, unit procedures and contact persons. Valuables were checked and all questions answered. DtrTessa called per her wishes. Pt. denies any needs currently.
[2021-07-12] MEDS ORDERED: VARE1TAB23 PO (02:31)
[2021-07-12] MEDS ORDERED: OXYC20TA PO (02:31)
[2021-07-12] MEDS ORDERED: MELO15TA23 PO (02:31)
[2021-07-12] MEDS ORDERED: LISI-130 PO (02:31)
[2021-07-12] MEDS ORDERED: DOXY50CA PO (02:31)
[2021-07-12] MEDS ORDERED: FLUT9.9S NS (02:31)
[2021-07-12] MEDS ORDERED: CARB15DR3 EACHEYE (02:31)
[2021-07-12 07:38] LABS: BASO % 1 % (0-3); EOS # 0.2 x10^3/uL (0.0-0.7); EOS % 3 % (0-3); HEMATOCRIT 42.2 % (39.0-53.0); HEMOGLOBIN 13.8 g/dL (13.0-17.5); LYMPH # 2.1 x10^3/uL (1.0-4.8); LYMPH % 28 % (24-48); MEAN CORPUSCULAR HEMOGLOBIN 33 pg (25-35); MEAN CORPUSCULAR HGB CONC 33 g/dL (31-37); MEAN CORPUSCULAR VOLUME 99 fL (79-100); MONO # 0.8 x10^3/uL (0.0-1.1); MONO % 11 % (0-9); NEUT # 4.3 x10^3/uL (1.8-7.7); NEUT % 58 % (31-73); PLATELET COUNT 199 x10^3/uL (140-400); RED BLOOD COUNT 4.25 x10^6/uL (4.30-5.70); WHITE BLOOD COUNT 7.5 x10^3/uL (4.0-11.0)
[2021-07-12 08:11] LABS: CALCIUM 9.3 mg/dL (8.5-10.1); CREATININE 1.5 mg/dL (0.7-1.3); GFR 45.7; POTASSIUM 3.8 mmol/L (3.5-5.1)
--- NOTE | 2021-07-12 08:42 | PDOC1 ---
History and Physical Date of Service: DOS: DATE: 07/12/21 TIME: 08:32 Chief Complaint: Chief Complain: Shortness of breath and swelling History of Present Illness: HPI: 76-year-old male with past medical history of diastolic CHF, hypertension, dyslipidemia, CAD, COPD, SWETHA on CPAP who comes in for swelling and worsening of shortness of breath. Patient states that he was taking his Lasix twice a day since his hospital discharge and follows up with Dr. Mancini but he has not been taking in the past few days because of his incontinence that comes with the use of his medications. Patient does endorse bilateral lower extremity swelling and dyspnea with exertion and orthopnea. No fevers, nausea or vomiting, upper respiratory congestion/rhinorrhea, cough, sore throat, chest pain of any kind, abdominal pain, flank pain, back pain, dysuria, hematuria, polyuria or oliguria, changes in bowel habits. Past Medical/Surgical History: PMH/PSH: Past Medical History: Anxiety, Asthma, COPD, GERD, High Cholesterol, Hypertension, CHRONIC HIP PAIN Past Surgical History: CARDIAC STENT Allergies: Allergies: Coded Allergies: No Known Drug Allergies (Unverified , 02/04/21) Family History: Family History: Reviewed with no relative findings in the chart Social History: Social History: Smoking Status: Former Smoker Alcohol Use: None Drug Use: None Current Medications: Current Medications Current Medications Oxycodone/ Acetaminophen (Percocet 10/325) 2 tab 1X ONCE PO Last administered on 07/11/21at 22:09; Start 07/11/21 at 21:45; Stop 07/11/21 at 21:47; Status DC Meloxicam (Mobic) 15 mg QHS PO Last administered on 07/11/21at 22:25; Start 07/11/21 at 21:46 Lorazepam (Ativan) 1 mg 1X ONCE PO Last administered on 07/11/21at 22:08; Start 07/11/21 at 21:45; Stop 07/11/21 at 21:47; Status DC Metoprolol Succinate (Toprol Xl) 100 mg 1X ONCE PO Last administered on 07/11/21at 22:09; Start 07/11/21 at 21:45; Stop 07/11/21 at 21:47; Status DC Furosemide (Lasix) 40 mg 1X ONCE IVP Last administered on 07/11/21at 22:09; Start 07/11/21 at 22:15; Stop 07/11/21 at 22:16; Status DC Ondansetron HCl (Zofran) 4 mg PRN Q8HRS PRN IVP NAUSEA/VOMITING; Start 07/11/21 at 22:30; Stop 07/12/21 at 22:29 Active Scripts Active Duoneb 0.5-3(2.5) Mg/3 Ml (Albuterol/Ipratropium) 3 Ml Ampul.neb 3 Ml NEB Q4H 30 Days Reported Refresh Optive Eye Drops (Carboxymethylcellulos/Glycerin) 15 Ml Drops 1 Drop EACHEYE PRN QID PRN Flonase Allergy Relief (Fluticasone Propionate) 9.9 Ml Roselle.susp 2 Sprays NS KS N DAILY PRN Meloxicam 15 Mg Tablet 1 Tab PO PRN BID PRN 30 Days Varenicline Tartrate 1 Mg Tablet 1 Mg PO BID Doxycycline Hyclate 50 Mg Capsule 1 Cap PO DAILY Lisinopril 40 Mg Tablet 40 Mg PO DAILY Oxycodone Hcl 20 Mg Tablet 20 Mg PO DAILY Folic Acid 0.8 Mg Tablet 0.8 Mg PO DAILY Lasix (Furosemide) 40 Mg Tablet 40 Mg PO QMWF Flomax (Tamsulosin Hcl) 0.4 Mg Cap.er.24h 0.4 Mg PO DAILY Stiolto Respimat Inhal Roselle (Tiotropium Br/Olodaterol HCl) 4 Gm Mist.inhal 2 Inh IH DAILY Vitamin D3 (Cholecalciferol (Vitamin D3)) 1,250 Mcg Capsule Unknown Dose PO DAILY B Complex (Vitamin B Complex) 1 Each Tablet 1 Tab PO DAILY 30 Days Proair Hfa Inhaler (Albuterol Sulfate) 8.5 Gm Hfa.aer.ad 2 Puff IH PRN Q4-6HRS PRN 21 Days Acetaminophen 500 Mg Tablet 2 Tab PO DAILY PRN 15 Days Ativan (Lorazepam) 1 Mg Tablet 1 Mg PO HS Ropinirole Hcl 1 Mg Tablet 1 Mg PO QHS Crestor (Rosuvastatin Calcium) 40 Mg Tablet 40 Mg PO HS Metoprolol Succinate ( Xl ) (Metoprolol Succinate) 100 Mg Tab.er.24h 100 Mg PO HS Omeprazole 40 Mg Capsule.dr 20 Mg PO HS Oxycodone Hcl Immed.release (Oxycodone Hcl) 10 Mg Tablet 20 Mg PO PRN Q4HRS PRN Cymbalta (Duloxetine Hcl) 30 Mg Capsule. 60 Mg PO HS Aspir 81 (Aspirin) 81 Mg Tablet. 81 Mg PO DAILY08 ROS: Review of Systems Review of System REVIEW OF SYSTEMS: GENERAL: Denies weakness SKIN: No bruising, hair changes or rashes. EYES: No blurred, double or loss of vision. NOSE AND THROAT: No history of nosebleeds, hoarseness or sore throat. HEART: No history of palpitations, chest pain or shortness of breath on exertion. LUNGS: Denies cough, hemoptysis, wheezing or shortness of breath. GASTROINTESTINAL: Denies changes in appetite, nausea, vomiting, diarrhea or constipation. GENITOURINARY: No history of frequency, urgency, hesitancy or nocturia. NEUROLOGIC: Denies history of numbness, tingling, or tremor. PSYCHIATRIC: No history of panic, anxiety or depression. ENDOCRINE: No history of heat or cold intolerance, polyuria or polydipsia. EXTREMITIES: Denies joint pain, pain on walking or stiffness. Physical Exam: Vital Signs: Vital Signs Date Time Temp Pulse Resp B/P (MAP) Pulse Ox O2 Delivery O2 Flow Rate FiO2 07/12/21 07:00 98.1 67 19 134/56 (82) 95 Nasal Cannula 4.0 98.1 Physcial Exam: General: Well developed, well nourished, no acute distress, well appearing HEENT: Pupils equally round and reactive to light, EOMI, no discharge, normal conjunctiva Neck: Supple, no nuchal rigidity, no JVD, trachea midline, no tenderness Cardiac: RRR, no murmurs, no gallops, no rubs Chest/Lungs: CTAB, no wheeze, no rhonchi, no crackles Abdomen: Obese, soft, non-distended, no guarding, no peritoneal signs, non- tender Back: No tenderness Extremities: +2 pedal edema, pulses intact, non-tender,capillary refill <3 sec bilateral upper and lower extremities, Neuro: Alert and oriented x 4, no focal deficits, normal speech Labs: Labs: Laboratory Tests Test 07/11/21 20:05 07/12/21 06:25 White Blood Count 8.2 x10^3/uL (4.0-11.0) 7.5 x10^3/uL (4.0-11.0) Red Blood Count 4.23 x10^6/uL (4.30-5.70) 4.25 x10^6/uL (4.30-5.70) Hemoglobin 13.8 g/dL (13.0-17.5) 13.8 g/dL (13.0-17.5) Hematocrit 41.8 % (39.0-53.0) 42.2 % (39.0-53.0) Mean Corpuscular Volume 99 fL (79-100) 99 fL (79-100) Mean Corpuscular Hemoglobin 33 pg (25-35) 33 pg (25-35) Mean Corpuscular Hemoglobin Concent 33 g/dL (31-37) 33 g/dL (31-37) Red Cell Distribution Width 15.3 % (11.5-14.5) 15.0 % (11.5-14.5) Platelet Count 210 x10^3/uL (140-400) 199 x10^3/uL (140-400) Neutrophils (%) (Auto) 62 % (31-73) 58 % (31-73) Lymphocytes (%) (Auto) 25 % (24-48) 28 % (24-48) Monocytes (%) (Auto) 10 % (0-9) 11 % (0-9) Eosinophils (%) (Auto) 3 % (0-3) 3 % (0-3) Basophils (%) (Auto) 1 % (0-3) 1 % (0-3) Neutrophils # (Auto) 5.1 x10^3/uL (1.8-7.7) 4.3 x10^3/uL (1.8-7.7) Lymphocytes # (Auto) 2.0 x10^3/uL (1.0-4.8) 2.1 x10^3/uL (1.0-4.8) Monocytes # (Auto) 0.8 x10^3/uL (0.0-1.1) 0.8 x10^3/uL (0.0-1.1) Eosinophils # (Auto) 0.2 x10^3/uL (0.0-0.7) 0.2 x10^3/uL (0.0-0.7) Basophils # (Auto) 0.1 x10^3/uL (0.0-0.2) 0.0 x10^3/uL (0.0-0.2) Prothrombin Time 12.8 SEC (11.7-14.0) Prothromb Time International Ratio 1.0 (0.8-1.1) Activated Partial Thromboplast Time 30 SEC (24-38) Sodium Level 138 mmol/L (136-145) 141 mmol/L (136-145) Potassium Level 4.1 mmol/L (3.5-5.1) 3.8 mmol/L (3.5-5.1) Chloride Level 100 mmol/L (98-107) 101 mmol/L (98-107) Carbon Dioxide Level 29 mmol/L (21-32) 32 mmol/L (21-32) Anion Gap 9 (6-14) 8 (6-14) Blood Urea Nitrogen 27 mg/dL (8-26) 30 mg/dL (8-26) Creatinine 1.5 mg/dL (0.7-1.3) 1.5 mg/dL (0.7-1.3) Estimated GFR (Cockcroft-Gault) 45.7 45.7 BUN/Creatinine Ratio 18 (6-20) Glucose Level 99 mg/dL (70-99) 105 mg/dL (70-99) Calcium Level 9.0 mg/dL (8.5-10.1) 9.3 mg/dL (8.5-10.1) Total Bilirubin 0.4 mg/dL (0.2-1.0) Aspartate Amino Transf (AST/SGOT) 20 U/L (15-37) Alanine Aminotransferase (ALT/SGPT) 28 U/L (16-63) Alkaline Phosphatase 66 U/L (46-116) Troponin I High Sensitivity 12 ng/L (4-75) [id number]-Yqn-[id number]-Type Natriuretic Peptide 51 pg/mL (0-124) Total Protein 6.9 g/dL (6.4-8.2) Albumin 3.7 g/dL (3.4-5.0) Albumin/Globulin Ratio 1.2 (1.0-1.7) Laboratory Tests Test 07/11/21 20:05 07/12/21 06:25 White Blood Count 8.2 x10^3/uL (4.0-11.0) 7.5 x10^3/uL (4.0-11.0) Red Blood Count 4.23 x10^6/uL (4.30-5.70) 4.25 x10^6/uL (4.30-5.70) Hemoglobin 13.8 g/dL (13.0-17.5) 13.8 g/dL (13.0-17.5) Hematocrit 41.8 % (39.0-53.0) 42.2 % (39.0-53.0) Mean Corpuscular Volume 99 fL (79-100) 99 fL (79-100) Mean Corpuscular Hemoglobin 33 pg (25-35) 33 pg (25-35) Mean Corpuscular Hemoglobin Concent 33 g/dL (31-37) 33 g/dL (31-37) Red Cell Distribution Width 15.3 % (11.5-14.5) 15.0 % (11.5-14.5) Platelet Count 210 x10^3/uL (140-400) 199 x10^3/uL (140-400) Neutrophils (%) (Auto) 62 % (31-73) 58 % (31-73) Lymphocytes (%) (Auto) 25 % (24-48) 28 % (24-48) Monocytes (%) (Auto) 10 % (0-9) 11 % (0-9) Eosinophils (%) (Auto) 3 % (0-3) 3 % (0-3) Basophils (%) (Auto) 1 % (0-3) 1 % (0-3) Neutrophils # (Auto) 5.1 x10^3/uL (1.8-7.7) 4.3 x10^3/uL (1.8-7.7) Lymphocytes # (Auto) 2.0 x10^3/uL (1.0-4.8) 2.1 x10^3/uL (1.0-4.8) Monocytes # (Auto) 0.8 x10^3/uL (0.0-1.1) 0.8 x10^3/uL (0.0-1.1) Eosinophils # (Auto) 0.2 x10^3/uL (0.0-0.7) 0.2 x10^3/uL (0.0-0.7) Basophils # (Auto) 0.1 x10^3/uL (0.0-0.2) 0.0 x10^3/uL (0.0-0.2) Prothrombin Time 12.8 SEC (11.7-14.0) Prothromb Time International Ratio 1.0 (0.8-1.1) Activated Partial Thromboplast Time 30 SEC (24-38) Sodium Level 138 mmol/L (136-145) 141 mmol/L (136-145) Potassium Level 4.1 mmol/L (3.5-5.1) 3.8 mmol/L (3.5-5.1) Chloride Level 100 mmol/L (98-107) 101 mmol/L (98-107) Carbon Dioxide Level 29 mmol/L (21-32) 32 mmol/L (21-32) Anion Gap 9 (6-14) 8 (6-14) Blood Urea Nitrogen 27 mg/dL (8-26) 30 mg/dL (8-26) Creatinine 1.5 mg/dL (0.7-1.3) 1.5 mg/dL (0.7-1.3) Estimated GFR (Cockcroft-Gault) 45.7 45.7 BUN/Creatinine Ratio 18 (6-20) Glucose Level 99 mg/dL (70-99) 105 mg/dL (70-99) Calcium Level 9.0 mg/dL (8.5-10.1) 9.3 mg/dL (8.5-10.1) Total Bilirubin 0.4 mg/dL (0.2-1.0) Aspartate Amino Transf (AST/SGOT) 20 U/L (15-37) Alanine Aminotransferase (ALT/SGPT) 28 U/L (16-63) Alkaline Phosphatase 66 U/L (46-116) Troponin I High Sensitivity 12 ng/L (4-75) PX-Ogz-V-Type Natriuretic Peptide 51 pg/mL (0-124) Total Protein 6.9 g/dL (6.4-8.2) Albumin 3.7 g/dL (3.4-5.0) Albumin/Globulin Ratio 1.2 (1.0-1.7) Images: Images PROCEDURE: CHEST AP ONLY Exam Date: 07/11/2021 8:09 PM XR CHEST 1V Indication: Reason: SOA/leg swelling / Spl. Instructions: / History: . Comparison: February 04, 2021 FINDINGS/ IMPRESSION: The cardiac silhouette is enlarged with mild congestion, slightly improved since the prior exam. Bibasilar opacities are nonspecific and may represent edema, atelectasis, scarring, and/or infiltrates. Right costophrenic angle is excluded. Calcified granulomas are noted. There is no appreciable pleural effusion or pneumothorax. Assessment/Plan Assessment/Plan Acute hypoxic respiratory failure secondary to CHF exacerbation Acute on chronic diastolic CHF exacerbation CARLO due to vasomotor nephropathy BPH Medical nonadherence COPD Asthma Diastolic CHF CAD with history stent HTN HLD SWETHA compliant with CPAP Admit to hospitalist service for further management Cardiology consult IV Lasix daily as needed Strict I's/O and monitor urine output Avoid nephrotoxic agents Sodium and fluid restriction Pending TTE Post void bladder scan Lovenox for DVT prophylaxis Protonix GI prophylaxis Cardiac diet CODE STATUS full Discussed with RN and SW Disposition inpatient management as above DPOA: Daughter In addition to my E/M visit, advance care planning done with A total time of 20 minutes was spent from 930 to 950 face to face in discussion regarding the patient's goals of care, CODE STATUS. Justifications for Admission Other Justification SADAF MALDONADO MD Jul 12, 2021 08:42
[2021-07-12] MEDS ORDERED: ACETAMINOPHEN 325 MG TABLET. PO PRN (08:45)
[2021-07-12] MEDS ORDERED: SENNOSIDES 8.6 MG TABLET PO PRN (08:45)
[2021-07-12] MEDS ORDERED: ONDANSETRON PF 4 MG/2 ML VIAL. IVP PRN (08:45)
[2021-07-12] MEDS ORDERED: DOCUSATE SODIUM 100 MG CAPSULE. PO PRN (08:45)
[2021-07-12] MEDS ORDERED: DEXTROSE 50% 25 GM / 50ML DISP.SYRIN. IV PRN (08:45)
[2021-07-12] MEDS ORDERED: diphenhydrAMINE HCL 25 MG CAPSULE PO PRN ×2 (08:45)
[2021-07-12] MEDS ORDERED: PROCHLORPERAZINE 10 MG/2 ML VIAL. IV PRN (08:45)
[2021-07-12] MEDS ORDERED: ZOLPIDEM 5 MG TABLET. PO PRN (08:45)
[2021-07-12] MEDS ORDERED: LORazepam 0.5 MG TABLET PO PRN (08:45)
[2021-07-12] MEDS ORDERED: diphenhydrAMINE 50 MG/ML VIAL IVP PRN (08:45)
[2021-07-12] MEDS ORDERED: POLYVINYL ALCOHOL 1.4% OPHTH SOLUTION 15ML BOTTLE. OU PRN (09:15)
[2021-07-12] MEDS: VITAMIN B COMPLEX TABLET. PO SCH (09:25)
[2021-07-12] MEDS: FOLIC ACID 1 MG TABLET. PO SCH (09:26)
[2021-07-12] MEDS: LISINOPRIL 20 MG TABLET PO SCH (09:26)
[2021-07-12] MEDS: ASPIRIN ENTERIC COATED 81 MG TABLET.DR. PO SCH (09:26)
[2021-07-12] MEDS: TAMSULOSIN 0.4 MG CAP.ER.24H. PO SCH (09:26)
[2021-07-12] MEDS: HEPARIN for SUB-Q USE 5,000 UNIT/ML VIAL. SQ SCH ×2 (09:28→19:55)
[2021-07-12] MEDS: oxyCODONE IR 5 MG TABLET PO PRN ×3 (09:31→19:53)
--- NOTE | 2021-07-12 10:51 | EKG ---
[facility] [address] [place] [address] Test Date: 2021-07-11 Test Time: 20:00:28 Pat Name: CATRACHITA FOX Department: Room: Gender: M [place]: : 1945 Requested By: FORREST CARDENAS Order Number: [id number] Reading MD: Measurements Intervals [place] Rate: 72 P: -90 [place]: 152 QRS: -23 QRSD: 86 T: 24 QT: 396 QTc: 435 Interpretive Statements SINUS RHYTHM LEFTWARD AXIS QRS(T) CONTOUR ABNORMALITY CONSISTENT WITH ANTEROSEPTAL INFARCT AGE UNDETERMINED ABNORMAL ECG RI6.02 No previous ECG available for comparison
--- NOTE | 2021-07-12 11:53 | NUR ---
SW following. Discussed with RN, pt from home with family, 4L (uses at night at home), cardiac diet. Cardiology following. RN advised no SW needs at this time. SW will continue to follow.
--- NOTE | 2021-07-12 13:26 | PDOC2 ---
HOMER BRISCOE BODY SPECIALIST 07/12/21 1326: CARDIAC CONSULT DATE OF CONSULT Date of Consult DATE: 07/12/21 TIME: 13:14 REASON FOR CONSULT Reason for Consult: Diastolic CHF REFERRING PHYSICIAN Referring Physician: Chele SOURCE Source: Chart review, Patient HISTORY OF PRESENT ILLNESS HISTORY OF PRESENT ILLNESS This is a 76 yo male admitted for increasing leg swelling, dizziness and some SOA. Apparently he has stopped taking his diuretic due to incontinence episodes and has been taking lasix once a week. He does have BPH but denies incomplete bladder emptying sensation. No chest pain or palpitations. He uses Bipap for SWETHA and has COPD as well with Chronic O2 use with 3LPM. He said he gained about 10 pounds in the last 2 months. He started having bilateral leg pain and swelling and now the swelling is absent. His BHAKTA is no different from his baseline and compensated with O2 3LPM which he fails to wear all the time. Presently no SOA and o leg swelling. He has truncal obesity. PAST MEDICAL HISTORY Cardiovascular: CAD, CHF, HTN, Hyperlipidemia Pulmonary: Asthma, COPD, Other (SWETHA) GI: GERD Psych: Anxiety Musculoskeletal: Osteoarthritis Renal/: Benign prostatic enlarg. PAST SURGICAL HISTORY Past Surgical History: Arthroscopy (Right RTC repair), Hernia Repair, Tonsillectomy, Other (PCI) FAMILY HISTORY Family History noncontributory SOCIAL HISTORY ALCOHOL: none Drugs: None Lives: with Family CURRENT MEDICATIONS CURRENT MEDICATIONS Current Medications Medications (Trade) Dose Ordered Sig/Janine Route PRN Reason Start Time Stop Time Status Last Admin Dose Admin Oxycodone/ Acetaminophen (Percocet 10/325) 2 tab 1X ONCE PO 07/11/21 21:45 07/11/21 21:47 DC 07/11/21 22:09 Meloxicam (Mobic) 15 mg QHS PO 07/11/21 21:46 07/11/21 22:25 Lorazepam (Ativan) 1 mg 1X ONCE PO 07/11/21 21:45 07/11/21 21:47 DC 07/11/21 22:08 Metoprolol Succinate (Toprol Xl) 100 mg 1X ONCE PO 07/11/21 21:45 07/11/21 21:47 DC 07/11/21 22:09 Furosemide (Lasix) 40 mg 1X ONCE IVP 07/11/21 22:15 07/11/21 22:16 DC 07/11/21 22:09 Aspirin (Ecotrin) 81 mg DAILY08 PO 07/12/21 10:01 07/12/21 09:26 Lisinopril (Prinivil) 40 mg DAILY PO 07/12/21 10:00 07/12/21 09:26 Tamsulosin HCl (Flomax) 0.4 mg DAILY PO 07/12/21 10:00 07/12/21 09:26 Vitamin B Complex (Darek B) 1 tab DAILY PO 07/12/21 10:00 07/12/21 09:25 Folic Acid (Folic Acid) 1 mg DAILY PO 07/12/21 10:00 07/12/21 09:26 Oxycodone HCl (Roxicodone) 20 mg PRN Q4HRS PRN PO MODERATE PAIN, SEVERE PAIN 07/12/21 09:15 07/12/21 09:31 Heparin Sodium (Porcine) (Heparin Sodium) 5,000 unit Q12HR SQ 07/12/21 10:00 07/12/21 09:28 ALLERGIES ALLERGIES: Coded Allergies: No Known Drug Allergies (Unverified , 02/04/21) ROS Review of System 14 point ROS evaluated with pertinent positives noted per HPI PHYSICAL EXAM General: Alert, Oriented X3, Cooperative HEENT: Atraumatic, Mucous membr. moist/pink Heart: Regular rate (no tele), Normal S1, Normal S2, Other (2/6 systolic murmur to JESUS border) Abdomen: Soft, No tenderness Extremities: No cyanosis, No edema Skin: No breakdown, No significant lesion Neuro: Normal speech, Sensation intact Psych/Mental Status: Mental status NL, Mood NL MUSCULOSKELETAL: Osteoarthritic changes both hands VITALS/I&O VITALS/I&O: Vital Signs Date Time Temp Pulse Resp B/P (MAP) Pulse Ox O2 Delivery O2 Flow Rate FiO2 07/12/21 11:00 97.9 69 19 105/49 (67) 95 Nasal Cannula 4.0 97.9 I & O 07/11/21 07/11/21 07/12/21 15:00 23:00 07:00 Intake Total 480 ml Output Total 250 ml Balance 230 ml LABS Lab: Laboratory Tests Test 07/11/21 20:05 07/12/21 06:25 White Blood Count 8.2 x10^3/uL (4.0-11.0) 7.5 x10^3/uL (4.0-11.0) Red Blood Count 4.23 x10^6/uL (4.30-5.70) L 4.25 x10^6/uL (4.30-5.70) L Hemoglobin 13.8 g/dL (13.0-17.5) 13.8 g/dL (13.0-17.5) Hematocrit 41.8 % (39.0-53.0) 42.2 % (39.0-53.0) Mean Corpuscular Volume 99 fL (79-100) 99 fL (79-100) Mean Corpuscular Hemoglobin 33 pg (25-35) 33 pg (25-35) Mean Corpuscular Hemoglobin Concent 33 g/dL (31-37) 33 g/dL (31-37) Red Cell Distribution Width 15.3 % (11.5-14.5) H 15.0 % (11.5-14.5) H Platelet Count 210 x10^3/uL (140-400) 199 x10^3/uL (140-400) Neutrophils (%) (Auto) 62 % (31-73) 58 % (31-73) Lymphocytes (%) (Auto) 25 % (24-48) 28 % (24-48) Monocytes (%) (Auto) 10 % (0-9) H 11 % (0-9) H Eosinophils (%) (Auto) 3 % (0-3) 3 % (0-3) Basophils (%) (Auto) 1 % (0-3) 1 % (0-3) Neutrophils # (Auto) 5.1 x10^3/uL (1.8-7.7) 4.3 x10^3/uL (1.8-7.7) Lymphocytes # (Auto) 2.0 x10^3/uL (1.0-4.8) 2.1 x10^3/uL (1.0-4.8) Monocytes # (Auto) 0.8 x10^3/uL (0.0-1.1) 0.8 x10^3/uL (0.0-1.1) Eosinophils # (Auto) 0.2 x10^3/uL (0.0-0.7) 0.2 x10^3/uL (0.0-0.7) Basophils # (Auto) 0.1 x10^3/uL (0.0-0.2) 0.0 x10^3/uL (0.0-0.2) Prothrombin Time 12.8 SEC (11.7-14.0) Prothrombin Time INR 1.0 (0.8-1.1) Activated Partial Thromboplast Time 30 SEC (24-38) Sodium Level 138 mmol/L (136-145) 141 mmol/L (136-145) Potassium Level 4.1 mmol/L (3.5-5.1) 3.8 mmol/L (3.5-5.1) Chloride Level 100 mmol/L (98-107) 101 mmol/L (98-107) Carbon Dioxide Level 29 mmol/L (21-32) 32 mmol/L (21-32) Anion Gap 9 (6-14) 8 (6-14) Blood Urea Nitrogen 27 mg/dL (8-26) H 30 mg/dL (8-26) H Creatinine 1.5 mg/dL (0.7-1.3) H 1.5 mg/dL (0.7-1.3) H Estimated GFR (Cockcroft-Gault) 45.7 45.7 BUN/Creatinine Ratio 18 (6-20) Glucose Level 99 mg/dL (70-99) 105 mg/dL (70-99) H Calcium Level 9.0 mg/dL (8.5-10.1) 9.3 mg/dL (8.5-10.1) Total Bilirubin 0.4 mg/dL (0.2-1.0) Aspartate Amino Transferase (AST) 20 U/L (15-37) Alanine Aminotransferase (ALT) 28 U/L (16-63) Alkaline Phosphatase 66 U/L (46-116) Troponin I High Sensitivity 12 ng/L (4-75) SV-Bdb-L-Type Natriuretic Peptide 51 pg/mL (0-124) Total Protein 6.9 g/dL (6.4-8.2) Albumin 3.7 g/dL (3.4-5.0) Albumin/Globulin Ratio 1.2 (1.0-1.7) Laboratory Tests 07/11/21 20:05 07/12/21 06:25 Laboratory Tests 07/11/21 20:05 07/12/21 06:25 ECHOCARDIOGRAM ECHOCARDIOGRAM <Conclusion> The left ventricle is normal size. The left ventricular systolic function is normal and the ejection fraction is within normal range. Estimated ejection fraction 50-55% Doppler and Color Flow revealed trace to mild aortic regurgitation. There is no significant aortic valvular stenosis. Doppler and Color-flow revealed trace mitral regurgitation. Doppler and Color Flow revealed no tricuspid valve regurgitation noted. The ascending aorta is mildly dilated. DATE: 05/20/20 [id number] HEART CATH HEART CATH CORONARY ANGIOGRAPHY: LM is a large caliber vessel with normal angiographic appearance. LAD is a large caliber vessel with mild focal aneurysmal changes with a mid 40- 50% stenosis. Severe small caliber diagonal vessels have mild luminal irregularities. LCx is a moderate caliber non-dominant vessel with mid aneurysmal dilation with a distal stent with 70% stenosis extending into a small caliber LPL. OM1 is a moderate caliber vessel with a proximal 30% stenosis. RCA is a large caliber dominant vessel with mild aneurysmal dilation. There is an early bifurcation of the RCA with a dual RV and RPDA branches. There is a proximal 50% stenosis involving the RV branch. RPDA is a moderate caliber vessel with normal angiographic appearance. Conclusion 1. Mild biventricular pressure overload consistent with acute on chronic diastolic heart failure and corpulmonale. 2. Three vessel coronary disease without any critical lesions to account for dy spnea. Recommendations Aggressive Medical Therapy DATE: 12/26/18 1017 ASSESSMENT/PLAN ASSESSMENT/PLAN 1. Acute on chronic respiratory failure with culprits below 2. Hypoxia: due to inconsistent O2 wearing 3. Acute on chronic HFpEF: clinically compensated pro NT BNP 51 received x1 IV lasix in ED 4. Hx of SWETHA: BiPAP use 5. CAD: Past PCI. clinically stable 6. HTN: controlled 6. HLP 7. CKD3 8. BPH: retention? 9. bilateral leg pain: doubt DVT but given his leg pain and issues with leg edema and risk factors will obtain venous doppler 10. Truncal obesity 11. COPD: controlled Recommendations 1. Restart PO lasix daily. Discussed about wearing depends and lasix use. Will note PVR 2. Secondary prevention measures 3. TTE FELA TURNER MD 07/13/21 0807: CARDIAC CONSULT ASSESSMENT/PLAN ASSESSMENT/PLAN Late entry for 07/12/2021 Patient seen and examined. Agree with above nurse practitioner note. Supportive care. HOMER BRISCOE APRN Jul 12, 2021 13:26 FELA TURNER MD Jul 13, 2021 08:07
[2021-07-12 14:51] LABS: CHOLESTEROL/HDL RATIO 3.1
--- NOTE | 2021-07-12 15:22 | RAD ---
EXAMINATION: US BILATERAL LOWEREXTREMITY VENOUS DOPPLER (LOWER EXTREMITY VENOUS ULTRASOUND) CLINICAL HISTORY: Lower extremity pain. TECHNIQUE: Sonographic grayscale images obtained of the bilateral lower extremity deep venous systems with color flow Doppler, compression, and augmentation techniques as indicated. Images obtained and stored in a permanent archive. COMPARISON: None FINDINGS: RIGHT: No evidence of absent flow or incompressibility within the common femoral vein, femoral vein, or popl iteal vein. Visualized calf veins appear patent on limited evaluation. LEFT: No evidence of absent flow or incompressibility within the common femoral vein, femoral vein, or popl iteal vein. Visualized calf veins appear patent on limited evaluation. IMPRESSION: No evidence of bilateral lower extremity DVT. Electronically signed by: Devante Reeves DO (07/12/2021 3:19 PM) [id number]
[2021-07-12] MEDS: MELOXICAM 7.5 MG TABLET PO SCH (19:52)
[2021-07-12] MEDS ORDERED: DULoxetine HCL 30 MG CAPSULE.DR PO SCH (21:00)
[2021-07-12] MEDS ORDERED: METOPROLOL SUCC 24HR ER 100 MG TAB.ER.24H. PO SCH (21:00)
[2021-07-12] MEDS ORDERED: PANTOPRAZOLE 40 MG TABLET.DR. PO SCH (21:00)
[2021-07-12] MEDS ORDERED: rOPINIRole 1 MG TABLET. PO SCH (21:00)
[2021-07-13] MEDS: oxyCODONE IR 5 MG TABLET PO PRN ×3 (00:34→09:59)
[2021-07-13 03:00] VITALS: BP 121/76
[2021-07-13 07:00] VITALS: BP 118/63
[2021-07-13 07:45] LABS: BASO % 1 % (0-3); EOS # 0.2 x10^3/uL (0.0-0.7); EOS % 4 % (0-3); HEMATOCRIT 40.1 % (39.0-53.0); HEMOGLOBIN 13.3 g/dL (13.0-17.5); LYMPH # 2.1 x10^3/uL (1.0-4.8); LYMPH % 35 % (24-48); MEAN CORPUSCULAR HEMOGLOBIN 33 pg (25-35); MEAN CORPUSCULAR HGB CONC 33 g/dL (31-37); MEAN CORPUSCULAR VOLUME 99 fL (79-100); MONO # 0.7 x10^3/uL (0.0-1.1); MONO % 12 % (0-9); NEUT # 2.9 x10^3/uL (1.8-7.7); NEUT % 49 % (31-73); PLATELET COUNT 190 x10^3/uL (140-400); RED BLOOD COUNT 4.04 x10^6/uL (4.30-5.70)
[2021-07-13] MEDS: FOLIC ACID 1 MG TABLET. PO SCH (08:02)
[2021-07-13] MEDS: TAMSULOSIN 0.4 MG CAP.ER.24H. PO SCH (08:02)
[2021-07-13] MEDS: ASPIRIN ENTERIC COATED 81 MG TABLET.DR. PO SCH (08:02)
[2021-07-13] MEDS: VITAMIN B COMPLEX TABLET. PO SCH (08:02)
[2021-07-13] MEDS: LISINOPRIL 20 MG TABLET PO SCH (08:03)
[2021-07-13] MEDS: HEPARIN for SUB-Q USE 5,000 UNIT/ML VIAL. SQ SCH (08:04)
[2021-07-13 08:05] LABS: CALCIUM 8.9 mg/dL (8.5-10.1); CREATININE 1.6 mg/dL (0.7-1.3); GFR 42.5; MAGNESIUM 2.1 mg/dL (1.8-2.4); PHOSPHORUS 4.9 mg/dL (2.6-4.7); POTASSIUM 4.7 mmol/L (3.5-5.1)
[2021-07-13] MEDS ORDERED: FUROSEMIDE 20 MG TABLET PO SCH (09:00)
--- NOTE | 2021-07-13 10:57 | PDOC ---
HOMER BRISCOE WORKERS COMPENSATION ADMINISTRATOR 07/13/21 1057: CARDIO Progress Notes Date and Time Date of Service Time of Evaluation 1030 Subjective Subjective: No Chest Pain, No shortness of breath, No Palpitations Vitals Vitals Vital Signs Date Time Temp Pulse Resp B/P (MAP) Pulse Ox O2 Delivery O2 Flow Rate FiO2 07/13/21 09:59 Nasal Cannula 2.0 07/13/21 08:03 74 118/63 07/13/21 07:00 97.5 20 96 97.5 Weight Weight [ ] Input and Output Intake and Output Intake and Output 07/13/21 07:00 Intake Total 650 ml Output Total 1450 ml Balance -800 ml Intake Oral 650 ml Output Urine Total 1450 ml # Voids 3 Laboratory Labs Laboratory Tests Test 07/13/21 07:15 White Blood Count 6.0 x10^3/uL (4.0-11.0) Red Blood Count 4.04 x10^6/uL (4.30-5.70) Hemoglobin 13.3 g/dL (13.0-17.5) Hematocrit 40.1 % (39.0-53.0) Mean Corpuscular Volume 99 fL (79-100) Mean Corpuscular Hemoglobin 33 pg (25-35) Mean Corpuscular Hemoglobin Concent 33 g/dL (31-37) Red Cell Distribution Width 15.0 % (11.5-14.5) Platelet Count 190 x10^3/uL (140-400) Neutrophils (%) (Auto) 49 % (31-73) Lymphocytes (%) (Auto) 35 % (24-48) Monocytes (%) (Auto) 12 % (0-9) Eosinophils (%) (Auto) 4 % (0-3) Basophils (%) (Auto) 1 % (0-3) Neutrophils # (Auto) 2.9 x10^3/uL (1.8-7.7) Lymphocytes # (Auto) 2.1 x10^3/uL (1.0-4.8) Monocytes # (Auto) 0.7 x10^3/uL (0.0-1.1) Eosinophils # (Auto) 0.2 x10^3/uL (0.0-0.7) Basophils # (Auto) 0.0 x10^3/uL (0.0-0.2) Sodium Level 139 mmol/L (136-145) Potassium Level 4.7 mmol/L (3.5-5.1) Chloride Level 103 mmol/L (98-107) Carbon Dioxide Level 31 mmol/L (21-32) Anion Gap 5 (6-14) Blood Urea Nitrogen 33 mg/dL (8-26) Creatinine 1.6 mg/dL (0.7-1.3) Estimated GFR (Cockcroft-Gault) 42.5 Glucose Level 106 mg/dL (70-99) Calcium Level 8.9 mg/dL (8.5-10.1) Phosphorus Level 4.9 mg/dL (2.6-4.7) Magnesium Level 2.1 mg/dL (1.8-2.4) Physical Exam HEENT: Neck Supple W Full Motion Chest: Symmetric LUNGS: Clear to Auscultation Heart: S1S2, RRR (SR) Abdomen: Soft N/T, Other (truncal obesity) Extremities: No Calf Tenderness, Other (trace LE edema) Neurology: alert, oriented, follow commands Assessment Assessment 1. Acute on chronic respiratory failure with culprits below. much better 2. Hypoxia: due to inconsistent O2 wearing 3. Acute on chronic HFpEF: clinically compensated 4. Hx of SWETHA: BiPAP use 5. CAD: Past PCI. clinically stable 6. HTN: controlled 6. HLP 7. CKD3: Cr stable 8. BPH: no retention per PVR 9. bilateral leg pain: negative for DVT per sono. Possibly from lumbar stenosis/radiculopathy 10. Truncal obesity 11. COPD: controlled 12. Dizziness: intermittent Recommendations 1. Restart PO lasix daily. Discussed about wearing depends and lasix use. 2. Secondary prevention measures. Discussed wearing his home O2 consistently 3. TTE today 4. May DC from cardiac perspective. Follow up in office 5. Orthostatic readings. MCOT Justicifation of Admission Dx: Justifications for Admission: Justification of Admission Dx: Yes Acute Renal Failure: 3-Fold Rise in Serum FELA Rodas MD 07/13/21 3409: CARDIO Progress Notes Plan Plan Patient seen and examined. Agree with above nurse practitioner note. No acute events overnight. Echocardiogram is unremarkable. Restart diuretic therapy. Encouraged weight loss. Supportive care. Okay to discharge from cardiac standpoint. HOMER BRISCOE APRN Jul 13, 2021 10:57 FELA TURNER MD Jul 13, 2021 21:47
[2021-07-13 11:00] VITALS: BP_SYST 103; BP_SYST 98; BP_DIAS 53; BP_DIAS 56
[2021-07-13] MEDS ORDERED: FURO20TA3 PO (11:14)
--- NOTE | 2021-07-13 11:15 | DISCH ---
DISCHARGE INSTRUCTIONS Condition on Discharge Condition on Discharge: Stable Activity After Discharge Activity Instructions for Disc: No restrictions Bathing Instructions: Shower-keep dressing dry Lifting Instructions after Dis: No heavy lifting Exercise Instruction after Dis: Walk 30 min, 5 x per week, Progress as tolerated Driving Instructions after Dis: Do not drive today Weight Bearing Status after Di: No restrictions Diet after Discharge Diet after Discharge: Cardiac Diet Texture: Regular Liquid Texture: No Liquids Swallowing Supervision: None needed Wound Incision Care Wound/Incision Care: No wound care needed Checks after Discharge Checks after discharge: Check blood press - daily, Weigh Yourself Daily Contacting the DR. after DC Call your doctor for: If your condition worsens Follow-Up Follow up with: PCP within 2 weeks of discharge Follow Up With: Cardiology as needed or as scheduled Treatment/Equipment after DC Adaptive Equipment Issued: None Discharge Respiratory Equipmen: Oxygen SADAF MALDONADO MD Jul 13, 2021 11:15
--- NOTE | 2021-07-13 13:15 | NUR ---
SW following. Discussed with RN, discharge order for home with self care.
--- NOTE | 2021-07-13 14:26 | NUR ---
Discharge Note: PT DISCHARGED HOME WITH SELF CARE. PT LEFT FACILITY VIA PRIVATE VEHICLE WITH FAMILY MEMBER AT 1357. PT STABLE AND ALERT UPON DISCHARGE. PT PIV REMOVED FROM R AC WITHOUT COMPLICATIONS, BANDAGE APPLIED. PT EDUCATED ABOUT DISCHARGE INSTRUCTIONS, DISCHARGE MEDICATIONS, AND FOLLOW-UP CARE INSTRUCTIONS. NO CONCERNS VOICED AT THIS TIME. PT LEFT WITH ALL PERSONAL BELONGINGS. CATRACHITA FOX Discharge instructions and discharge home medications reviewed with Patient and a copy given. All questions have been answered and understanding verbalized.
--- NOTE | 2021-07-13 17:34 | CARD ---
MR#: [id number] Date of Study: 07/13/2021 Ordering Physician: SADAF MALDONADO, Referring Physician: SADAF MALDONADO, Tech: Yanira Adams [facility] APPROVED REPORT EXAM: Two-dimensional and M-mode echocardiogram with Doppler and color Doppler. Other Information Quality : Technically LimitedHR: 76bpm Rhythm : NSR INDICATION Congestive Heart Failure RISK FACTORS Hypertension Obesity Hyperlipidemia Diabetes 2D DIMENSIONS RVDd3.8 (2.9-3.5cm)Left Atrium(2D)3.4 (1.6-4.0cm) IVSd1.3 (0.7-1.1cm)Aortic Root(2D)3.0 (2.0-3.7cm) LVDd4.6 (3.9-5.9cm)LVOT Diameter2.4 (1.8-2.4cm) PWd1.3 (0.7-1.1cm)LVDs3.5 (2.5-4.0cm) FS (%) 24.5 %SV47.7 ml Tricuspid Valve TR P. [id number] Peak Gr.25mmHg LEFT VENTRICLE Limited echo The left ventricle is normal size. There is mild concentric left ventricular hypertrophy . The left ventricular systolic function is normal and the ejection fraction is within normal range. LV ejection fraction of 50 to 55%. There is normal LV segmental wall motion. RIGHT VENTRICLE The right ventricle is normal size. There is normal right ventricular wall thickness. The right ventr icular systolic function is normal. ATRIA The left atrium size is normal. The right atrium is mildly dilated. The interatrial septum is intact with no evidence for an atrial septal defect or patent foramen ovale as noted on 2-D or Doppler imagi ng. AORTIC VALVE The aortic valve is normal in structure and function. There is no significant aortic valvular stenosi s. MITRAL VALVE The mitral valve is normal in structure and function. There is no evidence of mitral valve prolapse. There is no mitral valve stenosis. TRICUSPID VALVE The tricuspid valve is normal in structure and function. Doppler and Color Flow revealed trace tricus pid regurgitation. Estimated PAP 30-35 mmHg. There is no tricuspid valve stenosis. GREAT VESSELS The aortic root is normal in size. The ascending aorta is normal in size. Due to poor image quality, the IVC could not be assessed. PERICARDIAL EFFUSION There is no evidence of significant pericardial effusion. Critical Notification Critical Value: No <Conclusion> Limited echo The left ventricle is normal size. The left ventricular systolic function is normal and the ejection fraction is within normal range. LV ejection fraction of 50 to 55%. There is mild concentric left ventricular hypertrophy. There is no significant aortic valvular stenosis. Doppler and Color Flow revealed trace to mild tricuspid regurgitation. Estimated PAP 32 mmHg. Signed by : Tj Briscoe MD Electronically Approved : 07/13/2021 17:33:46
--- NOTE | 2021-07-15 07:23 | PDOC3 ---
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 Restart PO lasix daily. Discussed about wearing depends and lasix use. 2. Secondary prevention measures. Discussed wearing his home O2 consistently 3. TTE today 4. May DC from cardiac perspective. Follow up in office 5. Orthostatic readings. FELA GUNTER MD 07/13/217: CARDIO Progress Notes Plan Plan Patient seen and examined. Agree with above nurse practitioner note. No acute events overnight. Echocardiogram is unremarkable. Restart diuretic therapy. Encouraged weight loss. Supportive care. Okay to discharge from cardiac standpoint. Hospital Course: Hospital Course: 76-year-old male with past medical history of diastolic CHF, hypertension, dyslipidemia, CAD, COPD, SWETHA on CPAP who comes in for swelling and worsening of shortness of breath. Patient states that he was taking his Lasix twice a day since his hospital discharge and follows up with Dr. Mancini but he has not been taking in the past few days because of his incontinence that comes with the use of his medications. Patient does endorse bilateral lower extremity swelling and dyspnea with exertion and orthopnea. No fevers, nausea or vomiting, upper respiratory congestion/rhinorrhea, cough, sore throat, chest pain of any kind, abdominal pain, flank pain, back pain, dysuria, hematuria, polyuria or oliguria, changes in bowel habits. By day of hospital discharge patient was clinically stable. Patient was saturating well on 2 L nasal cannula. Not dyspneic upon my encounter. Patient was urinating well and responded well to IV Lasix. He will be discharged with 20 mg Lasix to be continued as before. See cardiology recommendations above. Rest of hospital course was uneventful. Disposition: Disposition/Orders: D/C to Home Activity: Activity: Resume previous activity Diet: Diet: Cardiac Medications: Home Meds Active Scripts Furosemide (FUROSEMIDE) 20 Mg Tablet, 20 MG PO DAILY for chf for 30 Days, #30 TAB 2 Refills Prov:SADAF MALDONADO MD 07/13/21 Reported Medications Carboxymethylcellulos/Glycerin (REFRESH OPTIVE EYE DROPS) 15 Ml Drops, 1 DROP EACHEYE PRN QID PRN for DRY EYE, #30 ML 6 Refills 07/12/21 Fluticasone Propionate (Flonase Allergy Relief) 9.9 Ml [place].susp, 2 SPRAYS NS PRN DAILY PRN for ALLERGIES, ML 07/12/21 Meloxicam (MELOXICAM) 15 Mg Tablet, 1 TAB PO PRN BID PRN for PAIN for 30 Days, TAB 0 Refills 07/12/21 Varenicline Tartrate (Varenicline Tartrate) 1 Mg Tablet, 1 MG PO BID for smoking cessation, TAB 07/12/21 Lisinopril (LISINOPRIL) 40 Mg Tablet, 40 MG PO DAILY for FOR HYPERTENSION, #30 TAB 0 Refills 07/12/21 Oxycodone Hcl (OXYCODONE HCL) 20 Mg Tablet, 20 MG PO DAILY for pain, TAB 0 Refills 07/12/21 Folic Acid (FOLIC ACID) 0.8 Mg Tablet, 0.8 MG PO DAILY for SUPPLEMENT, TAB 03/10/21 Furosemide (LASIX) 40 Mg Tablet, 40 MG PO QMWF for swelling, TAB 02/14/21 Tamsulosin Hcl (FLOMAX) 0.4 Mg Cap.er.24h, 0.4 MG PO DAILY for bmp, TAB 09/09/20 Tiotropium Br/Olodaterol HCl (Stiolto Respimat Inhal [place]) 4 Gm Mist.inhal, 2 INH IH DAILY for sob, SPRAY 06/24/20 Cholecalciferol (Vitamin D3) (Vitamin D3) 1,250 Mcg Capsule, PO DAILY for supp, CAP 05/12/20 Vitamin B Complex (B COMPLEX) 1 Each Tablet, 1 TAB PO DAILY for supp for 30 Days, #30 TAB 0 Refills 05/12/20 Albuterol Sulfate (PROAIR HFA INHALER) 8.5 Gm Hfa.aer.ad, 2 PUFF IH PRN Q4-6HRS PRN for wheezing for 21 Days, #1 INHALER 0 Refills 05/12/20 Acetaminophen (ACETAMINOPHEN) 500 Mg Tablet, 2 TAB PO DAILY PRN for pain or fever for 15 Days, #60 TAB 0 Refills 05/12/20 Lorazepam (ATIVAN) 1 Mg Tablet, 1 MG PO HS for anxiety, TAB 05/12/20 Ropinirole Hcl (ROPINIROLE HCL) 1 Mg Tablet, 1 MG PO QHS for restless leg syndrome, TAB 01/12/20 Rosuvastatin Calcium (CRESTOR) 40 Mg Tablet, 40 MG PO HS for FOR CHOLESTEROL, #30 TAB 0 Refills 11/23/17 Metoprolol Succinate (METOPROLOL SUCCINATE ( XL )) 100 Mg Tab.er.24h, 100 MG PO HS for FOR HYPERTENSION, #30 TAB 0 Refills 11/23/17 Omeprazole (OMEPRAZOLE) 40 Mg Capsule.dr, 20 MG PO HS for acid reflux, #30 CAP 3 Refills 04/20/17 Oxycodone Hcl (OXYCODONE HCL IMMED.RELEASE) 10 Mg Tablet, 20 MG PO PRN Q4HRS PRN for PAIN, #120 TAB 01/25/16 Duloxetine Hcl (CYMBALTA) 30 Mg Capsule.dr, 60 MG PO HS for , #30 CAP 5 Refills 01/03/16 Aspirin (ASPIR 81) 81 Mg Tablet.dr, 81 MG PO DAILY08, TAB 08/26/13 Discontinued Reported Medications Doxycycline Hyclate (DOXYCYCLINE HYCLATE) 50 Mg Capsule, 1 CAP PO DAILY for antibiotic, #20 CAP 07/12/21 Furosemide (FUROSEMIDE) 40 Mg Tablet, 1 TAB PO DAILY for diuretic, #30 TAB 5 Refills 03/10/21 Furosemide (LASIX) 40 Mg Tablet, 40 MG PO 3X/WEEK for edema, TAB 03/09/21 Albuterol Sulfate (VENTOLIN HFA INHALER) 18 Gm Hfa.aer.ad, 2 PUFF INH PRN Q4HRS PRN for SHORTNESS OF BREATH, INHALER 0 Refills 04/20/17 Discontinued Scripts Ipratropium/Albuterol Sulfate (DUONEB 0.5-3(2.5) MG/3 ML) 3 Ml Ampul.neb, 3 ML NEB Q4H for COPD for 30 Days, #180 EACH Prov:GENO GUERRA MD 03/20/19 Scheduled Aspirin (Aspir 81), 81 MG PO DAILY08, (Reported) Cholecalciferol (Vitamin D3) (Vitamin D3), Unknown Dose PO DAILY, (Reported) Duloxetine Hcl (Cymbalta), 60 MG PO HS, (Reported) Folic Acid (Folic Acid), 0.8 MG PO DAILY, (Reported) Furosemide (Lasix), 40 MG PO QMWF, (Reported) Furosemide (Furosemide), 20 MG PO DAILY Lisinopril (Lisinopril), 40 MG PO DAILY, (Reported) Lorazepam (Ativan), 1 MG PO HS, (Reported) Metoprolol Succinate (Metoprolol Succinate ( Xl )), 100 MG PO HS, (Reported) Omeprazole (Omeprazole), 20 MG PO HS, (Reported) Oxycodone Hcl (Oxycodone Hcl), 20 MG PO DAILY, (Reported) Ropinirole Hcl (Ropinirole Hcl), 1 MG PO QHS, (Reported) Rosuvastatin Calcium (Crestor), 40 MG PO HS, (Reported) Tamsulosin Hcl (Flomax), 0.4 MG PO DAILY, (Reported) Tiotropium Br/Olodaterol HCl (Stiolto Respimat Inhal [place]), 2 INH IH DAILY, (Reported) Varenicline Tartrate (Varenicline Tartrate), 1 MG PO BID, (Reported) Vitamin B Complex (B Complex), 1 TAB PO DAILY, (Reported) Scheduled PRN Acetaminophen (Acetaminophen), 2 TAB PO DAILY PRN for pain or fever, (Reported) Albuterol Sulfate (Proair Hfa Inhaler), 2 PUFF IH PRN Q4-6HRS PRN for wheezing, (Reported) Carboxymethylcellulos/Glycerin (Refresh Optive Eye Drops), 1 DROP EACHEYE PRN QID PRN for DRY EYE, (Reported) Fluticasone Propionate (Flonase Allergy Relief), 2 SPRAYS NS PRN DAILY PRN for ALLERGIES, (Reported) Meloxicam (Meloxicam), 1 TAB PO PRN BID PRN for PAIN, (Reported) Oxycodone Hcl (Oxycodone Hcl Immed.release), 20 MG PO PRN Q4HRS PRN for PAIN, (Reported) Discontinued Medications Albuterol Sulfate (Ventolin Hfa Inhaler), 2 PUFF INH PRN Q4HRS PRN for SHORTNESS OF BREATH, (Reported) Doxycycline Hyclate (Doxycycline Hyclate), 1 CAP PO DAILY, (Reported) Furosemide (Lasix), 40 MG PO 3X/WEEK, (Reported) Furosemide (Furosemide), 1 TAB PO DAILY, (Reported) Ipratropium/Albuterol Sulfate (Duoneb 0.5-3(2.5) Mg/3 Ml), 3 ML NEB Q4H Total Time: Total Time: Total time spent was 40 minutes in preparing scripts, discharge planning with SWI and RN and preparing this discharge summary Patient has a current or prior documentation of diastolic CHF. The patient is prescribed already taking JASON inhibitor/ARB/or beta-miri Patient seen and examined on day of discharge. No acute abnormal findings. Justicifation of Admission Dx: Justifications for Admission: Justification of Admission Dx: Yes Acute Renal Failure: 3-Fold Rise in Serum Crea SADAF MALDONADO MD Jul 15, 2021 07:23
== END 2021-07-13 13:57 | disposition home or self-care (01) | DRG 291 ==
LOC: ER 14:15 → 5 NORTH 21:44
PROVIDERS: ADMIT Student in an Organized Health Care Education/Training Program; ATTEND Student in an Organized Health Care Education/Training Program
DX: I13.0 Hypertensive heart and chronic kidney disease with heart failure and stage 1 through stage 4 chronic kidney disease, or unspecified chronic kidney disease (principal); N17.0 Acute kidney failure with tubular necrosis; J96.21 Acute and chronic respiratory failure with hypoxia; I50.33 Acute on chronic diastolic (congestive) heart failure; E66.9 Obesity, unspecified; E78.00 Pure hypercholesterolemia, unspecified; E78.5 Hyperlipidemia, unspecified; G47.33 Obstructive sleep apnea (adult) (pediatric); I25.10 Atherosclerotic heart disease of native coronary artery without angina pectoris; F41.9 Anxiety disorder, unspecified; G89.29 Other chronic pain; K21.9 Gastro-esophageal reflux disease without esophagitis; M19.90 Unspecified osteoarthritis, unspecified site; M25.559 Pain in unspecified hip; J44.9 Chronic obstructive pulmonary disease, unspecified; N18.30 Chronic kidney disease, stage 3 unspecified; N40.0 Benign prostatic hyperplasia without lower urinary tract symptoms; Z87.891 Personal history of nicotine dependence; Z91.14 Patient's other noncompliance with medication regimen; Z91.19 Patient's noncompliance with other medical treatment and regimen; Z95.5 Presence of coronary angioplasty implant and graft; Z68.36 Body mass index [BMI] 36.0-36.9, adult
CPT/HCPCS: 36415; 71045; 80048; 80053; 80061; 82550; 83735; 83880; 84100; 84484; 85025; 85610; 85730; 93005; 93308; 93970; 96374; J1644; J1940; 99285-25; G0378; Q0163

== ENCOUNTER → 2021-07-15 | Outpatient (CLI) | payer MEDICARE, OTHER ==
[2021-07-13 11:00] VITALS: BP 98/53
[~2021-07-15] MED LIST changes: +CARB15DR3 EACHEYE; +DEXAMETHASONE PRES.FREE 10 MG/ML VIAL. ONE; +DOXY50CA PO; +FURO20TA3 PO; +IOHEXOL 180 MG/ML 10 ML VIAL. ONE; +OXYC20TA PO; +VARE1TAB23 PO
--- NOTE | 2021-07-15 13:09 | PDOC ---
Progress Note - Pain Clinic Date of Service: DOS: DATE: 07/15/21 TIME: 13:05 Diagnosis: Dx: Lumbar radiculopathy with lumbar degenerative disease and lumbar spondylosis Bilateral knee joint pain with osteoarthritis Right shoulder joint pain with osteoarthritis and rotator cuff tear History or Present Illness: HPI: 76-year-old male returns for follow-up status post caudal epidural steroid injection x1 last seen May 16, 2021. Patient reports about 70% improvement for almost 2 months after the pain returning down the low back and bilateral lower extremities described as constant and severe in the back and legs aching and sharp in the legs as well patient reports is a 9 on scale 10 is worse over the past week 5 on average 3 at its least, and is a 5 today. Patient reports no loss of motor function but significant fatigability the bilateral lower extremities with ambulation standing and changing positions. Patient reports better with sitting or laying down but has been awakening from sleep over the past few weeks initially do much better distance walking doing household activities work activities travel with greater ease and comfort and sleeping bet ter but now is beginning to awaken from sleep once again about once to twice a night. Patient reports he was recently hospitalized with some peripheral edema in the lower extremities treated with diuretics and resolved within 3 days. Patient reports no new motor or sensory deficits no bowel or bladder incontinence. Physical Exam: VS: Blood pressure is 120/65 pulse 76 respirations 20 temperature 98.1 F height is 6 foot weight is 269 pounds. PE: PHYSICAL EXAMINATION: GENERAL: The patient is awake, alert, oriented, appropriate, very pleasant in demeanor HEENT: Shows normocephalic, atraumatic. Extraocular movements are intact and symmetrical. Patient wearing eyeglasses. Oral cavity: Mucous membranes moist and pink. Dentition is intact. NECK: Shows anterior throat supple without palpable lymphadenopathy noted. Swallow reflex symmetrical. CHEST: Shows normal on inspection. Breath sounds are clear bilaterally, distant but no rales rhonchi or wheezes auscultated. HEART: Shows S1, S2 clear. No murmurs auscultated. ABDOMEN: Soft, nontender, nondistended. No palpable organomegaly is noted. BACK: Shows spine grossly in the midline. Normal-appearing cervical lordotic curvature. There is moderately increased thoracic kyphosis, some flattening of the lumbar lordotic curvature. Lumbar paraspinous muscles show symmetrical on inspection, on palpation shows some moderate tenderness diffusely throughout the upper, middle and lower distribution of the paraspinous muscles without specific trigger points, without radiation of pain. The patient has good rotational motion of the lumbar spine, both laterally as well as extension and flexion without significant difficulty. No tenderness over the spinous processes, sa benjamin or sacroiliac regions. EXTREMITIES: Lower extremities show deep tendon reflexes 2+ in the patellar and tendo calcaneus tendons. Motor exam is 4 on a scale of 5 with right dorsiflexion, extension, quadriceps and hamstring flexion and 4/5 on the left. Peripheral pulses are 1+ posterior tibial. 1+ peripheral edema is noted bilaterally. Lower extremities are warm and dry to touch, equal in color and appearance. SKIN: Shows warm and dry, good turgor. No edema. No sores, rashes or bruising throughout. Procedure: Procedure: Options were discussed with the patient. Patient chart was reviewed with current medication regimen updated current review of systems updated today as well. We will proceed with a lumbar epidural steroid injection caudal approach using C-arm fluoroscopic guidance. Risks were discussed including but not limited to: Bleeding, infection, possibility of epidural hematoma and subsequent neurological compromise, dural puncture, headaches, spinal cord and/or nerve damage, side effects of steroid medication, and poor results regarding pain control. Patient understands and wished to proceed. Patient will return to clinic in approximate 4 weeks for follow-up, was counseled as to return appointment, activity level, and side effect to be aware of. Medication Injected: Med Injected: Procedure is lumbar epidural steroid injection under local anesthetic using sterile prep and drape at the caudal level using C-arm fluoroscopic guidance in both AP and lateral views medications injected is 20 mg dexamethasone +10mL preservative-free normal saline and 2 mL contrast- condition at discharge is stable patient tolerated procedure well had no complications. Condition at Discharge: Condition at Discharge: Condition at discharge is stable, patient tolerated procedure well and no complications. ANISH DELGADO MD Jul 15, 2021 13:09
--- NOTE | 2021-07-15 13:09 | PDOC4 ---
Procedure Note: ICD 10 Code: ICD 10 Code: M54.17 M51.87 M4 7.817 Procedure Note: Patient was consented for caudal epidural steroid injection with fluoroscopic guidance. Risks were discussed including but not limited to: Bleeding, infection, possibility of epidural hematoma and subsequent neurological compromise, dural puncture, headaches, spinal cord and/or nerve damage, side effects of steroid medication, and poor results regarding pain control. Patient understands and wished to proceed. Procedure is lumbar epidural steroid injection under local anesthetic using st erile prep and drape at the caudal level using C-arm fluoroscopic guidance in both AP and lateral views medications injected is 20 mg dexamethasone +10mL preservative-free normal saline and 2 mL contrast- condition at discharge is stable patient tolerated procedure well had no complications. ANISH DELGADO MD Jul 15, 2021 13:09
== END | disposition home or self-care (01) ==
LOC: PNCL 12:01
PROVIDERS: ATTEND Anesthesiology
DX: M51.16 Intervertebral disc disorders with radiculopathy, lumbar region (principal); M47.26 Other spondylosis with radiculopathy, lumbar region; M17.0 Bilateral primary osteoarthritis of knee; M19.011 Primary osteoarthritis, right shoulder; M75.101 Unspecified rotator cuff tear or rupture of right shoulder, not specified as traumatic; I25.10 Atherosclerotic heart disease of native coronary artery without angina pectoris; I10 Essential (primary) hypertension; E78.00 Pure hypercholesterolemia, unspecified; J44.9 Chronic obstructive pulmonary disease, unspecified; G47.30 Sleep apnea, unspecified; N40.0 Benign prostatic hyperplasia without lower urinary tract symptoms; F41.9 Anxiety disorder, unspecified; F32.9 Major depressive disorder, single episode, unspecified; F17.210 Nicotine dependence, cigarettes, uncomplicated; Z79.82 Long term (current) use of aspirin; Z79.899 Other long term (current) drug therapy; Z98.890 Other specified postprocedural states
CPT/HCPCS: 62323; J1100; Q9965; 62322

== ENCOUNTER 2021-07-22 17:08 | Inpatient (IN) | payer MEDICARE, OTHER ==
[~2021-07-22] VITALS: Ht 182.9 cm; Wt 122.0 kg
[~2021-07-22 17:08] MED LIST changes: -DEXAMETHASONE PRES.FREE 10 MG/ML VIAL. ONE; -IOHEXOL 180 MG/ML 10 ML VIAL. ONE
[2021-07-22 19:15] LABS: BASO # 0.1 x10^3/uL (0.0-0.2); BASO % 1 % (0-3); EOS # 0.1 x10^3/uL (0.0-0.7); EOS % 0 % (0-3); HEMATOCRIT 40.5 % (39.0-53.0); HEMOGLOBIN 13.4 g/dL (13.0-17.5); LYMPH # 1.5 x10^3/uL (1.0-4.8); LYMPH % 12 % (24-48); MEAN CORPUSCULAR HEMOGLOBIN 33 pg (25-35); MEAN CORPUSCULAR HGB CONC 33 g/dL (31-37); MEAN CORPUSCULAR VOLUME 99 fL (79-100); MONO # 0.8 x10^3/uL (0.0-1.1); MONO % 6 % (0-9); NEUT # 10.1 x10^3/uL (1.8-7.7); NEUT % 81 % (31-73); PLATELET COUNT 195 x10^3/uL (140-400); RED BLOOD COUNT 4.11 x10^6/uL (4.30-5.70); RED CELL DISTRIBUTION WIDTH 15.2 % (11.5-14.5); WHITE BLOOD COUNT 12.6 x10^3/uL (4.0-11.0)
--- NOTE | 2021-07-22 19:21 | RAD ---
XR CHEST 1V 07/22/2021 6:18 PM INDICATION: Fall with left rib pain COMPARISON: 07/11/2021 TECHNIQUE: Portable frontal view of the chest is provided. FINDINGS: The cardiomediastinal silhouette is within normal limits. Consolidative change identified the left bertrand ng base and lingula compatible with pulmonary infiltrate. Subcutaneous chains emphysema identified al demian the left chest. There are no significant pleural effusions. There is no pulmonary vascular congestion. No pneumothora x. Rib deformities are identified along the lateral sixth, seventh and eighth ribs suggestive of discoid rib fractures. IMPRESSION: Consolidative changes within the lingula and left lower lobe suggestive of multifocal infiltrates. Co ntusive changes could have similar appearance. There is subcutaneous emphysema chest wall. No definite pneumothorax. Rib deformities are identified along the lateral sixth, seventh and eighth ribs suggestive of discoid rib fractures. Electronically signed by: Kaylie Gomez MD (07/22/2021 7:19 PM) [facility]
[2021-07-22 19:31] LABS: CALCIUM 9.3 mg/dL (8.5-10.1); CREATININE 1.5 mg/dL (0.7-1.3); GFR 45.7; POTASSIUM 4.6 mmol/L (3.5-5.1)
[2021-07-22 19:37] LABS: ALBUMIN 3.6 g/dL (3.4-5.0); ALBUMIN/GLOBULIN RATIO 1.1 (1.0-1.7); TOTAL BILIRUBIN 0.5 mg/dL (0.2-1.0); TOTAL PROTEIN 6.8 g/dL (6.4-8.2)
--- NOTE | 2021-07-22 19:44 | EKG ---
[facility] [address] [place] [address] Test Date: 2021-07-22 Test Time: 17:59:00 Pat Name: CATRACHITA FOX Department: Room: Gender: M Client Coordinator: [id number] : 1945 Requested By: PANCHITO VILLALBA Order Number: [id number] Reading MD: Travis Pagan Measurements Intervals [place] Rate: 82 P: 13 NV: 164 QRS: -15 QRSD: 84 T: 27 QT: 370 QTc: 435 Interpretive Statements SINUS RHYTHM LEFTWARD AXIS QRS(T) CONTOUR ABNORMALITY CONSISTENT WITH ANTEROSEPTAL INFARCT PROBABLY OLD CONSIDER INFERIOR MYOCARDIAL DAMAGE ABNORMAL ECG Electronically Signed On 07-23-2021 21:17:46 CDT by Travis Pagan
[2021-07-22] MEDS ORDERED: IOHEXOL 300 MG/ML 100ML VIAL. IV ONE (19:45)
--- NOTE | 2021-07-22 19:52 | PHYS DOC ---
Past Medical History Past Medical History: Anxiety, Asthma, COPD, GERD, High Cholesterol, Hypertension, Other Additional Past Medical Histor: CHRONIC HIP PAIN (PANCHITO VILLALBA GAS DISPENSER) Past Surgical History: Other Additional Past Surgical Histo: CARDIAC STENT (PANCHITO VILLALBA APRN) Smoking Status: Current Every Day Smoker Alcohol Use: None Drug Use: None (PANCHITO VILLALBA APRN) General Adult EDM: Chief Complaint: RIB PAIN HPI: HPI: Patient is a 76-year-old male that presents today with left upper quadrant abdominal and left chest wall pain. Patient states that sometime last night he got up to go to the bathroom and fell and hit his oxygen concentrator in his room, and since that time he has had increased pain in the left lower chest wall and left upper abdomen. Patient states that he only uses oxygen at night due to his COPD and sleep apnea, but he has been needing to wear his oxygen throughout the day at 2 to 3 L to help with shortness of air. Patient denies hitting his head, he denies any loss of consciousness. And he denies being on any anticoagulation therapy. (PANCHITO VILLALBA GAS DISPENSER) Review of Systems: Review of Systems: Constitutional: Denies fever or chills. [] Eyes: Denies change in visual acuity. [] HENT: Denies nasal congestion or sore throat. [] Respiratory: Left lower chest wall pain denies cough or shortness of breath. [] Cardiovascular: Denies chest pain or edema. [] GI: Left upper abdominal pain pain denies nausea, vomiting, bloody stools or diarrhea. [] : Denies dysuria. [] Musculoskeletal: Denies back pain or joint pain. [] Integument: Denies rash. [] Neurologic: Denies headache, focal weakness or sensory changes. [] Endocrine: Denies polyuria or polydipsia. [] Lymphatic: Denies swollen glands. [] Psychiatric: Denies depression or anxiety. [] (PANCHITO VILLALBA GAS DISPENSER) Heart Score: C/O Chest Pain: No Risk Factors: Risk Factors: DM, Current or recent (<one month) smoker, HTN, HLP, family history of CAD, obesity. Risk Scores: Score 0 - 3: 2.5% MACE over next 6 weeks - Discharge Home Score 4 - 6: 20.3% MACE over next 6 weeks - Admit for Clinical Observation Score 7 - 10: 72.7% MACE over next 6 weeks - Early Invasive Strategies (PANCHITO VILLALBA APRN) Current Medications: Current Medications Medications (Trade) Dose Ordered Sig/Janine Start Time Stop Time Status Last Admin Dose Admin Fentanyl Citrate (Fentanyl 2ml Vial) 50 mcg 1X ONCE 07/22/21 20:15 07/22/21 20:16 Info (CONTRAST GIVEN -- Rx MONITORING) 1 each PRN DAILY PRN 07/22/21 20:00 07/24/21 19:59 Iohexol (Omnipaque 300 Mg/ml) 60 ml 1X ONCE 07/22/21 19:45 07/22/21 19:46 DC (PANCHITO VILLALBA APRN) Allergies: Allergies: Allergies Coded Allergies Type Severity Reaction Last Updated Verified No Known Drug Allergies 07/22/21 No (PANCHITO VILLALBA APRN) Physical Exam: PE: Constitutional: Well developed, well nourished, mild distress, non-toxic appearance. [] HENT: Normocephalic, atraumatic, bilateral external ears normal, oropharynx moist, no oral exudates, nose normal. [] Eyes: PERRLA, EOMI, conjunctiva normal, no discharge. [] Neck: Normal range of motion, no tenderness, supple, no stridor. [] Cardiovascular:Heart rate regular rhythm, no murmur [] Lungs & Thorax: Bilateral breath sounds diminished breath sounds in the left base increased work of breathing noted, cough noted Abdomen: Bowel sounds normal, soft, no tenderness, no masses, no pulsatile masses. [] Skin: 7 cm x 7 cm abrasion ecchymotic area noted over the left posterior rib cage area Back: No tenderness, no CVA tenderness. [] Extremities: No tenderness, no cyanosis, no clubbing, ROM intact, no edema. [] Neurologic: Alert and oriented X 3, normal motor function, normal sensory function, no focal deficits noted. [] Psychologic: Affect normal, judgement normal, mood normal. [] (PANCHITO VILLALBA APRN) Current Patient Data: Labs: Laboratory Tests Test 07/22/21 19:00 White Blood Count 12.6 x10^3/uL (4.0-11.0) H Red Blood Count 4.11 x10^6/uL (4.30-5.70) L Hemoglobin 13.4 g/dL (13.0-17.5) Hematocrit 40.5 % (39.0-53.0) Mean Corpuscular Volume 99 fL (79-100) Mean Corpuscular Hemoglobin 33 pg (25-35) Mean Corpuscular Hemoglobin Concent 33 g/dL (31-37) Red Cell Distribution Width 15.2 % (11.5-14.5) H Platelet Count 195 x10^3/uL (140-400) Neutrophils (%) (Auto) 81 % (31-73) H Lymphocytes (%) (Auto) 12 % (24-48) L Monocytes (%) (Auto) 6 % (0-9) Eosinophils (%) (Auto) 0 % (0-3) Basophils (%) (Auto) 1 % (0-3) Neutrophils # (Auto) 10.1 x10^3/uL (1.8-7.7) H Lymphocytes # (Auto) 1.5 x10^3/uL (1.0-4.8) Monocytes # (Auto) 0.8 x10^3/uL (0.0-1.1) Eosinophils # (Auto) 0.1 x10^3/uL (0.0-0.7) Basophils # (Auto) 0.1 x10^3/uL (0.0-0.2) Sodium Level 143 mmol/L (136-145) Potassium Level 4.6 mmol/L (3.5-5.1) Chloride Level 106 mmol/L (98-107) Carbon Dioxide Level 27 mmol/L (21-32) Anion Gap 10 (6-14) Blood Urea Nitrogen 35 mg/dL (8-26) H Creatinine 1.5 mg/dL (0.7-1.3) H Estimated GFR (Cockcroft-Gault) 45.7 BUN/Creatinine Ratio 23 (6-20) H Glucose Level 116 mg/dL (70-99) H Calcium Level 9.3 mg/dL (8.5-10.1) Total Bilirubin 0.5 mg/dL (0.2-1.0) Aspartate Amino Transferase (AST) 37 U/L (15-37) Alanine Aminotransferase (ALT) 36 U/L (16-63) Alkaline Phosphatase 69 U/L (46-116) Troponin I High Sensitivity 17 ng/L (4-75) Total Protein 6.8 g/dL (6.4-8.2) Albumin 3.6 g/dL (3.4-5.0) Albumin/Globulin Ratio 1.1 (1.0-1.7) Laboratory Tests 07/22/21 19:00 Laboratory Tests 07/22/21 19:00 Vital Signs: Vital Signs Date Time Temp Pulse Resp B/P (MAP) Pulse Ox O2 Delivery O2 Flow Rate FiO2 07/22/21 21:54 16 97 Nasal Cannula 2.0 07/22/21 19:57 16 96 Room Air 07/22/21 17:30 98.6 84 26 144/70 (94) 90 Nasal Cannula 2.0 98.6 Vital Signs Date Time Temp Pulse Resp B/P (MAP) Pulse Ox O2 Delivery O2 Flow Rate FiO2 07/22/21 17:30 98.6 84 26 144/70 (94) 90 Nasal Cannula 2.0 98.6 (PANCHITO VILLALBA GAS DISPENSER) EKG: EKG: EKG done at [address] Norwood at 1839 shows sinus rhythm no ectopy with a TX interval of 164 ms with a QTC of 435 ms a rate of 82 no STEMI [] (PANCHITO VILLALBA GAS DISPENSER) Radiology/Procedures: Radiology/Procedures: REASON: fall with left rib pain PROCEDURE: CHEST AP ONLY XR CHEST 1V 07/22/2021 6:18 PM INDICATION: Fall with left rib pain COMPARISON: 07/11/2021 TECHNIQUE: Portable frontal view of the chest is provided. FINDINGS: The cardiomediastinal silhouette is within normal limits. Consolidative change identified the left lung base and lingula compatible with pulmonary infiltrate. Subcutaneous chains emphysema identified along the left chest. There are no significant pleural effusions. There is no pulmonary vascular congestion. No pneumothorax. Rib deformities are identified along the lateral sixth, seventh and eighth ribs suggestive of discoid rib fractures. IMPRESSION: Consolidative changes within the lingula and left lower lobe suggestive of multifocal infiltrates. Contusive changes could have similar appearance. There is subcutaneous emphysema chest wall. No definite pneumothorax. Rib deformities are identified along the lateral sixth, seventh and eighth ribs suggestive of discoid rib fractures. Electronically signed by: Kaylie Gomez MD (07/22/2021 7:19 PM) [facility][] REASON: fall with LUQ pain PROCEDURE: CT CHEST ABD PELVIS W/CONTRAST Examination: CT chest abdomen pelvis with IV contrast HISTORY: History of fall, left upper quadrant pain COMPARISON: CT chest from 06/08/2021 TECHNIQUE: Axial CT images of the chest abdomen pelvis were performed with IV contrast. Coronal and sagittal reformats are performed Exposure: One or more of the following individualized dose reduction techniques were utilized for this examination: 1. Automated exposure control 2. Adjustment of the mA and/or kV according to patient size 3. Use of iterative reconstruction technique FINDINGS: The visualized thyroid gland grossly appears unremarkable. Central airways are patent. Moderate aortic atherosclerosis. Coronary artery calcifications. The heart size grossly appears unremarkable Moderate bilateral lung emphysematous changes. Linear airspace opacities identified in the left lingula and left lower lobe of the lung could be secondary to atelectasis or pulmonary contusions. Trace left pneumothorax id entified anteriorly in the inferior aspect. Mild displaced fracture of the left lateral sixth rib, seventh, eighth, ninth ribs. The left eighth and ninth ribs are fractured in multiple locations likely flail chest. Diffuse amount of soft tissue air identified in the left chest wall about the fracture site with the prominence of the left posterior lateral muscles of the chest wall likely secondary to contusion. Mild degree attenuation noted in the liver likely hepatic steatosis. The spleen, adrenals grossly appears unremarkable. The stomach is mildly distended with visualized pancreas grossly appears unremarkable. Small bowel is nondilated. Feces and gas noted in the colon Sigmoid colon diverticulosis. Urinary bladder is mildly distended. The bilateral kidneys enhance symmetrically. Cystic structure identified in the left kidney measuring 1 cm likely cyst. There is mild focal prominence of the left renal cortex or mass. Moderate degenerative changes thoracic and lumbar spine. Lumbar hardware L4-L5 vertebral level IMPRESSION: 1. Mild displaced fracture of the left lateral sixth rib, seventh, eighth, ninth ribs. The left eighth and ninth ribs fractured in multiple locations lik marleny flail chest. Diffuse amount of soft tissue air identified in the left chest wall about the fracture site with the prominence of the left posterior lateral muscles of the chest wall likely secondary to contusion. 2. Trace left pneumothorax identified anteriorly in the inferior aspect. 3. Linear airspace opacities identified in the left lingula and left lower lobe of the lung could be secondary to atelectasis or pulmonary contusions. 4. Moderate bilateral lung emphysematous changes. 5. Mild hepatic steatosis. 6. Sigmoid colon diverticulosis. Electronically signed by: Yunior Kang MD (07/22/2021 9:07 PM) [id number] (PANCHITO VILLALBA APRN) Course & Med Decision Making: Course & Med Decision Making Pertinent Labs and Imaging studies reviewed. (See chart for details) Spoke to Dr. Liriano regarding this patient's condition, he is agreeable to admitting the patient due to the fact that he has multiple rib fractures, and a history of oxygen dependency at night, and he was also just discharged from the hospital on July 12 with CHF. Patient is agreeable to admitting for pain control and for monitoring of his multiple rib fractures. (PANCHITO VILLALBA APRN) Course & Med Decision Making Patients Care and treatment plan provided by ER Nurse Practitioner. I was available for consult. Patient's chart reviewed. (DIGNA GARDNER DO) Dragon Disclaimer: Dragon Disclaimer: This electronic medical record was generated, in whole or in part, using a voice recognition dictation system. (PANCHITO VILLALBA APRN) Departure Departure Impression: Primary Impression: Multiple rib fractures Qualified Codes: S22.42XA - Multiple fractures of ribs, left side, initial encounter for closed fracture Disposition: ADMITTED INPATIENT Condition: GUARDED Referrals: ZAHIRA CONLEY (PCP) PANCHITO VILLALBA APRN Jul 22, 2021 19:52 DIGNA GARDNER DO Jul 22, 2021 23:31
[2021-07-22] MEDS ORDERED: CONTRAST GIVEN. MC PRN (20:00)
[2021-07-22] MEDS ORDERED: fentaNYL PF VIAL 100 MCG/2 ML VIAL IVP ONE (20:15)
--- NOTE | 2021-07-22 21:09 | RAD ---
Examination: CT chest abdomen pelvis with IV contrast HISTORY: History of fall, left upper quadrant pain COMPARISON: CT chest from 06/08/2021 TECHNIQUE: Axial CT images of the chest abdomen pelvis were performed with IV contrast. Coronal and s agittal reformats are performed Exposure: One or more of the following individualized dose reduction techniques were utilized for thi s examination: 1. Automated exposure control 2. Adjustment of the mA and/or kV according to patient size 3. Use of iterative reconstruction technique FINDINGS: The visualized thyroid gland grossly appears unremarkable. Central airways are patent. Moderate aorti c atherosclerosis. Coronary artery calcifications. The heart size grossly appears unremarkable Moderate bilateral lung emphysematous changes. Linear airspace opacities identified in the left lingu la and left lower lobe of the lung could be secondary to atelectasis or pulmonary contusions. Trace l eft pneumothorax identified anteriorly in the inferior aspect. Mild displaced fracture of the left lateral sixth rib, seventh, eighth, ninth ribs. The left eighth a nd ninth ribs are fractured in multiple locations likely flail chest. Diffuse amount of soft tissue a ir identified in the left chest wall about the fracture site with the prominence of the left posterio r lateral muscles of the chest wall likely secondary to contusion. Mild degree attenuation noted in the liver likely hepatic steatosis. The spleen, adrenals grossly ermelinda ears unremarkable. The stomach is mildly distended with visualized pancreas grossly appears unremarkable. Small bowel is nondilated. Feces and gas noted in the colon Sigmoid colon diverticulosis. Urinary bladder is mildly distended. The bilateral kidneys enhance symmetrically. Cystic structure identified in the left kidney measuring 1 cm likely cyst. There is mild focal prominence of the left renal cortex or mass. Moderate degenera tive changes thoracic and lumbar spine. Lumbar hardware L4-L5 vertebral level IMPRESSION: 1. Mild displaced fracture of the left lateral sixth rib, seventh, eighth, ninth ribs. The left eigh th and ninth ribs fractured in multiple locations likely flail chest. Diffuse amount of soft tissue a ir identified in the left chest wall about the fracture site with the prominence of the left posterio r lateral muscles of the chest wall likely secondary to contusion. 2. Trace left pneumothorax identified anteriorly in the inferior aspect. 3. Linear airspace opacities identified in the left lingula and left lower lobe of the lung could be secondary to atelectasis or pulmonary contusions. 4. Moderate bilateral lung emphysematous changes. 5. Mild hepatic steatosis. 6. Sigmoid colon diverticulosis. Electronically signed by: Yunior Kang MD (07/22/2021 9:07 PM) [id number]
[2021-07-22] MEDS ORDERED: ONDANSETRON PF 4 MG/2 ML VIAL. IVP PRN (21:45)
[2021-07-22] MEDS: fentaNYL PF VIAL 100 MCG/2 ML VIAL IVP PRN (21:54)
[2021-07-22 23:00] VITALS: BP 160/71
[2021-07-22] MEDS: MORPHINE SULFATE 4 MG/ML INJ. IV PRN (23:35)
--- NOTE | 2021-07-23 00:33 | NUR ---
CALLED RN TO OBTAIN ORDER CLARIFICATION, BIPAP FOR NOCTURNAL USE ORDERED WITH IPAP 12 AND EPAP 4, 40%. NO RATE IS SPECIFIED IN THE ORDER. FURTHERMORE SHE STATES THAT THE PATIENT WAS SAYING THAT HE CANNOT WEAR THE BIPAP BECAUSE HE IS HAVING RIB PAIN. I DID THEN LET THE NURSE KNOW THAT HE CAN AND SHOULD WEAR THE BIPAP IN SPITE OF PAIN HIS SWETHA AND HYPOVENTILATION WILL LIKELY WORSEN WITH PAIN AND PAIN MEDICATIONS. RN STATES THAT SHE WILL INFORM THE PHYSICIAN. I AM AWAITING UPDATED ORDERS SO THAT I CAN PLACE PATIENT ON HIS BIPAP. Addendum: 07/23/21 at 0209 by NIDIA SOLANO RT I WENT TO SEE PATIENT AND EXPLAINED THE REASON BIPAP HAS BEEN ORDERED. EXPLAINED TO HIM HOW HIS SWETHA AND PAIN CAN ADVERSELY AFFECT HIS BREATHING. PT EXPRESSED UNDERSTANDING BUT MAINTAINS THAT HE DOES NOT WANT TO WEAR THE BIPAP BECAUSE HE IS CONVINCED THAT IT WILL INCREASE HIS PAIN. ADVISED PT TO CALL IF HE CHANGES HIS MIND AND WANTS TO TRY IT. PT DOES NOT SEEM TO BE IN RESPIRATORY DISTRESS, COMPLAINS ABOUT THE PAIN IN HIS RIBS. HE DOES NOT SEEM SOMNOLENT AT ALL, HE DOES NOT THINK HE WILL GET MUCH SLEEP TONIGHT. WILL CONTINUE TO MONITOR AND AWAIT FURTHER ORDERS.
--- NOTE | 2021-07-23 01:01 | NUR ---
Pt declines Bipap at this time. Pt says that his rib is too painful and he is afraid the pressure from the bipap will make worse. Nsg spoke with RT Williamson who attempted to encourage pt to wear bipap. Pt continues to refuse at this time. Bipap left in pt room in case he changes his mind. This nurse will notify physician this AM.
[2021-07-23] MEDS: MORPHINE SULFATE 4 MG/ML INJ. IV PRN ×8 (02:18→20:57)
[2021-07-23 03:00] VITALS: BP 196/80
[2021-07-23] MEDS: fentaNYL PF VIAL 100 MCG/2 ML VIAL IVP PRN ×3 (03:12→13:04)
[2021-07-23 07:00] VITALS: BP 171/81
[2021-07-23] MEDS: BUDESONIDE 0.5 MG/2 ML NEBU. NEB SCH ×2 (08:00→20:00)
[2021-07-23] MEDS: IPRATRPIUM/ALBUTEROL 0.5/2.5MG 3 ML NEBU. NEB SCH ×4 (08:00→20:00)
--- NOTE | 2021-07-23 08:26 | CONS ---
DATE OF CONSULTATION: 07/23/2021 REASON FOR CONSULTATION: I was asked to see this 76-year-old gentleman for rib fractures, acute on chronic respiratory failure. HISTORY OF PRESENT ILLNESS: He does have history of [id number] smoking, he continues to smoke about a few cigarettes per day. He is on oxygen 1 liter per minute via nasal cannula and 3 with activity. He is on BiPAP at night. He does have COPD, chronic respiratory failure and obstructive sleep apnea-hypopnea syndrome and is followed by Dr. Miller. He was making his bed. He fell on his oxygen concentrator. He had severe pain on the left chest. He presented to the Emergency Room. He is currently on 5 liters of oxygen. He has pain on the left chest wall. He does not have a cough more than usual. PAST MEDICAL HISTORY: Chronic respiratory failure, COPD, obstructive sleep apnea-hypopnea syndrome, coronary artery disease, diastolic congestive heart failure, obesity. ALLERGIES: No known drug allergies. MEDICATIONS: He is on morphine, fentanyl p.r.n. SOCIAL HISTORY: History of [id number] smoking, continues to smoke a few cigarettes per day. FAMILY HISTORY: Hypertension. REVIEW OF SYSTEMS: As mentioned as above, other systems otherwise negative. PHYSICAL EXAMINATION: GENERAL: This is an obese gentleman. VITAL SIGNS: His O2 saturation on 5 liters of oxygen is 97%, respiratory rate 20, heart rate 98, blood pressure 190/80, temperature 97.9. HEENT: Normocephalic, atraumatic. Pupils equal, round, reactive to light. There is shallow oropharynx. Nose is clear. NECK: Short, thick. No lymphadenopathy or thyromegaly. CARDIOVASCULAR: Regular rate and rhythm. CHEST: Inspection is normal. LUNGS: There are bibasilar crackles. Subcutaneous emphysema on the left chest. Diminished breath sounds on the left base. ABDOMEN: Soft and obese. Bowel sounds are good. EXTREMITIES: There is trace edema. LYMPHATICS: There is no lymphadenopathy. NEUROLOGIC: Alert and oriented. LABORATORY DATA: I reviewed the following lab data. CT of the chest did show displaced fracture of left lateral 6 rib, 7 rib, 8 rib, 9 rib. Left 8 and 9 rib fractures in multiple locations. Diffuse amount of soft tissue air identified in the left chest wall. Prominence of left posterolateral muscle of the chest, likely secondary to contusion, trace left pneumothorax anteriorly in the inferior aspect, linear airspace opacities identified in the left lingula, left lower lobe secondary to atelectasis versus contusion, moderate bilateral emphysema, mild splenic steatosis, sigmoid colon diverticulitis. WBC 12.6, hemoglobin 13.4, platelet 195. Sodium 143, potassium 4.6, chloride 106, CO2 of 27, BUN 35, creatinine 1.5, glucose 116. Troponin 17. IMPRESSION: 1. Acute on chronic respiratory failure. 2. Abnormal CT of the chest. 3. Rib fractures 6, 7, 8, 9 ribs, subcutaneous emphysema, trace left pneumothorax, lung contusion. 4. Status post fall. 5. Obstructive sleep apnea-hypopnea syndrome. 6. Chronic obstructive pulmonary disease. 7. Tobacco habituation. 8. Coronary artery disease. 9. Hypertension. 10. Obesity. PLAN AND RECOMMENDATIONS: 1. I had a long discussion with him regarding the smoking cessation. Advised him to stop smoking forever. 2. Continue oxygen, titrate FiO2 to keep O2 saturation 92%. 3. Hold on BiPAP as he does have small pneumothorax. 4. We will monitor his respiratory status very closely. 5. Start bronchodilator, DuoNeb q.i.d. 6. Start Pulmicort b.i.d. 7. Pain control per primary. 8. Advised him to take deep breaths and use incentive spirometer. 9. I have advised him to lose weight. 10. The findings and recommendations were discussed with the patient and RN. Thank you very much for allowing me to participate in care of this very nice gentleman. NATHANAEL DR: Baljinder TID: [id number]
[2021-07-23] MEDS ORDERED: NORMAL SALINE 36.7 ML, fentaNYL PF VIAL 250 MCG, BUPIVACAINE MPF 0.75% 8.3 ML in EPIDUR... EPID PRN (10:30)
--- NOTE | 2021-07-23 10:34 | PDOC1 ---
History and Physical Date of Service: DOS: DATE: 07/23/21 TIME: 10:34 Chief Complaint: Chief Complain: rib pain History of Present Illness: HPI: Patient is a 76-year-old male that presents today with left upper quadrant abdominal and left chest wall pain. Patient states that sometime last night he got up to go to the bathroom and fell and hit his oxygen concentrator in his room, and since that time he has had increased pain in the left lower chest wall and left upper abdomen. Patient states that he only uses oxygen at night due to his COPD and sleep apnea, but he has been needing to wear his oxygen throughout the day at 2 to 3 L to help with shortness of air. Patient denies hitting his head, he denies any loss of consciousness. And he denies being on any anticoagulation therapy. Past Medical/Surgical History: PMH/PSH: Past Medical History: Anxiety, Asthma, COPD, GERD, High Cholesterol, Hypertension, Other Additional Past Medical Histor: CHRONIC HIP PAIN Past Surgical History: Other Additional Past Surgical Histo: CARDIAC STENT Smoking Status: Current Every Day Smoker Alcohol Use: None Drug Use: None Allergies: Allergies: Coded Allergies: No Known Drug Allergies (Unverified , 07/22/21) Family History: Family History: HTN Current Medications: Current Medications Current Medications Fentanyl Citrate (Fentanyl 2ml Vial) 50 mcg 1X ONCE IVP Last administered on 07/22/21at 19:57; Start 07/22/21 at 20:15; Stop 07/22/21 at 20:16; Status DC Iohexol (Omnipaque 300 Mg/ml) 60 ml 1X ONCE IV Last administered on 07/22/21at 19:45; Start 07/22/21 at 19:45; Stop 07/22/21 at 19:46; Status DC Info (CONTRAST GIVEN -- Rx MONITORING) 1 each PRN DAILY PRN MC SEE COMMENTS; Start 07/22/21 at 20:00; Stop 07/24/21 at 19:59 Ondansetron HCl (Zofran) 4 mg PRN Q8HRS PRN IVP NAUSEA/VOMITING; Start 07/22/21 at 21:45; Stop 07/23/21 at 21:44 Fentanyl Citrate (Fentanyl 2ml Vial) 50 mcg PRN Q2HR PRN IVP PAIN Last administered on 07/23/21at 05:13; Start 07/22/21 at 21:45; Stop 07/23/21 at 21:44 Morphine Sulfate (Morphine Sulfate) 4 mg PRN Q2HR PRN IV PAIN Last administered on 07/23/21at 08:48; Start 07/22/21 at 22:15 Albuterol/ Ipratropium (Duoneb) 3 ml RTQID NEB ; Start 07/23/21 at 08:00 Budesonide (Pulmicort) 0.5 mg RTBID NEB ; Start 07/23/21 at 08:00 Active Scripts Active Furosemide 20 Mg Tablet 20 Mg PO DAILY 30 Days Reported Refresh Optive Eye Drops (Carboxymethylcellulos/Glycerin) 15 Ml Drops 1 Drop EACHEYE PRN QID PRN Flonase Allergy Relief (Fluticasone Propionate) 9.9 Ml Newell.susp 2 Sprays NS PRN DAILY PRN Meloxicam 15 Mg Tablet 1 Tab PO PRN BID PRN 30 Days Lisinopril 40 Mg Tablet 40 Mg PO DAILY Flomax (Tamsulosin Hcl) 0.4 Mg Cap.er.24h 0.4 Mg PO DAILY Stiolto Respimat Inhal [place]ell (Tiotropium Br/Olodaterol HCl) 4 Gm Mist.inhal 2 Inh IH DAILY Vitamin D3 (Cholecalciferol (Vitamin D3)) 1,250 Mcg Capsule Unknown Dose PO DAILY B Complex (Vitamin B Complex) 1 Each Tablet 1 Tab PO DAILY 30 Days Proair Hfa Inhaler (Albuterol Sulfate) 8.5 Gm Hfa.aer.ad 2 Puff IH PRN Q4-6HRS PRN 21 Days Acetaminophen 500 Mg Tablet 2 Tab PO DAILY PRN 15 Days Ativan (Lorazepam) 1 Mg Tablet 1 Mg PO HS Ropinirole Hcl 1 Mg Tablet 1 Mg PO QHS Crestor (Rosuvastatin Calcium) 40 Mg Tablet 40 Mg PO HS Metoprolol Succinate ( Xl ) (Metoprolol Succinate) 100 Mg Tab.er.24h 100 Mg PO HS Omeprazole 40 Mg Capsule. 20 Mg PO HS Oxycodone Hcl Immed.release (Oxycodone Hcl) 10 Mg Tablet 20 Mg PO PRN Q4HRS PRN Cymbalta (Duloxetine Hcl) 30 Mg Capsule. 60 Mg PO HS Aspir 81 (Aspirin) 81 Mg Tablet. 81 Mg PO DAILY08 ROS: Review of Systems Review of System Unless noted in HPI 14 point review of systems negative Physical Exam: Vital Signs: Vital Signs Date Time Temp Pulse Resp B/P (MAP) Pulse Ox O2 Delivery O2 Flow Rate FiO2 07/23/21 09:36 Nasal Cannula 5.0 07/23/21 07:00 98.0 95 22 171/81 (111) 96 98.0 Physcial Exam: GEN: No apparent distress. Alert and oriented HEENT: Normal cephalic, atraumatic, external auditory canals are patent EYES: Extraocular muscles are intact, pupil are equally round and reactive to light and accommodation MUSCULOSKELETAL: Well developed , well nourished, good range of motion ENDOCRINE: No thyromegaly was palpated LYMPHATICS: No cervical chain or axillary nodes were noted HEMATOPOIETIC: No bruising NECK: Supple, no JVD, no thyromegaly was noted LUNGS: Clear to auscultation in all lung stephenson without rhonchi or wheezing HEART: RRR, S!, S2 present. Peripheral pulses intact, no obvious murmurs noted ABDOMEN: Soft, nontender. Positive bowel sounds, no organomegaly, normal bowel sounds EXTREMITIES: Without clubbing, cyanosis, or edema. Pedal pulses intact. Negative Homans sign NEUROLOGIC: Normal speech and tone. A&O x 3, moves all extremities, no obvious focal deficits PSYCHIATRIC: Normal affect, normal mood. Stable SKIN: No ulcerations or rashes, good skin turgor, no jaundice VASCULAR: Good capillary refill, neurovascular bundle appears to be intact Labs: Labs: Laboratory Tests Test 07/22/21 19:00 White Blood Count 12.6 x10^3/uL (4.0-11.0) Red Blood Count 4.11 x10^6/uL (4.30-5.70) Hemoglobin 13.4 g/dL (13.0-17.5) Hematocrit 40.5 % (39.0-53.0) Mean Corpuscular Volume 99 fL (79-100) Mean Corpuscular Hemoglobin 33 pg (25-35) Mean Corpuscular Hemoglobin Concent 33 g/dL (31-37) Red Cell Distribution Width 15.2 % (11.5-14.5) Platelet Count 195 x10^3/uL (140-400) Neutrophils (%) (Auto) 81 % (31-73) Lymphocytes (%) (Auto) 12 % (24-48) Monocytes (%) (Auto) 6 % (0-9) Eosinophils (%) (Auto) 0 % (0-3) Basophils (%) (Auto) 1 % (0-3) Neutrophils # (Auto) 10.1 x10^3/uL (1.8-7.7) Lymphocytes # (Auto) 1.5 x10^3/uL (1.0-4.8) Monocytes # (Auto) 0.8 x10^3/uL (0.0-1.1) Eosinophils # (Auto) 0.1 x10^3/uL (0.0-0.7) Basophils # (Auto) 0.1 x10^3/uL (0.0-0.2) Sodium Level 143 mmol/L (136-145) Potassium Level 4.6 mmol/L (3.5-5.1) Chloride Level 106 mmol/L (98-107) Carbon Dioxide Level 27 mmol/L (21-32) Anion Gap 10 (6-14) Blood Urea Nitrogen 35 mg/dL (8-26) Creatinine 1.5 mg/dL (0.7-1.3) Estimated GFR (Cockcroft-Gault) 45.7 BUN/Creatinine Ratio 23 (6-20) Glucose Level 116 mg/dL (70-99) Calcium Level 9.3 mg/dL (8.5-10.1) Total Bilirubin 0.5 mg/dL (0.2-1.0) Aspartate Amino Transf (AST/SGOT) 37 U/L (15-37) Alanine Aminotransferase (ALT/SGPT) 36 U/L (16-63) Alkaline Phosphatase 69 U/L (46-116) Troponin I High Sensitivity 17 ng/L (4-75) Total Protein 6.8 g/dL (6.4-8.2) Albumin 3.6 g/dL (3.4-5.0) Albumin/Globulin Ratio 1.1 (1.0-1.7) Laboratory Tests Test 07/22/21 19:00 White Blood Count 12.6 x10^3/uL (4.0-11.0) Red Blood Count 4.11 x10^6/uL (4.30-5.70) Hemoglobin 13.4 g/dL (13.0-17.5) Hematocrit 40.5 % (39.0-53.0) Mean Corpuscular Volume 99 fL (79-100) Mean Corpuscular Hemoglobin 33 pg (25-35) Mean Corpuscular Hemoglobin Concent 33 g/dL (31-37) Red Cell Distribution Width 15.2 % (11.5-14.5) Platelet Count 195 x10^3/uL (140-400) Neutrophils (%) (Auto) 81 % (31-73) Lymphocytes (%) (Auto) 12 % (24-48) Monocytes (%) (Auto) 6 % (0-9) Eosinophils (%) (Auto) 0 % (0-3) Basophils (%) (Auto) 1 % (0-3) Neutrophils # (Auto) 10.1 x10^3/uL (1.8-7.7) Lymphocytes # (Auto) 1.5 x10^3/uL (1.0-4.8) Monocytes # (Auto) 0.8 x10^3/uL (0.0-1.1) Eosinophils # (Auto) 0.1 x10^3/uL (0.0-0.7) Basophils # (Auto) 0.1 x10^3/uL (0.0-0.2) Sodium Level 143 mmol/L (136-145) Potassium Level 4.6 mmol/L (3.5-5.1) Chloride Level 106 mmol/L (98-107) Carbon Dioxide Level 27 mmol/L (21-32) Anion Gap 10 (6-14) Blood Urea Nitrogen 35 mg/dL (8-26) Creatinine 1.5 mg/dL (0.7-1.3) Estimated GFR (Cockcroft-Gault) 45.7 BUN/Creatinine Ratio 23 (6-20) Glucose Level 116 mg/dL (70-99) Calcium Level 9.3 mg/dL (8.5-10.1) Total Bilirubin 0.5 mg/dL (0.2-1.0) Aspartate Amino Transf (AST/SGOT) 37 U/L (15-37) Alanine Aminotransferase (ALT/SGPT) 36 U/L (16-63) Alkaline Phosphatase 69 U/L (46-116) Troponin I High Sensitivity 17 ng/L (4-75) Total Protein 6.8 g/dL (6.4-8.2) Albumin 3.6 g/dL (3.4-5.0) Albumin/Globulin Ratio 1.1 (1.0-1.7) Assessment/Plan Assessment/Plan Rib fracture -Patient with fall and fracturing his ribs -Surgery consulted by emergency room recommended epidural but unable to be done despite multiple attempts -As needed pain control -Home meds as indicated -Diet as tolerated Justifications for Admission Other Justification CHF exacerbation DEVON CRUZ MD Jul 23, 2021 10:34
[2021-07-23] MEDS ORDERED: ROPIVacaine 0.2% PF 10 ML VIAL. ONE (10:46)
--- NOTE | 2021-07-23 10:53 | PDOC2 ---
CONSULT Date of Consult Date of Consult DATE: 07/23/21 TIME: 10:49 Reason for Consult Reason for Consult: multiple rib fractures Referring Physician Referring Physician: Dr. Liriano Identification/Chief Complaint Chief Complaint left chest pain Source Source: Chart review, Patient History of Present Illness Reason for Visit: 76 yo M fell on his oxygen tank. Acute onset of pain at left chest. Imaging demonstrates multiple rib fractures. Pt with c/o difficulty moving, eating and breathing secondary to pain. Past Medical History Cardiovascular: CAD, CHF, HTN, Hyperlipidemia Pulmonary: Asthma, COPD, Other GI: GERD Psych: Anxiety Musculoskeletal: Osteoarthritis Renal/: Benign prostatic enlarg. Past Surgical History Past Surgical History: Arthroscopy, Hernia Repair, Tonsillectomy, Other Family History Family History: Heart Disease, Hypertension Social History 1 pack per day ALCOHOL: none Drugs: None Lives: with Family Current Medications Current Medications Current Medications Fentanyl Citrate (Fentanyl 2ml Vial) 50 mcg 1X ONCE IVP Last administered on 07/22/21at 19:57; Start 07/22/21 at 20:15; Stop 07/22/21 at 20:16; Status DC Iohexol (Omnipaque 300 Mg/ml) 60 ml 1X ONCE IV Last administered on 07/22/21at 19:45; Start 07/22/21 at 19:45; Stop 07/22/21 at 19:46; Status DC Info (CONTRAST GIVEN -- Rx MONITORING) 1 each PRN DAILY PRN MC SEE COMMENTS; Start 07/22/21 at 20:00; Stop 07/24/21 at 19:59 Ondansetron HCl (Zofran) 4 mg PRN Q8HRS PRN IVP NAUSEA/VOMITING; Start 07/22/21 at 21:45; Stop 07/23/21 at 21:44 Fentanyl Citrate (Fentanyl 2ml Vial) 50 mcg PRN Q2HR PRN IVP PAIN Last admi nistered on 07/23/21at 05:13; Start 07/22/21 at 21:45; Stop 07/23/21 at 21:44 Morphine Sulfate (Morphine Sulfate) 4 mg PRN Q2HR PRN IV PAIN Last administered on 07/23/21at 08:48; Start 07/22/21 at 22:15 Albuterol/ Ipratropium (Duoneb) 3 ml RTQID NEB ; Start 07/23/21 at 08:00 Budesonide (Pulmicort) 0.5 mg RTBID NEB ; Start 07/23/21 at 08:00 Sodium Chloride 36.7 ml/Fentanyl Citrate 250 mcg/ Bupivacaine HCl 8.3 ml/Epidural Dosage Infused (Pha) 50 ml @ 8 mls/hr CONT PRN EPID SEE PROTOCOL TABLE; Start 07/23/21 at 10:30 Aspirin (Ecotrin) 81 mg DAILY08 PO ; Start 07/23/21 at 11:00 Duloxetine HCl (Cymbalta) 60 mg HS PO ; Start 07/23/21 at 21:00 Furosemide (Lasix) 20 mg DAILY PO ; Start 07/23/21 at 11:00 Lisinopril (Prinivil) 40 mg DAILY PO ; Start 07/24/21 at 09:00; Status UNV Lorazepam (Ativan) 1 mg HS PO ; Start 07/23/21 at 21:00; Status UNV Metoprolol Succinate (Toprol Xl) 100 mg HS PO ; Start 07/23/21 at 21:00; Status UNV Ropinirole HCl (Requip) 1 mg QHS PO ; Start 07/23/21 at 21:00; Status UNV Tamsulosin HCl (Flomax) 0.4 mg DAILY PO ; Start 07/24/21 at 09:00; Status UNV Vitamin B Complex (Darek B) 1 tab DAILY PO ; Start 07/24/21 at 09:00; Status UNV Non-Formulary Medication (Omeprazole ) 20 mg HS PO ; Start 07/23/21 at 21:00; Status UNV Non-Formulary Medication (Rosuvastatin Calcium (Crestor)) 40 mg HS PO ; Start 07/23/21 at 21:00; Status UNV Ropivacaine (Naropin 0.2%) 10 ml STK-MED ONCE .ROUTE ; Start 07/23/21 at 10:46; Stop 07/23/21 at 10:47; Status DC Active Scripts Active Furosemide 20 Mg Tablet 20 Mg PO DAILY 30 Days Reported Refresh Optive Eye Drops (Carboxymethylcellulos/Glycerin) 15 Ml Drops 1 Drop EACHEYE PRN QID PRN Flonase Allergy Relief (Fluticasone Propionate) 9.9 Ml Buck[place].susp 2 Sprays NS PRN DAILY PRN Meloxicam 15 Mg Tablet 1 Tab PO PRN BID PRN 30 Days Lisinopril 40 Mg Tablet 40 Mg PO DAILY Flomax (Tamsulosin Hcl) 0.4 Mg Cap.er.24h 0.4 Mg PO DAILY Stiolto Respimat Inhal [place] (Tiotropium Br/Olodaterol HCl) 4 Gm Mist.inhal 2 Inh IH DAILY Vitamin D3 (Cholecalciferol (Vitamin D3)) 1,250 Mcg Capsule Unknown Dose PO DAILY B Complex (Vitamin B Complex) 1 Each Tablet 1 Tab PO DAILY 30 Days Proair Hfa Inhaler (Albuterol Sulfate) 8.5 Gm Hfa.aer.ad 2 Puff IH PRN Q4-6HRS PRN 21 Days Acetaminophen 500 Mg Tablet 2 Tab PO DAILY PRN 15 Days Ativan (Lorazepam) 1 Mg Tablet 1 Mg PO HS Ropinirole Hcl 1 Mg Tablet 1 Mg PO QHS Crestor (Rosuvastatin Calcium) 40 Mg Tablet 40 Mg PO HS Metoprolol Succinate ( Xl ) (Metoprolol Succinate) 100 Mg Tab.er.24h 100 Mg PO HS Omeprazole 40 Mg Capsule.dr 20 Mg PO HS Oxycodone Hcl Immed.release (Oxycodone Hcl) 10 Mg Tablet 20 Mg PO PRN Q4HRS PRN Cymbalta (Duloxetine Hcl) 30 Mg Capsule.dr 60 Mg PO HS Aspir 81 (Aspirin) 81 Mg Tablet.dr 81 Mg PO DAILY08 Allergies Allergies: Coded Allergies: No Known Drug Allergies (Unverified , 07/22/21) ROS Respiratory: YES: Pleuritic Pain, Shortness of breath Physical Exam General: Alert, Oriented X3, Cooperative, moderate distress HEENT: Atraumatic Lungs: Other (TTP left chest) Abdomen: Soft, No tenderness Extremities: No clubbing, No cyanosis Skin: No rashes, No breakdown Neuro: Normal speech, Sensation intact Psych/Mental Status: Mental status NL, Mood NL Vitals VITALS Vital Signs Date Time Temp Pulse Resp B/P (MAP) Pulse Ox O2 Delivery O2 Flow Rate FiO2 07/23/21 09:36 Nasal Cannula 5.0 07/23/21 07:00 98.0 95 22 171/81 (111) 96 98.0 Labs Labs Laboratory Tests Test 07/22/21 19:00 White Blood Count 12.6 x10^3/uL (4.0-11.0) Red Blood Count 4.11 x10^6/uL (4.30-5.70) Hemoglobin 13.4 g/dL (13.0-17.5) Hematocrit 40.5 % (39.0-53.0) Mean Corpuscular Volume 99 fL (79-100) Mean Corpuscular Hemoglobin 33 pg (25-35) Mean Corpuscular Hemoglobin Concent 33 g/dL (31-37) Red Cell Distribution Width 15.2 % (11.5-14.5) Platelet Count 195 x10^3/uL (140-400) Neutrophils (%) (Auto) 81 % (31-73) Lymphocytes (%) (Auto) 12 % (24-48) Monocytes (%) (Auto) 6 % (0-9) Eosinophils (%) (Auto) 0 % (0-3) Basophils (%) (Auto) 1 % (0-3) Neutrophils # (Auto) 10.1 x10^3/uL (1.8-7.7) Lymphocytes # (Auto) 1.5 x10^3/uL (1.0-4.8) Monocytes # (Auto) 0.8 x10^3/uL (0.0-1.1) Eosinophils # (Auto) 0.1 x10^3/uL (0.0-0.7) Basophils # (Auto) 0.1 x10^3/uL (0.0-0.2) Sodium Level 143 mmol/L (136-145) Potassium Level 4.6 mmol/L (3.5-5.1) Chloride Level 106 mmol/L (98-107) Carbon Dioxide Level 27 mmol/L (21-32) Anion Gap 10 (6-14) Blood Urea Nitrogen 35 mg/dL (8-26) Creatinine 1.5 mg/dL (0.7-1.3) Estimated GFR (Cockcroft-Gault) 45.7 BUN/Creatinine Ratio 23 (6-20) Glucose Level 116 mg/dL (70-99) Calcium Level 9.3 mg/dL (8.5-10.1) Total Bilirubin 0.5 mg/dL (0.2-1.0) Aspartate Amino Transf (AST/SGOT) 37 U/L (15-37) Alanine Aminotransferase (ALT/SGPT) 36 U/L (16-63) Alkaline Phosphatase 69 U/L (46-116) Troponin I High Sensitivity 17 ng/L (4-75) Total Protein 6.8 g/dL (6.4-8.2) Albumin 3.6 g/dL (3.4-5.0) Albumin/Globulin Ratio 1.1 (1.0-1.7) Laboratory Tests Test 07/22/21 19:00 White Blood Count 12.6 x10^3/uL (4.0-11.0) Red Blood Count 4.11 x10^6/uL (4.30-5.70) Hemoglobin 13.4 g/dL (13.0-17.5) Hematocrit 40.5 % (39.0-53.0) Mean Corpuscular Volume 99 fL (79-100) Mean Corpuscular Hemoglobin 33 pg (25-35) Mean Corpuscular Hemoglobin Concent 33 g/dL (31-37) Red Cell Distribution Width 15.2 % (11.5-14.5) Platelet Count 195 x10^3/uL (140-400) Neutrophils (%) (Auto) 81 % (31-73) Lymphocytes (%) (Auto) 12 % (24-48) Monocytes (%) (Auto) 6 % (0-9) Eosinophils (%) (Auto) 0 % (0-3) Basophils (%) (Auto) 1 % (0-3) Neutrophils # (Auto) 10.1 x10^3/uL (1.8-7.7) Lymphocytes # (Auto) 1.5 x10^3/uL (1.0-4.8) Monocytes # (Auto) 0.8 x10^3/uL (0.0-1.1) Eosinophils # (Auto) 0.1 x10^3/uL (0.0-0.7) Basophils # (Auto) 0.1 x10^3/uL (0.0-0.2) Sodium Level 143 mmol/L (136-145) Potassium Level 4.6 mmol/L (3.5-5.1) Chloride Level 106 mmol/L (98-107) Carbon Dioxide Level 27 mmol/L (21-32) Anion Gap 10 (6-14) Blood Urea Nitrogen 35 mg/dL (8-26) Creatinine 1.5 mg/dL (0.7-1.3) Estimated GFR (Cockcroft-Gault) 45.7 BUN/Creatinine Ratio 23 (6-20) Glucose Level 116 mg/dL (70-99) Calcium Level 9.3 mg/dL (8.5-10.1) Total Bilirubin 0.5 mg/dL (0.2-1.0) Aspartate Amino Transf (AST/SGOT) 37 U/L (15-37) Alanine Aminotransferase (ALT/SGPT) 36 U/L (16-63) Alkaline Phosphatase 69 U/L (46-116) Troponin I High Sensitivity 17 ng/L (4-75) Total Protein 6.8 g/dL (6.4-8.2) Albumin 3.6 g/dL (3.4-5.0) Albumin/Globulin Ratio 1.1 (1.0-1.7) Images Images CT with left rib fractures Assessment/Plan Assessment/Plan Multiple rib fractures pulm toilet will ask anesthesia to consider epidural for pain control Thanks for consult! BAUTISTA SEYMOUR MD Jul 23, 2021 10:53
[2021-07-23 11:26] VITALS: BP 183/79
[2021-07-23] MEDS: LISINOPRIL 20 MG TABLET PO SCH (11:30)
[2021-07-23] MEDS: FUROSEMIDE 20 MG TABLET PO SCH (11:31)
[2021-07-23] MEDS: VITAMIN B COMPLEX TABLET. PO SCH (11:31)
[2021-07-23] MEDS: ASPIRIN ENTERIC COATED 81 MG TABLET.DR. PO SCH (11:33)
[2021-07-23] MEDS: TAMSULOSIN 0.4 MG CAP.ER.24H. PO SCH (11:35)
[2021-07-23 15:17] VITALS: BP 177/85
[2021-07-23 19:20] VITALS: BP 181/92
[2021-07-23] MEDS: DULoxetine HCL 30 MG CAPSULE.DR PO SCH (20:59)
[2021-07-23] MEDS: METOPROLOL SUCC 24HR ER 100 MG TAB.ER.24H. PO SCH (20:59)
[2021-07-23] MEDS: rOPINIRole 1 MG TABLET. PO SCH (20:59)
[2021-07-23] MEDS: ATORVASTATIN CALCIUM 40 MG TABLET. PO SCH (20:59)
[2021-07-23] MEDS: PANTOPRAZOLE 40 MG TABLET.DR. PO SCH (21:08)
[2021-07-23 23:20] VITALS: BP 168/83
[2021-07-24] MEDS: MORPHINE SULFATE 4 MG/ML INJ. IV PRN ×4 (01:06→21:30)
[2021-07-24] MEDS ORDERED: BUDESONIDE 0.5 MG/2 ML NEBU. NEB PRN (02:30)
[2021-07-24] MEDS ORDERED: ALBUTEROL SULFATE 2.5 MG/3 ML NEBU. NEB PRN (02:45)
[2021-07-24 02:57] VITALS: BP 143/79
--- NOTE | 2021-07-24 06:49 | PDOC ---
PULMONARY PROGRESS NOTES DATE: 07/24/21 TIME: 06:48 Subjective on 02 5 lpm sleepy has l sided chest wall pain anesthesia tried epidural unsuccessful Vitals Vital Signs Date Time Temp Pulse Resp B/P (MAP) Pulse Ox O2 Delivery O2 Flow Rate FiO2 07/24/21 04:00 93 Nasal Cannula 5.0 07/24/21 02:57 97.7 78 18 143/79 (100) 97.7 General: Alert, No acute distress HEENT: Other (nc at perrl) Lungs: Crackles Cardiovascular: S1, S2 Abdomen: Soft, Non-tender Extremities: Other (edema) Skin: Warm Labs Laboratory Tests Test 07/22/21 19:00 White Blood Count 12.6 x10^3/uL (4.0-11.0) Red Blood Count 4.11 x10^6/uL (4.30-5.70) Hemoglobin 13.4 g/dL (13.0-17.5) Hematocrit 40.5 % (39.0-53.0) Mean Corpuscular Volume 99 fL (79-100) Mean Corpuscular Hemoglobin 33 pg (25-35) Mean Corpuscular Hemoglobin Concent 33 g/dL (31-37) Red Cell Distribution Width 15.2 % (11.5-14.5) Platelet Count 195 x10^3/uL (140-400) Neutrophils (%) (Auto) 81 % (31-73) Lymphocytes (%) (Auto) 12 % (24-48) Monocytes (%) (Auto) 6 % (0-9) Eosinophils (%) (Auto) 0 % (0-3) Basophils (%) (Auto) 1 % (0-3) Neutrophils # (Auto) 10.1 x10^3/uL (1.8-7.7) Lymphocytes # (Auto) 1.5 x10^3/uL (1.0-4.8) Monocytes # (Auto) 0.8 x10^3/uL (0.0-1.1) Eosinophils # (Auto) 0.1 x10^3/uL (0.0-0.7) Basophils # (Auto) 0.1 x10^3/uL (0.0-0.2) Sodium Level 143 mmol/L (136-145) Potassium Level 4.6 mmol/L (3.5-5.1) Chloride Level 106 mmol/L (98-107) Carbon Dioxide Level 27 mmol/L (21-32) Anion Gap 10 (6-14) Blood Urea Nitrogen 35 mg/dL (8-26) Creatinine 1.5 mg/dL (0.7-1.3) Estimated GFR (Cockcroft-Gault) 45.7 BUN/Creatinine Ratio 23 (6-20) Glucose Level 116 mg/dL (70-99) Calcium Level 9.3 mg/dL (8.5-10.1) Total Bilirubin 0.5 mg/dL (0.2-1.0) Aspartate Amino Transf (AST/SGOT) 37 U/L (15-37) Alanine Aminotransferase (ALT/SGPT) 36 U/L (16-63) Alkaline Phosphatase 69 U/L (46-116) Troponin I High Sensitivity 17 ng/L (4-75) Total Protein 6.8 g/dL (6.4-8.2) Albumin 3.6 g/dL (3.4-5.0) Albumin/Globulin Ratio 1.1 (1.0-1.7) Medications Active Scripts Medications Dose Route/Sig Max Daily Dose Days Date Category Furosemide 20 Mg Tablet 20 Mg PO DAILY 30 07/13/21 Rx Refresh Optive Eye Drops (Carboxymethylcellulos/Glycerin) 15 Ml Drops 1 Drop EACHEYE PRN QID PRN 07/12/21 Reported Flonase Allergy Relief (Fluticasone Propionate) 9.9 Ml [place].susp 2 Sprays NS PRN DAILY PRN 07/12/21 Reported Meloxicam 15 Mg Tablet 1 Tab PO PRN BID PRN 30 07/12/21 Reported Lisinopril 40 Mg Tablet 40 Mg PO DAILY 07/12/21 Reported Flomax (Tamsulosin Hcl) 0.4 Mg Cap.er.24h 0.4 Mg PO DAILY 09/09/20 Reported Stiolto Respimat Inhal [place] (Tiotropium Br/Olodaterol HCl) 4 Gm Mist.inhal 2 Inh IH DAILY 06/24/20 Reported Vitamin D3 (Cholecalciferol (Vitamin D3)) 1,250 Mcg Capsule Unknown Dose PO DAILY 05/12/20 Reported B Complex (Vitamin B Complex) 1 Each Tablet 1 Tab PO DAILY 30 05/12/20 Reported Proair Hfa Inhaler (Albuterol Sulfate) 8.5 Gm Hfa.aer.ad 2 Puff IH PRN Q4-6HRS PRN 21 05/12/20 Reported Acetaminophen 500 Mg Tablet 2 Tab PO DAILY PRN 15 05/12/20 Reported Ativan (Lorazepam) 1 Mg Tablet 1 Mg PO HS 05/12/20 Reported Ropinirole Hcl 1 Mg Tablet 1 Mg PO QHS 01/12/20 Reported Crestor (Rosuvastatin Calcium) 40 Mg Tablet 40 Mg PO HS 11/23/17 Reported Metoprolol Succinate ( Xl ) (Metoprolol Succinate) 100 Mg Tab.er.24h 100 Mg PO HS 11/23/17 Reported Omeprazole 40 Mg Capsule.dr 20 Mg PO HS 04/20/17 Reported Oxycodone Hcl Immed.release (Oxycodone Hcl) 10 Mg Tablet 20 Mg PO PRN Q4HRS PRN 01/25/16 Reported Cymbalta (Duloxetine Hcl) 30 Mg Capsule.dr 60 Mg PO HS 01/03/16 Reported Aspir 81 (Aspirin) 81 Mg Tablet.dr 81 Mg PO DAILY08 08/26/13 Reported Impression . IMPRESSION: 1. Acute on chronic respiratory failure. 2. Abnormal CT of the chest. 3. Rib fractures 6, 7, 8, 9 ribs, subcutaneous emphysema, trace left pneumothorax, lung contusion. 4. Status post fall. 5. Obstructive sleep apnea-hypopnea syndrome. 6. Chronic obstructive pulmonary disease. 7. Tobacco habituation. 8. Coronary artery disease. 9. Hypertension. 10. Obesity. Plan . PLAN AND RECOMMENDATIONS: 1. I had a long discussion with him regarding the smoking cessation. Advised him to stop smoking forever. 2. Continue oxygen, titrate FiO2 to keep O2 saturation 90%. discussed w rn avoid hyperoxia 3. Hold on BiPAP as he does have small pneumothorax. 4. We will monitor his respiratory status very closely. cxr in am 5. bronchodilator, DuoNeb q.i.d. 6. Pulmicort b.i.d. 7. Pain control per primary. avoid oversedation discussed w rn 8. Advised him to take deep breaths and use incentive spirometer. 9. I have advised him to lose weight. The findings and recommendations were discussed with the patient and RN. CECIL IGNACIO MD Jul 24, 2021 06:49
[2021-07-24 07:00] VITALS: BP 130/80
--- NOTE | 2021-07-24 07:55 | NUR ---
Pt given morphine 4mg for pain rating 7, 8, Each time given morphine pt appeared to become more restless, anxious, and confused. He kept waking up and tossing and turning onto stomach then back then sitting and standing up all night with no pain relief. I would recommend not given him Morphine but maybe Oxycodone or whatever pain med he takes at home.
[2021-07-24] MEDS: TAMSULOSIN 0.4 MG CAP.ER.24H. PO SCH (09:00)
[2021-07-24] MEDS: VITAMIN B COMPLEX TABLET. PO SCH (10:15)
[2021-07-24] MEDS: FUROSEMIDE 20 MG TABLET PO SCH (10:16)
[2021-07-24] MEDS: LISINOPRIL 20 MG TABLET PO SCH (10:16)
[2021-07-24] MEDS: ASPIRIN ENTERIC COATED 81 MG TABLET.DR. PO SCH (10:16)
--- NOTE | 2021-07-24 10:32 | PDOC ---
SURGICAL PROGRESS NOTE DATE: 07/24/21 TIME: 10:31 Subjective Pt with c/o left chest pain at 8 1/2, but is drowsy, working with PT Vital Signs Vital Signs Date Time Temp Pulse Resp B/P (MAP) Pulse Ox O2 Delivery O2 Flow Rate FiO2 07/24/21 10:16 73 130/80 07/24/21 07:00 97.9 18 96 Nasal Cannula 5.0 97.9 I&O Intake and Output 07/24/21 07:00 Intake Total 680 ml Output Total 1400 ml Balance -720 ml Intake Oral 680 ml Output Urine Total 1400 ml General: Alert, Oriented X3, Cooperative, mild distress HEENT: Atraumatic Lungs: Normal air movement Abdomen: Soft Labs Laboratory Tests Test 07/22/21 19:00 White Blood Count 12.6 x10^3/uL (4.0-11.0) Red Blood Count 4.11 x10^6/uL (4.30-5.70) Hemoglobin 13.4 g/dL (13.0-17.5) Hematocrit 40.5 % (39.0-53.0) Mean Corpuscular Volume 99 fL (79-100) Mean Corpuscular Hemoglobin 33 pg (25-35) Mean Corpuscular Hemoglobin Concent 33 g/dL (31-37) Red Cell Distribution Width 15.2 % (11.5-14.5) Platelet Count 195 x10^3/uL (140-400) Neutrophils (%) (Auto) 81 % (31-73) Lymphocytes (%) (Auto) 12 % (24-48) Monocytes (%) (Auto) 6 % (0-9) Eosinophils (%) (Auto) 0 % (0-3) Basophils (%) (Auto) 1 % (0-3) Neutrophils # (Auto) 10.1 x10^3/uL (1.8-7.7) Lymphocytes # (Auto) 1.5 x10^3/uL (1.0-4.8) Monocytes # (Auto) 0.8 x10^3/uL (0.0-1.1) Eosinophils # (Auto) 0.1 x10^3/uL (0.0-0.7) Basophils # (Auto) 0.1 x10^3/uL (0.0-0.2) Sodium Level 143 mmol/L (136-145) Potassium Level 4.6 mmol/L (3.5-5.1) Chloride Level 106 mmol/L (98-107) Carbon Dioxide Level 27 mmol/L (21-32) Anion Gap 10 (6-14) Blood Urea Nitrogen 35 mg/dL (8-26) Creatinine 1.5 mg/dL (0.7-1.3) Estimated GFR (Cockcroft-Gault) 45.7 BUN/Creatinine Ratio 23 (6-20) Glucose Level 116 mg/dL (70-99) Calcium Level 9.3 mg/dL (8.5-10.1) Total Bilirubin 0.5 mg/dL (0.2-1.0) Aspartate Amino Transf (AST/SGOT) 37 U/L (15-37) Alanine Aminotransferase (ALT/SGPT) 36 U/L (16-63) Alkaline Phosphatase 69 U/L (46-116) Troponin I High Sensitivity 17 ng/L (4-75) Total Protein 6.8 g/dL (6.4-8.2) Albumin 3.6 g/dL (3.4-5.0) Albumin/Globulin Ratio 1.1 (1.0-1.7) Problem List rib fractures cont pain control carefully, epidural unsuccessful agree with OOB Justicifation of Admission Dx: Justifications for Admission: Justification of Admission Dx: Yes Acute Renal Failure: 3-Fold Rise in Serum Crea BAUTISTA SEYMOUR MD Jul 24, 2021 10:32
[2021-07-24 11:00] VITALS: BP 121/77
[2021-07-24] MEDS: oxyCODONE/APAP 5/325 1 TAB TABLET PO PRN ×3 (14:19→23:29)
[2021-07-24 15:00] VITALS: BP 112/68
--- NOTE | 2021-07-24 17:31 | PDOC ---
[employer] PROGRESS NOTE Date of Service DOS: DATE: 07/24/21 TIME: 17:29 Chief Complaint Chief Complaint Rib fracture -Patient with fall and fracturing his ribs -Surgery consulted by emergency room recommended epidural but unable to be done despite multiple attempts -As needed pain control --> start transitioning to oral pain control -Home meds as indicated -Diet as tolerate History of Present Illness History of Present Illness 07/24 Patient evaluated examined at bedside. He was complaining of a bit of pain. Working with therapy as well this morning. Start transitioning to oral pain medications. Therapy recommending placement. Will discuss with social work Sunday. Vitals/I&O Vitals/I&O: Vital Signs Date Time Temp Pulse Resp B/P (MAP) Pulse Ox O2 Delivery O2 Flow Rate FiO2 07/24/21 15:24 Nasal Cannula 5.0 07/24/21 15:00 97.5 75 18 112/68 (83) 94 97.5 I & O 07/23/21 07/23/21 07/24/21 15:00 23:00 07:00 Intake Total 200 ml 480 ml Output Total 550 ml 250 ml 600 ml Balance -350 ml -250 ml -120 ml Physical Exam General: Alert, Oriented X3, Cooperative, mild distress Heart: Regular rate Lungs: Crackles Abdomen: Soft Extremities: No clubbing, No cyanosis Skin: No rashes, No breakdown Comment Review of Relevant I have reviewed the following items chemo (where applicable) has been applied. Medications: Current Medications Medications (Trade) Dose Ordered Sig/Janine Route PRN Reason Start Time Stop Time Status Last Admin Dose Admin Duloxetine HCl (Cymbalta) 60 mg HS PO 07/23/21 21:00 07/23/21 20:59 Lorazepam (Ativan) 1 mg HS PO 07/23/21 21:00 07/23/21 20:59 Metoprolol Succinate (Toprol Xl) 100 mg HS PO 07/23/21 21:00 07/23/21 20:59 Ropinirole HCl (Requip) 1 mg QHS PO 07/23/21 21:00 07/23/21 20:59 Pantoprazole Sodium (Protonix) 40 mg HS PO 07/23/21 21:00 07/23/21 21:08 Atorvastatin Calcium (Lipitor) 80 mg HS PO 07/23/21 21:00 07/23/21 20:59 Oxycodone/ Acetaminophen (Percocet 5/325) 1 tab PRN Q4HRS PRN PO PAIN 07/24/21 14:15 07/24/21 14:19 Justifications for Admission Other Justification CHF exacerbation DEVON CRUZ MD Jul 24, 2021 17:31
[2021-07-24 19:25] VITALS: BP 128/55
[2021-07-24] MEDS: ATORVASTATIN CALCIUM 40 MG TABLET. PO SCH (21:02)
[2021-07-24] MEDS: DULoxetine HCL 30 MG CAPSULE.DR PO SCH (21:02)
[2021-07-24] MEDS: rOPINIRole 1 MG TABLET. PO SCH (21:02)
[2021-07-24] MEDS: METOPROLOL SUCC 24HR ER 100 MG TAB.ER.24H. PO SCH (21:02)
[2021-07-24] MEDS: PANTOPRAZOLE 40 MG TABLET.DR. PO SCH (21:02)
[2021-07-24 23:18] VITALS: BP 107/54
[2021-07-24] MEDS: guaiFENesin/CODEINE 100mg/10mg 5 ML LIQUID PO PRN (23:28)
[2021-07-25] MEDS: MORPHINE SULFATE 4 MG/ML INJ. IV PRN ×5 (01:45→15:08)
[2021-07-25 03:04] VITALS: BP 131/80
[2021-07-25 07:00] VITALS: BP 111/59
[2021-07-25] MEDS: TAMSULOSIN 0.4 MG CAP.ER.24H. PO SCH (07:49)
[2021-07-25] MEDS: guaiFENesin/CODEINE 100mg/10mg 5 ML LIQUID PO PRN ×3 (07:49→20:35)
[2021-07-25] MEDS: VITAMIN B COMPLEX TABLET. PO SCH (07:50)
[2021-07-25] MEDS: ASPIRIN ENTERIC COATED 81 MG TABLET.DR. PO SCH (07:50)
[2021-07-25] MEDS: oxyCODONE/APAP 5/325 1 TAB TABLET PO PRN ×4 (07:50→20:37)
--- NOTE | 2021-07-25 08:17 | PDOC ---
PULMONARY PROGRESS NOTES DATE: 07/25/21 TIME: 08:17 Subjective Continues to be in severe pain, unable to utilize incentive spirometry Vitals Vital Signs Date Time Temp Pulse Resp B/P (MAP) Pulse Ox O2 Delivery O2 Flow Rate FiO2 07/25/21 07:50 16 91 Nasal Cannula 5.0 07/25/21 03:04 98.2 105 131/80 (97) 98.2 General: Alert, No acute distress HEENT: Other (nc at perrl) Lungs: Crackles Cardiovascular: S1, S2 Abdomen: Soft, Non-tender Extremities: Other (edema) Skin: Warm Medications Active Scripts Medications Dose Route/Sig Max Daily Dose Days Date Category Furosemide 20 Mg Tablet 20 Mg PO DAILY 30 07/13/21 Rx Refresh Optive Eye Drops (Carboxymethylcellulos/Glycerin) 15 Ml Drops 1 Drop EACHEYE PRN QID PRN 07/12/21 Reported Flonase Allergy Relief (Fluticasone Propionate) 9.9 Ml [place].susp 2 Sprays NS PRN DAILY PRN 07/12/21 Reported Meloxicam 15 Mg Tablet 1 Tab PO PRN BID PRN 30 07/12/21 Reported Lisinopril 40 Mg Tablet 40 Mg PO DAILY 07/12/21 Reported Flomax (Tamsulosin Hcl) 0.4 Mg Cap.er.24h 0.4 Mg PO DAILY 09/09/20 Reported Stiolto Respimat Inhal [place] (Tiotropium Br/Olodaterol HCl) 4 Gm Mist.inhal 2 Inh IH DAILY 06/24/20 Reported Vitamin D3 (Cholecalciferol (Vitamin D3)) 1,250 Mcg Capsule Unknown Dose PO DAILY 05/12/20 Reported B Complex (Vitamin B Complex) 1 Each Tablet 1 Tab PO DAILY 30 05/12/20 Reported Proair Hfa Inhaler (Albuterol Sulfate) 8.5 Gm Hfa.aer.ad 2 Puff IH PRN Q4-6HRS PRN 21 05/12/20 Reported Acetaminophen 500 Mg Tablet 2 Tab PO DAILY PRN 15 05/12/20 Reported Ativan (Lorazepam) 1 Mg Tablet 1 Mg PO HS 05/12/20 Reported Ropinirole Hcl 1 Mg Tablet 1 Mg PO QHS 01/12/20 Reported Crestor (Rosuvastatin Calcium) 40 Mg Tablet 40 Mg PO HS 11/23/17 Reported Metoprolol Succinate ( Xl ) (Metoprolol Succinate) 100 Mg Tab.er.24h 100 Mg PO HS 11/23/17 Reported Omeprazole 40 Mg Capsule.dr 20 Mg PO HS 04/20/17 Reported Oxycodone Hcl Immed.release (Oxycodone Hcl) 10 Mg Tablet 20 Mg PO PRN Q4HRS PRN 01/25/16 Reported Cymbalta (Duloxetine Hcl) 30 Mg Capsule.dr 60 Mg PO HS 01/03/16 Reported Aspir 81 (Aspirin) 81 Mg Tablet.dr 81 Mg PO DAILY08 08/26/13 Reported Impression . IMPRESSION: 1. Acute on chronic respiratory failure. 2. Abnormal CT of the chest. 3. Rib fractures 6, 7, 8, 9 ribs, subcutaneous emphysema, trace left pneumothorax, lung contusion. 4. Status post fall. 5. Obstructive sleep apnea-hypopnea syndrome. 6. Chronic obstructive pulmonary disease. 7. Tobacco habituation. 8. Coronary artery disease. 9. Hypertension. 10. Obesity. Plan . Patient continues to be in severe pain, unable to utilize incentive spirometry, unable to position himself in bed Stressed the importance of incentive spirometry Continue adequate pain management Patient needs SNU, unsafe to discharge home, I suspect patient may bounce back in the emergency room. PLAN AND RECOMMENDATIONS: 1. I had a long discussion with him regarding the smoking cessation. Advised him to stop smoking forever. 2. Continue oxygen, titrate FiO2 to keep O2 saturation 90%. discussed w rn avoid hyperoxia 3. Hold on BiPAP as he does have small pneumothorax. 4. We will monitor his respiratory status very closely. cxr in am 5. bronchodilator, DuoNeb q.i.d. 6. Pulmicort b.i.d. 7. Pain control per primary. avoid oversedation discussed w rn 8. Advised him to take deep breaths and use incentive spirometer. 9. I have advised him to lose weight. The findings and recommendations were discussed with the patient and RN. CASE CONTRERAS MD Jul 25, 2021 08:17
--- NOTE | 2021-07-25 08:55 | PDOC ---
JASON BRAND GARB[employer] MAN 07/25/21 0855: SURGICAL PROGRESS NOTE DATE: 07/25/21 TIME: 08:54 Subjective up to side of bed ongoing pain not using IS because of pain Vital Signs Vital Signs Date Time Temp Pulse Resp B/P (MAP) Pulse Ox O2 Delivery O2 Flow Rate FiO2 07/25/21 07:50 16 91 Nasal Cannula 5.0 07/25/21 07:00 98.4 116 111/59 (76) 98.4 I&O Intake and Output 07/25/21 07:00 Intake Total 440 ml Output Total 1425 ml Balance -985 ml Intake Oral 440 ml Output Urine Total 1425 ml General: Alert, Oriented X3, Cooperative Abdomen: Soft Problem List rib fx cxr pending would encourage frequent IS use, ambulating Justicifation of Admission Dx: Justifications for Admission: Justification of Admission Dx: Yes Acute Renal Failure: 3-Fold Rise in Serum Crea BAUTISTA SEYMOUR MD 07/25/21 1548: SURGICAL PROGRESS NOTE Assessment/Plan Pt seen and examined. Agree with Ms. Brand's note pt with c/o chest pain with movement cont pain control JASON BRAND APRN Jul 25, 2021 08:55 BAUTISTA SEYMOUR MD Jul 25, 2021 15:48
[2021-07-25] MEDS: FUROSEMIDE 20 MG TABLET PO SCH (09:00)
[2021-07-25] MEDS: LISINOPRIL 20 MG TABLET PO SCH (09:00)
--- NOTE | 2021-07-25 09:51 | RAD ---
EXAMINATION: XR CHEST 2V CLINICAL HISTORY: Follow-up ptx, lung contusion. TECHNIQUE: XR CHEST 2V COMPARISON: 07/22/2021, 07/11/2021 FINDINGS/ IMPRESSION: [id number] left pleural effusion with overlying airspace disease. Increased right basilar airs pace disease, likely atelectasis. No radiographic evidence of pneumothorax. Increased size of the cardiac silhouette compared to most recent prior study, but similar to study fr om 07/11/2021. Redemonstration of displaced left rib fractures with overlying subcutaneous emphysema. Electronically signed by: Devante Reeves DO (07/25/2021 9:49 AM) [id number]
[2021-07-25 11:00] VITALS: BP 98/52
--- NOTE | 2021-07-25 12:17 | PDOC ---
[employer] PROGRESS NOTE Date of Service DOS: DATE: 07/25/21 TIME: 12:13 Chief Complaint Chief Complaint Rib fracture -Patient with fall and fracturing his ribs -Surgery consulted by emergency room recommended epidural but unable to be done despite multiple attempts -As needed pain control --> start transitioning to oral pain control -Home meds as indicated -Diet as tolerate History of Present Illness History of Present Illness 07/25/2021 Patient seen and examined He is up on the edge of the bed complained of pain On O2 per nasal cannula Discussed with case management Discussed with RN We hope to discharge to [facility] tomorrow 07/24 Patient evaluated examined at bedside. He was complaining of a bit of pain. Working with therapy as well this morning. Start transitioning to oral pain medications. Therapy recommending placement. Will discuss with social work Sunday morning. 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 Medications: Current Medications Medications (Trade) Dose Ordered Sig/Janine Route PRN Reason Start Time Stop Time Status Last Admin Dose Admin Oxycodone/ Acetaminophen (Percocet 5/325) 1 tab PRN Q4HRS PRN PO PAIN 07/24/21 14:15 07/24/21 23:22 DC 07/24/21 19:09 Oxycodone/ Acetaminophen (Percocet 5/325) 2 tab PRN Q4HRS PRN PO PAIN 07/24/21 23:30 07/25/21 11:47 Guaifenesin/ Codeine Phosphate (Robitussin Ac) 5 ml PRN Q6HRS PRN PO COUGH 07/24/21 23:30 07/25/21 07:49 Justifications for Admission Other Justification CHF exacerbation PATRICE REYES III DO Jul 25, 2021 12:17
[2021-07-25 15:00] VITALS: BP 102/59
[2021-07-25] MEDS: fentaNYL PF VIAL 100 MCG/2 ML VIAL IVP PRN ×3 (16:16→23:30)
[2021-07-25 19:53] VITALS: BP 102/59
[2021-07-25] MEDS: rOPINIRole 1 MG TABLET. PO SCH (20:35)
[2021-07-25] MEDS: PANTOPRAZOLE 40 MG TABLET.DR. PO SCH (20:36)
[2021-07-25] MEDS: ATORVASTATIN CALCIUM 40 MG TABLET. PO SCH (20:36)
[2021-07-25] MEDS: DULoxetine HCL 30 MG CAPSULE.DR PO SCH (20:36)
[2021-07-25] MEDS: METOPROLOL SUCC 24HR ER 100 MG TAB.ER.24H. PO SCH (21:00)
[2021-07-25 23:02] VITALS: BP 121/67
[2021-07-26] MEDS: oxyCODONE/APAP 5/325 1 TAB TABLET PO PRN ×5 (00:59→23:19)
[2021-07-26 03:10] VITALS: BP_SYST 113; BP_SYST 121; BP_DIAS 67; BP_DIAS 68
[2021-07-26] MEDS: fentaNYL PF VIAL 100 MCG/2 ML VIAL IVP PRN ×2 (05:00→10:35)
[2021-07-26 07:00] VITALS: BP 135/59
[2021-07-26] MEDS: TAMSULOSIN 0.4 MG CAP.ER.24H. PO SCH (08:43)
[2021-07-26] MEDS: FUROSEMIDE 20 MG TABLET PO SCH (08:44)
[2021-07-26] MEDS: VITAMIN B COMPLEX TABLET. PO SCH (08:44)
[2021-07-26] MEDS: ASPIRIN ENTERIC COATED 81 MG TABLET.DR. PO SCH (08:44)
[2021-07-26] MEDS: LISINOPRIL 20 MG TABLET PO SCH (08:45)
[2021-07-26] MEDS: guaiFENesin/CODEINE 100mg/10mg 5 ML LIQUID PO PRN ×2 (08:47→17:07)
--- NOTE | 2021-07-26 09:25 | PDOC ---
PULMONARY PROGRESS NOTES DATE: 07/26/21 TIME: 09:25 Subjective Patient unable to utilize incentive spirometry Continued severe pain despite IV pain meds continues to be in severe pain, unable to utilize incentive spirometry Vitals Vital Signs Date Time Temp Pulse Resp B/P (MAP) Pulse Ox O2 Delivery O2 Flow Rate FiO2 07/26/21 08:47 Nasal Cannula 5.0 07/26/21 08:45 89 135/59 07/26/21 05:30 20 94 07/26/21 03:10 97.9 97.9 General: Alert, No acute distress HEENT: Other (nc at perrl) Lungs: Crackles Cardiovascular: S1, S2 Abdomen: Soft, Non-tender Extremities: Other (edema) Skin: Warm Medications Active Scripts Medications Dose Route/Sig Max Daily Dose Days Date Category Furosemide 20 Mg Tablet 20 Mg PO DAILY 30 07/13/21 Rx Refresh Optive Eye Drops (Carboxymethylcellulos/Glycerin) 15 Ml Drops 1 Drop EACHEYE PRN QID PRN 07/12/21 Reported Flonase Allergy Relief (Fluticasone Propionate) 9.9 Ml [place].susp 2 Sprays NS PRN DAILY PRN 07/12/21 Reported Meloxicam 15 Mg Tablet 1 Tab PO PRN BID PRN 30 07/12/21 Reported Lisinopril 40 Mg Tablet 40 Mg PO DAILY 07/12/21 Reported Flomax (Tamsulosin Hcl) 0.4 Mg Cap.er.24h 0.4 Mg PO DAILY 09/09/20 Reported Stiolto Respimat Inhal [place] (Tiotropium Br/Olodaterol HCl) 4 Gm Mist.inhal 2 Inh IH DAILY 06/24/20 Reported Vitamin D3 (Cholecalciferol (Vitamin D3)) 1,250 Mcg Capsule Unknown Dose PO DAILY 05/12/20 Reported B Complex (Vitamin B Complex) 1 Each Tablet 1 Tab PO DAILY 30 05/12/20 Reported Proair Hfa Inhaler (Albuterol Sulfate) 8.5 Gm Hfa.aer.ad 2 Puff IH PRN Q4-6HRS PRN 21 05/12/20 Reported Acetaminophen 500 Mg Tablet 2 Tab PO DAILY PRN 15 05/12/20 Reported Ativan (Lorazepam) 1 Mg Tablet 1 Mg PO HS 05/12/20 Reported Ropinirole Hcl 1 Mg Tablet 1 Mg PO QHS 01/12/20 Reported Crestor (Rosuvastatin Calcium) 40 Mg Tablet 40 Mg PO HS 11/23/17 Reported Metoprolol Succinate ( Xl ) (Metoprolol Succinate) 100 Mg Tab.er.24h 100 Mg PO HS 11/23/17 Reported Omeprazole 40 Mg Capsule.dr 20 Mg PO HS 04/20/17 Reported Oxycodone Hcl Immed.release (Oxycodone Hcl) 10 Mg Tablet 20 Mg PO PRN Q4HRS PRN 01/25/16 Reported Cymbalta (Duloxetine Hcl) 30 Mg Capsule.dr 60 Mg PO HS 01/03/16 Reported Aspir 81 (Aspirin) 81 Mg Tablet.dr 81 Mg PO DAILY08 08/26/13 Reported Impression . IMPRESSION: 1. Acute on chronic respiratory failure. 2. Abnormal CT of the chest. 3. Rib fractures 6, 7, 8, 9 ribs, subcutaneous emphysema, trace left pneumothorax, lung contusion. 4. Status post fall. 5. Obstructive sleep apnea-hypopnea syndrome. 6. Chronic obstructive pulmonary disease. 7. Tobacco habituation. 8. Coronary artery disease. 9. Hypertension. 10. Obesity. Plan . Updated 07/26 Patient continues to be in severe pain despite IV pain medication Working on possible group home unit placement Stressed the importance of incentive spirometry Not safe to discharge home, patient pain is not adequately controlled, he would bounce back to the emergency department. CASE CONTRERAS MD Jul 26, 2021 09:25
[2021-07-26 11:00] VITALS: BP 111/69
--- NOTE | 2021-07-26 12:53 | PDOC ---
[employer] PROGRESS NOTE Date of Service DOS: DATE: 07/26/21 TIME: 12:52 Chief Complaint Chief Complaint Rib fracture -Patient with fall and fracturing his ribs -Surgery consulted by emergency room recommended epidural but unable to be done despite multiple attempts -As needed pain control --> start transitioning to oral pain control -Home meds as indicated -Diet as tolerate History of Present Illness History of Present Illness 07/26 Evaluated examined at bedside. Working on placement. Pain controlled but still requiring IV pain meds. Continue to work on pain control. Discussed with case management. 07/25/2021 Patient seen and examined He is up on the edge of the bed complained of pain On O2 per nasal cannula Discussed with case management Discussed with RN We hope to discharge to [facility] tomorrow 07/24 Patient evaluated examined at bedside. He was complaining of a bit of pain. Working with therapy as well this morning. Start transitioning to oral pain medications. Therapy recommending placement. Will discuss with social work Sunday. Vitals/I&O Vitals/I&O: Vital Signs Date Time Temp Pulse Resp B/P (MAP) Pulse Ox O2 Delivery O2 Flow Rate FiO2 07/26/21 11:47 Nasal Cannula 5.0 07/26/21 11:00 97.4 101 16 111/69 (83) 91 97.4 I & O 07/25/21 07/25/21 07/26/21 15:00 23:00 07:00 Intake Total 100 ml 420 ml Output Total 150 ml 350 ml Balance -50 ml 70 ml Physical Exam General: Alert, Oriented X3, Cooperative Heart: Regular rate Lungs: Crackles Abdomen: Soft Extremities: No clubbing, No cyanosis Skin: No rashes, No breakdown Comment Review of Relevant I have reviewed the following items chemo (where applicable) has been applied. Medications: Current Medications Medications (Trade) Dose Ordered Sig/Janine Route PRN Reason Start Time Stop Time Status Last Admin Dose Admin Fentanyl Citrate (Fentanyl 2ml Vial) 50 mcg PRN Q2HR PRN IVP MODERATE TO SEVERE PAIN 07/25/21 16:00 07/26/21 10:35 Justifications for Admission Other Justification CHF exacerbation DEVON CRUZ MD Jul 26, 2021 12:53
[2021-07-26 15:00] VITALS: BP 117/68
[2021-07-26] MEDS: MORPHINE SULFATE 4 MG/ML INJ. IV PRN (15:14)
[2021-07-26 19:00] VITALS: BP 119/64
--- NOTE | 2021-07-26 19:44 | PDOC ---
SURGICAL PROGRESS NOTE DATE: 07/26/21 TIME: 19:43 Subjective Pt seen earlier in the day Pt with c/o left chest pain Vital Signs Vital Signs Date Time Temp Pulse Resp B/P (MAP) Pulse Ox O2 Delivery O2 Flow Rate FiO2 07/26/21 18:02 Nasal Cannula 5.0 07/26/21 15:00 97.4 63 16 117/68 (84) 90 97.4 I&O Intake and Output 07/26/21 07:00 Intake Total 520 ml Output Total 500 ml Balance 20 ml Intake Oral 520 ml Output Urine Total 500 ml # Voids 3 General: Alert, mild distress Abdomen: Soft, No tenderness Assessment/Plan rib fractures cont careful pain control Justicifation of Admission Dx: Justifications for Admission: Justification of Admission Dx: Yes Acute Renal Failure: 3-Fold Rise in Serum Crea BAUTISTA SEYMOUR MD Jul 26, 2021 19:44
[2021-07-26] MEDS: PANTOPRAZOLE 40 MG TABLET.DR. PO SCH (20:37)
[2021-07-26] MEDS: ATORVASTATIN CALCIUM 40 MG TABLET. PO SCH (20:37)
[2021-07-26] MEDS: rOPINIRole 1 MG TABLET. PO SCH (20:38)
[2021-07-26] MEDS: METOPROLOL SUCC 24HR ER 100 MG TAB.ER.24H. PO SCH (20:38)
[2021-07-26] MEDS: BENZONATATE 100 MG CAPSULE. PO SCH (20:38)
[2021-07-26] MEDS: DULoxetine HCL 30 MG CAPSULE.DR PO SCH (20:38)
[2021-07-26 23:00] VITALS: BP 112/66
[2021-07-26] MEDS ORDERED: NICOTINE 2 MG LOZENGE PO PRN (23:15)
[2021-07-27] MEDS: fentaNYL PF VIAL 100 MCG/2 ML VIAL IVP PRN ×2 (01:16→04:01)
[2021-07-27] MEDS: guaiFENesin/CODEINE 100mg/10mg 5 ML LIQUID PO PRN (02:48)
[2021-07-27 03:00] VITALS: BP 115/65
[2021-07-27 07:00] VITALS: BP 92/55
[2021-07-27] MEDS: VITAMIN B COMPLEX TABLET. PO SCH (08:35)
[2021-07-27] MEDS: BENZONATATE 100 MG CAPSULE. PO SCH ×3 (08:35→21:22)
[2021-07-27] MEDS: TAMSULOSIN 0.4 MG CAP.ER.24H. PO SCH (08:35)
[2021-07-27] MEDS: ASPIRIN ENTERIC COATED 81 MG TABLET.DR. PO SCH (08:36)
[2021-07-27] MEDS: FUROSEMIDE 20 MG TABLET PO SCH (08:36)
[2021-07-27] MEDS: LISINOPRIL 20 MG TABLET PO SCH (08:36)
--- NOTE | 2021-07-27 08:40 | PDOC ---
PULMONARY PROGRESS NOTES DATE: 07/27/21 TIME: 08:39 Subjective Patient pain adequately controlled with multiple medications Vitals Vital Signs Date Time Temp Pulse Resp B/P (MAP) Pulse Ox O2 Delivery O2 Flow Rate FiO2 07/27/21 08:36 83 92/55 07/27/21 07:48 Nasal Cannula 5.0 07/27/21 07:00 98.9 18 92 98.9 General: Alert, No acute distress HEENT: Other (nc at perrl) Lungs: Crackles Cardiovascular: S1, S2 Abdomen: Soft, Non-tender Extremities: Other (edema) Skin: Warm Medications Active Scripts Medications Dose Route/Sig Max Daily Dose Days Date Category Furosemide 20 Mg Tablet 20 Mg PO DAILY 30 07/13/21 Rx Refresh Optive Eye Drops (Carboxymethylcellulos/Glycerin) 15 Ml Drops 1 Drop EACHEYE PRN QID PRN 07/12/21 Reported Flonase Allergy Relief (Fluticasone Propionate) 9.9 Ml [place].susp 2 Sprays NS PRN DAILY PRN 07/12/21 Reported Meloxicam 15 Mg Tablet 1 Tab PO PRN BID PRN 30 07/12/21 Reported Lisinopril 40 Mg Tablet 40 Mg PO DAILY 07/12/21 Reported Flomax (Tamsulosin Hcl) 0.4 Mg Cap.er.24h 0.4 Mg PO DAILY 09/09/20 Reported Stiolto Respimat Inhal [place] (Tiotropium Br/Olodaterol HCl) 4 Gm Mist.inhal 2 Inh IH DAILY 06/24/20 Reported Vitamin D3 (Cholecalciferol (Vitamin D3)) 1,250 Mcg Capsule Unknown Dose PO DAILY 05/12/20 Reported B Complex (Vitamin B Complex) 1 Each Tablet 1 Tab PO DAILY 30 05/12/20 Reported Proair Hfa Inhaler (Albuterol Sulfate) 8.5 Gm Hfa.aer.ad 2 Puff IH PRN Q4-6HRS PRN 21 05/12/20 Reported Acetaminophen 500 Mg Tablet 2 Tab PO DAILY PRN 15 05/12/20 Reported Ativan (Lorazepam) 1 Mg Tablet 1 Mg PO HS 05/12/20 Reported Ropinirole Hcl 1 Mg Tablet 1 Mg PO QHS 01/12/20 Reported Crestor (Rosuvastatin Calcium) 40 Mg Tablet 40 Mg PO HS 11/23/17 Reported Metoprolol Succinate ( Xl ) (Metoprolol Succinate) 100 Mg Tab.er.24h 100 Mg PO HS 11/23/17 Reported Omeprazole 40 Mg Capsule.dr 20 Mg PO HS 04/20/17 Reported Oxycodone Hcl Immed.release (Oxycodone Hcl) 10 Mg Tablet 20 Mg PO PRN Q4HRS PRN 01/25/16 Reported Cymbalta (Duloxetine Hcl) 30 Mg Capsule.dr 60 Mg PO HS 01/03/16 Reported Aspir 81 (Aspirin) 81 Mg Tablet.dr 81 Mg PO DAILY08 08/26/13 Reported Impression . IMPRESSION: 1. Acute on chronic respiratory failure. 2. Abnormal CT of the chest. 3. Rib fractures 6, 7, 8, 9 ribs, subcutaneous emphysema, trace left pneumothorax, lung contusion. 4. Status post fall. 5. Obstructive sleep apnea-hypopnea syndrome. 6. Chronic obstructive pulmonary disease. 7. Tobacco habituation. 8. Coronary artery disease. 9. Hypertension. 10. Obesity. Plan . Updated 07/27 Discussed with social service coordinator case management Discussed with Dr. Qureshi Discharge today to [facility] CASE CONTRERAS MD Jul 27, 2021 08:40
[2021-07-27 11:00] VITALS: BP 101/42
[2021-07-27 15:00] VITALS: BP 102/59
--- NOTE | 2021-07-27 15:47 | PDOC ---
SURGICAL PROGRESS NOTE DATE: 07/27/21 TIME: 15:46 Subjective Pt reports persistent CP Vital Signs Vital Signs Date Time Temp Pulse Resp B/P (MAP) Pulse Ox O2 Delivery O2 Flow Rate FiO2 07/27/21 15:00 98.0 80 18 102/59 (73) 91 Nasal Cannula 5.0 98.0 I&O Intake and Output 07/27/21 06:59 Intake Total 920 ml Output Total 2525 ml Balance -1605 ml Intake Oral 920 ml Output Urine Total 2525 ml # Voids 1 General: Alert, Oriented X3, Cooperative, mild distress Abdomen: Soft, No tenderness Assessment/Plan rib fx cont pain control pt now agreeable to placement pending d/c Justicifation of Admission Dx: Justifications for Admission: Justification of Admission Dx: Yes Acute Renal Failure: 3-Fold Rise in Serum Crea BAUTISTA SEYMOUR MD Jul 27, 2021 15:46
[2021-07-27] MEDS: oxyCODONE/APAP 5/325 1 TAB TABLET PO PRN ×2 (16:09→23:56)
[2021-07-27 19:00] VITALS: BP 94/49
[2021-07-27] MEDS: METOPROLOL SUCC 24HR ER 100 MG TAB.ER.24H. PO SCH (21:00)
[2021-07-27] MEDS: rOPINIRole 1 MG TABLET. PO SCH (21:23)
[2021-07-27] MEDS: DULoxetine HCL 30 MG CAPSULE.DR PO SCH (21:23)
[2021-07-27] MEDS: PANTOPRAZOLE 40 MG TABLET.DR. PO SCH (21:23)
[2021-07-27] MEDS: ATORVASTATIN CALCIUM 40 MG TABLET. PO SCH (21:23)
--- NOTE | 2021-07-27 22:05 | PDOC ---
[employer] PROGRESS NOTE Date of Service DOS: DATE: 07/27/21 TIME: 22:04 Chief Complaint Chief Complaint Rib fracture -Patient with fall and fracturing his ribs -Surgery consulted by emergency room recommended epidural but unable to be done despite multiple attempts -As needed pain control --> start transitioning to oral pain control -Home meds as indicated -Diet as tolerate History of Present Illness History of Present Illness 07/27 Evaluate examined at bedside. Pain controlled. Patient been [id number] on if he wants to go to senior living. Last I heard he did after speaking to him. However will need to ask again in the morning. At least check Covid PCR. for potential placement 07/26 Evaluated examined at bedside. Working on placement. Pain controlled but still requiring IV pain meds. Continue to work on pain control. Discussed with case management. 07/25/2021 Patient seen and examined He is up on the edge of the bed complained of pain On O2 per nasal cannula Discussed with case management Discussed with RN We hope to discharge to senior living tomorrow 07/24 Patient evaluated examined at bedside. He was complaining of a bit of pain. Working with therapy as well this morning. Start transitioning to oral pain medications. Therapy recommending placement. Will discuss with social work Sunday morning. Vitals/I&O Vitals/I&O: Vital Signs Date Time Temp Pulse Resp B/P (MAP) Pulse Ox O2 Delivery O2 Flow Rate FiO2 07/27/21 19:00 98.2 75 14 94/49 (64) 98 Nasal Cannula 5.0 98.2 I & O 07/26/21 07/26/21 07/27/21 15:00 23:00 07:00 Intake Total 120 ml 800 ml Output Total 425 ml 2100 ml Balance -425 ml 120 ml -1300 ml Physical Exam General: Alert, Oriented X3, Cooperative, mild distress Heart: Regular rate Lungs: Crackles Abdomen: Soft, No tenderness Extremities: No clubbing, No cyanosis Skin: No rashes, No breakdown Comment Review of Relevant I have reviewed the following items chemo (where applicable) has been applied. Medications: Current Medications Medications (Trade) Dose Ordered Sig/Janine Route PRN Reason Start Time Stop Time Status Last Admin Dose Admin Oxycodone/ Acetaminophen (Percocet 5/325) 1 tab PRN Q4HRS PRN PO PAIN 07/27/21 10:00 07/27/21 16:09 Justifications for Admission Other Justification CHF exacerbation DEVON CRUZ MD Jul 27, 2021 22:05
[2021-07-27 23:00] VITALS: BP 116/69
[2021-07-28 03:00] VITALS: BP 104/41
[2021-07-28 07:00] VITALS: BP 101/57
[2021-07-28] MEDS: TAMSULOSIN 0.4 MG CAP.ER.24H. PO SCH (07:47)
[2021-07-28] MEDS: VITAMIN B COMPLEX TABLET. PO SCH (07:47)
[2021-07-28] MEDS: oxyCODONE/APAP 5/325 1 TAB TABLET PO PRN ×4 (07:47→21:39)
[2021-07-28] MEDS: BENZONATATE 100 MG CAPSULE. PO SCH ×3 (07:47→21:38)
[2021-07-28] MEDS: guaiFENesin/CODEINE 100mg/10mg 5 ML LIQUID PO PRN ×3 (07:48→23:30)
[2021-07-28] MEDS: ASPIRIN ENTERIC COATED 81 MG TABLET.DR. PO SCH (07:48)
[2021-07-28] MEDS: FUROSEMIDE 20 MG TABLET PO SCH (08:57)
[2021-07-28] MEDS: LISINOPRIL 20 MG TABLET PO SCH (08:57)
--- NOTE | 2021-07-28 09:21 | SNU/HH DC ---
DISCHARGE ORDERS DISCHARGE INFORMATION: DISCHARGE DATE: Jul 28, 2021 FINAL DIAGNOSIS Rib fracture -Patient with fall and fracturing his ribs - -As needed pain control --> start transitioning to oral pain control -Home meds as indicated -Diet as tolerate CONDITION ON DISCHARGE: Stable CODE STATUS: Code Status: Full SENIOR LIVING: SNF STAY <30 DAYS: Yes POST DISCHARGE ORDERS: ACTIVITY ORDERS: No restrictions, Resume previous activity, Activity as tolerated WEIGHT BEARING STATUS: No restrictions, Full weight bearing, As tolerated BATHING ORDERS: Shower-keep dressing dry DIET AFTER DISCHARGE: Regular WOUND/INCISION CARE: No wound care needed CHECKS AFTER DISCHARGE: CHECKS AFTER DISCHARGE: Check blood press - daily, Check your Temp as needed TREATMENT/EQUIPMENT ORDERS: ADAPTIVE EQUIPMENT NEEDED: Front wheeled walker RESPIRATORY EQUIPMENT NEEDED: Oxygen Physical Therapy For: Evalulation/Treatment Occupational Therapy For: Evaluation/Treatment DISCHARGE MEDICATIONS: Home Meds Active Scripts Furosemide (FUROSEMIDE) 20 Mg Tablet, 20 MG PO DAILY for chf for 30 Days, #30 TAB 2 Refills Prov:SADAF MALDONADO MD 07/13/21 Reported Medications Carboxymethylcellulos/Glycerin (REFRESH OPTIVE EYE DROPS) 15 Ml Drops, 1 DROP EACHEYE PRN QID PRN for DRY EYE, #30 ML 6 Refills 07/12/21 Fluticasone Propionate (Flonase Allergy Relief) 9.9 Ml [place].susp, 2 SPRAYS NS PRN DAILY PRN for ALLERGIES, ML 07/12/21 Meloxicam (MELOXICAM) 15 Mg Tablet, 1 TAB PO PRN BID PRN for PAIN for 30 Days, TAB 0 Refills 07/12/21 Lisinopril (LISINOPRIL) 40 Mg Tablet, 40 MG PO DAILY for FOR HYPERTENSION, #30 TAB 0 Refills 07/12/21 Tamsulosin Hcl (FLOMAX) 0.4 Mg Cap.er.24h, 0.4 MG PO DAILY for bmp, TAB 09/09/20 Tiotropium Br/Olodaterol HCl (Stiolto Respimat Inhal [place]) 4 Gm Mist.inhal, 2 INH IH DAILY for sob, SPRAY 06/24/20 Cholecalciferol (Vitamin D3) (Vitamin D3) 1,250 Mcg Capsule, PO DAILY for supp, CAP 05/12/20 Vitamin B Complex (B COMPLEX) 1 Each Tablet, 1 TAB PO DAILY for supp for 30 Days, #30 TAB 0 Refills 05/12/20 Albuterol Sulfate (PROAIR HFA INHALER) 8.5 Gm Hfa.aer.ad, 2 PUFF IH PRN Q4-6HRS PRN for wheezing for 21 Days, #1 INHALER 0 Refills 05/12/20 Acetaminophen (ACETAMINOPHEN) 500 Mg Tablet, 2 TAB PO DAILY PRN for pain or fever for 15 Days, #60 TAB 0 Refills 05/12/20 Lorazepam (ATIVAN) 1 Mg Tablet, 1 MG PO HS for anxiety, TAB 05/12/20 Ropinirole Hcl (ROPINIROLE HCL) 1 Mg Tablet, 1 MG PO QHS for restless leg syndrome, TAB 01/12/20 Rosuvastatin Calcium (CRESTOR) 40 Mg Tablet, 40 MG PO HS for FOR CHOLESTEROL, #30 TAB 0 Refills 11/23/17 Metoprolol Succinate (METOPROLOL SUCCINATE ( XL )) 100 Mg Tab.er.24h, 100 MG PO HS for FOR HYPERTENSION, #30 TAB 0 Refills 11/23/17 Omeprazole (OMEPRAZOLE) 40 Mg Capsule.dr, 20 MG PO HS for acid reflux, #30 CAP 3 Refills 04/20/17 Oxycodone Hcl (OXYCODONE HCL IMMED.RELEASE) 10 Mg Tablet, 20 MG PO PRN Q4HRS PRN for PAIN, #120 TAB 01/25/16 Duloxetine Hcl (CYMBALTA) 30 Mg Capsule.dr, 60 MG PO HS for , #30 CAP 5 Refills 01/03/16 Aspirin (ASPIR 81) 81 Mg Tablet.dr, 81 MG PO DAILY08, TAB 08/26/13 Discontinued Reported Medications Varenicline Tartrate (Varenicline Tartrate) 1 Mg Tablet, 1 MG PO BID for smoking cessation, TAB 07/12/21 Oxycodone Hcl (OXYCODONE HCL) 20 Mg Tablet, 20 MG PO DAILY for pain, TAB 0 Refills 07/12/21 Folic Acid (FOLIC ACID) 0.8 Mg Tablet, 0.8 MG PO DAILY for SUPPLEMENT, TAB 03/10/21 CHANG RUFF MD Jul 28, 2021 09:21
--- NOTE | 2021-07-28 09:47 | PDOC ---
PULMONARY PROGRESS NOTES DATE: 07/28/21 TIME: 09:47 Subjective Patient yesterday was overmedicated, somewhat confused at times, declined to go to long term unit despite my conversation with him earlier doing day. Now feels better, less confused, pain appears to be controlled Vitals Vital Signs Date Time Temp Pulse Resp B/P (MAP) Pulse Ox O2 Delivery O2 Flow Rate FiO2 07/28/21 08:42 16 98 Nasal Cannula 5.0 07/28/21 07:00 97.4 65 101/57 (72) 97.4 ROS: No Nausea, No Chest Pain, No Abdominal Pain, No Increase Cough General: Alert, No acute distress HEENT: Other (nc at perrl) Lungs: Crackles Cardiovascular: S1, S2 Abdomen: Soft, Non-tender Extremities: Other (edema) Skin: Warm Medications Active Scripts Medications Dose Route/Sig Max Daily Dose Days Date Category Furosemide 20 Mg Tablet 20 Mg PO DAILY 30 07/13/21 Rx Refresh Optive Eye Drops (Carboxymethylcellulos/Glycerin) 15 Ml Drops 1 Drop EACHEYE PRN QID PRN 07/12/21 Reported Flonase Allergy Relief (Fluticasone Propionate) 9.9 Ml [place].susp 2 Sprays NS PRN DAILY PRN 07/12/21 Reported Meloxicam 15 Mg Tablet 1 Tab PO PRN BID PRN 30 07/12/21 Reported Lisinopril 40 Mg Tablet 40 Mg PO DAILY 07/12/21 Reported Flomax (Tamsulosin Hcl) 0.4 Mg Cap.er.24h 0.4 Mg PO DAILY 09/09/20 Reported Stiolto Respimat Inhal [place] (Tiotropium Br/Olodaterol HCl) 4 Gm Mist.inhal 2 Inh IH DAILY 06/24/20 Reported Vitamin D3 (Cholecalciferol (Vitamin D3)) 1,250 Mcg Capsule Unknown Dose PO DAILY 05/12/20 Reported B Complex (Vitamin B Complex) 1 Each Tablet 1 Tab PO DAILY 30 05/12/20 Reported Proair Hfa Inhaler (Albuterol Sulfate) 8.5 Gm Hfa.aer.ad 2 Puff IH PRN Q4-6HRS PRN 21 05/12/20 Reported Acetaminophen 500 Mg Tablet 2 Tab PO DAILY PRN 15 05/12/20 Reported Ativan (Lorazepam) 1 Mg Tablet 1 Mg PO HS 05/12/20 Reported Ropinirole Hcl 1 Mg Tablet 1 Mg PO QHS 01/12/20 Reported Crestor (Rosuvastatin Calcium) 40 Mg Tablet 40 Mg PO HS 11/23/17 Reported Metoprolol Succinate ( Xl ) (Metoprolol Succinate) 100 Mg Tab.er.24h 100 Mg PO HS 11/23/17 Reported Omeprazole 40 Mg Capsule.dr 20 Mg PO HS 04/20/17 Reported Oxycodone Hcl Immed.release (Oxycodone Hcl) 10 Mg Tablet 20 Mg PO PRN Q4HRS PRN 01/25/16 Reported Cymbalta (Duloxetine Hcl) 30 Mg Capsule.dr 60 Mg PO HS 01/03/16 Reported Aspir 81 (Aspirin) 81 Mg Tablet.dr 81 Mg PO DAILY08 08/26/13 Reported Impression . IMPRESSION: 1. Acute on chronic respiratory failure. 2. Abnormal CT of the chest. 3. Rib fractures 6, 7, 8, 9 ribs, subcutaneous emphysema, trace left pneumothorax, lung contusion. 4. Status post fall. 5. Obstructive sleep apnea-hypopnea syndrome. 6. Chronic obstructive pulmonary disease. 7. Tobacco habituation. 8. Coronary artery disease. 9. Hypertension. 10. Obesity. 11. Chronic pain syndrome, patient has back issues he is had multiple steroid injections, he has shoulder issues, he normally takes oxycodone 10 mg 1 to 2 tablets every 4 hours, he showed me his medication list from home Plan . Updated 07/28 Patient not discharged yesterday, he was somewhat overly sedated, he was confused, declined to go to long term unit, despite my conversation with him earlier in the day Today, conversation took place at the bedside, along with Darlene from discharge team, patient agrees to go to [facility]. Patient has some concerns regarding his previous experience at [facility], I had conversations with him, asked him to call my office if he has a bad experience so that I could address the issue on hand. The above was discussed with Dr. Qureshi, patient concerned that he will not get his routine pain medication at [facility]. I forwarded his home medication list to Dr. Qureshi updated 07/27 Discussed with social science professor case management Discussed with Dr. Qureshi Discharge today to [facility] CASE CONTRERAS MD Jul 28, 2021 09:47
[2021-07-28 10:51] VITALS: BP 93/48
[2021-07-28 15:00] VITALS: BP 107/60
[2021-07-28] MEDS ORDERED: POLYETHYLENE GLYCOL 3350 17 GM PACKET. PO PRN (17:15)
[2021-07-28 19:00] VITALS: BP 87/54
--- NOTE | 2021-07-28 21:04 | PDOC ---
[employer] PROGRESS NOTE Date of Service DOS: DATE: 07/28/21 TIME: 21:03 Chief Complaint Chief Complaint Rib fracture -Patient with fall and fracturing his ribs -Surgery consulted by emergency room recommended epidural but unable to be done despite multiple attempts -As needed pain control --> start transitioning to oral pain control -Home meds as indicated -Diet as tolerate History of Present Illness History of Present Illness 07/28 Patient evaluated examined at bedside. Resting bed continues to be wishy-washy about placement decision. Informed him that we need a decision otherwise administration will kick him out of the hospital without any help at home. 07/27 Evaluate examined at bedside. Pain controlled. Patient been [id number] on if he wants to go to assisted. Last I heard he did after speaking to him. However will need to ask again in the morning. At least check Covid PCR. for potential placement 07/26 Evaluated examined at bedside. Working on placement. Pain controlled but still requiring IV pain meds. Continue to work on pain control. Discussed with case management. 07/25/2021 Patient seen and examined He is up on the edge of the bed complained of pain On O2 per nasal cannula Discussed with case management Discussed with RN We hope to discharge to assisted tomorrow 07/24 Patient evaluated examined at bedside. He was complaining of a bit of pain. Working with therapy as well this morning. Start transitioning to oral pain medications. Therapy recommending placement. Will discuss with social work Sunday morning. Vitals/I&O Vitals/I&O: Vital Signs Date Time Temp Pulse Resp B/P (MAP) Pulse Ox O2 Delivery O2 Flow Rate FiO2 07/28/21 19:45 Nasal Cannula 5.0 07/28/21 19:00 95.6 93 22 87/54 (65) 92 95.6 I & O 07/27/21 07/27/21 07/28/21 15:00 23:00 07:00 Intake Total 350 ml 20 ml Output Total 1200 ml Balance 350 ml -1180 ml Physical Exam General: Alert, Oriented X3, Cooperative, mild distress Heart: Regular rate Lungs: Crackles Abdomen: Soft, No tenderness Extremities: No clubbing, No cyanosis Skin: No rashes, No breakdown Comment Review of Relevant I have reviewed the following items chemo (where applicable) has been applied. Medications: Current Medications Medications (Trade) Dose Ordered Sig/Janine Route PRN Reason Start Time Stop Time Status Last Admin Dose Admin Polyethylene Glycol (miraLAX PACKET) 17 gm PRN DAILY PRN PO CONSTIPATION 07/28/21 17:15 07/28/21 17:21 Justifications for Admission Other Justification CHF exacerbation DEVON CRUZ MD Jul 28, 2021 21:04
[2021-07-28] MEDS: ATORVASTATIN CALCIUM 40 MG TABLET. PO SCH (21:39)
[2021-07-28] MEDS: PANTOPRAZOLE 40 MG TABLET.DR. PO SCH (21:39)
[2021-07-28] MEDS: rOPINIRole 1 MG TABLET. PO SCH (21:39)
[2021-07-28] MEDS: DULoxetine HCL 30 MG CAPSULE.DR PO SCH (21:39)
[2021-07-28] MEDS: METOPROLOL SUCC 24HR ER 100 MG TAB.ER.24H. PO SCH (21:40)
[2021-07-28 23:14] VITALS: BP 107/54
[2021-07-29] MEDS: oxyCODONE/APAP 5/325 1 TAB TABLET PO PRN ×2 (01:42→05:46)
[2021-07-29 07:00] VITALS: BP 104/54
--- NOTE | 2021-07-29 08:11 | PDOC ---
PULMONARY PROGRESS NOTES DATE: 07/29/21 TIME: 08:11 Subjective Patient yesterday was overmedicated, somewhat confused at times, declined to go to fdc unit despite my conversation with him earlier doing day. Now feels better, less confused, pain appears to be controlled Vitals Vital Signs Date Time Temp Pulse Resp B/P (MAP) Pulse Ox O2 Delivery O2 Flow Rate FiO2 07/29/21 08:00 Nasal Cannula 5.0 07/29/21 07:00 97.5 70 20 104/54 (71) 90 97.5 ROS: No Nausea, No Chest Pain, No Abdominal Pain, No Increase Cough General: Alert, No acute distress HEENT: Other (nc at perr) Lungs: Crackles Cardiovascular: S1, S2 Abdomen: Soft, Non-tender Extremities: Other (edema) Skin: Warm Labs Laboratory Tests Test 07/28/21 11:15 Coronavirus (COVID-19)(PCR) Not detected (NOT DETECTD) Laboratory Tests Test 07/28/21 11:15 Coronavirus (COVID-19)(PCR) Not detected (NOT DETECTD) Medications Active Scripts Medications Dose Route/Sig Max Daily Dose Days Date Category Furosemide 20 Mg Tablet 20 Mg PO DAILY 30 07/13/21 Rx Refresh Optive Eye Drops (Carboxymethylcellulos/Glycerin) 15 Ml Drops 1 Drop EACHEYE PRN QID PRN 07/12/21 Reported Flonase Allergy Relief (Fluticasone Propionate) 9.9 Ml [place].susp 2 Sprays NS PRN DAILY PRN 07/12/21 Reported Meloxicam 15 Mg Tablet 1 Tab PO PRN BID PRN 30 07/12/21 Reported Lisinopril 40 Mg Tablet 40 Mg PO DAILY 07/12/21 Reported Flomax (Tamsulosin Hcl) 0.4 Mg Cap.er.24h 0.4 Mg PO DAILY 09/09/20 Reported Stiolto Respimat Inhal [place] (Tiotropium Br/Olodaterol HCl) 4 Gm Mist.inhal 2 Inh IH DAILY 06/24/20 Reported Vitamin D3 (Cholecalciferol (Vitamin D3)) 1,250 Mcg Capsule Unknown Dose PO DAILY 05/12/20 Reported B Complex (Vitamin B Complex) 1 Each Tablet 1 Tab PO DAILY 30 05/12/20 Reported Proair Hfa Inhaler (Albuterol Sulfate) 8.5 Gm Hfa.aer.ad 2 Puff IH PRN Q4-6HRS PRN 21 05/12/20 Reported Acetaminophen 500 Mg Tablet 2 Tab PO DAILY PRN 15 05/12/20 Reported Ativan (Lorazepam) 1 Mg Tablet 1 Mg PO HS 05/12/20 Reported Ropinirole Hcl 1 Mg Tablet 1 Mg PO QHS 01/12/20 Reported Crestor (Rosuvastatin Calcium) 40 Mg Tablet 40 Mg PO HS 11/23/17 Reported Metoprolol Succinate ( Xl ) (Metoprolol Succinate) 100 Mg Tab.er.24h 100 Mg PO HS 11/23/17 Reported Omeprazole 40 Mg Capsule. 20 Mg PO HS 04/20/17 Reported Oxycodone Hcl Immed.release (Oxycodone Hcl) 10 Mg Tablet 20 Mg PO PRN Q4HRS PRN 01/25/16 Reported Cymbalta (Duloxetine Hcl) 30 Mg Capsule.dr 60 Mg PO HS 01/03/16 Reported Aspir 81 (Aspirin) 81 Mg Tablet.dr 81 Mg PO DAILY08 08/26/13 Reported Impression . IMPRESSION: 1. Acute on chronic respiratory failure. 2. Abnormal CT of the chest. 3. Rib fractures 6, 7, 8, 9 ribs, subcutaneous emphysema, trace left pneumothorax, lung contusion. 4. Status post fall. 5. Obstructive sleep apnea-hypopnea syndrome. 6. Chronic obstructive pulmonary disease. 7. Tobacco habituation. 8. Coronary artery disease. 9. Hypertension. 10. Obesity. 11. Chronic pain syndrome, patient has back issues he is had multiple steroid injections, he has shoulder issues, he normally takes oxycodone 10 mg 1 to 2 tablets every 4 hours, he showed me his medication list from home Plan . Updated 07/28 Patient not discharged yesterday, he was somewhat overly sedated, he was confused, declined to go to fdc unit, despite my conversation with him earlier in the day Today, conversation took place at the bedside, along with Darlene from discharge team, patient agrees to go to [facility]. Patient has some concerns regarding his previous experience at [facility], I had conversations with him, asked him to call my office if he has a bad experience so that I could address the issue on hand. The above was discussed with Dr. Qureshi, patient concerned that he will not get his routine pain medication at [facility]. I forwarded his home medication list to Dr. Qureshi updated 07/27 Discussed with dialysis social worker case management Discussed with Dr. Qureshi Discharge today to [facility] CASE CONTRERAS MD Jul 29, 2021 08:11
[2021-07-29 08:22] VITALS: BP 104/54
[2021-07-29] MEDS: ASPIRIN ENTERIC COATED 81 MG TABLET.DR. PO SCH (08:22)
[2021-07-29] MEDS: VITAMIN B COMPLEX TABLET. PO SCH (08:22)
[2021-07-29] MEDS: FUROSEMIDE 20 MG TABLET PO SCH (08:22)
[2021-07-29] MEDS: TAMSULOSIN 0.4 MG CAP.ER.24H. PO SCH ×2 (08:22→08:23)
[2021-07-29] MEDS: LISINOPRIL 20 MG TABLET PO SCH (08:22)
[2021-07-29] MEDS: BENZONATATE 100 MG CAPSULE. PO SCH (08:22)
[2021-07-29] MEDS ORDERED: OXYC1TAB15 PO (10:06)
--- NOTE | 2021-07-29 10:45 | NUR ---
Discharge Note: CATRACHITA FOX [address] Discharge instructions and discharge home medications reviewed with Other facility and a copy given. All questions have been answered and understanding verbalized. The following instructions and handouts were given: information about activity, medications, diet, follow up, tests. Discontinued lines and drains: IV line in right wrist removed, catheter tip intact. Patient discharged to [facility] with PMC transport, wheelchair used for mobility to discharge vehicle. Addendum: 07/29/21 at 1122 by ASTRID SON RN Report given to KATIA Singh at [facility].
[2021-07-29] MEDS ORDERED: OXYC5CAP PO (11:16)
[2021-07-30] MEDS ORDERED: OXYC10TA PO ×2 (12:21→12:28)
--- NOTE | 2021-08-12 13:53 | PDOC3 ---
Discharge Summary Visit Information Date of Admission: Jul 22, 2021 Date of Discharge: Jul 28, 2021 Final Diagnosis Rib fracture from fall, tripped on his oxygen concentrator Chronic respiratory failure, COPD, obstructive sleep apnea-hypopnea syndrome, coronary artery disease, diastolic congestive heart failure, obesity BMI 36 weakness, debility, fall risk Brief Hospital Course Allergies Allergies Coded Allergies Type Severity Reaction Last Updated Verified No Known Drug Allergies 07/22/21 No Brief Hospital Course Mr. Marlow is a 76 old fell on his oxygen tank. Acute onset of pain at left chest. w/ multiple rib fractures. Pt with c/o difficulty moving, eating and breathing secondary to pain. req. pain control and PT and OT He does have history of 60-nvxc-same smoking, and continues to smoke about a few cigarettes per day. He is on oxygen 1 liter per minute via nasal cannula and 3 with activity. BiPAP at night. He does have COPD, chronic respiratory failure and SWETHA severe pain, epidural considered, was ineffective, didnt want to goto skilled, was unable to go home Discharge Information Condition at Discharge: Improved Disposition/Orders: D/C to Another Facility (skilled) Scheduled Aspirin (Aspir 81) 81 Mg Tablet., 81 MG PO DAILY08, (Reported) Entered as Reported by: CHARLA CARLOS on 08/26/13 1557 Last Action: Continued on 07/23/21 1037 by DEVON CRUZ MD Cholecalciferol (Vitamin D3) (Vitamin D3) 1,250 Mcg Capsule, Unknown Dose PO DAILY for supp, (Reported) Entered as Reported by: KRISTI KAUR on 05/12/20 1512 Last Action: HELD on 07/23/21 1037 by DEVON CRUZ MD Duloxetine Hcl (Cymbalta) 30 Mg Capsule., 60 MG PO HS for , #30 Ref 5 (Reported) Entered as Reported by: KRISTI KAUR on 01/03/16 1322 Last Action: Continued on 07/23/21 1037 by DEVON CRUZ MD Furosemide (Furosemide) 20 Mg Tablet, 20 MG PO DAILY for chf for 30 Days, #30 Ref 2 Prescribed by: SADAF MALDONADO MD on 07/13/21 1114 Last Action: Continued on 07/23/21 1037 by DEVON CRUZ MD Lisinopril (Lisinopril) 40 Mg Tablet, 40 MG PO DAILY for FOR HYPERTENSION, #30 Ref 0 (Reported) Entered as Reported by: OTTONIEL RAMIREZ on 07/12/21 0231 Last Action: Continued on 07/23/21 1037 by DEVON CRUZ MD Lorazepam (Ativan) 1 Mg Tablet, 1 MG PO HS for anxiety, (Reported) Entered as Reported by: KRISTI KAUR on 05/12/20 1508 Last Action: Continued on 07/23/21 1037 by DEVON CRUZ MD Metoprolol Succinate (Metoprolol Succinate ( Xl )) 100 Mg Tab.er.24h, 100 MG PO HS for FOR HYPERTENSION, #30 Ref 0 (Reported) Entered as Reported by: CHARLA CARLOS on 11/23/17 1055 Last Action: Continued on 07/23/21 1037 by DEVON CRUZ MD Omeprazole (Omeprazole) 40 Mg Capsule.dr, 20 MG PO HS for acid reflux, #30 Ref 3 (Reported) Entered as Reported by: BRANDAN MILLER on 04/20/17 1450 Last Action: Converted on 07/23/21 1037 by DEVON CRUZ MD Ropinirole Hcl (Ropinirole Hcl) 1 Mg Tablet, 1 MG PO QHS for restless leg syndrome, (Reported) Entered as Reported by: XIN CUI on 01/12/20 0832 Last Action: Continued on 07/23/21 1037 by DEVON CRUZ MD Rosuvastatin Calcium (Crestor) 40 Mg Tablet, 40 MG PO HS for FOR CHOLESTEROL, #30 Ref 0 (Reported) Entered as Reported by: CHARLA CARLOS on 11/23/17 1055 Last Action: Converted on 07/23/21 1037 by DEVON CRUZ MD Tamsulosin Hcl (Flomax) 0.4 Mg Cap.er.24h, 0.4 MG PO DAILY for bmp, (Reported) Entered as Reported by: XIN CUI on 09/09/20 1345 Last Action: Continued on 07/23/21 1037 by DEVON CRUZ MD Tiotropium Br/Olodaterol HCl (Stiolto Respimat Inhal [place]) 4 Gm Mist.inhal, 2 INH IH DAILY for sob, (Reported) Entered as Reported by: KRISTI KAUR on 06/24/20 0927 Last Action: Reviewed on 07/22/21 2341 by FABIO ALCALA LPN Vitamin B Complex (B Complex) 1 Each Tablet, 1 TAB PO DAILY for supp for 30 Days, #30 Ref 0 (Reported) Entered as Reported by: KRISTI KAUR on 05/12/201511 Last Action: Continued on 07/23/21 1037 by DEVON CRUZ MD Scheduled PRN Acetaminophen (Acetaminophen) 500 Mg Tablet, 2 TAB PO DAILY PRN for pain or fever for 15 Days, #60 Ref 0 (Reported) Entered as Reported by: KRISTI KAUR on 05/12/201509 Last Action: HELD on 07/23/21 1037 by DEVON CRUZ MD Albuterol Sulfate (Proair Hfa Inhaler) 8.5 Gm Hfa.aer.ad, 2 PUFF IH PRN Q4-6HRS PRN for wheezing for 21 Days, #1 Ref 0 (Reported) Entered as Reported by: KRISTI KAUR on 05/12/201511 Last Action: HELD on 07/23/21 1037 by DEVON CRUZ MD Carboxymethylcellulos/Glycerin (Refresh Optive Eye Drops) 15 Ml Drops, 1 DROP EACHEYE PRN QID PRN for DRY EYE, #30 Ref 6 (Reported) Entered as Reported by: OTTONIEL RAMIREZ on 07/12/21230 Last Action: HELD on 07/23/21 1037 by DEVON CRUZ MD Fluticasone Propionate (Flonase Allergy Relief) 9.9 Ml [place].susp, 2 SPRAYS NS PRN DAILY PRN for ALLERGIES, (Reported) Entered as Reported by: OTTONIEL RAMIREZ on 07/12/21230 Last Action: HELD on 07/23/21 1037 by DEVON CRUZ MD Meloxicam (Meloxicam) 15 Mg Tablet, 1 TAB PO PRN BID PRN for PAIN for 30 Days, Ref 0 (Reported) Entered as Reported by: OTTONIEL RAMIREZ on 07/12/21230 Last Action: HELD on 07/23/21 1037 by DEVON CRUZ MD Oxycodone Hcl (Oxycodone Hcl) 5 Mg Capsule, 5 MG PO PRN Q6HRS PRN for PAIN for 15 Days, #30 Ref 0 Prescribed by: DEVON CRUZ MD on 07/29/21 1117 Oxycodone Hcl (Oxycodone Hcl Immed.release) 10 Mg Tablet, 2 TAB PO Q4HRS PRN for pain MDD 8 TABS, #180 Ref 0 Prescribed by: CHANG RUFF on 07/30/21 1229 Patient Instructions Patient Instructions pt seen at [facility] face to face eval Justicifation of Admission Dx: Justifications for Admission: Justification of Admission Dx: Yes Acute Renal Failure: 3-Fold Rise in Serum Crea CHANG RUFF MD Aug 12, 2021 13:53
== END 2021-07-29 10:45 | DRG 183 ==
LOC: ER 17:08 → 4 NORTH 21:30
PROVIDERS: ADMIT Family Medicine; ATTEND Family Medicine
DX: S22.42XA Multiple fractures of ribs, left side, initial encounter for closed fracture (principal); J96.20 Acute and chronic respiratory failure, unspecified whether with hypoxia or hypercapnia; T79.7XXA Traumatic subcutaneous emphysema, initial encounter; I50.32 Chronic diastolic (congestive) heart failure; J93.9 Pneumothorax, unspecified; S27.321A Contusion of lung, unilateral, initial encounter; E66.9 Obesity, unspecified; Z68.36 Body mass index [BMI] 36.0-36.9, adult; E78.00 Pure hypercholesterolemia, unspecified; E78.5 Hyperlipidemia, unspecified; F17.200 Nicotine dependence, unspecified, uncomplicated; F41.9 Anxiety disorder, unspecified; G47.33 Obstructive sleep apnea (adult) (pediatric); G89.4 Chronic pain syndrome; I11.0 Hypertensive heart disease with heart failure; I25.10 Atherosclerotic heart disease of native coronary artery without angina pectoris; Z20.822 Contact with and (suspected) exposure to COVID-19; J44.9 Chronic obstructive pulmonary disease, unspecified; K21.9 Gastro-esophageal reflux disease without esophagitis; M19.90 Unspecified osteoarthritis, unspecified site; W01.0XXA Fall on same level from slipping, tripping and stumbling without subsequent striking against object, initial encounter; K57.30 Diverticulosis of large intestine without perforation or abscess without bleeding; Z82.49 Family history of ischemic heart disease and other diseases of the circulatory system; Z95.5 Presence of coronary angioplasty implant and graft; Z99.81 Dependence on supplemental oxygen; Y93.89 Activity, other specified; Y92.89 Other specified places as the place of occurrence of the external cause; Y99.8 Other external cause status
CPT/HCPCS: 36415; 71045; 71046; 71260; 74177; 80053; 84484; 85025; 93005; 94640; 96374; 96376; G0238; J2270; J3010; Q9967; U0003; 97110-GP; 97116-GP; 97530-GO; 97530-GP; 97535-GO; 99285-25; G0378

== ENCOUNTER → 2021-08-24 | Outpatient (CLI) | payer MEDICARE, OTHER ==
[2021-07-29 08:22] VITALS: BP 104/54
[~2021-08-24] MED LIST changes: +OXYC1TAB15 PO; +OXYC5CAP PO
--- NOTE | 2021-08-24 16:57 | KCIC ---
EXAM: XR CHEST 2V 08/24/2021 3:33 PM CLINICAL INDICATION: Dyspnea on exertion, recent fall. Rib fracture, COPD and CHF COMPARISON: Chest radiograph 07/25/2021 TECHNIQUE: PA and lateral views of the chest FINDINGS: An electronic device projects over the left chest wall. The heart is normal in size. There is an increase small to moderate left pleural effusion and left basilar opacities. There is a calcifi ed granuloma in the right lung. No pneumothorax. Displaced fractures of the left lateral sixth, seven th, and eighth ribs are redemonstrated. IMPRESSION: 1. Increased small to moderate left pleural effusion and left basilar opacities. 2. Redemonstration of mildly displaced left rib fractures involving at least the sixth through eighth ribs. No pneumothorax. Electronically signed by: Myrna Newton MD (08/24/2021 4:55 PM) [id number]
== END ==
LOC: KCIC 15:27
PROVIDERS: ATTEND Family Medicine
DX: S22.42XA Multiple fractures of ribs, left side, initial encounter for closed fracture (principal); J90 Pleural effusion, not elsewhere classified; R91.8 Other nonspecific abnormal finding of lung field; J84.10 Pulmonary fibrosis, unspecified; X58.XXXA Exposure to other specified factors, initial encounter; Y93.89 Activity, other specified; Y92.89 Other specified places as the place of occurrence of the external cause; Y99.8 Other external cause status
CPT/HCPCS: 71046

== ENCOUNTER → 2021-09-02 | Outpatient (CLI) | payer MEDICARE, OTHER ==
--- NOTE | 2021-09-02 11:21 | RAD ---
EXAM: Chest CT without intravenous contrast. HISTORY: Shortness of breath. TECHNIQUE: Computed tomographic images of the chest were obtained without contrast. Multiplanar refor matting was performed. *One or more of the following individualized dose reduction techniques were utilized for this examina tion: 1. Automated exposure control. 2. Adjustment of the mA and/or kV according to patient size. 3. Use of iterative reconstruction technique. COMPARISON: 07/22/2021. FINDINGS: There is a new moderate left pleural effusion. There is partial left lower lobe collapse an d suspected superimposed partial lower lobe consolidation. There is right basilar and posterior depen dent atelectasis. There is emphysema. There is no pneumothorax. There is medial right middle lobe and lingular atelectasis or infiltrate. There is a calcified granuloma within the right mid thorax along the horizontal fissure. The heart is normal in size. There is coronary artery calcification. There are calcified the central and right hilar granulomas. No pathologically enlarged mediastinal or hilar lymph node is seen. There is calcification of the aortic valve. There is hepatic steatosis. The visualized portions of the pancreas and spleen are unremarkable. The adrenal glands are unremarkable. There is a 1.6 cm hyperdense lesion involving the upper pole of the right kidney. There is an adjacent small cyst. There are displaced lateral left fifth, sixth and seventh rib fractures. There is slight callus forma tion surrounding these fractures suggesting slight interval healing. There is a displaced posterior l eft eighth rib fracture and comminuted lateral left eighth rib fracture. There is a comminuted food and beverage analyst ior lateral right ninth rib fracture. There are degenerative changes throughout the spine. No vertebr al fracture is seen. There has been resolution of previously demonstrated soft tissue emphysema along the left chest wall and flank. IMPRESSION: 1. New moderate left pleural effusion and partial left lower lobe collapse and suspected partial left lower lobe consolidation. 2. Displaced left fifth, sixth, seventh, eighth and ninth rib fractures, the latter of which are comm inuted and segmental and the former of which demonstrates slight callus formation chest with slight h ealing. 3. Emphysema. 4. Coronary artery calcification and calcification of the aortic valve. 5. Right renal lesions, one of which is a cyst and the other which is hyperdense and possibly a hemor rhagic cyst based on prior sonographic findings. Electronically signed by: Samantha Rodriguez MD (09/02/2021 11:19 AM) [id number]
== END ==
LOC: CT 12:55
PROVIDERS: ATTEND Internal Medicine Pulmonary Disease
DX: S22.42XA Multiple fractures of ribs, left side, initial encounter for closed fracture (principal); J90 Pleural effusion, not elsewhere classified; I25.10 Atherosclerotic heart disease of native coronary artery without angina pectoris; J84.10 Pulmonary fibrosis, unspecified; I35.1 Nonrheumatic aortic (valve) insufficiency; K76.0 Fatty (change of) liver, not elsewhere classified; J43.9 Emphysema, unspecified; J98.11 Atelectasis; M47.819 Spondylosis without myelopathy or radiculopathy, site unspecified; X58.XXXA Exposure to other specified factors, initial encounter; Y93.89 Activity, other specified; Y92.89 Other specified places as the place of occurrence of the external cause; Y99.8 Other external cause status
CPT/HCPCS: 71250

== ENCOUNTER 2021-09-20 08:45 | Outpatient (CLI) | payer MEDICARE, OTHER ==
[~2021-09-20] VITALS: Ht 182.9 cm; Wt 125.0 kg
[2021-09-20] MEDS ORDERED: FURO40TA4 PO (09:14)
[2021-09-20 09:19] LABS: BASO # 0.1 x10^3/uL (0.0-0.2); BASO % 1 % (0-3); EOS # 0.2 x10^3/uL (0.0-0.7); EOS % 3 % (0-3); HEMATOCRIT 38.7 % (39.0-53.0); HEMOGLOBIN 12.9 g/dL (13.0-17.5); LYMPH # 1.8 x10^3/uL (1.0-4.8); LYMPH % 27 % (24-48); MEAN CORPUSCULAR HEMOGLOBIN 33 pg (25-35); MEAN CORPUSCULAR HGB CONC 33 g/dL (31-37); MEAN CORPUSCULAR VOLUME 100 fL (79-100); MONO # 0.6 x10^3/uL (0.0-1.1); MONO % 10 % (0-9); NEUT # 3.9 x10^3/uL (1.8-7.7); NEUT % 60 % (31-73); PLATELET COUNT 183 x10^3/uL (140-400); RED BLOOD COUNT 3.88 x10^6/uL (4.30-5.70); WHITE BLOOD COUNT 6.6 x10^3/uL (4.0-11.0)
[2021-09-20 09:31] VITALS: BP 139/76
[2021-09-20 09:32] LABS: PROTHROMBIN TIME PATIENT 12.8 SEC (11.7-14.0)
[2021-09-20 10:00] VITALS: BP 133/52
[2021-09-20 10:15] VITALS: BP 133/75
--- NOTE | 2021-09-20 10:28 | RAD ---
Left Thoracentesis 09/20/2021 10:13 AM Clinical History: Left pleural effusion. Technique: Relative benefits risks and alternatives were discussed with the patient and/or their rep resentative. Written informed consent was obtained. The patient was placed in seated position. A deon eout procedure was performed. Sonographic assessment demonstrates a large pleural effusion. A site for skin entry was selected, and subsequently prepped and draped using sterile barrier technique. 1% lidocaine without epinepherine was administered for local anesthesia to the skin and subcutaenous tissues. A 5 Tamazight sheathed needle was passed into the pleural space. Clear yellow fluid was aspirated and t he catheter was connected to a vacuum. Approximately 0.4 liters of fluid were drained. The catheter w as removed and adequate hemostasis was obtained. A sterile dressing was applied. The patient tolerat ed the procedure well, without complications. Impression: Successful ultrasound guided thoracentesis with removal of 0.4 liters of fluid. Electronically signed by: Alok Esquivel MD (09/20/2021 10:25 AM) [id number]
[2021-09-20 10:30] VITALS: BP 121/67
[2021-09-20 10:46] VITALS: BP 125/70
--- NOTE | 2021-09-20 10:47 | NUR ---
Discharge Note: CATRACHITA FOX Discharge instructions and discharge home medications reviewed with Patient and a copy given. All questions have been answered and understanding verbalized. The following instructions and handouts were given: Thoracentesis Patient discharged to Home
== END 2021-09-20 10:41 | disposition home or self-care (01) ==
LOC: INTRAD 08:45
PROVIDERS: ATTEND Internal Medicine Pulmonary Disease
DX: J90 Pleural effusion, not elsewhere classified (principal); I25.10 Atherosclerotic heart disease of native coronary artery without angina pectoris; I10 Essential (primary) hypertension; E78.00 Pure hypercholesterolemia, unspecified; J44.9 Chronic obstructive pulmonary disease, unspecified; G47.30 Sleep apnea, unspecified; K21.9 Gastro-esophageal reflux disease without esophagitis; N40.0 Benign prostatic hyperplasia without lower urinary tract symptoms; M19.90 Unspecified osteoarthritis, unspecified site; F41.9 Anxiety disorder, unspecified; F32.9 Major depressive disorder, single episode, unspecified; F17.210 Nicotine dependence, cigarettes, uncomplicated; Z79.82 Long term (current) use of aspirin; Z79.899 Other long term (current) drug therapy; Z98.890 Other specified postprocedural states
CPT/HCPCS: 32555; 36415; 85025; 85610; C1892